=== PATIENT | male | born 1945 | race Caucasian/White ===

== ENCOUNTER 2019-08-08 10:42 | Outpatient (CLI) | payer MEDICARE, SELFPAY ==
[2019-08-08 11:13] LABS: Blood Urea Nitrogen 17 mg/dL (9-20); Calcium 9.2 mg/dL (8.4-10.2); Carbon Dioxide 30 mmol/L (22-30); Chloride 97 mmol/L (98-107); Estimated Glomerular Filt Rate > 60; Glucose 127 mg/dL (75-110); Potassium 4.2 mmol/L (3.4-5.0); Sodium 139 mmol/L (137-145)
[2019-08-08 11:22] LABS: NT Pro B Type Natriuretic Pept 493 PG/ML (5-100)
== END 2019-08-08 10:43 | disposition home or self-care (01) ==
PROVIDERS: PCP Internal Medicine; Visit Provider Internal Medicine Cardiovascular Disease
DX: R60.0 Localized edema (principal); R06.02 Shortness of breath
CPT/HCPCS: 36415; 80048; 83880

== ENCOUNTER 2019-08-25 06:59 | Outpatient (CLI) | payer MEDICARE, SELFPAY ==
--- NOTE | 2019-09-08 13:21 | SLEEP_ITS ---
CPAP titration. DATE OF STUDY: 08/25/2019 ORDERING PHYSICIAN: Selvin Gusman Nurse practitioner. REASON FOR THE STUDY: Obstructive sleep apnea syndrome on autoPAP, still symptomatic. HISTORY: The patient is a 73-year-old male, 69 inches tall, weighing 270 pounds with a body mass index of 39.9. He has a history of obstructive sleep apnea syndrome with a prior CPAP titration on July 21, 2016, with optimal pressure of 10 cm. He had some central apneas noted on the study. He has been on autoPAP 8-20 cm with good compliance. Average pressure is 15 cm. His apnea-hypopnea index is 11.8 with some centrals. This is higher than desirable as far as AHI. He is not waking up feeling refreshed. He is tired in the day and he takes naps. He has frequent nocturia. His [place] is elevated at 15. Previously, he was on 11 cm of water pressure before going on autoPAP and his apnea-hypopnea index was elevated at 15. He returned to the lab this time to determine if he needs a different setting or if he needs BiPAP due to the numerous central apneas. MEDICAL COMORBIDITIES: Atrial fibrillation, on chronic anticoagulation; hypertension, hyperlipidemia; rheumatoid arthritis, on methotrexate; chronic pain, obstructive sleep apnea syndrome. MEDICATIONS: 1. Furosemide 40 mg b.i.d. 2. Methotrexate 2.5 mg 10 tablets weekly. 3. Gabapentin 300 mg t.i.d. 4. Aspirin 81 mg a day. 5. Eliquis 5 mg twice a day. 6. Simvastatin 40 mg a day, half tablet daily. 7. Folic acid 1 mg daily. 8. Prednisone 5 mg 3 tablets once a day. 9. Metoprolol tartrate 25 mg half tablet b.i.d. 10. B complex vitamin. 11. Multivitamin. 12. Calcium daily. 13. Amiodarone 200 mg b.i.d. HABITS: No tobacco since 1998. Four cups of caffeinated beverage a day. DESCRIPTION OF THE STUDY: On the [place] Sleepiness Scale, his score is 16. This was conducted as a full night CPAP titration using the [employer] multiple channel system including EOG, EEG, submental EMG, EKG, nasal and oral airflow using thermistors and nasal pressure sensors, chest and abdominal belts, body position data and pulse oximetry. This study was scored using CMS guidelines. Duration of the study was 414.4 minutes. Sleep time 383.5 minutes. Sleep efficiency 92.5%. Sleep latency 5.6 minutes. REM latency short, 64 minutes. There were 19 awakenings and he spent 6.2% of the study awake after sleep onset 25.3 minutes. Sleep architecture showed 4.6% stage 1 sleep, 73.1% stage 2 sleep, 0.1% stage 3 sleep and 15.9% stage REM. He spent 90.8% of the study supine. He had 4 REM cycles. Sleep was overall well consolidated. The apnea-hypopnea index overall for the study was 13.9. The obstructive index was 13.3, central index 0.2. He had 8 obstructive apneas, 3 obstructive hypopneas for an index of 10.2. This was in supine REM. There was no non-supine REM. He had 20 obstructive apneas, 1 central apnea, 3 mixed apneas, 53 obstructive hypopneas in supine non-REM for an index of 15.1. He had 1 obstructive apnea in non-supine non-REM for an index of 4.8. The supine index is 14.2. Non-supine index 4.8. Lowest desaturation 77%. The patient spent 4.8 minutes below 88% saturation 1.2% of the study. He had 89 desaturations of 4% or greater for an index of 12.9. Mean saturation was 96%. AROUSALS: 55 arousals for an index of 8.0. He had 6 apneas for an index of 0.9, 6 hypopneas for an index of 0.9, 7 snores for an index of 1, 17 spontaneous for an index of 2.5, 19 limb movements for an index of 2.8. LIMB MOVEMENTS: 862 isolated limb movements for an index of 134.9. He had 11 periodic limb movements for an index of 1.7. EKG: Mean heart rate 62, sinus rhythm, sinus bradycardia also seen. During this titration, the patient used a
== END 2019-08-25 07:00 | disposition home or self-care (01) ==
LOC: ANHCSM 07:00
PROVIDERS: PCP Internal Medicine; Visit Provider Nurse Practitioner Family
DX: G47.33 Obstructive sleep apnea (adult) (pediatric) (principal)
CPT/HCPCS: 95811

== ENCOUNTER 2019-10-04 10:37 | Outpatient (CLI) | payer MEDICARE, SELFPAY ==
--- NOTE | ~2019-10-04 | CT_ITS ---
EXAMINATION: CT abdomen pelvis wo con DATE: 10/04/2019 11:30 INDICATION: Left lower quadrant pain, possible hernia TECHNIQUE: Computed tomography (CT) of the abdomen and pelvis was performed without intravenous contr ast. The dose-length product (DLP) was 1503.05 mGy-cm. Automated exposure control and iterative recon struction technique were employed. COMPARISON: None FINDINGS: Minimal dependent atelectasis is present in the lung bases. The heart size is normal. There is nodularity of the liver surface. The spleen, pancreas, and gallbladder are normal. There is a 14 mm adenoma of the right adrenal gland. A 16 mm mass of the left adrenal gland likely represents an ad enoma in the absence of known malignancy. There is a 9 mm nonobstructing stone of the left kidney low er pole. The right kidney is unremarkable. There is calcified atherosclerosis of the aorta and many o f the other arteries. Colonic diverticulosis is present without evidence of diverticulitis. There is severe lumbar spondylosis. There is a tiny umbilical hernia containing fat. No large ventral hernias identified. IMPRESSION: 1. No CT correlate for the patient's symptoms. 2. Nonobstructing left nephrolithiasis. Reviewed, dictated and finalized at location A.
[2019-10-04 11:20] LABS: Basophils Percent Auto 0.3 % (0.2-1.2); Eosinophils Percent Auto 0.2 % (0-4.4); Hematocrit 36.8 % (42.0-52.0); Hemoglobin 11.8 g/dL (14.0-18.0); Immature Granulocyte Absolute 0.07 K/mm3 (0.00-0.031); Immature Granulocyte Percent A 0.8 % (0-0.5); Lymphocytes Absolute Auto 0.62 K/mm3 (0.9-3.2); Lymphocytes Percent Auto 6.9 % (18.3-44.2); Mean Corpuscular HGB Conc 32.1 g/dl (32-36); Mean Corpuscular Hemoglobin 31.7 pg (26-34); Mean Corpuscular Volume 98.9 fl (80-100); Monocytes Absolute Auto 0.4 K/mm3 (0.1-0.6); Monocytes Percent Auto 4.8 % (2.6-8.5); Neutrophils Absolute Auto 7.9 K/mm3 (1.3-6.7); Platelet Count Result 179 k/mm3 (150-375); Red Blood Count 3.72 M/mm3 (4.6-6.20); Red Cell Distribution Width 15.4 % (11.5-14.5)
[2019-10-04 11:31] LABS: Hemoglobin A1C 5.2 % (<5.7)
[2019-10-04 11:34] LABS: Alanine Aminotransferase 23 U/L (4-50); Albumin Level 3.7 g/dL (3.5-5.1); Alkaline Phosphatase 108 U/L (38-126); Aspartate Amino Transferase 27 U/L (17-59); Bilirubin,Total 0.6 mg/dL (0.2-1.3); Blood Urea Nitrogen 15 mg/dL (9-20); Calcium 8.7 mg/dL (8.4-10.2); Carbon Dioxide 28 mmol/L (22-30); Chloride 105 mmol/L (98-107); Estimated Glomerular Filt Rate > 60; Glucose 129 mg/dL (75-110); Potassium 3.9 mmol/L (3.4-5.0); Sodium 138 mmol/L (137-145)
[2019-10-04 11:53] LABS: Creatinine Urine 68.3 mg/dL
[2019-10-04 12:07] LABS: Microalbumin Urine Random < 6.0 mg/L (0-16.7)
[2019-10-04 12:08] LABS: MALB Creatinine Ratio < 8.8 mg/g (0-30)
[2019-10-04 12:25] LABS: Iron 49 ug/dL (49-181)
[2019-10-04 12:34] LABS: Percent Iron Saturation 16 % (20-50)
[2019-10-04 12:44] LABS: Folic Acid > 20.0 ng/mL (2.76->20)
== END 2019-10-04 10:38 | disposition home or self-care (01) ==
PROVIDERS: PCP Internal Medicine; Visit Provider Internal Medicine
DX: I48.91 Unspecified atrial fibrillation (principal); R73.01 Impaired fasting glucose; D64.9 Anemia, unspecified; R10.32 Left lower quadrant pain; N20.0 Calculus of kidney
CPT/HCPCS: 36415; 74176; 80053; 82043; 82607; 82728; 82746; 83036; 83540; 83550; 84443; 85025

== ENCOUNTER 2019-10-10 10:11 | Outpatient (CLI) | payer MEDICARE, SELFPAY ==
[2019-10-10 11:35] LABS: IFOB Positive Control Positive; Immunochemical Fecal Occult Bl Negative (N)
== END 2019-10-10 10:12 | disposition home or self-care (01) ==
PROVIDERS: PCP Internal Medicine; Visit Provider Internal Medicine
DX: D64.9 Anemia, unspecified (principal)
CPT/HCPCS: 82274

== ENCOUNTER 2019-10-13 09:35 | Outpatient (CLI) | payer MEDICARE, SELFPAY ==
--- NOTE | ~2019-10-13 | DEXA_ITS ---
Bone Density Report Name: Hema Chaves Age: 74 Sex: Male Ethnicity: White Date of : 1945 Indication: history of glucocorticoids; rheumatoid arthritis; Referring Provider: SHANNON CANALES Study: Bone densitometry was performed. Exam Date: October 13, 2019 Accession number: [id number] Bone Density: Region BMD T-score Z-score Classification AP Spine (L1, L2) 1.234 1.6 2.6 Normal Femoral Neck (Left) 0.661 -2.0 -0.7 Osteopenia Total Hip (Left) 0.876 -1.0 -0.3 Normal Total Hip Bilateral Avg 0.787 -1.6 -0.9 Osteopenia Femoral Neck (Right) 0.591 -2.5 -1.2 Osteoporosis Total Hip (Right) 0.697 -2.2 -1.5 Osteopenia World Health Organization criteria for BMD impression classify patients as: Normal (T-score at or above -1.0), Osteopenia (T-score between -1.0 and -2.5), or Osteoporosis (T-score at or below -2.5). 10-year Fracture Risk: FRAX not reported because: Some T-score for Spine Total or Hip Total or Femoral Neck at or below -2.5 Clinical Information Provided by Patient: Has taken Glucocorticoids Has rheumatoid arthritis Has used the following medications: Vitamin D, Calcium Patient maximum height was 70.5 No regular weight bearing exercise Drinks caffeinated beverages Impression: The patient has osteoporosis, based on the Right Femoral Neck T-score. The patient has risk factors, including: history of glucocorticoid therapy. Discussion: INCREASED RISK OF FRACTURE. BONE DENSITY IS UNDESIRABLY LOW AT ONE OR MORE SKELETAL SITES, CONSISTENT WITH OSTEOPOROSIS. This patient's lowest T-score meets the World Health Organization's (WHO) criteria for osteoporosis at one or more sites (T-score -2.5 or below). In untreated patients, the risk of osteoporotic fracture increases approximately two-fold for each 1.0 SD decrease in T-score. Low bone density is not the only risk factor for fracture; also consider factors such as patient's age, frailty or poor health, risk of falling, risk of injury, previous osteoporotic fracture, family history of osteoporosis, cigarette smoking, low body weight, etc. Not everyone with low bone mineral density has osteoporosis; osteomalacia and other metabolic bone disorders should also be considered. Patients who have osteoporosis should be evaluated for specific diseases and conditions (secondary causes) that may cause or contribute to bone loss. The National Osteoporosis Foundation (NOF) recommends pharmacologic intervention for men with BMD at this level (a T-score of -2.5 or below). The patient should follow a healthful lifestyle (good nutrition with adequate calcium and vitamin D, and appropriate weight-bearing exercise). Follow-Up: Consider repeating this study in 2 years to reassess this patient's status, or sooner if there is some new clinical indication. Reported by: GERALDINE on 10/13/2019 10:02
== END 2019-10-13 09:36 | disposition home or self-care (01) ==
LOC: ANHIMG 09:38
PROVIDERS: PCP Internal Medicine; Visit Provider Internal Medicine Rheumatology
DX: M85.89 Other specified disorders of bone density and structure, multiple sites (principal)
CPT/HCPCS: 77080

== ENCOUNTER 2019-11-27 13:41 | Outpatient (CLI) | payer MEDICARE, SELFPAY ==
--- NOTE | 2019-11-27 13:45 | ECHO_ITS ---
Patient Info Name: eHma Chaves Age: 74 years : 1945 Gender: Male Ht: 68 in Wt: 270 lbs BSA: 2.48 m2 HR: 69 bpm BP: 171 / 92 mmHg Technical Quality: Good Exam Date: 11/27/2019 1:59 PM Exam Location: [facility] Patient Status: Outpatient Admit Date: 11/27/2019 Staff Ordering Physician: Farrukh Moeller MD Desk Representative: Bruce Harper RDCS, RT Attending Provider: Farrukh Moeller MD Exam Type: CA echo doppler color flow Study Info Indications I50.9 - Heart failure, unspecified Complete two-dimensional, color flow and Doppler transthoracic echocardiogram is performed. Summary 1. Left ventricular chamber dimension is moderately enlarged. 2. Left ventricular systolic function is preserved, estimated at 50-55%. 3. There is mildly increased left ventricular wall thickness. 4. The left ventricular diastolic function is abnormal. 5. E/e' 12 is mildly elevated. 6. Global longitudinal strain is abnormal at -13.9%. 7. Linear artifact in right ventricle suggestive of catheter(s), pacemaker lead(s), or ICD lead(s). 8. Left atrial chamber dimension is severely enlarged. 9. Right atrial chamber dimension is mildly enlarged. 10. Linear artifact in the right atrium suggestive of catheter(s), pacemaker lead(s), or ICD lead(s). 11. The mitral valve has mildly calcified annulus. 12. There is moderate mitral valve regurgitation. 13. There is mild to moderate tricuspid valve regurgitation. 14. Mild pulmonary hypertension, estimated pulmonary arterial systolic pressure is 41 mmHg. 15. Dilated inferior vena cava with >50% collapse upon inspiration consistent with elevated right atrial pressure, 10 mmHg. 16. There is trivial pericardial effusion. Left Ventricle E/e' 12 is mildly elevated. Global longitudinal strain is abnormal at -13.9%. Left ventricular systolic function is preserved, estimated at 50-55%. Left ventricular chamber dimension is moderately enlarged. There is mildly increased left ventricular wall thickness. The left ventricular diastolic function is abnormal. Right Ventricle Linear artifact in right ventricle suggestive of catheter(s), pacemaker lead(s), or ICD lead(s). Right ventricular chamber dimension is normal. Right ventricular systolic function is normal. Left Atria Left atrial chamber dimension is severely enlarged. Right Atria Linear artifact in the right atrium suggestive of catheter(s), pacemaker lead(s), or ICD lead(s). Right atrial chamber dimension is mildly enlarged. Aortic Valve The aortic valve is trileaflet. There is no aortic valve stenosis. There is no aortic valve regurgitation. Pulmonic Valve There is no pulmonic regurgitation. Mitral Valve The mitral valve has mildly calcified annulus. There is no mitral valve stenosis. There is moderate mitral valve regurgitation. Tricuspid Valve There is mild to moderate tricuspid valve regurgitation. Mild pulmonary hypertension, estimated pulmonary arterial systolic pressure is 41 mmHg. Pericardium/Pleural There is trivial pericardial effusion. Inferior Vena Cava Dilated inferior vena cava with >50% collapse upon inspiration consistent with elevated right atrial pressure, 10 mmHg. Aorta The aortic root size at the sinus of Valsalva is normal. Left Ventricular Outflow Tract Name Value Normal
[2019-11-27 13:57] LABS: Basophils Percent Auto 0.1 % (0.2-1.2); Eosinophils Percent Auto 0.1 % (0-4.4); Hematocrit 39.7 % (42.0-52.0); Hemoglobin 12.7 g/dL (14.0-18.0); Immature Granulocyte Absolute 0.05 K/mm3 (0.00-0.031); Immature Granulocyte Percent A 0.7 % (0-0.5); Immature Reticulocyte Fraction 14.8 % (3.0-15.9); Lymphocytes Absolute Auto 0.82 K/mm3 (0.9-3.2); Lymphocytes Percent Auto 11.2 % (18.3-44.2); Mean Corpuscular Hemoglobin 31.4 pg (26-34); Mean Corpuscular Volume 98.3 fl (80-100); Mean Platelet Volume 10.4 fl (7.4-10.4); Monocytes Absolute Auto 0.4 K/mm3 (0.1-0.6); Monocytes Percent Auto 4.9 % (2.6-8.5); Neutrophils Absolute Auto 6.1 K/mm3 (1.3-6.7); Platelet Count Result 182 k/mm3 (150-375); Red Blood Count 4.04 M/mm3 (4.6-6.20); Red Cell Distribution Width 14.6 % (11.5-14.5); Reticulocyte Hemoglobin Conten 35.9 pg (28.2-35.7); Reticulocytes Absolute 0.09 B/L (32.2-175.7); White Blood Count 7.4 K/mm3 (4.5-10.0)
[2019-11-27 14:56] LABS: Hepatitis B Surface Antigen Negative (Negative)
[2019-11-27 15:02] LABS: HAV RESULT Negative (Negative); Hepatitis B Core IgM Result Negative (Negative)
[2019-11-27 15:13] LABS: Hepatitis C Virus Antibody Negative (Negative)
== END 2019-11-27 13:42 | disposition home or self-care (01) ==
PROVIDERS: PCP Internal Medicine; Visit Provider Internal Medicine
DX: I50.22 Chronic systolic (congestive) heart failure (principal); D64.9 Anemia, unspecified; K74.60 Unspecified cirrhosis of liver
CPT/HCPCS: 36415; 80074; 85025; 85046; 93306

== ENCOUNTER 2019-12-12 09:57 | Outpatient (CLI) | payer MEDICARE, SELFPAY ==
--- NOTE | ~2019-12-12 | XR_ITS ---
XR knee RT 2V DATE: 12/12/2019 10:15 INDICATION: Right knee pain. No injury. TECHNIQUE: AP and lateral views COMPARISON: 02/14/2018 bilateral knees FINDINGS: There is tricompartment osteoarthritis involving particularly the medial and patellofemoral compartments. There is hypertrophic change of the medial tibial spine. No fracture or dislocation, periosteal reaction or bone destruction is evident. There is moderate ost eopenia. No joint effusion or radiopaque intra-articular loose body is noted. Arterial calcification. IMPRESSION: Tricompartment osteoarthritis Osteopenia Extensive arterial calcification Reviewed, dictated and finalized at location A.
== END 2019-12-12 09:58 | disposition home or self-care (01) ==
PROVIDERS: PCP Internal Medicine; Visit Provider Internal Medicine Rheumatology
DX: M25.561 Pain in right knee (principal); M17.11 Unilateral primary osteoarthritis, right knee; M85.861 Other specified disorders of bone density and structure, right lower leg; I70.201 Unspecified atherosclerosis of native arteries of extremities, right leg
CPT/HCPCS: 73560

== ENCOUNTER → 2020-05-20 10:41 | Outpatient (CLI) | payer MEDICARE, SELFPAY ==
--- NOTE | ~2020-05-20 | XR_ITS ---
XR hand RT 2V, XR wrist RT 2V 05/20/2020 12:04 Indication: Multiple joint pain Procedure: 2 views of the right hand and 2 views of the right wrist Comparison: 12/14/2018 Findings: There is persistent severe polyarticular osteoarthritis of the right hand and wrist involvi ng the interphalangeal joints, metacarpophalangeal joints, first CMC joints and all carpal joints wit h invagination of the distal radius by the lunate. No significant interval change. No erosive changes are identified. No acute fractures identified. Extensive arterial calcifications at the wrist level. Impression: 1: No significant change to severe polyarticular osteoarthritis of the right hand and wrist compared with 12/14/2018. Reviewed, dictated and finalized at location B. BED WORKER Impression: 1: No significant change to severe polyarticular osteoarthritis of the right alvarez nd and wrist compared with 12/14/2018. Impression: 1: No significant change to severe polyarticular osteoarthritis of the right alvarez nd and wrist compared with 12/14/2018.
--- NOTE | ~2020-05-20 | XR_ITS ---
EXAMINATION: XR ankle LT 2V, XR foot LT 2V DATE: 05/20/2020 12:04 INDICATION: Multiple joint pain TECHNIQUE: 1. Anteroposterior and lateral view of the left ankle were obtained. 2. Dorsoplantar and lateral views of the left foot were obtained. COMPARISON: None. FINDINGS: Alignment of the foot and ankle is normal. No fractures. Enthesopathic ossicle and associated plantar calcaneal spur. Polyarticular osteoarthritis characterized by mild nonuniform joint space narrowing and/or tiny marginal osteophytes, moderate severity at the first metatarsophalangeal joint and mild a t the majority of the tarsal metatarsal, interphalangeal and remaining metatarsophalangeal joints. No ankle joint effusion. Scattered atherosclerotic calcifications. IMPRESSION: 1. Polyarticular osteoarthritis, moderate at the left first metatarsophalangeal and mild at multiple additional joints in the left mid and forefoot. 2. Plantar calcaneal spur and associated enthesopathic ossicle. Reviewed, dictated and finalized at location A. INSTRUCTOR IMPRESSION: 1. Polyarticular osteoarthritis, moderate at the left first metatarsophalangeal and mild at multiple additional joints in the left mid and forefoot. 2. Plantar calcaneal spur and associated enthesopathic ossicle.
--- NOTE | ~2020-05-20 | XR_ITS ---
EXAMINATION: XR hand LT 2V, XR wrist LT 2V DATE: 05/20/2020 12:04 INDICATION: Multiple joint pain TECHNIQUE: 1. Posteroanterior and lateral views of the left wrist were obtained. 2. Dorsal palmar and lateral views of the left hand were obtained. 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 This inc ludes remodeling with osteolysis at the proximal pole of the scaphoid, lunate and at the lunate fossa of the distal radius. The proximal pole of the capitate extends across the markedly widened scapholu minerva interval to articulate with the distal articular surface of the radius. Additional severe osteoa rthritis at the distal radioulnar, triscaphe, first carpal metacarpal and third metacarpophalangeal j oints. Moderate osteoarthritis at the first and fourth metacarpophalangeal and first interphalangeal joints. Mild osteoarthritis at the remaining metacarpophalangeal and interphalangeal joints. There ar e few loose osteochondral bodies at the dorsal aspect of the wrist. Scattered atherosclerotic calcifi cations. IMPRESSION: 1. 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 Reviewed, dictated and finalized at location A. COILER IMPRESSION: 1. Scapholunate advanced collapse (SLAC) wrist with polyarticular osteoarthriti s, severe to advanced at the left carpus and wrist.
--- NOTE | ~2020-05-20 | XR_ITS ---
EXAMINATION: XR ankle RT 2V, XR foot RT 2V DATE: 05/20/2020 12:04 INDICATION: Multiple joint pain. TECHNIQUE: 1. Anteroposterior and lateral view of the right ankle were obtained. 2. Dorsoplantar and lateral views of the right foot were obtained. COMPARISON: 12/14/2018 FINDINGS: Alignment of the foot and ankle is normal. No fractures. Small plantar calcaneal spur. Mild polyartic ular osteoarthritis characterized by mild nonuniform joint space narrowing and/or tiny marginal osteo phytes at multiple tarsal metatarsal, first, third and fifth metatarsophalangeal and multiple interph alangeal joints. No ankle joint effusion. Scattered atherosclerotic calcifications. IMPRESSION: 1. Mild polyarticular osteoarthritis in the right mid and forefoot. 2. Small plantar calcaneal spur. Reviewed, dictated and finalized at location A. TER SAXOPHONES IMPRESSION: 1. Mild polyarticular osteoarthritis in the right mid and forefoot. 2. Small plantar calcaneal spur.
== END ==
PROVIDERS: PCP Internal Medicine; Visit Provider Internal Medicine Rheumatology
DX: M19.032 Primary osteoarthritis, left wrist (principal); M19.042 Primary osteoarthritis, left hand; M19.072 Primary osteoarthritis, left ankle and foot; M77.32 Calcaneal spur, left foot; M19.071 Primary osteoarthritis, right ankle and foot; M77.31 Calcaneal spur, right foot
CPT/HCPCS: 73100; 73120; 73600; 73620

== ENCOUNTER 2020-07-13 17:43 | Emergency (ER) | payer MEDICARE, SELFPAY ==
[2020-07-13 17:44] VITALS: BP 147/60; PULSE 76; RESP 16; TEMP 35.8; O2SAT 95
[2020-07-13 18:35] LABS: Basophils Percent Auto 0.2 % (0.2-1.2); Eosinophils Absolute Auto 0.1 K/mm3 (0-0.3); Eosinophils Percent Auto 0.5 % (0-4.4); Hematocrit 38.8 % (42.0-52.0); Hemoglobin 12.7 g/dL (14.0-18.0); Immature Granulocyte Absolute 0.07 K/mm3 (0.00-0.031); Immature Granulocyte Percent A 0.8 % (0-0.5); Lymphocytes Absolute Auto 1.83 K/mm3 (0.9-3.2); Mean Corpuscular HGB Conc 32.7 g/dl (32-36); Mean Corpuscular Hemoglobin 31.4 pg (26-34); Mean Corpuscular Volume 95.8 fl (80-100); Monocytes Absolute Auto 0.9 K/mm3 (0.1-0.6); Monocytes Percent Auto 9.6 % (2.6-8.5); Neutrophils Absolute Auto 6.3 K/mm3 (1.3-6.7); Neutrophils Percent Auto 68.9 % (45.5-73.1); Platelet Count Result 158 k/mm3 (150-375); Red Blood Count 4.05 M/mm3 (4.6-6.20); Red Cell Distribution Width 16.5 % (11.5-14.5); White Blood Count 9.2 K/mm3 (4.5-10.0)
[2020-07-13 18:42] LABS: Add Urine Microscopic? YES; Appearance Urine Cloudy (Clear); Bacteria Urine 4+ /hpf; Bilirubin Urine Negative (Negative); Blood Urine 3+ (Negative); Color Urine Red (Yellow); Glucose Urine UA Negative (Negative); Ketones Urine Negative (Negative); Leukocyte Esterase Ur Trace LEU/UL (Negative); Nitrate Urine Negative (Negative); Protein Urine 2+ mg/dL (Negative); RBC Urine >75 /hpf (0-2); Specific Grav Ur 1.021 (1.001-1.035); WBC Urine 0-3 /hpf
[2020-07-13 18:47] LABS: Anion Gap 4 mmol/L (8-16); Blood Urea Nitrogen 18 mg/dL (9-20); Calcium 8.7 mg/dL (8.4-10.2); Carbon Dioxide 30 mmol/L (22-30); Chloride 104 mmol/L (98-107); Estimated CRCL calculation 91 ml/min; Estimated Glomerular Filt Rate > 60; Glucose 99 mg/dL (75-110); Potassium 4.1 mmol/L (3.4-5.0); Sodium 138 mmol/L (137-145)
--- NOTE | 2020-07-13 18:48 | ED.MALEGU ---
HPI - Male Genitourinary General Chief complaint: Urogenital-Male Stated complaint: BLOOD IN URINE Time Seen by Provider: 07/13/20 18:20 Source: patient and family Mode of arrival: ambulatory Limitations: no limitations History of Present Illness HPI Narrative: 74 years old white male presents with bloody urine noticed today. Patient on Eliquis for atrial fibrillation. Patient denies any symptoms except blood in the urine. Denies any dysuria, fever, chills, nausea, vomiting, similar symptoms. Related Data Home Medications Medication Instructions Recorded Confirmed B-complex with vitamin C 1 tablet PO DAILY 06/12/19 05/08/20 apixaban 5 mg tablet 5 mg PO BID 06/12/19 05/08/20 aspirin 81 mg tablet,delayed 81 mg PO DAILY 06/12/19 05/08/20 release folic acid 1 mg tablet 1 mg PO DAILY 06/12/19 05/08/20 gabapentin 300 mg capsule 300 mg PO BID 06/12/19 05/08/20 multivitamin 1 tablet PO DAILY 06/12/19 05/08/20 simvastatin 20 mg tablet 20 mg PO DAILY 06/27/19 05/08/20 alendronate 70 mg tablet 70 mg PO WEEKLY 11/16/19 05/08/20 calcium carbonate 600 mg calcium 600 mg PO BID tablet 11/16/19 05/08/20 (1,500 mg) tablet etanercept 50 mg/mL (1 mL) 50 mg SUB-Q .Month ml 12/18/19 05/08/20 subcutaneous syringe amiodarone 200 mg tablet 200 mg PO DAILY tablet 03/08/20 05/08/20 metoprolol tartrate 25 mg tablet 25 mg PO BID tablet 03/08/20 05/08/20 prednisolone 5 mg tablet 20 mg PO DAILY tablet 05/08/20 05/08/20 Allergies Allergy/AdvReac Type Severity Reaction Status Date / Time No Known Allergies Allergy Verified 06/07/20 09:40 Review of Systems Review of Systems: Narrative: CONSTITUTIONAL: Denies fever, chills, or sweats. EYES: Denies visual changes, redness, or discharge. ENT: Denies rhinorrhea, congestion, sore throat, or otalgia. CARDIOVASCULAR: Denies chest pain, palpitations, or edema. RESPIRATORY: Denies cough or dyspnea. GASTROINTESTINAL: Denies abdominal pain, nausea, vomiting, or diarrhea. GENITOURINARY: Denies dysuria or hematuria. SKIN: Denies rash or itching. MUSCULOSKELETAL: Denies back pain, joint pain, or myalgia. NEUROLOGIC: Denies headache, numbness, or weakness. PSYCHIATRIC: Denies anxiety or depression. PMFSH Family History Family History Mother Family history of malignant neoplasm of breast, Onset Age: 84 Family history of malignant neoplasm of bone Other Family history of malignant neoplasm Social History Social History Smoking packs per day: 1 Smoking cigarettes per day: 20.0 Years smoked: 40 Smoking pack-years: 40.00 Tobacco type: cigarettes Second hand tobacco smoke exposure: No Smoking end date: 06/21/98 Alcohol intake: never Exam Narrative: Exam Narrative: General appearance: Well-developed, well-nourished Skin: Normal color Chest and respiratory: Airway patent, no respiratory distress, no accessory muscle use Heart: Regular rate/rhythm Abdomen: Soft, nontender, no organomegaly, quiet bowel sounds Musculoskeletal: Normal range of motion, nontender back Neurologic: Alert and oriented ?3, Course Course Emergency Course: Stable Vital Signs Vital signs: Vital Signs Temperature 35.8 C L 07/13/20 17:44 Pulse Rate 76 07/13/20 17:44 Respiratory Rate 16 07/13/20 17:44 Blood Pressure 147/60 H 07/13/20 17:44 Pulse Oximetry 95 07/13/20 17:44 Temperature 35.8 C L 07/13/20 17:44 Pulse Rate 76 07/13/20 17:44 Respiratory Rate 16 07/13/20 17:44 Blood Pressure 147/60 H 07/13/20 17:44 Pulse Oximetry 95 07/13/20 17:44 MDM - Male Genitourinary MDM Narrative
[2020-07-13] MEDS: CIPROFLOXACIN 500 MG TAB PO (19:09)
== END 2020-07-13 19:11 | disposition home or self-care (01) ==
PROVIDERS: Emergency Medicine Emergency Medical Services; Emergency Provider Emergency Medicine; PCP Internal Medicine
DX: N02.9 Recurrent and persistent hematuria with unspecified morphologic changes (principal); I48.91 Unspecified atrial fibrillation; Z79.01 Long term (current) use of anticoagulants; F17.210 Nicotine dependence, cigarettes, uncomplicated; Z79.82 Long term (current) use of aspirin
CPT/HCPCS: 36415; 80048; 81001; 85025; 99283; A9270

== ENCOUNTER 2020-07-22 08:42 | Outpatient (CLI) | payer MEDICARE, SELFPAY ==
--- NOTE | ~2020-07-22 | CT_ITS ---
EXAMINATION: CT abdomen pelvis wo/w con DATE: 07/22/2020 09:36 INDICATION: Gross hematuria TECHNIQUE: Computed tomography (CT) of the abdomen and pelvis was performed without and subsequently with 130 cc Omnipaque 350 intravenous contrast. Automated exposure control and iterative reconstructi on technique were employed. Exam dose: 2991.66 mGy-cm total exam DLP. COMPARISON: July 22, 2020 KUB 10/04/2019 CT abdomen pelvis noncontrast examination FINDINGS: Prominent bilateral lower lung infiltrate and/or atelectasis, favoring the lower lobes. Cardiomegaly. Right atrial, right ventricular and coronary artery sinus pacemaker leads. Status post sternotomy. Surface nodularity of liver suggesting cirrhosis. No hepatic space-occupying mass lesion is evident. The gallbladder is present and appears unremarkable by CT examination. No pericholecystic fluid or st randing. No bile duct or pancreatic duct dilatation. No pancreatic mass lesion or calcification. Normal splenic size. Small left adrenal mass, likely an adenoma. No renal mass lesion or urinary tract calculus or hydroureteronephrosis. There is extensive calcification of the abdominal aorta as well as celiac, common hepatic, splenic, s uperior mesenteric and extensive bilateral renal artery calcifications, in addition to extensive roxanna c and femoral artery calcifications. No abdominal aortic aneurysm. No intraperitoneal or retroperitoneal or pelvic mass lesion or adenopathy or ascites. The urinary bladder appears unremarkable. Mild prostate enlargement. Diverticulosis of the sigmoid and descending colon and to a lesser extent transverse and right colon. No CT evidence of diverticulitis. No bowel obstruction, bowel wall thickening, pneumatosis or intraperitoneal free air. Prominent degenerative changes of the thoracic and lumbar spine including prominent degenerative disc disease throughout the lumbar and lumbosacral spine, degenerative change at the facet joints, with a ssociated grade 1 anterolisthesis at L4-5. No suspicious osteolytic or osteoblastic lesions are noted. IMPRESSION: No cause for gross hematuria is identified Extensive atherosclerosis Prominent bilateral lower lung infiltrate and/atelectasis, favoring lower lobes Cardiomegaly Triple lead pacemaker Status post sternotomy Diverticulosis of the colon Reviewed, dictated and finalized at Location A. Reviewed, dictated and finalized at location A. [employer]
--- NOTE | ~2020-07-22 | XR_ITS ---
XR abdomen/kub 1V DATE: 07/22/2020 09:02 INDICATION: Gross hematuria TECHNIQUE: AP projection, 2 views COMPARISON: 07/22/2020 CT abdomen without and with IV contrast material FINDINGS: Abdominal aortic and bilateral renal as well as bilateral iliac and femoral artery calcific ations. There is no evidence of bowel obstruction. No visceromegaly is detected. Rotatory dextroscoliosis and severe multilevel degenerative disc disease of the lumbar spine. IMPRESSION: Extensive arterial atherosclerosis Rotatory dextroscoliosis and severe multilevel degenerative disc disease of the lumbar spine No evidence of bowel obstruction Reviewed, dictated and finalized at Location A. Reviewed, dictated and finalized at location A. CTOR OF C[employer]ER RESOURCES
== END 2020-07-22 08:43 | disposition home or self-care (01) ==
PROVIDERS: PCP Internal Medicine; Visit Provider Nurse Practitioner Adult Health
DX: R31.0 Gross hematuria (principal); I70.0 Atherosclerosis of aorta; K57.30 Diverticulosis of large intestine without perforation or abscess without bleeding; R91.8 Other nonspecific abnormal finding of lung field; Z95.0 Presence of cardiac pacemaker
CPT/HCPCS: 74018; 74178; Q9967

== ENCOUNTER 2020-07-31 13:01 | Outpatient (CLI) | payer MEDICARE, SELFPAY ==
--- NOTE | ~2020-07-31 | XR_ITS ---
XR chest 2V 07/31/2020 13:11 Indication: Shortness of breath Procedure: 2 view chest Comparison: No prior studies for comparison. Findings: Patchy bilateral airspace disease, compatible with pneumonia. Status post median sternotomy for CABG. No significant pleural effusion or pneumothorax. Heart size normal. Pacemaker leads in exp ected position. Impression: 1: Patchy bilateral airspace disease, compatible with pneumonia. Reviewed, dictated and finalized at location B. PACKER Impression: 1: Patchy bilateral airspace disease, compatible with pneumonia.
== END 2020-07-31 13:02 | disposition home or self-care (01) ==
LOC: ANHIMG 13:04
PROVIDERS: PCP Internal Medicine; Visit Provider Nurse Practitioner Family
DX: B94.8 Sequelae of other specified infectious and parasitic diseases (principal); R06.02 Shortness of breath; R91.8 Other nonspecific abnormal finding of lung field
CPT/HCPCS: 71046

== ENCOUNTER 2020-08-15 08:17 | Outpatient (CLI) | payer MEDICARE, SELFPAY ==
[2020-08-15 08:56] LABS: Rheumatoid Factor < 8.6 IU/ML (<12)
[2020-08-21 22:04] LABS: Anti Cyclic Citrullinated Pept <16 Units (<20)
== END 2020-08-15 08:18 | disposition home or self-care (01) ==
PROVIDERS: PCP Internal Medicine; Visit Provider Internal Medicine Rheumatology
DX: M19.90 Unspecified osteoarthritis, unspecified site (principal)
CPT/HCPCS: 36415; 86200; 86430

== ENCOUNTER → 2021-01-06 08:21 | Outpatient (CLI) | payer MEDICARE, SELFPAY ==
--- NOTE | ~2021-01-06 | CT_ITS ---
EXAMINATION: CT lumbar spine wo [facility] EXAM DATE: 01/06/2021 08:38 INDICATION: Low back pain. States lifting injury about 9 weeks ago. History of partial discectomy on L5. TECHNIQUE: Spiral CT of the lumbar spine was performed without contrast. Axial, coronal and sagittal images lumbar spine were reviewed. The dose-length product (DLP) for this examination was 896.23 mG y-cm. The exposure was tailored according to patient size (auto mA exposure control), and iterative reconstruction (ASIR) was used as additional dose reduction technique. Comparison is made to prior e xamination from 04/21/2019. FINDINGS: There is mild to moderate lumbar dextroscoliosis. There is moderate to severe disc disease at all lumbar levels, with partial fusion at the L5-S1 level. Mild diffuse loss of lumbar vertebral b akash heights. No spondylolysis. There is 2 mm mm retrolisthesis L3 on L4, 3 mm anterolisthesis L4 on L 5. Level by level evaluation: T11-12: There is a mild to moderate diffuse disc bulge. Facet arthropathy: Moderate to severe. Neural foraminal stenosis: Moderate to severe right, moderate left. Central canal stenosis: Mild to moderate. T12-L1: There is a mild diffuse disc bulge. Facet arthropathy: Minimal. Neural foraminal stenosis: No stenosis. Central canal stenosis: No stenosis. L1-L2: There is a moderate diffuse disc bulge. Facet arthropathy: Mild. Neural foraminal stenosis: Moderate to severe left, moderate right. Central canal stenosis: Mild to moderate. L2-L3: There is a moderate to large diffuse disc bulge. Facet arthropathy: Moderate. Neural foraminal stenosis: Moderate left, mild to moderate right. Central canal stenosis: Moderate to severe. L3-L4: There is a moderate diffuse disc bulge. Facet arthropathy: Moderate to severe. Neural foraminal stenosis: Severe left, moderate to severe right. Central canal stenosis: Moderate to severe. L4-L5: There is a moderate diffuse disc bulge. Facet arthropathy: Severe bilateral. Neural foraminal stenosis: Severe right, moderate to severe left. Central canal stenosis: Moderate. L5-S1: There is a moderate diffuse disc bulge. Facet arthropathy: Moderate. Neural foraminal stenosis: Moderate to severe bilateral. Central canal stenosis: Mild. IMPRESSION: 1. Moderate to severe lumbar spondylosis. 2. Mild to moderate dextroscoliosis. Reviewed, dictated and finalized at location A.
== END ==
PROVIDERS: Visit Provider Nurse Practitioner Family
DX: M47.896 Other spondylosis, lumbar region (principal)
CPT/HCPCS: 72131

== ENCOUNTER 2021-02-23 16:30 | Inpatient (IN) | payer MEDICARE, SELFPAY ==
[2021-02-23] VITALS (10 sets, daily range): BP systolic 98–122; BP diastolic 49–70; PULSE 60–91; RESP 19–23; TEMP 36.8–38.6; O2SAT 94–100; BMI 39.5
--- NOTE | ~2021-02-23 | CT_ITS ---
EXAMINATION: CTA chest PE protocol DATE: 02/26/2021 12:11 INDICATION: Dyspnea. TECHNIQUE: Computed tomography angiography (CTA) of the chest was performed with 100 mL Omnipaque-350 intravenous contrast timed to evaluate the pulmonary arteries. Coronal maximum intensity projection 3D-reconstructions were created by the technologist. Automated exposure control and iterative reconst ruction technique were employed. The dose-length product was 1033.74 mGy-cm. COMPARISON: CT abdomen and pelvis 07/22/2020, chest CT 04/03/2011 FINDINGS: There is mild emphysema. There is chronic peripheral septal thickening in the lungs with an inferior and posterior predominance with subpleural bands, consistent with chronic interstitial lung disease. No bronchiectasis or honeycombing. There is acute smooth septal thickening in the lungs, co nsistent with mild pulmonary edema. There are small pleural effusions. Cardiomegaly is noted. There a re coronary artery calcifications. No pericardial effusion. There are changes of coronary bypass christine ting. There is no pulmonary embolus. There is a left chest pacer with leads in right atrium, right ve ntricle, and coronary sinus. There is bilateral gynecomastia. There are old healed fractures of multi ple left-sided ribs. There is severe thoracic spondylosis. There is an age-indeterminate mild mohan maeve fracture of T8. IMPRESSION: 1. No pulmonary embolus. 2. Mild pulmonary edema. 3. Mild chronic interstitial lung disease. 4. Mild emphysema. 5. Small pleural effusions. Reviewed, dictated and finalized at location A.
--- NOTE | ~2021-02-23 | XR_ITS ---
EXAMINATION: XR chest 1V portable DATE: 02/24/2021 20:31 INDICATION: Shortness of breath. TECHNIQUE: A single frontal view of the chest was obtained. COMPARISON: Chest 2 views 02/23/2021, CT abdomen and pelvis 07/22/2020 FINDINGS: There are reticular opacities in right lower lung zone and left mid and lower lung zones. N o pleural effusion or pneumothorax. The heart size is normal. Median sternotomy wires and mediastinal surgical clips are seen, likely from prior coronary artery bypass grafting. There is a left chest pa cer with leads in right atrium, right ventricle, and coronary sinus. IMPRESSION: 1. 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 Reviewed, dictated and finalized at location A. IMPRESSION: 1. Stable reticular opacities in right lower lung zone and left mid and lower l marbin zones, likely chronic interstitial lung disease.
--- NOTE | ~2021-02-23 | CT_ITS ---
EXAMINATION: CT brain wo con DATE: 02/23/2021 17:17 INDICATION: Dizziness. TECHNIQUE: Computed tomography (CT) of the head was performed without intravenous contrast. The mA wa s adjusted according to patient size. Iterative reconstruction technique was employed. The dose-lengt h product was 605.33 mGy-cm. COMPARISON: None FINDINGS: There is no intracranial hemorrhage, acute infarction, or abnormal intracranial mass lesion . There are scattered areas of low attenuation in the cerebral white matter, which is within normal l imits for the patient's age. The ventricles are normal in size. The paranasal sinuses are clear. The re is a trace right mastoid effusion. There are likely changes of ocular lens replacement surgeries. IMPRESSION: 1. Normal brain. Reviewed, dictated and finalized at location A. IMPRESSION: 1. Normal brain.
--- NOTE | ~2021-02-23 | XR_ITS ---
EXAMINATION: XR chest 2V DATE: 02/23/2021 17:23 INDICATION: Weakness. Dizziness. TECHNIQUE: Frontal and lateral views of the chest were obtained. COMPARISON: Chest 2 views 07/31/2020, CT abdomen and pelvis 07/22/2020 FINDINGS: There are reticular opacities in the mid and lower lung zones. No pleural effusion or pneum othorax. The heart size is normal. There is a left chest pacer with leads in right atrium, right vent ricle, and coronary sinus. Median sternotomy wires are noted. IMPRESSION: 1. Reticular opacities in the mid and lower lung zones, consistent with chronic interstitial lung dis ease. Reviewed, dictated and finalized at location A. IMPRESSION: 1. Reticular opacities in the mid and lower lung zones, consistent with chronic interstitial lung disease.
--- NOTE | ~2021-02-23 | US_ITS ---
EXAMINATION: US right upper quadrant DATE: 02/26/2021 12:08 INDICATION: Abnormal liver function tests. TECHNIQUE: Multiple grayscale and Doppler ultrasound images of the abdomen were obtained. COMPARISON: Chest CT 02/26/2021 FINDINGS: The visualized portions of the head and body of the pancreas are normal. The liver demonstr ates coarsened echotexture and surface nodularity, consistent with cirrhosis. There is normal flow in main portal vein. The gallbladder is contracted. No gallstones or sonographic Harper sign. The commo n duct is normal and measures 6 mm. IMPRESSION: 1. Cirrhosis of the liver. Reviewed, dictated and finalized at location A. IMPRESSION: 1. Cirrhosis of the liver.
--- NOTE | ~2021-02-23 | CT_ITS ---
EXAMINATION: CT LE RT w con DATE: 03/02/2021 09:37 INDICATION: Pseudomonas bacteremia and right lower extremity cellulitis. TECHNIQUE: High resolution computed tomography (CT) of the right lower leg from above the knee throug h the foot was performed with 100 mL Omnipaque-350 intravenous contrast. Additional sagittal and khai nal reconstructions were performed. Automated exposure control and iterative reconstruction technique were employed. The dose-length product was 395.99 mGy-cm. COMPARISON: None FINDINGS: Bilateral total knee arthroplasties which appear in near anatomic alignment on the blocker metal base topogram. No periprosthetic lucency on the CT images surrounding the right total knee arthroplasty. No right knee joint effusion. No fracture. No periosteal reaction or cortical erosions to suggest osteomyelitis. M inimal to mild polyarticular osteoarthritis at the right foot and ankle. Small plantar calcaneal spur . There is diffuse subcutaneous edema beginning at the level of the knee in programming progressively more severe in the distal lower leg, ankle and over the dorsum of the foot where there is also assoc iated skin thickening which could be due to given history of cellulitis or venous stasis. No abscess or soft tissue gas. No evident deep venous thrombosis. There are extensive vascular calcifications al gavin the arteries of the visualized right lower leg. The circumferential nature of the calcifications throughout the majority of the vessels as well as the venous phase of contrast limits assessment for stenosis at the smaller caliber vessels of the calf. There does appear to be 3 vessel runoff of contr ast to the foot. IMPRESSION: 1. Nonspecific distal predominant subcutaneous edema and skin thickening at the right foot, ankle and calf which could be due to provided history of cellulitis or venous stasis. No evident abscess, soft tissue gas osteoarthritis or other acute osseous abnormality. Reviewed, dictated and finalized at location A. IMPRESSION: 1. Nonspecific distal predominant subcutaneous edema and skin thickening at the right foot, ankle and calf which could be due to provided history of celluliti s or venous stasis. No evident abscess, soft tissue gas osteoarthritis or other acute osseous abnormality.
--- NOTE | ~2021-02-23 | US_ITS ---
EXAMINATION: US venous doppler [facility] DATE: 02/26/2021 12:07 INDICATION: Lower limb pain and swelling. TECHNIQUE: Grayscale ultrasound images without and with compression and Doppler ultrasound images of the bilateral lower extremity veins were obtained. COMPARISON: Ultrasound 08/05/2017 FINDINGS: The visualized portions of right common femoral vein, profunda (deep) femoral vein, femoral vein, pop liteal vein, peroneal veins, posterior tibial veins, and greater saphenous vein outflow are patent. The visualized portions of left common femoral vein, profunda femoral vein, femoral vein, popliteal v ein, peroneal veins, posterior tibial veins, and greater saphenous vein outflow are patent. IMPRESSION: 1. No deep venous thrombosis. Reviewed, dictated and finalized at location A.
--- NOTE | 2021-02-23 16:39 | ECG_ITS ---
Measurements Intervals [place] Rate: 60 P: 79 OR: 92 QRS: 231 QRSD: 156 T: 207 QT: 442 QTc: 442 Interpretive Statements ELECTRONIC ATRIAL PACEMAKER ELECTRONIC VENTRICULAR PACEMAKER BASELINE ARTIFACT- I, II NO FURTHER INTERPRETATION IS POSSIBLE ATYPICAL ECG Electronically Signed On 02-24-2021 7:16:49 CDT by Jose Luis Francis D.O.
[2021-02-23] MEDS: SODIUM CHLORIDE 0.9% IV 1,000 ML 999 ML IV CONT (17:00)
[2021-02-23 17:07] LABS: Hematocrit 35.1 % (42.0-52.0); Hemoglobin 11.8 g/dL (14.0-18.0); Mean Corpuscular HGB Conc 33.6 g/dl (32-36); Mean Corpuscular Hemoglobin 32.9 pg (26-34); Mean Corpuscular Volume 97.8 fl (80-100); Mean Platelet Volume 11.3 fl (7.4-10.4); Platelet Count Result 174 k/mm3 (150-375); Red Blood Count 3.59 M/mm3 (4.6-6.20); White Blood Count 14.7 K/mm3 (4.5-10.0)
[2021-02-23 17:14] LABS: INR 1.4; Prothrombin Time 17.1 Seconds (11.1-14.7)
[2021-02-23 17:17] LABS: Alanine Aminotransferase 39 U/L (4-50); Albumin Level 3.9 g/dL (3.5-5.1); Alkaline Phosphatase 77 U/L (38-126); Anion Gap 6 mmol/L (8-16); Aspartate Amino Transferase 51 U/L (17-59); Bilirubin,Total 0.7 mg/dL (0.2-1.3); Blood Urea Nitrogen 22 mg/dL (9-20); Calcium 8.8 mg/dL (8.4-10.2); Carbon Dioxide 25 mmol/L (22-30); Chloride 101 mmol/L (98-107); Estimated CRCL calculation 80 ml/min; Estimated Glomerular Filt Rate > 60; Glucose 100 mg/dL (65-110); Sodium 132 mmol/L (137-145)
--- NOTE | 2021-02-23 17:57 | ED.GENADULT ---
HPI - General Adult General Chief complaint: Weakness Stated complaint: weak and nervous Time Seen by Provider: 02/23/21 16:44 Source: patient History of Present Illness HPI narrative: Patient is a 75 y/o male complaining of moderate dizziness since yesterday. He describes his dizziness as a feeling of unsteadiness. He feels like he is going fall when he attempts to walk. He also has some headache. He has generalized weakness, but denies focal weakness or numbness. Related Data Home Medications Medication Instructions Recorded Confirmed B-complex with vitamin C 1 tablet PO DAILY 06/12/19 02/23/21 aspirin 81 mg tablet,delayed 81 mg PO DAILY 06/12/19 02/23/21 release multivitamin 1 tablet PO DAILY 06/12/19 02/23/21 simvastatin 20 mg tablet 20 mg PO DAILY 06/27/19 02/23/21 alendronate 70 mg tablet 70 mg PO WEEKLY 11/16/19 02/23/21 calcium carbonate 600 mg calcium 600 mg PO BID tablet 11/16/19 02/23/21 (1,500 mg) tablet amiodarone 200 mg tablet 200 mg PO DAILY tablet 03/08/20 02/23/21 metoprolol tartrate 25 mg tablet 12.5 mg PO BID tablet 03/08/20 02/23/21 furosemide 40 mg tablet 40 mg PO BID tablet 07/17/20 02/23/21 gabapentin 300 mg capsule 300 mg PO BID cap 11/19/20 02/23/21 potassium chloride 20 meq PO DAILY 02/23/21 02/23/21 prednisone 3 mg PO DAILY 02/23/21 02/23/21 rivaroxaban [Xarelto] 20 mg PO QPM 02/23/21 02/23/21 upadacitinib [Rinvoq] 15 mg PO DAILY 02/23/21 02/23/21 prednisone 5 mg PO DAILY 02/24/21 02/24/21 Allergies Allergy/AdvReac Type Severity Reaction Status Date / Time No Known Allergies Allergy Verified 02/12/21 13:31 Review of Systems Constitutional: Constitutional: Denies chills, Denies fever(s), Denies headache(s) and Reports weakness Eyes: Eyes: Denies blurry vision ENT: Denies headache(s) and Denies neck pain Cardiovascular: Cardiovascular: Denies chest pain and Denies dyspnea Respiratory: Respiratory: Denies cough and Denies dyspnea Gastrointestinal: Gastrointestinal: Denies abdominal pain, Denies diarrhea, Denies nausea and Denies vomiting Genitourinary: Genitourinary: Denies hematuria and Denies dysuria Musculoskeletal: Musculoskeletal: Denies back pain and Denies neck pain Neurologic: Reports dizziness, Denies headache(s) and Reports weakness PMFSH Past Medical History Medical History (Updated 02/24/21 @ 07:15 by Josephine Harrington MD) Benign prostatic hyperplasia Chronic anticoagulation Chronic low back pain Coronary artery disease COVID-19 (06/2020) Cryptogenic cirrhosis Dyslipidemia Hypertension Ischemic cardiomyopathy Ejection fraction was 41% in October 2018. Obstructive sleep apnea treated with BiPAP Paroxysmal atrial fibrillation Rheumatoid arthritis Surgical History Surgical History (Updated 02/23/21 @ 22:46 by Roxy Reyes PA-C) History of bilateral cataract extraction History of blepharoplasty History of coronary artery bypass graft History of left knee replacement History of lumbar discectomy History of nasal septoplasty History of repair of right rotator cuff Presence of combination internal cardiac defibrillator (ICD) and pacemaker Family History Family History Mother Family history of malignant neoplasm of breast, Onset Age: 84 Family history of malignant neoplasm of bone Father Alcoholism Other Family history of malignant neoplasm Social History Social History (Updated 02/23/21 @ 22:48 by Roxy Reyes PA-C) Social History: Surrogate decision maker: Nereyda Chaves, . Code status: Full code. Smoking packs per day: 1 Smoking cigarettes per day: 20.0 Years smoked: 40 Smoking pack-years: 40.00 Smoking status: Former smoker Tobacco type: cigarettes Second hand tobacco smoke exposure: No Smoking end date: 06/21/98 Alcohol intake: never Substance use: never Substance use type: does not use Additional living arrangements comments: [facility]
[2021-02-23 17:59] LABS: Band Neutrophils Percent 5 % (0-6); Lymphocytes Absolute Manual 0.29 K/mm3 (1.1-4.5); Monocytes Absolute Manual 0.73 K/mm3 (0.1-0.90); Monocytes Percent Manual 5 % (3-9); Neutrophils Absolute Manual 13.67 K/mm3 (1.3-6.7); Neutrophils Percent Manual 88 % (46-73); Platelet Estimate Adequate (Adequate); Total Cells Counted 100
--- NOTE | 2021-02-23 18:12 | PC.NURSE ---
Patient asked to give urine sample at this time, patient will attempt but declines straight cath at this time.
[2021-02-23 18:47] LABS: Add Urine Microscopic? YES; Appearance Urine Cloudy (Clear); Bilirubin Urine Negative (Negative); Blood Urine 3+ (Negative); Color Urine Amber (Yellow); Glucose Urine UA Negative (Negative); Ketones Urine Negative (Negative); Leukocyte Esterase Ur Trace LEU/UL (Negative); Nitrate Urine Negative (Negative); Protein Urine 2+ mg/dL (Negative); RBC Urine >75 /hpf (0-2); Squamous Epithelial Cell Urine Rare /hpf (Few); Urobilinogen Urine Negative mg/dL (<2.0)
--- NOTE | 2021-02-23 19:00 | PM.IMHP ---
H&P: HPI History of Present Illness Date/Time: 02/23/21 19:00 Chief Complaint: Weakness. Narrative: This is a very pleasant 75-year-old male with coronary artery disease status post bypass, ischemic cardiomyopathy, paroxysmal atrial fibrillation, hypertension, obstructive sleep apnea, cirrhosis, and rheumatoid arthritis who presented to the emergency department earlier today from home for evaluation of weakness. He reports a gradual onset of generalized malaise with some weakness yesterday. As the day has progressed today he has felt increasingly worse with feelings of dizziness and unsteady gait, generalized headache, subjective fever, and chills. Within the last several days he has noticed some redness of the right lower leg and he does report discomfort in the same area when putting on socks. In the emergency department his temperature was as high as 101.4? and he was found to have evidence of right lower extremity cellulitis and he is being admitted in this setting. He has no prior history of cellulitis and no known history of MRSA or Pseudomonas infections. There some mild excoriations on the leg but he denies trauma to the region. No cold or flu symptoms. He denies sick contacts. Review of Systems Review of Systems: Twelve systems were reviewed with pertinent positives and negatives as per HPI. No sinus congestion, rhinorrhea, otalgia, or odynophagia. He denies known exposure to those positive for COVID 19. No cough or shortness of breath. No chest pain. He denies syncope. No vomiting or diarrhea. No dysuria. His urine has been a bit darker today but he reports that is dark quite often in fact he has been seen by the urologist for hematuria with no etiology. Patient is on low-dose prednisone for his rheumatoid arthritis. Suffers from chronic back pain for which he is seeing pain management. Except as documented, all other systems were reviewed and are negative. [facility] Past Medical History Medical History (Updated 02/23/21 @ 22:51 by Roxy Reyes PA-C) Benign prostatic hyperplasia Chronic anticoagulation Chronic low back pain Coronary artery disease COVID-19 (06/2020) Cryptogenic cirrhosis Dyslipidemia Hypertension Ischemic cardiomyopathy Ejection fraction was 41% in October 2018. Obstructive sleep apnea treated with BiPAP Paroxysmal atrial fibrillation Rheumatoid arthritis Surgical History Surgical History (Updated 02/23/21 @ 22:46 by Roxy Reyes PA-C) History of bilateral cataract extraction History of blepharoplasty History of coronary artery bypass graft History of left knee replacement History of lumbar discectomy History of nasal septoplasty History of repair of right rotator cuff Presence of combination internal cardiac defibrillator (ICD) and pacemaker Family History Family History Mother Family history of malignant neoplasm of breast, Onset Age: 84 Family history of malignant neoplasm of bone Father Alcoholism Other Family history of malignant neoplasm Social History Social History (Updated 02/23/21 @ 22:48 by Roxy Reyes PA-C) Social History: Surrogate decision maker: Nereyda Chaves, . Code status: Full code. Smoking packs per day: 1 Smoking cigarettes per day: 20.0 Years smoked: 40 Smoking pack-years: 40.00 Smoking status: Former smoker Tobacco type: cigarettes Second hand tobacco smoke exposure: No Smoking end date: 06/21/98 Alcohol intake: never Substance use: never Substance use type: does not use Additional living arrangements comments: The patient lives with his in [place]. Additional occupation/education comments: Retired. Meds Home Medications and Allergies Home Medications Medication Instructions Recorded Confirmed Type B-complex with vitamin C 1 tablet PO DAILY 06/12/19 02/23/21 History aspirin 81 mg tablet,delayed 81 mg PO DAILY 06/12/19 02/23/21 History release
[2021-02-23 19:21] LABS: EDCOVIDSCREEN Negative (Negative)
[2021-02-23 19:49] LABS: Lactic Acid Reflex 2.6 mmol/L (0.7-2.1)
--- NOTE | 2021-02-23 21:40 | ADMGEN ---
This patient, Hema Chaves , was admitted to Medical Room 255-01. Patient/family oriented to hospital policies and general routines including ID bracelet, bed and alarms, visiting hours, pain management, procedures, bathroom and other care routines, personal items, smoking policy, room service/diet, and visiting hours. Information on how to activate the Rapid Response Team has been discussed. Patient/Family are encouraged to report perceived risks to care and to ask questions if they do not understand what they are told or what they should do.
[2021-02-23 22:27] LABS: Reflex Lactic Acid Yes or No Add Lactic
[2021-02-23 23:38] LABS: Lactic Acid 3.8 mmol/L (0.7-2.1)
[2021-02-24] VITALS (21 sets, daily range): BP systolic 82–142; BP diastolic 44–64; PULSE 60–100; RESP 16–24; TEMP 36.1–37.6; O2SAT 75–100
[2021-02-24 06:04] LABS: Hematocrit 31.3 % (42.0-52.0); Hemoglobin 10.5 g/dL (14.0-18.0); Mean Corpuscular HGB Conc 33.5 g/dl (32-36); Mean Corpuscular Hemoglobin 32.7 pg (26-34); Mean Corpuscular Volume 97.5 fl (80-100); Mean Platelet Volume 12.1 fl (7.4-10.4); Platelet Count Result 122 k/mm3 (150-375); Red Blood Count 3.21 M/mm3 (4.6-6.20); Red Cell Distribution Width 15.4 % (11.5-14.5); White Blood Count 18.4 K/mm3 (4.5-10.0)
[2021-02-24 07:08] LABS: Band Neutrophils Percent 9 % (0-6); Lymphocytes Absolute Manual 0.73 K/mm3 (1.1-4.5); Monocytes Absolute Manual 0.36 K/mm3 (0.1-0.90); Monocytes Percent Manual 2 % (3-9); Neutrophils Absolute Manual 17.29 K/mm3 (1.3-6.7); Neutrophils Percent Manual 85 % (46-73); Platelet Estimate Adequate (Adequate); Total Cells Counted 100
[2021-02-24 08:07] LABS: Alanine Aminotransferase 44 U/L (4-50); Albumin Level 3.2 g/dL (3.5-5.1); Alkaline Phosphatase 54 U/L (38-126); Anion Gap 9 mmol/L (8-16); Aspartate Amino Transferase 60 U/L (17-59); Blood Urea Nitrogen 23 mg/dL (9-20); Calcium 7.8 mg/dL (8.4-10.2); Carbon Dioxide 21 mmol/L (22-30); Chloride 100 mmol/L (98-107); Estimated CRCL calculation 73 ml/min; Estimated Glomerular Filt Rate > 60; Glucose 105 mg/dL (65-110); Magnesium 1.6 mg/dL (1.6-2.3); Potassium 4.1 mmol/L (3.4-5.0); Sodium 130 mmol/L (137-145)
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
[2021-02-24] MEDS: MAGNESIUM SULF 2 GM/WATER 50ML 2 GM/50 ML BAG IVPB (10:35)
[2021-02-24] MEDS: AMIODARONE HCL 200 MG TABLET PO (10:54)
[2021-02-24] MEDS: POTASSIUM CHLORIDE 20 MEQ TABLET.ER PO (10:54)
[2021-02-24] MEDS: predniSONE 5 MG TABLET PO (10:55)
[2021-02-24] MEDS: METOPROLOL TARTRATE 12.5 MG TABLET PO (10:55)
[2021-02-24] MEDS: CALCIUM CARBONATE (OSCAL) 500 MG TABLET PO ×2 (10:55→17:13)
[2021-02-24] MEDS: FUROSEMIDE 20 MG TABLET PO (10:55)
[2021-02-24] MEDS: GABAPENTIN 300 MG CAPSULE PO ×2 (10:55→21:51)
[2021-02-24] MEDS: predniSONE 1 MG TABLET 3 MG PO (10:55)
[2021-02-24] MEDS: ASPIRIN 81 MG ENTERIC TABLET PO (10:55)
[2021-02-24] MEDS: MULTIVITAMINS THERAPEUTIC TAB (*BKC) 1 TABLET PO (10:56)
[2021-02-24] MEDS: SIMVASTATIN 20 MG TABLET PO (10:56)
[2021-02-24] MEDS: VITAMIN B COMPLEX/VIT C CAPSULE 1 EACH PO (10:56)
--- NOTE | 2021-02-24 11:13 | PCOTNOTE ---
Attempted OT evaluation, per RN requested for therapy to wait until cardiology is able to consult patient, due to dissimulator going off when performing transfer to bed side commode, will follow and attempt at later time.
--- NOTE | 2021-02-24 11:15 | PCPTNOTE ---
On 02/24/21, the student, Kong Moscoso, provided care and completed [facility] documentation on this patient. I have reviewed the student's documentation and agree with the findings.
--- NOTE | 2021-02-24 11:17 | PCPTNOTE ---
Attempted PT evaluation, per RN requested for therapy to wait until cardiology is able to consult patient, due to dissimulator going off when performing transfer to bed side commode, will follow and attempt at later time.
[2021-02-24] MEDS: ACETAMINOPHEN 325 MG TABLET 650 MG PO (11:49)
--- NOTE | 2021-02-24 12:28 | PM.CNCAR ---
Assessment and Plan Assessment and plan (1) ICD (implantable cardioverter-defibrillator) discharge: Code(s): Z45.02 - Encounter for adjustment and management of automatic implantable cardiac defibrillator Status: Acute Assessment and Plan: Appropriate ICD discharge for rapid ventricular tachycardia in the setting of sepsis and cellulitis. Magnesium borderline low (supplemented), potassium okay, O2 sat good. Patient was wearing his CPAP. No recent angina or change in cardiac status to suggest an ACS picture as etiology. No recurrence of ventricular arrhythmias. Continue telemetry monitoring Follow lytes. Check echo; last evaluation by echo was in 2019. FU w/ DRs. Warren and Tania on discharge. (2) Sepsis: Code(s): A41.9 - Sepsis, unspecified organism Status: Acute Assessment and Plan: Admitted w/ sepsis, soft BP, cellulitis, elevated lactic acid. Hypotensive; SBP in 80's at present. Give more IV fluids; another 500 cc's. Hold furosemide until BP stabilizes. (3) Cellulitis of leg, right: Code(s): L03.115 - Cellulitis of right lower limb Status: Acute Assessment and Plan: On antibiotics. (4) Ischemic cardiomyopathy: Code(s): I25.5 - Ischemic cardiomyopathy Status: Acute Assessment and Plan: H/O ischemic CM and CHF w/ improvement of LV fxn; EF 40% by Echo in 2019 and 50% by Mely in 2019. Re-evaluate LV fxn w/ Echo. (5) CAD (coronary artery disease): Code(s): I25.10 - Atherosclerotic heart disease of [place] coronary artery without angina pectoris Status: Acute Assessment and Plan: H/O CABG. No angina. (6) Paroxysmal atrial fibrillation: Code(s): I48.0 - Paroxysmal atrial fibrillation Status: Acute Assessment and Plan: Maintaining NSR on amiodarone and Xarelto. (7) Obstructive sleep apnea treated with BiPAP: Code(s): G47.33 - Obstructive sleep apnea (adult) (pediatric) Status: Acute Assessment and Plan: Using CPAP. History of Present Illness History of Present Illness Consult date/time: 02/24/21 12:28 Requesting physician: Cony Reyes PA-C Reason For Visit: Right Leg Cellulitis, Sepsis Narrative: Hema Chaves is a 75 y.o. male admitted w/ cellulitis. I was asked to see him at the request of NEY Reyes for my advice and opinion regarding his ICD discharge this a.m. Mr. Chaves is followed by Dr. Warren and Dr. Marin for his CAD s/p CABG 2011, cardiomyopathy, PAF and [employer] BiVICD implanted 08/15/2018. Previously his EF was 35% but he had improvement, and an echo in 10/2018 showed EF 41% with moderate LV dysfunction and borderline LVH. Lexiscan 12/2019 showed normal perfusion, EF 50%. He had cardioversions for atrial fibrillation and atrial flutter in September 2018, October 2018 (pace-terminated), April 2019 and June 2019. He has maintained sinus rhythm on amiodarone. Last ICD interrogation 01/22/2021 showed normal function of the Bi V ICD. Although he has a history of nonsustained ventricular tachycardia, he has never needed any therapies delivered. The patient was admitted yesterday with a fever, cellulitis and mild sepsis. He has been given IV fluids and antibiotics. This morning around 3:30 a.m he felt a powerful jolt. Review of telemetry monitoring shows a rapid somewhat polymorphic VT rate 240 BPM, with a failed attempt at ATP then an appropriate ICD discharge. He has not had any chest discomfort recently and was wearing his CPAP. No recent flare-up of CHF though he does have increased LE edema.
[2021-02-24] MEDS: SODIUM CHLORIDE 0.9% IV 500 ML 200 ML IV CONT (13:23)
[2021-02-24] MEDS: RIVAROXABAN 20 MG TABLET PO (17:13)
--- NOTE | 2021-02-24 18:02 | PHAR ---
The patient's home med of Rinvoq (Upadacitinib) has been verified.
[2021-02-24] MEDS: ALBUTEROL SULFATE NEB 2.5 MG/0.5 ML INH INHALATION (20:22)
[2021-02-24] MEDS: MIDODRINE HCL 10 MG TABLET PO (21:45)
[2021-02-25] VITALS (20 sets, daily range): BP systolic 101–143; BP diastolic 48–80; PULSE 58–111; RESP 14–21; TEMP 36.1–37.2; O2SAT 94–100
--- NOTE | 2021-02-25 06:42 | PC.NURSE ---
Pt found to have O2 saturations 75%. NC applied and titrated to 4L to get pt O2>90%. Dr Strong was notified and new orders were received. Pt was slowly titrated down to 2L following breathing treatment. Pt placed on 2L bleed w/ CPAP overnight and has had no further issues.
[2021-02-25] MEDS: VITAMIN B COMPLEX/VIT C CAPSULE 1 EACH PO (08:54)
[2021-02-25] MEDS: GABAPENTIN 300 MG CAPSULE PO ×2 (08:54→21:36)
[2021-02-25] MEDS: MULTIVITAMINS THERAPEUTIC TAB (*BKC) 1 TABLET PO (08:54)
[2021-02-25] MEDS: POTASSIUM CHLORIDE 20 MEQ TABLET.ER PO (08:55)
[2021-02-25] MEDS: CALCIUM CARBONATE (OSCAL) 500 MG TABLET PO ×2 (08:55→17:28)
[2021-02-25] MEDS: ASPIRIN 81 MG ENTERIC TABLET PO (08:55)
[2021-02-25] MEDS: AMIODARONE HCL 200 MG TABLET PO (08:56)
[2021-02-25] MEDS: SIMVASTATIN 20 MG TABLET PO (08:56)
[2021-02-25] MEDS: predniSONE 1 MG TABLET 3 MG PO (08:57)
[2021-02-25] MEDS: predniSONE 5 MG TABLET PO (08:57)
[2021-02-25 09:13] LABS: Basophils Percent Auto 0.1 % (0.2-1.2); Eosinophils Percent Auto 0.2 % (0-4.4); Hematocrit 31.4 % (42.0-52.0); Hemoglobin 10.3 g/dL (14.0-18.0); Immature Granulocyte Absolute 0.41 K/mm3 (0.00-0.031); Immature Granulocyte Percent A 2.9 % (0-0.5); Immature Platelet Fraction Pct 7.4 % (0.9-11.2); Lymphocytes Absolute Auto 0.33 K/mm3 (0.9-3.2); Lymphocytes Percent Auto 2.4 % (18.3-44.2); Mean Corpuscular HGB Conc 32.8 g/dl (32-36); Mean Corpuscular Hemoglobin 32.6 pg (26-34); Mean Corpuscular Volume 99.4 fl (80-100); Monocytes Absolute Auto 0.5 K/mm3 (0.1-0.6); Monocytes Percent Auto 3.7 % (2.6-8.5); Neutrophils Absolute Auto 12.6 K/mm3 (1.3-6.7); Neutrophils Percent Auto 90.7 % (45.5-73.1); Platelet Count Result 105 k/mm3 (150-375); Red Blood Count 3.16 M/mm3 (4.6-6.20); Red Cell Distribution Width 15.4 % (11.5-14.5); White Blood Count 13.9 K/mm3 (4.5-10.0)
[2021-02-25 10:34] LABS: Vancomycin Trough 11.9 ug/mL (10.0-20.0)
[2021-02-25] MEDS: ACETAMINOPHEN 325 MG TABLET 650 MG PO (10:54)
[2021-02-25 11:16] LABS: NT Pro B Type Natriuretic Pept 2660 pg/mL (5-100)
--- NOTE | 2021-02-25 11:20 | PM.PNCARD ---
Progress Note: A&P Assessment and Plan (1) ICD (implantable cardioverter-defibrillator) discharge: Code(s): Z45.02 - Encounter for adjustment and management of automatic implantable cardiac defibrillator Status: Acute Assessment and Plan: Appropriate ICD discharge for rapid ventricular tachycardia in the setting of sepsis and cellulitis. Magnesium borderline low (supplemented), potassium okay, O2 sat good. Patient was wearing his CPAP. No recent angina or change in cardiac status to suggest an ACS picture as etiology. No recurrence of ventricular arrhythmias. Continue telemetry monitoring Follow lytes. K+ 3.8, Mag 2.2 today. Echocardiogram is pending. FU w/ DRs. Warren and Tania on discharge. (2) Sepsis: Code(s): A41.9 - Sepsis, unspecified organism Status: Acute Assessment and Plan: Admitted w/ sepsis, soft BP, cellulitis, elevated lactic acid. Hypotensive; SBP better today - in the low 100s. Continue to hold furosemide for now until BP more favorable (3) Cellulitis of leg, right: Code(s): L03.115 - Cellulitis of right lower limb Status: Acute Assessment and Plan: On antibiotics. (4) Ischemic cardiomyopathy: Code(s): I25.5 - Ischemic cardiomyopathy Status: Acute Assessment and Plan: H/O ischemic CM and CHF w/ improvement of LV fxn; EF 40% by Echo in 2019 and 50% by Mely in 2020. Re-evaluate LV fxn w/ Echo. (5) CAD (coronary artery disease): Code(s): I25.10 - Atherosclerotic heart disease of [place] coronary artery without angina pectoris Status: Acute Assessment and Plan: H/O CABG. No angina. (6) Paroxysmal atrial fibrillation: Code(s): I48.0 - Paroxysmal atrial fibrillation Status: Acute Assessment and Plan: Maintaining NSR on amiodarone and Xarelto. (7) Obstructive sleep apnea treated with BiPAP: Code(s): G47.33 - Obstructive sleep apnea (adult) (pediatric) Status: Acute Assessment and Plan: Using CPAP. Subjective Date/time seen: 02/25/21 11:20 Cardiology follow up Interval history: Date of service 02/25/2021: patient says he is feeling a little bit better today. still feels like he has some head congestion but denies body aches. He is complaining of pain in his legs. Denies chest pain, palpitations. He denies dyspnea but he is on 2 L of oxygen per nasal cannula -it looks like his oxygen saturation dipped down to 75 last night. He has not had any more ectopy noted on telemetry and no more ICD discharges. Review of Systems Constitutional: Constitutional: Reports fatigue, Reports lethargy and Reports weakness Eyes: Eyes: Reports no additional eye complaints ENT: Denies epistaxis Cardiovascular: Cardiovascular: Denies chest pain, Reports pedal edema, Reports leg edema, Denies lightheadedness, Denies palpitations and Reports dyspnea on exertion (mild, chronic) Respiratory: Respiratory: Reports dyspnea on exertion (mild, chronic) Gastrointestinal: Gastrointestinal: Denies abdominal pain and Denies hematochezia Genitourinary: Genitourinary: Denies hematuria and Denies dysuria Musculoskeletal: Musculoskeletal: Reports back pain and Reports arthralgias Integumentary/Breasts: Skin/Breast: Reports erythema and Reports rash Neurologic: Denies behavioral changes, Denies confusion and Reports weakness Psychiatric: Psychiatric: Denies anxiety, Denies behavioral changes and Denies confusion Endocrine: Endocrine: Reports fatigue and Denies palpitations Exam Narrative: Older white male lying flat in bed With legs elevated. Awake, alert, and oriented. Const:
[2021-02-25 11:28] LABS: Alanine Aminotransferase 56 U/L (4-50); Albumin Level 3.2 g/dL (3.5-5.1); Alkaline Phosphatase 56 U/L (38-126); Anion Gap 7 mmol/L (8-16); Aspartate Amino Transferase 64 U/L (17-59); Blood Urea Nitrogen 15 mg/dL (9-20); Calcium 8.3 mg/dL (8.4-10.2); Carbon Dioxide 22 mmol/L (22-30); Chloride 105 mmol/L (98-107); Estimated CRCL calculation 106 ml/min; Estimated Glomerular Filt Rate > 60; Glucose 146 mg/dL (65-110); Magnesium 2.2 mg/dL (1.6-2.3); Potassium 3.8 mmol/L (3.4-5.0); Sodium 134 mmol/L (137-145)
--- NOTE | 2021-02-25 12:59 | P.PNIM_ITS ---
Progress Note: A&P Assessment and Plan (1) Sepsis: Code(s): A41.9 - Sepsis, unspecified organism Status: Acute Assessment and Plan: * Secondary to cellulitis * presented with fever, hypotension and leukocytosis with an elevated lactic acid. * blood cultures preliminary reports Gram variable bacilli from aerobic bottle only * Maranda antibiotics to sensitivities * improving on antibiotics vancomycin and cefazolin. * white blood cell count improving WBC 13.9 today. * patient is still hypotensive and currently 101/52 with metoprolol held * BUN CR stable at 15/0.70 * Will tend labs (2) Cellulitis of right leg: Code(s): L03.115 - Cellulitis of right lower limb Status: Acute Assessment and Plan: * As above * continue cephazolin and vancomycin * elevate extremity (3) ICD (implantable cardioverter-defibrillator) discharge: Code(s): Z45.02 - Encounter for adjustment and management of automatic implantable cardiac defibrillator Status: Acute Assessment and Plan: * Pt reports being shocked around 3am 02/24/21 * No event since one listed above * Tele shows paced * No noted reason for the pacemaker * Sees Dr. Sarina Warren * He is on amiodarone, electrolytes are stable * He has a [employer] device interrogated, shows proper function * Cardiology consulted thank you for your recommendations (4) Ischemic cardiomyopathy: Code(s): I25.5 - Ischemic cardiomyopathy Status: Acute Assessment and Plan: * Reported in EMR, pt has no knowledge of CHF but says he has of heart issues * Repeat echo pending * Lasix on hold * Metoprolol ordered with parameters * Blood pressure is labile (5) Obstructive sleep apnea treated with BiPAP: Code(s): G47.33 - Obstructive sleep apnea (adult) (pediatric) Status: Acute Assessment and Plan: continue cpap (6) Paroxysmal atrial fibrillation: Code(s): I48.0 - Paroxysmal atrial fibrillation Status: Acute Assessment and Plan: * Currently paced on the monitor * Continue amiodarone and metoprolol from home (7) Chronic anticoagulation: Code(s): 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 * fall percautions (8) Rheumatoid arthritis: Qualifiers: Rheumatoid arthritis location: unspecified site Rheumatoid factor presence: unspecified presence Qualified Code(s): M06.9 - Rheumatoid arthritis, unspecified Code(s): M06.9 - Rheumatoid arthritis, unspecified Status: Acute Assessment and Plan: * Continue chronic low-dose prednisone (9) Hypertension: Code(s): I10 - Essential (primary) hypertension Status: Acute Assessment and Plan: * Blood pressure are soft and remaining labile at this time * Continue metoprolol with parameters * Dose held this morning and last night * last bp 101/48 (10) Hypotension: Code(s): I95.9 - Hypotension, unspecified Status: Acute Assessment and Plan: * BP running on the softer side * Edema noted in the bilateral lower extremities * Could be dehydrated vascularly * Metoprolol ordered but has not been given * Will continue to trend Subjective Date/time seen: 02/25/21 12:15
--- NOTE | 2021-02-25 12:59 | PM.IMPN ---
Progress Note: A&P Assessment and Plan (1) Sepsis: Code(s): A41.9 - Sepsis, unspecified organism Status: Acute Assessment and Plan: Secondary to cellulitis presented with fever, hypotension and leukocytosis with an elevated lactic acid. blood cultures preliminary reports Gram variable bacilli from aerobic bottle only Maranda antibiotics to sensitivities improving on antibiotics vancomycin and cefazolin. white blood cell count improving WBC 13.9 today. patient is still hypotensive and currently 101/52 with metoprolol held BUN CR stable at 15/0.70 Will tend labs (2) Cellulitis of right leg: Code(s): L03.115 - Cellulitis of right lower limb Status: Acute Assessment and Plan: As above continue cephazolin and vancomycin elevate extremity (3) ICD (implantable cardioverter-defibrillator) discharge: Code(s): Z45.02 - Encounter for adjustment and management of automatic implantable cardiac defibrillator Status: Acute Assessment and Plan: Pt reports being shocked around 3am 02/24/21 No event since one listed above Tele shows paced No noted reason for the pacemaker Sees Dr. Sarina Warren He is on amiodarone, electrolytes are stable He has a [employer]'s device interrogated, shows proper function Cardiology consulted thank you for your recommendations (4) Ischemic cardiomyopathy: Code(s): I25.5 - Ischemic cardiomyopathy Status: Acute Assessment and Plan: Reported in EMR, pt has no knowledge of CHF but says he has of heart issues Repeat echo pending Lasix on hold Metoprolol ordered with parameters Blood pressure is labile (5) Obstructive sleep apnea treated with BiPAP: Code(s): G47.33 - Obstructive sleep apnea (adult) (pediatric) Status: Acute Assessment and Plan: continue cpap (6) Paroxysmal atrial fibrillation: Code(s): I48.0 - Paroxysmal atrial fibrillation Status: Acute Assessment and Plan: Currently paced on the monitor Continue amiodarone and metoprolol from home (7) Chronic anticoagulation: Code(s): Z79.01 - group home (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 fall percautions (8) Rheumatoid arthritis: Qualifiers: Rheumatoid arthritis location: unspecified site Rheumatoid factor presence: unspecified presence Qualified Code(s): M06.9 - Rheumatoid arthritis, unspecified Code(s): M06.9 - Rheumatoid arthritis, unspecified Status: Acute Assessment and Plan: Continue chronic low-dose prednisone (9) Hypertension: Code(s): I10 - Essential (primary) hypertension Status: Acute Assessment and Plan: Blood pressure are soft and remaining labile at this time Continue metoprolol with parameters Dose held this morning and last night last bp 101/48 (10) Hypotension: Code(s): I95.9 - Hypotension, unspecified Status: Acute Assessment and Plan: BP running on the softer side Edema noted in the bilateral lower extremities Could be dehydrated vascularly Metoprolol ordered but has not been given Will continue to trend Subjective Date/time seen: 02/25/21 12:15 Interval history: Patient is a 75 year old female that is here for right lower extremity cellulitis. Patient stated that he is doing a little better today. He did get up and was in the chair for a while. He stated that he had to go back to bed, because his leg was starting to hurt while in the chair. He did just get some tylenol and stated that helped the pain. He also mentioned concern about being on oxygen. Which it is noted that the patient dropped his saturation into the 70s over night. He is currently on 2LNC. BNP is elevated. Talked with cardiology about possibl
--- NOTE | 2021-02-25 14:26 | PC.NURSE ---
On 02/25/21, the student, George Gauthier, provided care and completed [facility] documentation on this patient. I have reviewed the student's documentation and agree with the findings.
[2021-02-25] MEDS: RIVAROXABAN 20 MG TABLET PO (17:28)
[2021-02-25] MEDS: METOPROLOL TARTRATE 12.5 MG TABLET PO (21:38)
[2021-02-25 22:12] LABS: Glucose Point of Care 116 mg/dl (65-105)
[2021-02-26] VITALS (17 sets, daily range): BP systolic 99–132; BP diastolic 55–72; PULSE 59–78; RESP 12–20; TEMP 36.1–37.2; O2SAT 95–100
--- NOTE | 2021-02-26 | ECHO_ITS ---
Patient Info Name: Hema Chaves Age: 75 years : 1945 Gender: Male Ht: 68 in Wt: 289 lbs BSA: 2.57 m2 HR: 64 bpm BP: 105 / 56 mmHg Heart Rhythm: Indeterminant Exam Date: 02/26/2021 2:07 PM Exam Location: [facility] Patient Status: Inpatient Admit Date: 02/23/2021 Staff Ordering Physician: Raj Adames Manager Labor Delivery: Bruce Harper RDCS, RT Attending Provider: Cony Reyes PA-C Referring Physician: Zacarias HAILE; Exam Type: CA echo doppler color flow Study Info Indications R06.00 - Dyspnea, unspecified Complete two-dimensional, color flow and Doppler transthoracic echocardiogram is performed. Summary 1. Complete two-dimensional, color flow and Doppler transthoracic echocardiogram is performed. 2. Left ventricle is mildly enlarged with mild eccentric left ventricular hypertrophy. There is moderate global hypokinesis with an estimated ejection fraction of 40-45%. Grade 3-4 diastolic dysfunction is noted. No segmental wall motion abnormalities. There is some flattening of the septum during diastole suggestive of right ventricular volume overload. 3. Mild right ventricular enlargement with hypokinesis. 4. Left atrial chamber dimension is severely enlarged. 5. Right atrial chamber dimension is moderately enlarged. 6. There is moderate mitral valve regurgitation. 7. There is moderate tricuspid valve regurgitation. 8. Mild pulmonary hypertension, estimated pulmonary arterial systolic pressure is 46 mmHg. 9. Dilated inferior vena cava with >50% collapse upon inspiration consistent with elevated right atrial pressure, 10 mmHg. 10. Right ventricular pacemaker or defibrillator lead noted. 11. Indeterminate rhythm. Left Ventricle Left ventricular chamber dimension is mildly enlarged. Left ventricular systolic function is moderately reduced, estimated at 40-45%. There is mildly increased left ventricular wall thickness. Left ventricular septal wall motion is normal. The left ventricular diastolic function is grade III diastolic dysfunction. Right Ventricle Right ventricular chamber dimension is mildly enlarged. Right ventricular systolic function is reduced. Linear artifact in right ventricle suggestive of catheter(s), pacemaker lead(s), or ICD lead(s). Left Atria Left atrial chamber dimension is severely enlarged. Right Atria Right atrial chamber dimension is moderately enlarged. Aortic Valve The aortic valve is trileaflet. There is mild aortic valve sclerosis. There is no aortic valve stenosis. There is no aortic valve regurgitation. Pulmonic Valve The pulmonic valve is normal. There is no pulmonic valve stenosis. There is no pulmonic regurgitation. Mitral Valve The mitral valve has normal leaflets. There is no mitral valve stenosis. There is moderate mitral valve regurgitation. Tricuspid Valve The tricuspid valve leaflets are normal. There is no significant tricuspid valve stenosis. There is moderate tricuspid valve regurgitation. Mild pulmonary hypertension, estimated pulmonary arterial systolic pressure is 46 mmHg. Pericardium/Pleural The pericardium appears normal. There is no pericardial effusion. Inferior Vena Cava Dilated inferior vena cava with >50% collapse upon inspiration consistent with elevated right atrial pressure, 10 mmHg. Aorta The aortic root size at the sinus of Valsalva is normal. The prox ascending aorta size is normal. Left Ventricular Outflow Tract
[2021-02-26] MEDS: ACETAMINOPHEN 325 MG TABLET 650 MG PO (05:33)
[2021-02-26] MEDS: HYDROcodone/acetaminophen (*CRX) 5-325 MG TABLET 1 TAB PO (08:10)
[2021-02-26] MEDS: GABAPENTIN 300 MG CAPSULE PO ×2 (08:18→20:50)
[2021-02-26] MEDS: SIMVASTATIN 20 MG TABLET PO (08:19)
[2021-02-26] MEDS: VITAMIN B COMPLEX/VIT C CAPSULE 1 EACH PO (08:21)
[2021-02-26] MEDS: predniSONE 1 MG TABLET 3 MG PO (08:21)
[2021-02-26] MEDS: predniSONE 5 MG TABLET PO (08:22)
[2021-02-26] MEDS: MULTIVITAMINS THERAPEUTIC TAB (*BKC) 1 TABLET PO (08:22)
[2021-02-26] MEDS: POTASSIUM CHLORIDE 20 MEQ TABLET.ER PO (08:23)
[2021-02-26] MEDS: CALCIUM CARBONATE (OSCAL) 500 MG TABLET PO ×2 (08:24→16:42)
[2021-02-26] MEDS: AMIODARONE HCL 200 MG TABLET PO (08:26)
[2021-02-26] MEDS: ASPIRIN 81 MG ENTERIC TABLET PO (08:26)
[2021-02-26 08:56] LABS: Hematocrit 30.8 % (42.0-52.0); Mean Corpuscular HGB Conc 32.5 g/dl (32-36); Mean Corpuscular Hemoglobin 32.5 pg (26-34); Mean Platelet Volume 12.1 fl (7.4-10.4); Platelet Count Result 112 k/mm3 (150-375); Red Blood Count 3.08 M/mm3 (4.6-6.20); Red Cell Distribution Width 14.9 % (11.5-14.5); White Blood Count 10.2 K/mm3 (4.5-10.0)
--- NOTE | 2021-02-26 08:57 | P.PNIM_ITS ---
Progress Note: A&P Assessment and Plan (1) Sepsis: Code(s): A41.9 - Sepsis, unspecified organism Status: Acute Assessment and Plan: * Secondary to cellulitis * presented with fever, hypotension and leukocytosis with an elevated lactic acid. * blood cultures preliminary reports pseudomonas aeruginosa from aerobic bottle only * Antibiotic sensitivities still pending * Leg seems worse to day, increased pain, swelling, and more blistering * antibiotics changed to vancomycin and primaxin IV * white blood cell count improving WBC 10.2 today. * Blood pressure a little bit better today 110/60 * BUN CR stable at 11/0.60 * Will tend labs (2) Cellulitis of right leg: Code(s): L03.115 - Cellulitis of right lower limb Status: Acute Assessment and Plan: * As above * continue primaxin and vancomycin * elevate extremity (3) ICD (implantable cardioverter-defibrillator) discharge: Code(s): Z45.02 - Encounter for adjustment and management of automatic implantable cardiac defibrillator Status: Acute Assessment and Plan: * Pt reports being shocked around 3am 02/24/21 * No event since one listed above * Tele shows continues to show paced * No noted reason for the pacemaker * Sees Dr. Sairna Warren * He is on amiodarone, electrolytes are stable * He has a [employer]'s device interrogated, shows proper function * Cardiology consulted thank you for your recommendations (4) Ischemic cardiomyopathy: Code(s): I25.5 - Ischemic cardiomyopathy Status: Acute Assessment and Plan: * Reported in EMR, pt has no knowledge of CHF but says he has of heart issues * Repeat echo pending * Lasix on hold * Metoprolol ordered with parameters * Blood pressure is labile * Patient probably needs to be diuresed at some point (5) Obstructive sleep apnea treated with BiPAP: Code(s): G47.33 - Obstructive sleep apnea (adult) (pediatric) Status: Acute Assessment and Plan: * continue cpap (6) Paroxysmal atrial fibrillation: Code(s): I48.0 - Paroxysmal atrial fibrillation Status: Acute Assessment and Plan: * Currently paced on the monitor * Continue amiodarone and metoprolol from home (7) Chronic anticoagulation: 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 * fall percautions (8) Rheumatoid arthritis: Qualifiers: Rheumatoid arthritis location: unspecified site Rheumatoid factor presence: unspecified presence Qualified Code(s): M06.9 - Rheumatoid arthritis, unspecified Code(s): M06.9 - Rheumatoid arthritis, unspecified Status: Acute Assessment and Plan: * Continue chronic low-dose prednisone (9) Hypertension: Code(s): I10 - Essential (primary) hypertension Status: Acute Assessment and Plan: * Blood pressure are soft and remaining labile at this time * Continue metoprolol with parameters * Dose held this morning and last night * last bp 110/60 (10) Hypotension: Code(s): I95.9 - Hypotension, unspecified Status: Acute Assessment and Plan: * BP running on the softer side * Edema noted in the bilateral lower extremities * Could be dehydrated vascularly * o
--- NOTE | 2021-02-26 08:57 | PM.IMPN ---
Progress Note: A&P Assessment and Plan (1) Sepsis: Code(s): A41.9 - Sepsis, unspecified organism Status: Acute Assessment and Plan: Secondary to cellulitis presented with fever, hypotension and leukocytosis with an elevated lactic acid. blood cultures preliminary reports pseudomonas aeruginosa from aerobic bottle only Antibiotic sensitivities still pending Leg seems worse to day, increased pain, swelling, and more blistering antibiotics changed to vancomycin and primaxin IV white blood cell count improving WBC 10.2 today. Blood pressure a little bit better today 110/60 BUN CR stable at 11/0.60 Will tend labs (2) Cellulitis of right leg: Code(s): L03.115 - Cellulitis of right lower limb Status: Acute Assessment and Plan: As above continue primaxin and vancomycin elevate extremity (3) ICD (implantable cardioverter-defibrillator) discharge: Code(s): Z45.02 - Encounter for adjustment and management of automatic implantable cardiac defibrillator Status: Acute Assessment and Plan: Pt reports being shocked around 3am 02/24/21 No event since one listed above Tele shows continues to show paced No noted reason for the pacemaker Sees Dr. Sarina Warren He is on amiodarone, electrolytes are stable He has a [employer] device interrogated, shows proper function Cardiology consulted thank you for your recommendations (4) Ischemic cardiomyopathy: Code(s): I25.5 - Ischemic cardiomyopathy Status: Acute Assessment and Plan: Reported in EMR, pt has no knowledge of CHF but says he has of heart issues Repeat echo pending Lasix on hold Metoprolol ordered with parameters Blood pressure is labile Patient probably needs to be diuresed at some point (5) Obstructive sleep apnea treated with BiPAP: Code(s): G47.33 - Obstructive sleep apnea (adult) (pediatric) Status: Acute Assessment and Plan: continue cpap (6) Paroxysmal atrial fibrillation: Code(s): I48.0 - Paroxysmal atrial fibrillation Status: Acute Assessment and Plan: Currently paced on the monitor Continue amiodarone and metoprolol from home (7) Chronic anticoagulation: Code(s): Z79.01 - nursing home (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 fall percautions (8) Rheumatoid arthritis: Qualifiers: Rheumatoid arthritis location: unspecified site Rheumatoid factor presence: unspecified presence Qualified Code(s): M06.9 - Rheumatoid arthritis, unspecified Code(s): M06.9 - Rheumatoid arthritis, unspecified Status: Acute Assessment and Plan: Continue chronic low-dose prednisone (9) Hypertension: Code(s): I10 - Essential (primary) hypertension Status: Acute Assessment and Plan: Blood pressure are soft and remaining labile at this time Continue metoprolol with parameters Dose held this morning and last night last bp 110/60 (10) Hypotension: Code(s): I95.9 - Hypotension, unspecified Status: Acute Assessment and Plan: BP running on the softer side Edema noted in the bilateral lower extremities Could be dehydrated vascularly Metoprolol ordered but has not been given Will continue to trend current blood pressure 110/60 Albumin 50ml given x1 since levels are 3.2 Subjective Date/time seen: 02/26/21 08:00 Interval history: Patient is a 75 year old male that is here for cellulitis. He was having complaints of pain in the right lower extremity. He stated that it is worse today than yesterday. He also feels that the swelling is getting worse. He is refusing to eat due to pain and discomfort. He is currently in the chair with his leg up on a pillow. The swelling seems t
[2021-02-26 09:08] LABS: D Dimer 0.72 ug/mL (<0.48)
[2021-02-26 09:22] LABS: Alanine Aminotransferase 67 U/L (4-50); Albumin Level 3.2 g/dL (3.5-5.1); Alkaline Phosphatase 76 U/L (38-126); Anion Gap 5 mmol/L (8-16); Aspartate Amino Transferase 62 U/L (17-59); Bilirubin,Total 1.1 mg/dL (0.2-1.3); Blood Urea Nitrogen 11 mg/dL (9-20); Calcium 8.3 mg/dL (8.4-10.2); Carbon Dioxide 23 mmol/L (22-30); Chloride 104 mmol/L (98-107); Estimated CRCL calculation 123 ml/min; Estimated Glomerular Filt Rate > 60; Glucose 102 mg/dL (65-110); Potassium 4.1 mmol/L (3.4-5.0); Sodium 132 mmol/L (137-145)
[2021-02-26 09:24] LABS: Band Neutrophils Percent 4 % (0-6); Monocytes Percent Manual 1 % (3-9); Neutrophils Absolute Manual 9.79 K/mm3 (1.3-6.7); Neutrophils Percent Manual 92 % (46-73); Total Cells Counted 100
[2021-02-26 09:25] LABS: Hypochromasia 1+ (NORMAL)
--- NOTE | 2021-02-26 10:12 | PM.PNCARD ---
Progress Note: A&P Assessment and Plan (1) ICD (implantable cardioverter-defibrillator) discharge: Code(s): Z45.02 - Encounter for adjustment and management of automatic implantable cardiac defibrillator Status: Acute Assessment and Plan: Appropriate ICD discharge for rapid ventricular tachycardia in the setting of sepsis and cellulitis. No recent angina or change in cardiac status to suggest an ACS picture as etiology. No recurrence of ventricular arrhythmias. Continue telemetry monitoring Follow lytes. K+ 4.1. Check mag Echocardiogram is pending. Agree w/ 50cc albumin bolus followed by 2mg IV bumex FU w/ DRs. Warren and Tania on discharge. Will review echocardiogram results when available and will sign off if no significant changes in LV function or further recs to follow. (2) Sepsis: Code(s): A41.9 - Sepsis, unspecified organism Status: Acute Assessment and Plan: Admitted w/ sepsis, soft BP, cellulitis, elevated lactic acid. Hypotensive; SBP better today - in the low 100s. Continue to hold furosemide for now until BP more favorable (3) Cellulitis of leg, right: Code(s): L03.115 - Cellulitis of right lower limb Status: Acute Assessment and Plan: On antibiotics. (4) Ischemic cardiomyopathy: Code(s): I25.5 - Ischemic cardiomyopathy Status: Acute Assessment and Plan: H/O ischemic CM and CHF w/ improvement of LV fxn; EF 40% by Echo in 2019 and 50% by [facility] in 2020. Re-evaluate LV fxn w/ Echo. (5) CAD (coronary artery disease): Code(s): I25.10 - Atherosclerotic heart disease of [place] coronary artery without angina pectoris Status: Acute Assessment and Plan: H/O CABG. No angina. (6) Paroxysmal atrial fibrillation: Code(s): I48.0 - Paroxysmal atrial fibrillation Status: Acute Assessment and Plan: Maintaining NSR on amiodarone and Xarelto. (7) Obstructive sleep apnea treated with BiPAP: Code(s): G47.33 - Obstructive sleep apnea (adult) (pediatric) Status: Acute Assessment and Plan: Using CPAP. Subjective Date/time seen: 02/26/21 10:12 Interval history: Date of service 02/25/2021: patient says he is feeling a little bit better today. still feels like he has some head congestion but denies body aches. He is complaining of pain in his legs. Denies chest pain, palpitations. He denies dyspnea but he is on 2 L of oxygen per nasal cannula -it looks like his oxygen saturation dipped down to 75 last night. He has not had any more ectopy noted on telemetry and no more ICD discharges. Date of service 02/26/2021: Feeling very tired today. He is sitting up in the chair during my exam with right leg propped up on a pillow. He says that the pain in his leg is worse today. He is now on room air and denies any shortness of breath. Denies chest pain, palpitations. Review of Systems Constitutional: Constitutional: Reports fatigue, Reports lethargy and Reports weakness Eyes: Eyes: Reports no additional eye complaints ENT: Denies epistaxis Cardiovascular: Cardiovascular: Denies chest pain, Reports pedal edema, Reports leg edema, Denies lightheadedness, Denies palpitations and Reports dyspnea on exertion (mild, chronic) Respiratory: Respiratory: Reports dyspnea on exertion (mild, chronic) Gastrointestinal: Gastrointestinal: Denies abdominal pain and Denies hematochezia Genitourinary: Genitourinary: Denies hematuria and Denies dysuria Musculoskeletal: Musculoskeletal: Reports back pain and Reports arthralgias Integumentary/Breasts: Skin/Breast: Reports erythema and Reports rash Madelin
--- NOTE | 2021-02-26 10:16 | PCPTNOTE ---
Attempted to see pt ~9:30 and RN reports pt had an increase in RLE pain with plans for a doppler today. Will check back later and await doppler results before proceeding with therapy session.
[2021-02-26] MEDS: ALBUMIN HUMAN 25% 12.5 GM/50ML 50 ML IVPB (10:43)
[2021-02-26] MEDS: MORPHINE SULFATE (*CRX) 2 MG/ML INJ IV PUSH (11:21)
--- NOTE | 2021-02-26 11:23 | PCOTNOTE ---
Attempted to see patient twice this am. First attempt, patient was with nursing. Second attempt, patient was going off floor for testing.
[2021-02-26] MEDS: BUMETANIDE INJ 1 MG/4 ML VIAL 2 MG IV PUSH (13:45)
--- NOTE | 2021-02-26 14:06 | PCOTNOTE ---
Attempted to see patient this pm, however patient having bedside testing at this time.
--- NOTE | 2021-02-26 15:13 | PC.NURSE ---
Addendum entered by Andreea Gonzalez RN 02/26/21 15:13: On 02/26/21, the student, [FANTASMA LOCKWOOD], provided care and completed [employer] documentation on this patient. I have reviewed the student's documentation and agree with the findings. Original Note: On 02/26/21, the student, [ ], provided care and completed [employer] documentation on this patient. I have reviewed the student's documentation and agree with the findings.
[2021-02-26] MEDS: RIVAROXABAN 20 MG TABLET PO (17:51)
[2021-02-26] MEDS: METOPROLOL TARTRATE 12.5 MG TABLET PO (20:49)
[2021-02-27] VITALS (18 sets, daily range): BP systolic 99–153; BP diastolic 48–86; PULSE 58–78; RESP 16–20; TEMP 36.6–37.3; O2SAT 97–100
[2021-02-27] MEDS: HYDROcodone/acetaminophen (*CRX) 5-325 MG TABLET 1 TAB PO ×4 (04:05→20:39)
[2021-02-27 06:16] LABS: Basophils Percent Auto 0.3 % (0.2-1.2); Eosinophils Absolute Auto 0.1 K/mm3 (0-0.3); Eosinophils Percent Auto 1.4 % (0-4.4); Hematocrit 28.6 % (42.0-52.0); Hemoglobin 9.5 g/dL (14.0-18.0); Immature Granulocyte Absolute 0.17 K/mm3 (0.00-0.031); Immature Granulocyte Percent A 2.2 % (0-0.5); Lymphocytes Absolute Auto 0.56 K/mm3 (0.9-3.2); Lymphocytes Percent Auto 7.2 % (18.3-44.2); Mean Corpuscular HGB Conc 33.2 g/dl (32-36); Mean Corpuscular Volume 99.3 fl (80-100); Mean Platelet Volume 11.9 fl (7.4-10.4); Monocytes Absolute Auto 0.8 K/mm3 (0.1-0.6); Monocytes Percent Auto 10.7 % (2.6-8.5); Neutrophils Absolute Auto 6.1 K/mm3 (1.3-6.7); Neutrophils Percent Auto 78.2 % (45.5-73.1); Platelet Count Result 113 k/mm3 (150-375); Red Blood Count 2.88 M/mm3 (4.6-6.20); Red Cell Distribution Width 14.6 % (11.5-14.5); White Blood Count 7.8 K/mm3 (4.5-10.0)
[2021-02-27 07:04] LABS: Alanine Aminotransferase 62 U/L (4-50); Alkaline Phosphatase 100 U/L (38-126); Anion Gap 3 mmol/L (8-16); Aspartate Amino Transferase 48 U/L (17-59); Blood Urea Nitrogen 12 mg/dL (9-20); Calcium 8.5 mg/dL (8.4-10.2); Carbon Dioxide 27 mmol/L (22-30); Chloride 101 mmol/L (98-107); Estimated CRCL calculation 107 ml/min; Estimated Glomerular Filt Rate > 60; Glucose 100 mg/dL (65-110); Magnesium 1.9 mg/dL (1.6-2.3); Potassium 3.7 mmol/L (3.4-5.0); Sodium 131 mmol/L (137-145)
--- NOTE | 2021-02-27 08:26 | P.PNIM_ITS ---
Progress Note: A&P Assessment and Plan (1) Sepsis: Code(s): A41.9 - Sepsis, unspecified organism Status: Acute Assessment and Plan: * Secondary to cellulitis * presented with fever, hypotension and leukocytosis with an elevated lactic acid. * blood cultures preliminary reports pseudomonas aeruginosa from aerobic bottle only * Antibiotic sensitivities confirm primaxin * Leg seems better in the color aspect, increased pain, swelling. Blistering better * vancomycin DC'd * white blood cell count improving WBC 7.8 today. * Blood pressure a little bit better today 110/60 * BUN CR stable at 12/0.70 * Will tend labs * Added Dilaudid for better pain control, since morphine was not effective (2) Cellulitis of right leg: Code(s): L03.115 - Cellulitis of right lower limb Status: Acute Assessment and Plan: * As above * continue primaxin, vancomycin DC'd * elevate extremity (3) ICD (implantable cardioverter-defibrillator) discharge: Code(s): Z45.02 - Encounter for adjustment and management of automatic implantable cardiac defibrillator Status: Acute Assessment and Plan: * Pt reports being shocked around 3am 02/24/21 * 12 beat run of V-tach resolved on its own, or with pacer * Tele shows continues to show paced * No noted reason for the pacemaker * Sees Dr. Sarina Warren * He is on amiodarone, electrolytes are stable * He has a [employer] device interrogated, shows proper function * Cardiology consulted thank you for your recommendations (4) Ischemic cardiomyopathy: Code(s): I25.5 - Ischemic cardiomyopathy Status: Acute Assessment and Plan: * Reported in EMR, pt has no knowledge of CHF but says he has of heart issues * Repeat echo EF 40-45% with grade 3-4 diastolic dysfunction * probably contributed to his shortness of breath * Lasix on hold, will resume when BP is more stable * Metoprolol ordered with parameters * Blood pressure is labile * Patient probably needs to be diuresed at some point (5) Obstructive sleep apnea treated with BiPAP: Code(s): G47.33 - Obstructive sleep apnea (adult) (pediatric) Status: Acute Assessment and Plan: * continue cpap (6) Paroxysmal atrial fibrillation: Code(s): I48.0 - Paroxysmal atrial fibrillation Status: Acute Assessment and Plan: * Currently paced on the monitor * Continue amiodarone and metoprolol from home (7) Chronic anticoagulation: Code(s): Z79.01 - [employer] (current) use of anticoagulants Status: Acute Assessment and Plan: * Continue rivaroxaban for stroke prophylaxis given atrial fibrillation. * fall percautions (8) Rheumatoid arthritis: Qualifiers: Rheumatoid arthritis location: unspecified site Rheumatoid factor presence: unspecified presence Qualified Code(s): M06.9 - Rheumatoid arthritis, unspecified Code(s): M06.9 - Rheumatoid arthritis, unspecified Status: Acute Assessment and Plan: * Continue chronic low-dose prednisone (9) Hypertension: Code(s): I10 - Essential (primary) hypertension Status: Acute Assessment and Plan: * Blood pressure are soft and remaining labile at this time * Continue metoprolol with parameters * Dose held this morning and last night * last bp 125/69 (10) Hypotension: Code(s): I95.9 -
--- NOTE | 2021-02-27 08:26 | PM.IMPN ---
Progress Note: A&P Assessment and Plan (1) Sepsis: Code(s): A41.9 - Sepsis, unspecified organism Status: Acute Assessment and Plan: Secondary to cellulitis presented with fever, hypotension and leukocytosis with an elevated lactic acid. blood cultures preliminary reports pseudomonas aeruginosa from aerobic bottle only Antibiotic sensitivities confirm primaxin Leg seems better in the color aspect, increased pain, swelling. Blistering better vancomycin DC'd white blood cell count improving WBC 7.8 today. Blood pressure a little bit better today 110/60 BUN CR stable at 12/0.70 Will tend labs Added Dilaudid for better pain control, since morphine was not effective (2) Cellulitis of right leg: Code(s): L03.115 - Cellulitis of right lower limb Status: Acute Assessment and Plan: As above continue primaxin, vancomycin DC'd elevate extremity (3) ICD (implantable cardioverter-defibrillator) discharge: Code(s): Z45.02 - Encounter for adjustment and management of automatic implantable cardiac defibrillator Status: Acute Assessment and Plan: Pt reports being shocked around 3am 02/24/21 12 beat run of V-tach resolved on its own, or with pacer Tele shows continues to show paced No noted reason for the pacemaker Sees Dr. Sarina Warren He is on amiodarone, electrolytes are stable He has a [employer] device interrogated, shows proper function Cardiology consulted thank you for your recommendations (4) Ischemic cardiomyopathy: Code(s): I25.5 - Ischemic cardiomyopathy Status: Acute Assessment and Plan: Reported in EMR, pt has no knowledge of CHF but says he has of heart issues Repeat echo EF 40-45% with grade 3-4 diastolic dysfunction probably contributed to his shortness of breath Lasix on hold, will resume when BP is more stable Metoprolol ordered with parameters Blood pressure is labile Patient probably needs to be diuresed at some point (5) Obstructive sleep apnea treated with BiPAP: Code(s): G47.33 - Obstructive sleep apnea (adult) (pediatric) Status: Acute Assessment and Plan: continue cpap (6) Paroxysmal atrial fibrillation: Code(s): I48.0 - Paroxysmal atrial fibrillation Status: Acute Assessment and Plan: Currently paced on the monitor Continue amiodarone and metoprolol from home (7) Chronic anticoagulation: Code(s): 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 fall percautions (8) Rheumatoid arthritis: Qualifiers: Rheumatoid arthritis location: unspecified site Rheumatoid factor presence: unspecified presence Qualified Code(s): M06.9 - Rheumatoid arthritis, unspecified Code(s): M06.9 - Rheumatoid arthritis, unspecified Status: Acute Assessment and Plan: Continue chronic low-dose prednisone (9) Hypertension: Code(s): I10 - Essential (primary) hypertension Status: Acute Assessment and Plan: Blood pressure are soft and remaining labile at this time Continue metoprolol with parameters Dose held this morning and last night last bp 125/69 (10) Hypotension: Code(s): I95.9 - Hypotension, unspecified Status: Acute Assessment and Plan: BP running on the softer side Edema noted in the bilateral lower extremities Could be dehydrated vascularly Metoprolol ordered but has not been given Will continue to trend current blood pressure 125/69, better since albumin Albumin 50ml given x1 since levels are 3.2 (02/26/21) Subjective Date/time seen: 02/27/21 08:26 Interval history: Patient is a 75 year old male that is here for cellulitis. Today he is complaining that the pain in his leg is gettin
[2021-02-27] MEDS: MORPHINE SULFATE (*CRX) 2 MG/ML INJ 1 MG IV PUSH (08:35)
[2021-02-27] MEDS: predniSONE 1 MG TABLET 3 MG PO (08:44)
[2021-02-27] MEDS: GABAPENTIN 300 MG CAPSULE PO ×2 (08:44→20:39)
[2021-02-27] MEDS: MULTIVITAMINS THERAPEUTIC TAB (*BKC) 1 TABLET PO (08:44)
[2021-02-27] MEDS: METOPROLOL TARTRATE 12.5 MG TABLET PO ×2 (08:44→20:39)
[2021-02-27] MEDS: ASPIRIN 81 MG ENTERIC TABLET PO (08:45)
[2021-02-27] MEDS: CALCIUM CARBONATE (OSCAL) 500 MG TABLET PO ×2 (08:45→18:06)
[2021-02-27] MEDS: POTASSIUM CHLORIDE 20 MEQ TABLET.ER PO (08:45)
[2021-02-27] MEDS: SIMVASTATIN 20 MG TABLET PO (08:46)
[2021-02-27] MEDS: predniSONE 5 MG TABLET PO (08:46)
[2021-02-27] MEDS: VITAMIN B COMPLEX/VIT C CAPSULE 1 EACH PO (08:46)
[2021-02-27 08:51] LABS: NT Pro B Type Natriuretic Pept 3260 pg/mL (5-100)
[2021-02-27] MEDS: AMIODARONE HCL 200 MG TABLET PO (10:54)
--- NOTE | 2021-02-27 11:55 | PM.PNCARD ---
Progress Note: A&P Assessment and Plan (1) ICD (implantable cardioverter-defibrillator) discharge: Code(s): Z45.02 - Encounter for adjustment and management of automatic implantable cardiac defibrillator Status: Acute Assessment and Plan: Appropriate ICD discharge for rapid ventricular tachycardia in the setting of sepsis and cellulitis. No recent angina or change in cardiac status to suggest an ACS picture as etiology. Two runs of NSVT this a.m. with no associated symptoms. Continue telemetry monitoring Continue to follow lytes Recommend restarting furosemide 20mg p.o. b.i.d. Up titrate to home dose 40mg b.i.d as BP allows FU w/ DRs. Warren and Tania on discharge. Echo showed moderate global hypokinesis, EF 40 - 45%, grade 3-4 diastolic dysfunction, moderate mitral and tricuspid regurgitation, evidence of elevated RA pressure. (2) Sepsis: Code(s): A41.9 - Sepsis, unspecified organism Status: Acute Assessment and Plan: Admitted w/ sepsis, soft BP, cellulitis, elevated lactic acid. BP improving. Restart furosemide as above. (3) Cellulitis of leg, right: Code(s): L03.115 - Cellulitis of right lower limb Status: Acute Assessment and Plan: On antibiotics. (4) Ischemic cardiomyopathy: Code(s): I25.5 - Ischemic cardiomyopathy Status: Acute Assessment and Plan: H/O ischemic CM and CHF w/ improvement of LV fxn; EF 40% by Echo in 2019 and 50% by [facility] in 2020. (5) CAD (coronary artery disease): Code(s): I25.10 - Atherosclerotic heart disease of [place] coronary artery without angina pectoris Status: Acute Assessment and Plan: H/O CABG. No angina. (6) Paroxysmal atrial fibrillation: Code(s): I48.0 - Paroxysmal atrial fibrillation Status: Acute Assessment and Plan: Maintaining NSR on amiodarone and Xarelto. (7) Obstructive sleep apnea treated with BiPAP: Code(s): G47.33 - Obstructive sleep apnea (adult) (pediatric) Status: Acute Assessment and Plan: Using CPAP. Additional Plan 75 year old patient with ischemic cardiomyopathy with ICD in place. We were asked to see this gentleman because of an ICD discharge for ventricular fibrillation.. This was an appropriate ICD delivery of ICD therapy. He also has a known history of ischemic cardiomyopathy with an EF of 40% demonstrated by echo during this hospitalization which is consistent with prior echo. He does not have any active cardiac issues ongoing at this time, his primary reason for hospitalization is cellulitis and sepsis. We will sign off for now. Please do not hesitate to contact us if we can be of assistance in the care of this patient in any way. Thank you for asking us to see him. Subjective Date/time seen: 02/27/21 11:55 Interval history: Date of service 02/25/2021: patient says he is feeling a little bit better today. still feels like he has some head congestion but denies body aches. He is complaining of pain in his legs. Denies chest pain, palpitations. He denies dyspnea but he is on 2 L of oxygen per nasal cannula -it looks like his oxygen saturation dipped down to 75 last night. He has not had any more ectopy noted on telemetry and no more ICD discharges. Date of service 02/26/2021: Feeling very tired today. He is sitting up in the chair during my exam with right leg propped up on a pillow. He says that the pain in his leg is worse today. He is now on room air and denies any shortness of breath. Denies chest pain, palpitations. Date of service 02/27/2021: Continues to feel tired, weak, and exhausted today. Now on room ai
[2021-02-27] MEDS: FUROSEMIDE 20 MG TABLET PO (18:06)
[2021-02-27] MEDS: RIVAROXABAN 20 MG TABLET PO (18:06)
[2021-02-28] VITALS (14 sets, daily range): BP systolic 110–142; BP diastolic 55–67; PULSE 58–90; RESP 16–20; TEMP 36.4–36.8; O2SAT 94–100
[2021-02-28 05:39] LABS: Basophils Percent Auto 0.4 % (0.2-1.2); Eosinophils Absolute Auto 0.2 K/mm3 (0-0.3); Eosinophils Percent Auto 2.5 % (0-4.4); Hematocrit 30.5 % (42.0-52.0); Hemoglobin 9.9 g/dL (14.0-18.0); Immature Granulocyte Absolute 0.22 K/mm3 (0.00-0.031); Immature Granulocyte Percent A 2.7 % (0-0.5); Lymphocytes Absolute Auto 0.57 K/mm3 (0.9-3.2); Mean Corpuscular HGB Conc 32.5 g/dl (32-36); Mean Corpuscular Volume 101.7 fl (80-100); Mean Platelet Volume 11.4 fl (7.4-10.4); Monocytes Percent Auto 12.4 % (2.6-8.5); Neutrophils Absolute Auto 6.1 K/mm3 (1.3-6.7); Platelet Count Result 114 k/mm3 (150-375); Red Cell Distribution Width 14.5 % (11.5-14.5); White Blood Count 8.1 K/mm3 (4.5-10.0)
[2021-02-28 05:49] LABS: Alanine Aminotransferase 57 U/L (4-50); Alkaline Phosphatase 97 U/L (38-126); Anion Gap 2 mmol/L (8-16); Aspartate Amino Transferase 34 U/L (17-59); Bilirubin,Total 0.9 mg/dL (0.2-1.3); Blood Urea Nitrogen 13 mg/dL (9-20); Calcium 8.4 mg/dL (8.4-10.2); Carbon Dioxide 28 mmol/L (22-30); Chloride 102 mmol/L (98-107); Estimated CRCL calculation 123 ml/min; Estimated Glomerular Filt Rate > 60; Glucose 90 mg/dL (65-110); Magnesium 2.2 mg/dL (1.6-2.3); Potassium 4.3 mmol/L (3.4-5.0); Sodium 132 mmol/L (137-145)
[2021-02-28] MEDS: HYDROcodone/acetaminophen (*CRX) 5-325 MG TABLET 1 TAB PO ×3 (05:52→21:39)
--- NOTE | 2021-02-28 07:17 | P.PNIM_ITS ---
Progress Note: A&P Assessment and Plan (1) Sepsis: Code(s): A41.9 - Sepsis, unspecified organism Status: Acute Assessment and Plan: * Secondary to cellulitis * presented with fever, hypotension and leukocytosis with an elevated lactic acid. * blood cultures preliminary reports pseudomonas aeruginosa from aerobic bottle only * Antibiotic sensitivities confirm primaxin, will probably need to be changed to cipro if DC'd soon * Leg seems better in the color aspect, increased pain, swelling. Blistering better * vancomycin DC'd * white blood cell count improving WBC 8.1 today. * Blood pressure a little bit better today 110/60 * BUN CR stable at 13/0.60 * Will tend labs * DC'd Dilaudid added roxicodone (2) Bacteremia: Code(s): R78.81 - Bacteremia Status: Acute Assessment and Plan: * Blood cultures positive for pseudomonas aeruginosa * Primaxin was started * ID consult recommendations appreciated * WBC trending down * Pain medication ordered (3) Cellulitis of right leg: Code(s): L03.115 - Cellulitis of right lower limb Status: Acute Assessment and Plan: * As above * continue primaxin * ID consult * elevate extremity (4) ICD (implantable cardioverter-defibrillator) discharge: Code(s): Z45.02 - Encounter for adjustment and management of automatic implantable cardiac defibrillator Status: Acute Assessment and Plan: * Pt reports being shocked around 3am 02/24/21 * 12 beat run of V-tach resolved on its own, or with pacer (02/27/21) * Tele shows continues to show paced * Pacemaker seems to have been placed for arrythmia related to decreased EF and grade 3-4 diastolic dysfunction * Sees Dr. Sarina Warren * He is on amiodarone, electrolytes are stable * He has a [employer] device interrogated, shows proper function * Cardiology consulted thank you for your recommendations (5) Ischemic cardiomyopathy: Code(s): I25.5 - Ischemic cardiomyopathy Status: Acute Assessment and Plan: * Reported in EMR, pt has no knowledge of CHF but says he has of heart issues * Repeat echo EF 40-45% with grade 3-4 diastolic dysfunction * probably contributed to his shortness of breath * Lasix resume since BP is 116/66 and is remaining stable at this time * Metoprolol ordered with parameters * Blood pressure is better and more stable * will start to diuresis patient (6) Obstructive sleep apnea treated with BiPAP: Code(s): G47.33 - Obstructive sleep apnea (adult) (pediatric) Status: Acute Assessment and Plan: * continue cpap (7) Paroxysmal atrial fibrillation: Code(s): I48.0 - Paroxysmal atrial fibrillation Status: Acute Assessment and Plan: * Currently paced on the monitor * Continue amiodarone and metoprolol from home (8) Chronic anticoagulation: Code(s): Z79.01 - [facility] (current) use of anticoagulants Status: Acute Assessment and Plan: * Continue rivaroxaban for stroke prophylaxis given atrial fibrillation. * fall percautions (9) Rheumatoid arthritis: Qualifiers: Rheumatoid arthritis location: unspecified site Rheumatoid factor presence: unspecified presence Qualified Code(s): M06.9 - Rheumatoid arthritis, unspecified Code(s): M06.9 - Rheumatoid arthritis, unspecified Status: Acute Assessment and Pl
--- NOTE | 2021-02-28 07:17 | PM.IMPN ---
Progress Note: A&P Assessment and Plan (1) Sepsis: Code(s): A41.9 - Sepsis, unspecified organism Status: Acute Assessment and Plan: Secondary to cellulitis presented with fever, hypotension and leukocytosis with an elevated lactic acid. blood cultures preliminary reports pseudomonas aeruginosa from aerobic bottle only Antibiotic sensitivities confirm primaxin, will probably need to be changed to cipro if DC'd soon Leg seems better in the color aspect, increased pain, swelling. Blistering better vancomycin DC'd white blood cell count improving WBC 8.1 today. Blood pressure a little bit better today 110/60 BUN CR stable at 13/0.60 Will tend labs DC'd Dilaudid added roxicodone (2) Bacteremia: Code(s): R78.81 - Bacteremia Status: Acute Assessment and Plan: Blood cultures positive for pseudomonas aeruginosa Primaxin was started ID consult recommendations appreciated WBC trending down Pain medication ordered (3) Cellulitis of right leg: Code(s): L03.115 - Cellulitis of right lower limb Status: Acute Assessment and Plan: As above continue primaxin ID consult elevate extremity (4) ICD (implantable cardioverter-defibrillator) discharge: Code(s): Z45.02 - Encounter for adjustment and management of automatic implantable cardiac defibrillator Status: Acute Assessment and Plan: Pt reports being shocked around 3am 02/24/21 12 beat run of V-tach resolved on its own, or with pacer (02/27/21) Tele shows continues to show paced Pacemaker seems to have been placed for arrythmia related to decreased EF and grade 3-[address] Sarina Warren He is on amiodarone, electrolytes are stable He has a [employer] device interrogated, shows proper function Cardiology consulted thank you for your recommendations (5) Ischemic cardiomyopathy: Code(s): I25.5 - Ischemic cardiomyopathy Status: Acute Assessment and Plan: Reported in EMR, pt has no knowledge of CHF but says he has of heart issues Repeat echo EF 40-45% with grade 3-4 diastolic dysfunction probably contributed to his shortness of breath Lasix resume since BP is 116/66 and is remaining stable at this time Metoprolol ordered with parameters Blood pressure is better and more stable will start to diuresis patient (6) Obstructive sleep apnea treated with BiPAP: Code(s): G47.33 - Obstructive sleep apnea (adult) (pediatric) Status: Acute Assessment and Plan: continue cpap (7) Paroxysmal atrial fibrillation: Code(s): I48.0 - Paroxysmal atrial fibrillation Status: Acute Assessment and Plan: Currently paced on the monitor Continue amiodarone and metoprolol from home (8) Chronic anticoagulation: Code(s): Z79.01 - residential (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 fall percautions (9) Rheumatoid arthritis: Qualifiers: Rheumatoid arthritis location: unspecified site Rheumatoid factor presence: unspecified presence Qualified Code(s): M06.9 - Rheumatoid arthritis, unspecified Code(s): M06.9 - Rheumatoid arthritis, unspecified Status: Acute Assessment and Plan: Continue chronic low-dose prednisone (10) Hypertension: Code(s): I10 - Essential (primary) hypertension Status: Acute Assessment and Plan: Blood pressure are soft and remaining labile at this time Continue metoprolol with parameters Dose held this morning and last night last bp 116/66 (11) Hypotension: Code(s): I95.9 - Hypotension, unspecified Status: Acute Assessment and Plan: BP more stable, probably resolved at this point, but will continue to trend BP running on the sof
[2021-02-28] MEDS: AMIODARONE HCL 200 MG TABLET PO (08:10)
[2021-02-28] MEDS: POTASSIUM CHLORIDE 20 MEQ TABLET.ER PO (08:10)
[2021-02-28] MEDS: MULTIVITAMINS THERAPEUTIC TAB (*BKC) 1 TABLET PO (08:10)
[2021-02-28] MEDS: GABAPENTIN 300 MG CAPSULE PO ×2 (08:10→21:38)
[2021-02-28] MEDS: predniSONE 1 MG TABLET 3 MG PO (08:10)
[2021-02-28] MEDS: CALCIUM CARBONATE (OSCAL) 500 MG TABLET PO ×2 (08:11→17:15)
[2021-02-28] MEDS: predniSONE 5 MG TABLET PO (08:11)
[2021-02-28] MEDS: METOPROLOL TARTRATE 12.5 MG TABLET PO ×2 (08:12→21:38)
[2021-02-28] MEDS: SIMVASTATIN 20 MG TABLET PO (08:12)
[2021-02-28] MEDS: VITAMIN B COMPLEX/VIT C CAPSULE 1 EACH PO (08:12)
[2021-02-28] MEDS: ASPIRIN 81 MG ENTERIC TABLET PO (08:12)
[2021-02-28] MEDS: FUROSEMIDE 20 MG TABLET PO (08:12)
--- NOTE | 2021-02-28 11:44 | PC.NURSE ---
pt c/o of a rash on his back that was irritating him; after examination, pt's back appeared to have a heat rash with raised red small inflammation covering the majority of his back; during examination, pt stated that it had become itchy when exposed to the air; hospitalist contacted and benadryl cream ordered
[2021-02-28] MEDS: DIPHENHYDRAMINE 1%/ZINC 0.1% CREAM 30 GM TUBE 1 APPLIC TOPICAL ×2 (13:53→22:22)
[2021-02-28] MEDS: RIVAROXABAN 20 MG TABLET PO (17:15)
[2021-02-28] MEDS: FUROSEMIDE 40 MG TABLET PO (17:15)
[2021-03-01] VITALS (16 sets, daily range): BP systolic 108–126; BP diastolic 50–65; PULSE 59–80; RESP 12–20; TEMP 36.4–36.7; O2SAT 97–100
[2021-03-01] MEDS: HYDROcodone/acetaminophen (*CRX) 5-325 MG TABLET 1 TAB PO (04:21)
[2021-03-01 05:09] LABS: Basophils Absolute Auto 0.1 K/mm3 (0.0-0.1); Basophils Percent Auto 0.5 % (0.2-1.2); Eosinophils Absolute Auto 0.2 K/mm3 (0-0.3); Eosinophils Percent Auto 2.3 % (0-4.4); Hemoglobin 9.9 g/dL (14.0-18.0); Immature Granulocyte Absolute 0.36 K/mm3 (0.00-0.031); Lymphocytes Percent Auto 8.8 % (18.3-44.2); Mean Corpuscular Hemoglobin 32.2 pg (26-34); Mean Corpuscular Volume 97.7 fl (80-100); Monocytes Absolute Auto 0.9 K/mm3 (0.1-0.6); Monocytes Percent Auto 10.2 % (2.6-8.5); Neutrophils Absolute Auto 6.8 K/mm3 (1.3-6.7); Neutrophils Percent Auto 74.2 % (45.5-73.1); Nucleated Red Blood Cells Perc 0.2 % (0.0-0.2); Platelet Count Result 159 k/mm3 (150-375); Red Blood Count 3.07 M/mm3 (4.6-6.20); Red Cell Distribution Width 14.8 % (11.5-14.5); White Blood Count 9.1 K/mm3 (4.5-10.0)
[2021-03-01 05:33] LABS: Alanine Aminotransferase 51 U/L (4-50); Albumin Level 3.1 g/dL (3.5-5.1); Alkaline Phosphatase 112 U/L (38-126); Anion Gap 8 mmol/L (8-16); Aspartate Amino Transferase 36 U/L (17-59); Bilirubin,Total 0.9 mg/dL (0.2-1.3); Blood Urea Nitrogen 11 mg/dL (9-20); Calcium 8.3 mg/dL (8.4-10.2); Carbon Dioxide 28 mmol/L (22-30); Chloride 102 mmol/L (98-107); Estimated CRCL calculation 123 ml/min; Estimated Glomerular Filt Rate > 60; Glucose 89 mg/dL (65-110); Magnesium 2.2 mg/dL (1.6-2.3); Potassium 4.4 mmol/L (3.4-5.0); Sodium 138 mmol/L (137-145)
[2021-03-01 07:15] LABS: Gentamicin Random < 0.6 ug/mL (5.0-12.0)
--- NOTE | 2021-03-01 08:13 | P.PNIM_ITS ---
Progress Note: A&P Assessment and Plan (1) Sepsis: Code(s): A41.9 - Sepsis, unspecified organism Status: Acute Assessment and Plan: * Secondary to cellulitis * presented with fever, hypotension and leukocytosis with an elevated lactic acid. * blood cultures reports pseudomonas aeruginosa * Antibiotic sensitivities confirm primaxin * Leg seems better in the color aspect, increased pain, swelling. Blistering lo oks worse today * ID placed patient on gentamycin (03/01/21) * white blood cell count improving WBC 9.1 today. * Blood pressure a little bit better today 108/56 * BUN CR stable at 11/0.60 * Will tend labs * roxicodone PRN for pain (2) Bacteremia: Code(s): R78.81 - Bacteremia Status: Acute Assessment and Plan: * Blood cultures positive for pseudomonas aeruginosa * Primaxin continued, gentamycin started 03/01/21 * ID consult recommendations appreciated * WBC trending down * Pain medication ordered (3) Cellulitis of right leg: Code(s): L03.115 - Cellulitis of right lower limb Status: Acute Assessment and Plan: * As above * continue primaxin * ID consult * elevate extremity (4) ICD (implantable cardioverter-defibrillator) discharge: Code(s): Z45.02 - Encounter for adjustment and management of automatic implantable cardiac defibrillator Status: Acute Assessment and Plan: * Pt reports being shocked around 3am 02/24/21 * 12 beat run of V-tach resolved on its own, or with pacer (02/27/21) * Tele shows continues to show paced * Pacemaker seems to have been placed for arrythmia related to decreased EF and grade 3-4 diastolic dysfunction * Sees Dr. Sarina Warren * Continue amiodarone, electrolytes are stable * [employer] device interrogated, shows proper function * Cardiology consulted thank you for your recommendations (5) Ischemic cardiomyopathy: Code(s): I25.5 - Ischemic cardiomyopathy Status: Acute Assessment and Plan: * Reported in EMR, pt has no knowledge of CHF but says he has of heart issues * Repeat echo EF 40-45% with grade 3-4 diastolic dysfunction * probably contributed to his shortness of breath * Lasix resume since BP is stable * Metoprolol ordered with parameters * Blood pressure is better and more stable (6) Obstructive sleep apnea treated with BiPAP: Code(s): G47.33 - Obstructive sleep apnea (adult) (pediatric) Status: Acute Assessment and Plan: * continue cpap (7) Paroxysmal atrial fibrillation: Code(s): I48.0 - Paroxysmal atrial fibrillation Status: Acute Assessment and Plan: * Currently paced on the monitor * Continue amiodarone and metoprolol from home (8) Chronic anticoagulation: Code(s): Z79.01 - [employer] (current) use of anticoagulants Status: Acute Assessment and Plan: * Continue rivaroxaban for stroke prophylaxis given atrial fibrillation. * fall percautions (9) Rheumatoid arthritis: Qualifiers: Rheumatoid arthritis location: unspecified site Rheumatoid factor presence: unspecified presence Qualified Code(s): M06.9 - Rheumatoid arthritis, unspecified Code(s): M06.9 - Rheumatoid arthritis, unspecified Status: Acute Assessment and Plan: * Continue chronic low-dose prednisone (10) Hypertension: Code(s): I10 - [place]
--- NOTE | 2021-03-01 08:13 | PM.IMPN ---
Progress Note: A&P Assessment and Plan (1) Sepsis: Code(s): A41.9 - Sepsis, unspecified organism Status: Acute Assessment and Plan: Secondary to cellulitis presented with fever, hypotension and leukocytosis with an elevated lactic acid. blood cultures reports pseudomonas aeruginosa Antibiotic sensitivities confirm primaxin Leg seems better in the color aspect, increased pain, swelling. Blistering looks worse today ID placed patient on gentamycin (03/01/21) white blood cell count improving WBC 9.1 today. Blood pressure a little bit better today 108/56 BUN CR stable at 11/0.60 Will tend labs roxicodone PRN for pain (2) Bacteremia: Code(s): R78.81 - Bacteremia Status: Acute Assessment and Plan: Blood cultures positive for pseudomonas aeruginosa Primaxin continued, gentamycin started 03/01/21 ID consult recommendations appreciated WBC trending down Pain medication ordered (3) Cellulitis of right leg: Code(s): L03.115 - Cellulitis of right lower limb Status: Acute Assessment and Plan: As above continue primaxin ID consult elevate extremity (4) ICD (implantable cardioverter-defibrillator) discharge: Code(s): Z45.02 - Encounter for adjustment and management of automatic implantable cardiac defibrillator Status: Acute Assessment and Plan: Pt reports being shocked around 3am 02/24/21 12 beat run of V-tach resolved on its own, or with pacer (02/27/21) Tele shows continues to show paced Pacemaker seems to have been placed for arrythmia related to decreased EF and grade 3-[address] Sarina Warren Continue amiodarone, electrolytes are stable [employer] device interrogated, shows proper function Cardiology consulted thank you for your recommendations (5) Ischemic cardiomyopathy: Code(s): I25.5 - Ischemic cardiomyopathy Status: Acute Assessment and Plan: Reported in EMR, pt has no knowledge of CHF but says he has of heart issues Repeat echo EF 40-45% with grade 3-4 diastolic dysfunction probably contributed to his shortness of breath Lasix resume since BP is stable Metoprolol ordered with parameters Blood pressure is better and more stable (6) Obstructive sleep apnea treated with BiPAP: Code(s): G47.33 - Obstructive sleep apnea (adult) (pediatric) Status: Acute Assessment and Plan: continue cpap (7) Paroxysmal atrial fibrillation: Code(s): I48.0 - Paroxysmal atrial fibrillation Status: Acute Assessment and Plan: Currently paced on the monitor Continue amiodarone and metoprolol from home (8) Chronic anticoagulation: Code(s): 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 fall percautions (9) Rheumatoid arthritis: Qualifiers: Rheumatoid arthritis location: unspecified site Rheumatoid factor presence: unspecified presence Qualified Code(s): M06.9 - Rheumatoid arthritis, unspecified Code(s): M06.9 - Rheumatoid arthritis, unspecified Status: Acute Assessment and Plan: Continue chronic low-dose prednisone (10) Hypertension: Code(s): I10 - Essential (primary) hypertension Status: Acute Assessment and Plan: Blood pressure are soft and remaining labile at this time Continue metoprolol with parameters Dose held this morning and last night last bp 108/56 (11) Hypotension: Code(s): I95.9 - Hypotension, unspecified Status: Acute Assessment and Plan: Has not had any episodes of hypotension over the last couple of days. BP more stable, probably resolved at this point, but will continue to trend BP running on the softer side Edema remains noted in the bilat
[2021-03-01] MEDS: POTASSIUM CHLORIDE 20 MEQ TABLET.ER PO (08:56)
[2021-03-01] MEDS: VITAMIN B COMPLEX/VIT C CAPSULE 1 EACH PO (08:56)
[2021-03-01] MEDS: ASPIRIN 81 MG ENTERIC TABLET PO (08:56)
[2021-03-01] MEDS: MULTIVITAMINS THERAPEUTIC TAB (*BKC) 1 TABLET PO (08:56)
[2021-03-01] MEDS: GABAPENTIN 300 MG CAPSULE PO ×2 (08:56→20:07)
[2021-03-01] MEDS: FUROSEMIDE 40 MG TABLET PO ×2 (08:56→17:04)
[2021-03-01] MEDS: METOPROLOL TARTRATE 12.5 MG TABLET PO ×2 (08:56→20:08)
[2021-03-01] MEDS: oxyCODONE HCL (*CRX) 5 MG TAB IR PO ×2 (08:59→14:41)
[2021-03-01] MEDS: AMIODARONE HCL 200 MG TABLET PO (08:59)
[2021-03-01] MEDS: predniSONE 5 MG TABLET PO (09:01)
[2021-03-01] MEDS: SIMVASTATIN 20 MG TABLET PO (09:01)
[2021-03-01] MEDS: CALCIUM CARBONATE (OSCAL) 500 MG TABLET PO ×2 (09:01→17:04)
[2021-03-01] MEDS: predniSONE 1 MG TABLET 3 MG PO (09:01)
--- NOTE | 2021-03-01 10:41 | PCPTNOTE ---
Attempted to see patient for PT at this time, however patient declined due to increase pain in right lower leg.
--- NOTE | 2021-03-01 11:09 | WPDINFPN2 ---
Progress Note: A&P Assessment and Plan (1) Bacteremia: Code(s): R78.81 - Bacteremia Status: Acute Assessment and Plan: pseudomonas bacteremia with infection, RLE soft tissue source, due to immune suppression REC Imipenem # 5, Gent # 2 / 6. CT LE to investigate for abscess. Biologic on hold, patient does not plan on resuming, redo BCs Subjective Date/time seen: 03/01/21 11:10 Objective Data Vital Signs Vital Signs: Vital Signs - 24 hr 02/28/21 12:00 02/28/21 14:00 02/28/21 16:00 Temperature 36.6 C Pulse Rate 65 90 60 Respiratory Rate 16 Blood Pressure 142/67 H Pulse Oximetry 97 02/28/21 18:00 02/28/21 20:00 02/28/21 21:34 Temperature 36.8 C 36.4 C Pulse Rate 64 63 62 Respiratory Rate 18 20 Blood Pressure 130/56 L 112/55 L Pulse Oximetry 97 100 100 02/28/21 21:38 03/01/21 00:00 03/01/21 00:10 Temperature 36.7 C Pulse Rate 62 67 64 Respiratory Rate 20 Blood Pressure 108/54 L Pulse Oximetry 99 03/01/21 04:00 03/01/21 05:52 03/01/21 08:00 Temperature 36.4 C L Pulse Rate 60 60 67 Respiratory Rate 20 Blood Pressure 125/65 Pulse Oximetry 99 03/01/21 08:56 03/01/21 08:59 03/01/21 09:50 Temperature 36.4 C Pulse Rate 68 68 64 Respiratory Rate 12 Blood Pressure 108/56 L Pulse Oximetry 97 Intake/Output Intake/Output: Intake & Output 02/26/21 02/27/21 02/28/21 03/01/21 23:59 23:59 23:59 23:59 Intake Total 3320 2570 2700 1580 Output Total 4446 2800 2450 3050 Balance -1120 -250 696 -2133 Meds/Results Medications: Active Medications Generic Name Dose Route Start Last Admin Trade Name Freq PRN Reason Stop Dose Admin Acetaminophen 650 mg 02/23/21 22:59 02/26/21 05:33 Acetaminophen 325 Mg Tablet PO 650 mg Q6H PRN Administration Mild Pain (1-3) or Fever Hydrocodone Bitart/Acetaminophen 1 tab 02/26/21 05:50 03/01/21 04:21 Hydrocodone/Acetaminophen (*Crx) 5-325 Mg Tablet PO 1 tab Q4H PRN Administration Pain Rated 4-6 Amiodarone HCl 200 mg 02/24/21 08:00 03/01/21 08:59 Amiodarone Hcl 200 Mg Tablet PO 200 mg DAILY@0800 LIZETTE Administration Aspirin 81 mg 02/24/21 09:00 03/01/21 08:56 Aspirin 81 Mg Enteric Tablet PO 81 mg DAILY LIZETTE Administration Calcium Carbonate 500 mg 02/24/21 09:00 03/01/21 09:01 Calcium Carbonate (Oscal) 500 Mg Tablet PO 03/26/21 08:59 500 mg BID LIZETTE Administration Furosemide 40 mg 02/28/21 17:00 03/01/21 08:56 Furosemide 40 Mg Tablet PO 40 mg BID LIZETTE Administration Gabapentin 300 mg 02/24/21 09:00 03/01/21 08:56 Gabapentin 300 Mg Capsule PO 300 mg Q12HR LIZETTE Administration Gentamicin Sulfate 1 each 03/01/21 11:05 Gentamicin Pharmacy To Dose IVPB 03/06/21 11:04 PRN PRN Kinetics Consult Imipenem/Cilastatin Sodium 1, 250 mls @ 375 mls/hr 03/01/21 11:10 000 mg/ Dextrose IVPB Q8H [facility] Metoprolol Tartrate 12.5 mg 02/24/21 09:00 03/01/21 08:56 Metoprolol Tartrate 12.5 Mg Tablet PO 12.5 mg Q12HR LZIETTE Administration Multivitamins Therapeutic 1 tablet 02/24/21 09:00 03/01/21 08:56 Multivitamins Therapeutic Tab (*Bkc) PO 1 tablet DAILY LIZETTE Administration Oxycodone HCl 5 mg 03/01/21 07:31 03/01/21 08:59 Oxycodone Hcl (*Crx) 5 Mg Tab Ir PO 5 mg Q4H PRN Administration Pain Rated 7-10 Potassium Chloride 20 meq 02/24/21 08:00 03/01/21 08:56 Potassium Chloride 20 Meq Tablet.Er PO 20 meq DAILY@0800 LIZETTE Administration Prednisone 5 mg 02/24/21 08:00 03/01/21 09:01 Prednisone 5 Mg Tablet PO 5 mg DAILY@0800 LIZETTE Administration Prednisone 3 mg 02/24/21 08:00 03/01/21 09:01 Prednisone 1 Mg Tablet PO 3 mg DAILY@0800 LIZETTE Administration Rivaroxaban 20 mg 02/24/21 18:00 02/28/21 17:15 Rivaroxaban 20 Mg Tablet PO 20 mg QPM LIZETTE Administration Simvastatin 20 mg 02/24/21 09:00 03/01/21 09:01 Simvastatin 20 Mg Tablet PO 20 mg DAILY LIZETTE
--- NOTE | 2021-03-01 13:10 | CONS_ITS ---
DATE OF CONSULTATION: 03/01/2021 REASON FOR CONSULTATION: Pseudomonas bacteremia. HISTORY OF PRESENT ILLNESS: A 75-year-old male, who has chronic lymphedema of both lower extremities. He had bilateral knee replacements performed 1 and 1-1/2 years ago without postop wound infection to his knowledge. He has had vein graft harvesting from the left medial knee area for CABG. He has no pets at home and tells me he never scratches his legs. He does have blisters that are several millimeters in diameter that arise randomly. He has had a previous AICD implanted in the left upper chest. This apparently fired off shortly after the patient's admission. He presented to the hospital on February 23, with 1 day of progressive malaise and weakness, dizziness, unsteady gait, headache, fever, rigors as well as right lower extremity erythema and worsened edema. Here, he was febrile. He has been given vancomycin, piperacillin, imipenem, and gentamicin at various times. Consultation is requested. He still has pain in the right leg, worse with palpation or with weightbearing. He knows of no trauma. He has had previous leg infections, but none have been severe enough to require hospitalization. He knows of no breaks in the skin and no events here in the hospital otherwise. His prednisone continues. His Rinvoq is on hold. ALLERGIES: NONE KNOWN. HABITS: No alcohol, no tobacco, having quit in 1998. PRESENT MEDICATIONS: As above, his prednisone is 3 mg daily. No other immunosuppressants actively. PAST MEDICAL HISTORY: In addition to the above, peripheral neuropathy that apparently is not metabolic in nature, rotator cuff repair, lumbar diskectomy, eye surgeries, RA, PAF, DESTINY, ischemic cardiomyopathy, hypertension, hyperlipidemia, cryptogenic cirrhosis, Coronavirus infection in June of this year, chronic anticoagulation, BPH. REVIEW OF SYSTEMS: He does not feel like the arthritis medicine has helped him in any way and plans on stopping. He is right-handed. He has easy bruisability, joint deformities, occasional dyspnea on exertion, urinary frequency only since he has been in the hospital. 14-point review is otherwise negative. FAMILY HISTORY: Not pertinent to his present illness. SOCIAL HISTORY: There is no family at the bedside. 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 Lives locally. PHYSICAL EXAMINATION: GENERAL: This is an elderly male, who appears his actual age. No acute distress. VITAL SIGNS: His temperature shortly after arrival is 38.6, afebrile since then. 108/56, 64, 12, 97%. SKIN: No generalized rashes. No erythroderma. He has multiple skin abrasions over both distal legs. He has no breaks in the skin in the right leg. He has a 0.5 cm bulla over the [place]. Notes he has no cervical adenopathy. EENT: The conjunctivae are normal. Pupils equal, round, and reactive to light. The oropharynx, oral mucosa normal. NECK: No mass or thyromegaly, meningismus. LUNGS: Clear to auscultation and percussion. BACK: No CVAT. No spinal tenderness. CARDIAC: Regular rate and rhythm. No murmur, gallop, or rub. CHEST: He has a left upper chest pacemaker device without skin breakdown, hematoma, erythema. ABDOMEN: Nontender, soft. No organomegaly. No masses. CARDIAC: Regular rate and rhythm. Peripheral pulses are 2+ and equal throughout. EXTREMITIES: See above. He has chronic stasis changes over both distal legs. He has marked tenderness to light touch and palpation of the right leg with circumferential erythema, more marked anteriorly. The foot has 2+ edema as well. No erythema. There is no crepitus. No draining sinus tracts. LABORATORY DATA: Blood cultures 1 of 2 sets, Pseudomonas aeruginosa from February 23 and white blood cell count is 14.7 on admis
--- NOTE | 2021-03-01 15:09 | PCPTNOTE ---
Attempted to see patient this afternoon for PT, however patient declined due to pain in right lower leg.
[2021-03-01] MEDS: RIVAROXABAN 20 MG TABLET PO (17:04)
[2021-03-02] VITALS (12 sets, daily range): BP systolic 105–130; BP diastolic 52–68; PULSE 59–81; RESP 16–20; TEMP 36–36.8; O2SAT 96–100
[2021-03-02] MEDS: HYDROcodone/acetaminophen (*CRX) 5-325 MG TABLET 1 TAB PO (00:34)
[2021-03-02 02:39] LABS: Basophils Absolute Auto 0.1 K/mm3 (0.0-0.1); Basophils Percent Auto 0.5 % (0.2-1.2); Eosinophils Absolute Auto 0.2 K/mm3 (0-0.3); Eosinophils Percent Auto 2.1 % (0-4.4); Hematocrit 30.1 % (42.0-52.0); Hemoglobin 9.8 g/dL (14.0-18.0); Immature Granulocyte Absolute 0.43 K/mm3 (0.00-0.031); Immature Granulocyte Percent A 4.5 % (0-0.5); Lymphocytes Absolute Auto 1.08 K/mm3 (0.9-3.2); Lymphocytes Percent Auto 11.3 % (18.3-44.2); Mean Corpuscular HGB Conc 32.6 g/dl (32-36); Mean Corpuscular Hemoglobin 31.8 pg (26-34); Mean Corpuscular Volume 97.7 fl (80-100); Mean Platelet Volume 10.7 fl (7.4-10.4); Monocytes Absolute Auto 0.9 K/mm3 (0.1-0.6); Monocytes Percent Auto 9.6 % (2.6-8.5); Neutrophils Absolute Auto 6.9 K/mm3 (1.3-6.7); Platelet Count Result 181 k/mm3 (150-375); Red Blood Count 3.08 M/mm3 (4.6-6.20); Red Cell Distribution Width 14.7 % (11.5-14.5); White Blood Count 9.5 K/mm3 (4.5-10.0)
[2021-03-02 02:51] LABS: Alanine Aminotransferase 43 U/L (4-50); Alkaline Phosphatase 107 U/L (38-126); Anion Gap 6 mmol/L (8-16); Aspartate Amino Transferase 31 U/L (17-59); Bilirubin,Total 0.8 mg/dL (0.2-1.3); Blood Urea Nitrogen 11 mg/dL (9-20); Calcium 8.7 mg/dL (8.4-10.2); Carbon Dioxide 30 mmol/L (22-30); Chloride 100 mmol/L (98-107); Estimated CRCL calculation 108 ml/min; Estimated Glomerular Filt Rate > 60; Glucose 103 mg/dL (65-110); Magnesium 2.3 mg/dL (1.6-2.3); Potassium 4.4 mmol/L (3.4-5.0); Sodium 136 mmol/L (137-145)
[2021-03-02 03:25] LABS: Gentamicin Trough 1.3 ug/mL (<1.0)
--- NOTE | 2021-03-02 07:10 | P.PNIM_ITS ---
Progress Note: A&P Assessment and Plan (1) Sepsis: Code(s): A41.9 - Sepsis, unspecified organism Status: Acute Assessment and Plan: * Secondary to cellulitis * presented with fever, hypotension and leukocytosis with an elevated lactic acid. * blood cultures reports pseudomonas aeruginosa, repeated 03/01/21 * Continue primaxin, gentamycin added 03/01/21 * white blood cell count improving WBC 9.5 today. * Blood pressure remains stable at 112/52 * BUN CR stable at 11/0.60, continue to trend with addition of gentamycin * roxicodone PRN for pain (2) Bacteremia: Code(s): R78.81 - Bacteremia Status: Acute Assessment and Plan: * Blood cultures positive for pseudomonas aeruginosa, repeated 03/01/21 * Primaxin continued, gentamycin started 03/01/21 * ID consult recommendations appreciated * seems to be responsive with WBC trend * Pain medication (3) Cellulitis of right leg: Code(s): L03.115 - Cellulitis of right lower limb Status: Acute Assessment and Plan: * As above * continue primaxin, gent added * ID consult * elevate extremity * CT of the right lower extremity added (4) ICD (implantable cardioverter-defibrillator) discharge: Code(s): Z45.02 - Encounter for adjustment and management of automatic implantable cardiac defibrillator Status: Acute Assessment and Plan: * Pt reports being shocked around 3am 02/24/21 * 12 beat run of V-tach resolved on its own, or with pacer (02/27/21) * Tele shows continues to show paced, DC * Pacemaker seems to have been placed for arrythmia related to decreased EF and grade 3-4 diastolic dysfunction * Sees Dr. Sarina Warren, will need to follow up after DC * Continue amiodarone, electrolytes are stable * [employer] device interrogated, shows proper function (5) Ischemic cardiomyopathy: Code(s): I25.5 - Ischemic cardiomyopathy Status: Acute Assessment and Plan: * Reported in EMR, pt has no knowledge of CHF but says he has of heart issues * Repeat echo EF 40-45% with grade 3-4 diastolic dysfunction * shortness of breath resolved at this time, RA sating 96% * Continue Lasix, trend renal function with addition of Gent * Continue Metoprolol, trend BP (6) Obstructive sleep apnea treated with BiPAP: Code(s): G47.33 - Obstructive sleep apnea (adult) (pediatric) Status: Acute Assessment and Plan: * continue cpap (7) Paroxysmal atrial fibrillation: Code(s): I48.0 - Paroxysmal atrial fibrillation Status: Acute Assessment and Plan: * Currently paced on the monitor * Consider DC tele with no reported arrhythmia or events * Continue amiodarone and metoprolol from home (8) Chronic anticoagulation: Code(s): Z79.01 - intermediate (current) use of anticoagulants Status: Acute Assessment and Plan: * Continue rivaroxaban for stroke prophylaxis given atrial fibrillation. * fall percautions (9) Rheumatoid arthritis: Qualifiers: Rheumatoid arthritis location: unspecified site Rheumatoid factor presence: unspecified presence Qualified Code(s): M06.9 - Rheumatoid arthritis, unspecified Code(s): M06.9 - Rheumatoid arthritis, unspecified Status: Acute Assessment and Plan: * Continue chronic low-dose prednisone (10) Hypertension: Code(s): I10 - [place]
--- NOTE | 2021-03-02 07:10 | PM.IMPN ---
Progress Note: A&P Assessment and Plan (1) Sepsis: Code(s): A41.9 - Sepsis, unspecified organism Status: Acute Assessment and Plan: Secondary to cellulitis presented with fever, hypotension and leukocytosis with an elevated lactic acid. blood cultures reports pseudomonas aeruginosa, repeated 03/01/21 Continue primaxin, gentamycin added 03/01/21 white blood cell count improving WBC 9.5 today. Blood pressure remains stable at 112/52 BUN CR stable at 11/0.60, continue to trend with addition of gentamycin roxicodone PRN for pain (2) Bacteremia: Code(s): R78.81 - Bacteremia Status: Acute Assessment and Plan: Blood cultures positive for pseudomonas aeruginosa, repeated 03/01/21 Primaxin continued, gentamycin started 03/01/21 ID consult recommendations appreciated seems to be responsive with WBC trend Pain medication (3) Cellulitis of right leg: Code(s): L03.115 - Cellulitis of right lower limb Status: Acute Assessment and Plan: As above continue primaxin, gent added ID consult elevate extremity CT of the right lower extremity added (4) ICD (implantable cardioverter-defibrillator) discharge: Code(s): Z45.02 - Encounter for adjustment and management of automatic implantable cardiac defibrillator Status: Acute Assessment and Plan: Pt reports being shocked around 3am 02/24/21 12 beat run of V-tach resolved on its own, or with pacer (02/27/21) Tele shows continues to show paced, DC Pacemaker seems to have been placed for arrythmia related to decreased EF and grade 3-[address] Sarina Warren, will need to follow up after DC Continue amiodarone, electrolytes are stable [facility] [facility] device interrogated, shows proper function (5) Ischemic cardiomyopathy: Code(s): I25.5 - Ischemic cardiomyopathy Status: Acute Assessment and Plan: Reported in EMR, pt has no knowledge of CHF but says he has of heart issues Repeat echo EF 40-45% with grade 3-4 diastolic dysfunction shortness of breath resolved at this time, RA sating 96% Continue Lasix, trend renal function with addition of Gent Continue Metoprolol, trend BP (6) Obstructive sleep apnea treated with BiPAP: Code(s): G47.33 - Obstructive sleep apnea (adult) (pediatric) Status: Acute Assessment and Plan: continue cpap (7) Paroxysmal atrial fibrillation: Code(s): I48.0 - Paroxysmal atrial fibrillation Status: Acute Assessment and Plan: Currently paced on the monitor Consider DC tele with no reported arrhythmia or events Continue amiodarone and metoprolol from home (8) Chronic anticoagulation: Code(s): Z79.01 - correction (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 fall percautions (9) Rheumatoid arthritis: Qualifiers: Rheumatoid arthritis location: unspecified site Rheumatoid factor presence: unspecified presence Qualified Code(s): M06.9 - Rheumatoid arthritis, unspecified Code(s): M06.9 - Rheumatoid arthritis, unspecified Status: Acute Assessment and Plan: Continue chronic low-dose prednisone (10) Hypertension: Code(s): I10 - Essential (primary) hypertension Status: Acute Assessment and Plan: Blood pressure are stable Continue metoprolol with parameters last bp 112/52 trend BP Adjust medications as appropiate (11) Hypotension: Code(s): I95.9 - Hypotension, unspecified Status: Acute Assessment and Plan: Has not had any episodes of hypotension since 02/27/21. BP remains stable, probably resolved at this point, but will continue to trend Edema remains noted in the bilateral lower extremities current blood pressure 112/52
[2021-03-02] MEDS: oxyCODONE HCL (*CRX) 5 MG TAB IR PO ×4 (07:23→22:50)
[2021-03-02] MEDS: METOPROLOL TARTRATE 12.5 MG TABLET PO ×2 (08:20→20:52)
[2021-03-02] MEDS: MULTIVITAMINS THERAPEUTIC TAB (*BKC) 1 TABLET PO (08:20)
[2021-03-02] MEDS: POTASSIUM CHLORIDE 20 MEQ TABLET.ER PO (08:20)
[2021-03-02] MEDS: VITAMIN B COMPLEX/VIT C CAPSULE 1 EACH PO (08:20)
[2021-03-02] MEDS: AMIODARONE HCL 200 MG TABLET PO (08:21)
[2021-03-02] MEDS: GABAPENTIN 300 MG CAPSULE PO ×2 (08:21→20:52)
[2021-03-02] MEDS: predniSONE 5 MG TABLET PO (08:21)
[2021-03-02] MEDS: FUROSEMIDE 40 MG TABLET PO ×2 (08:21→18:03)
[2021-03-02] MEDS: CALCIUM CARBONATE (OSCAL) 500 MG TABLET PO ×2 (08:21→18:03)
[2021-03-02] MEDS: ASPIRIN 81 MG ENTERIC TABLET PO (08:21)
[2021-03-02] MEDS: SIMVASTATIN 20 MG TABLET PO (08:21)
[2021-03-02] MEDS: predniSONE 1 MG TABLET 3 MG PO (08:22)
[2021-03-02] MEDS: ACETAMINOPHEN 325 MG TABLET 650 MG PO (08:27)
--- NOTE | 2021-03-02 09:21 | PC.NURSE ---
This patient, Hema Paola Chaves Sr., was transferred to [CT] on 03/02/21 at 0921.
--- NOTE | 2021-03-02 11:47 | PCPTNOTE ---
Attempted to see patient for PT at this time, however patient refused due to increase right lower leg pain. Patient reported his right leg has been in a lot of pain and he finally got it comfortable.
[2021-03-02] MEDS: RIVAROXABAN 20 MG TABLET PO (18:03)
[2021-03-02] MEDS: MELATONIN 5 MG TABLET PO (20:52)
[2021-03-03] VITALS (16 sets, daily range): BP systolic 108–125; BP diastolic 46–58; PULSE 59–100; RESP 16–20; TEMP 36.6–37.1; O2SAT 95–98
[2021-03-03] MEDS: oxyCODONE HCL (*CRX) 5 MG TAB IR PO ×3 (03:26→13:45)
[2021-03-03 05:55] LABS: Basophils Absolute Auto 0.1 K/mm3 (0.0-0.1); Basophils Percent Auto 0.5 % (0.2-1.2); Eosinophils Absolute Auto 0.2 K/mm3 (0-0.3); Eosinophils Percent Auto 1.4 % (0-4.4); Hematocrit 32.2 % (42.0-52.0); Hemoglobin 10.5 g/dL (14.0-18.0); Immature Granulocyte Absolute 0.37 K/mm3 (0.00-0.031); Lymphocytes Absolute Auto 1.07 K/mm3 (0.9-3.2); Lymphocytes Percent Auto 8.8 % (18.3-44.2); Mean Corpuscular HGB Conc 32.6 g/dl (32-36); Mean Corpuscular Hemoglobin 31.9 pg (26-34); Mean Corpuscular Volume 97.9 fl (80-100); Mean Platelet Volume 10.7 fl (7.4-10.4); Monocytes Absolute Auto 0.8 K/mm3 (0.1-0.6); Monocytes Percent Auto 6.9 % (2.6-8.5); Neutrophils Absolute Auto 9.7 K/mm3 (1.3-6.7); Neutrophils Percent Auto 79.4 % (45.5-73.1); Platelet Count Result 220 k/mm3 (150-375); Red Blood Count 3.29 M/mm3 (4.6-6.20); Red Cell Distribution Width 14.8 % (11.5-14.5); White Blood Count 12.2 K/mm3 (4.5-10.0)
[2021-03-03 06:07] LABS: Alanine Aminotransferase 40 U/L (4-50); Albumin Level 3.3 g/dL (3.5-5.1); Alkaline Phosphatase 117 U/L (38-126); Anion Gap 7 mmol/L (8-16); Aspartate Amino Transferase 37 U/L (17-59); Bilirubin,Total 1.2 mg/dL (0.2-1.3); Blood Urea Nitrogen 12 mg/dL (9-20); Calcium 8.9 mg/dL (8.4-10.2); Carbon Dioxide 30 mmol/L (22-30); Chloride 97 mmol/L (98-107); Estimated CRCL calculation 107 ml/min; Estimated Glomerular Filt Rate > 60; Glucose 101 mg/dL (65-110); Magnesium 2.2 mg/dL (1.6-2.3); Potassium 4.3 mmol/L (3.4-5.0); Sodium 134 mmol/L (137-145)
[2021-03-03] MEDS: VITAMIN B COMPLEX/VIT C CAPSULE 1 EACH PO (09:07)
[2021-03-03] MEDS: CALCIUM CARBONATE (OSCAL) 500 MG TABLET PO ×2 (09:07→16:18)
[2021-03-03] MEDS: predniSONE 5 MG TABLET PO (09:07)
[2021-03-03] MEDS: POTASSIUM CHLORIDE 20 MEQ TABLET.ER PO (09:07)
[2021-03-03] MEDS: MULTIVITAMINS THERAPEUTIC TAB (*BKC) 1 TABLET PO (09:07)
[2021-03-03] MEDS: AMIODARONE HCL 200 MG TABLET PO (09:08)
[2021-03-03] MEDS: METOPROLOL TARTRATE 12.5 MG TABLET PO ×2 (09:08→21:13)
[2021-03-03] MEDS: SIMVASTATIN 20 MG TABLET PO (09:08)
[2021-03-03] MEDS: ASPIRIN 81 MG ENTERIC TABLET PO (09:08)
[2021-03-03] MEDS: GABAPENTIN 300 MG CAPSULE PO ×2 (09:08→21:13)
[2021-03-03] MEDS: FUROSEMIDE 40 MG TABLET PO ×2 (09:08→16:18)
[2021-03-03] MEDS: predniSONE 1 MG TABLET 3 MG PO (09:08)
--- NOTE | 2021-03-03 09:30 | P.PNIM_ITS ---
Progress Note: A&P Assessment and Plan (1) Sepsis: Code(s): A41.9 - Sepsis, unspecified organism Status: Acute Assessment and Plan: * Secondary to cellulitis * presented with fever, hypotension and leukocytosis with an elevated lactic acid. * blood cultures reports pseudomonas aeruginosa, repeated 03/01/21 NGTD * Continue primaxin, gentamycin added 03/01/21 * white blood cell count is a bit higher today at 12.2 * Blood pressure remains stable at 112/54 * BUN CR stable at 12/0.70, continue to trend with addition of gentamycin * roxicodone, norco PRN for pain * ID consulted (2) Bacteremia: Code(s): R78.81 - Bacteremia Status: Acute Assessment and Plan: * Blood cultures positive for pseudomonas aeruginosa, repeated 03/01/21 NGTD * Primaxin continued, gentamycin started 03/01/21 * ID consult recommendations appreciated * WBC trend up today * Pain medication (3) Cellulitis of right leg: Code(s): L03.115 - Cellulitis of right lower limb Status: Acute Assessment and Plan: * As above * continue primaxin, gent added * ID consult * elevate extremity * CT of the right lower extremity: Nonspecific distal predominant subcutaneous edema and skin thickening at the right foot, ankle and calf which could be due to provided history of cellulitis or venous stasis. No evident abscess, soft tissue gas osteoarthritis or other acute osseous abnormality. (4) ICD (implantable cardioverter-defibrillator) discharge: Code(s): Z45.02 - Encounter for adjustment and management of automatic implantable cardiac defibrillator Status: Acute Assessment and Plan: * Pt reports being shocked around 3am 02/24/21 * 12 beat run of V-tach resolved on its own, or with pacer (02/27/21) * Tele shows continues to show paced, will DC today since no further problems noted (Ok'd by cardiology) * Pacemaker seems to have been placed for arrhythmia related to decreased EF and grade 3-4 diastolic dysfunction * Sees Dr. Sarina Warren, will need to follow up after DC * Continue amiodarone, electrolytes are stable * [facility] device interrogated, shows proper function (5) Ischemic cardiomyopathy: Code(s): I25.5 - Ischemic cardiomyopathy Status: Acute Assessment and Plan: * Reported in EMR, pt has no knowledge of CHF but says he has of heart issues * Repeat echo EF 40-45% with grade 3-4 diastolic dysfunction * shortness of breath resolved at this time, RA sating 96% * Continue Lasix, trend renal function with addition of Gent * Continue Metoprolol, trend BP (6) Obstructive sleep apnea treated with BiPAP: Code(s): G47.33 - Obstructive sleep apnea (adult) (pediatric) Status: Acute Assessment and Plan: * continue cpap (7) Paroxysmal atrial fibrillation: Code(s): I48.0 - Paroxysmal atrial fibrillation Status: Acute Assessment and Plan: * Currently paced on the monitor * DC tele with no reported arrhythmia or events, cardiology ok'd * Continue amiodarone and metoprolol from home (8) Chronic anticoagulation: Code(s): 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 * fall percautions (9) Rheumatoid arthritis: Qualifiers: Rheumatoid arthritis location: unspeci
--- NOTE | 2021-03-03 09:30 | PM.IMPN ---
Progress Note: A&P Assessment and Plan (1) Sepsis: Code(s): A41.9 - Sepsis, unspecified organism Status: Acute Assessment and Plan: Secondary to cellulitis presented with fever, hypotension and leukocytosis with an elevated lactic acid. blood cultures reports pseudomonas aeruginosa, repeated 03/01/21 NGTD Continue primaxin, gentamycin added 03/01/21 white blood cell count is a bit higher today at 12.2 Blood pressure remains stable at 112/54 BUN CR stable at 12/0.70, continue to trend with addition of gentamycin roxicodone, norco PRN for pain ID consulted (2) Bacteremia: Code(s): R78.81 - Bacteremia Status: Acute Assessment and Plan: Blood cultures positive for pseudomonas aeruginosa, repeated 03/01/21 NGTD Primaxin continued, gentamycin started 03/01/21 ID consult recommendations appreciated WBC trend up today Pain medication (3) Cellulitis of right leg: Code(s): L03.115 - Cellulitis of right lower limb Status: Acute Assessment and Plan: As above continue primaxin, gent added ID consult elevate extremity CT of the right lower extremity: Nonspecific distal predominant subcutaneous edema and skin thickening at the right foot, ankle and calf which could be due to provided history of cellulitis or venous stasis. No evident abscess, soft tissue gas osteoarthritis or other acute osseous abnormality. (4) ICD (implantable cardioverter-defibrillator) discharge: Code(s): Z45.02 - Encounter for adjustment and management of automatic implantable cardiac defibrillator Status: Acute Assessment and Plan: Pt reports being shocked around 3am 02/24/21 12 beat run of V-tach resolved on its own, or with pacer (02/27/21) Tele shows continues to show paced, will DC today since no further problems noted (Ok'd by cardiology) Pacemaker seems to have been placed for arrhythmia related to decreased EF and grade 3-[address] Sarina Warren, will need to follow up after DC Continue amiodarone, electrolytes are stable [facility] [facility] device interrogated, shows proper function (5) Ischemic cardiomyopathy: Code(s): I25.5 - Ischemic cardiomyopathy Status: Acute Assessment and Plan: Reported in EMR, pt has no knowledge of CHF but says he has of heart issues Repeat echo EF 40-45% with grade 3-4 diastolic dysfunction shortness of breath resolved at this time, RA sating 96% Continue Lasix, trend renal function with addition of Gent Continue Metoprolol, trend BP (6) Obstructive sleep apnea treated with BiPAP: Code(s): G47.33 - Obstructive sleep apnea (adult) (pediatric) Status: Acute Assessment and Plan: continue cpap (7) Paroxysmal atrial fibrillation: Code(s): I48.0 - Paroxysmal atrial fibrillation Status: Acute Assessment and Plan: Currently paced on the monitor DC tele with no reported arrhythmia or events, cardiology ok'd Continue amiodarone and metoprolol from home (8) Chronic anticoagulation: Code(s): Z79.01 - long term (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 fall percautions (9) Rheumatoid arthritis: Qualifiers: Rheumatoid arthritis location: unspecified site Rheumatoid factor presence: unspecified presence Qualified Code(s): M06.9 - Rheumatoid arthritis, unspecified Code(s): M06.9 - Rheumatoid arthritis, unspecified Status: Acute Assessment and Plan: Continue chronic low-dose prednisone (10) Hypertension: Code(s): I10 - Essential (primary) hypertension Status: Acute Assessment and Plan: Blood pressure are stable Continue metoprolol with parameters last bp 112/54 trend BP Adjust medications as appropriate
[2021-03-03] MEDS: HYDROcodone/acetaminophen (*CRX) 5-325 MG TABLET 1 TAB PO ×3 (09:56→21:13)
[2021-03-03] MEDS: SILVERGEL (ELTA) 45 ML 1 APPLIC TOPICAL (14:34)
[2021-03-03 16:32] LABS: Add Urine Microscopic? YES; Appearance Urine Clear (Clear); Bacteria Urine Trace /hpf; Bilirubin Urine Negative (Negative); Blood Urine 3+ (Negative); Color Urine Straw (Yellow); Glucose Urine UA Negative (Negative); Ketones Urine Negative (Negative); Leukocyte Esterase Ur Negative LEU/UL (NEGATIVE); Mucus Urine Rare /lpf; Nitrate Urine Negative (Negative); Protein Urine Negative (Negative); RBC Urine 0-2 /hpf (0-2); Urobilinogen Urine Negative mg/dL (<2.0); WBC Urine 0-3 /hpf (0-3)
[2021-03-03 16:51] LABS: Specific Grav Ur 1.003 (1.001-1.035)
[2021-03-03] MEDS: RIVAROXABAN 20 MG TABLET PO (17:01)
--- NOTE | 2021-03-03 18:52 | PCRCNOTE ---
Window of time for administration has passed. See next scheduled administration.
[2021-03-03] MEDS: MELATONIN 5 MG TABLET PO (21:12)
[2021-03-04] VITALS (12 sets, daily range): BP systolic 106–119; BP diastolic 51–65; PULSE 60–77; RESP 16–20; TEMP 35.9–36.4; O2SAT 93–100
[2021-03-04 06:04] LABS: Basophils Percent Auto 0.3 % (0.2-1.2); Eosinophils Absolute Auto 0.1 K/mm3 (0-0.3); Eosinophils Percent Auto 0.8 % (0-4.4); Hematocrit 30.8 % (42.0-52.0); Hemoglobin 9.9 g/dL (14.0-18.0); Immature Granulocyte Absolute 0.25 K/mm3 (0.00-0.031); Immature Granulocyte Percent A 1.9 % (0-0.5); Lymphocytes Absolute Auto 1.03 K/mm3 (0.9-3.2); Lymphocytes Percent Auto 7.7 % (18.3-44.2); Mean Corpuscular HGB Conc 32.1 g/dl (32-36); Mean Corpuscular Hemoglobin 31.3 pg (26-34); Mean Corpuscular Volume 97.5 fl (80-100); Mean Platelet Volume 10.3 fl (7.4-10.4); Monocytes Absolute Auto 0.8 K/mm3 (0.1-0.6); Monocytes Percent Auto 5.7 % (2.6-8.5); Neutrophils Absolute Auto 11.2 K/mm3 (1.3-6.7); Neutrophils Percent Auto 83.6 % (45.5-73.1); Platelet Count Result 209 k/mm3 (150-375); Red Blood Count 3.16 M/mm3 (4.6-6.20); Red Cell Distribution Width 14.6 % (11.5-14.5); White Blood Count 13.4 K/mm3 (4.5-10.0)
[2021-03-04 06:17] LABS: Alanine Aminotransferase 32 U/L (4-50); Albumin Level 3.1 g/dL (3.5-5.1); Alkaline Phosphatase 109 U/L (38-126); Anion Gap 8 mmol/L (8-16); Aspartate Amino Transferase 30 U/L (17-59); Blood Urea Nitrogen 14 mg/dL (9-20); Calcium 8.7 mg/dL (8.4-10.2); Carbon Dioxide 30 mmol/L (22-30); Chloride 97 mmol/L (98-107); Estimated CRCL calculation 105 ml/min; Estimated Glomerular Filt Rate > 60; Glucose 102 mg/dL (65-110); Magnesium 2.3 mg/dL (1.6-2.3); Potassium 3.8 mmol/L (3.4-5.0); Sodium 135 mmol/L (137-145)
[2021-03-04] MEDS: HYDROcodone/acetaminophen (*CRX) 5-325 MG TABLET 1 TAB PO (06:57)
[2021-03-04] MEDS: predniSONE 1 MG TABLET 3 MG PO (08:52)
[2021-03-04] MEDS: CALCIUM CARBONATE (OSCAL) 500 MG TABLET PO ×2 (08:52→17:28)
[2021-03-04] MEDS: GABAPENTIN 300 MG CAPSULE PO ×2 (08:53→20:34)
[2021-03-04] MEDS: POTASSIUM CHLORIDE 20 MEQ TABLET.ER PO (08:53)
[2021-03-04] MEDS: SIMVASTATIN 20 MG TABLET PO (08:53)
[2021-03-04] MEDS: MULTIVITAMINS THERAPEUTIC TAB (*BKC) 1 TABLET PO (08:53)
[2021-03-04] MEDS: predniSONE 5 MG TABLET PO (08:53)
[2021-03-04] MEDS: VITAMIN B COMPLEX/VIT C CAPSULE 1 EACH PO (08:53)
[2021-03-04] MEDS: FUROSEMIDE 40 MG TABLET PO ×2 (08:53→17:27)
[2021-03-04] MEDS: METOPROLOL TARTRATE 12.5 MG TABLET PO (08:53)
[2021-03-04] MEDS: ASPIRIN 81 MG ENTERIC TABLET PO (08:53)
[2021-03-04] MEDS: AMIODARONE HCL 200 MG TABLET PO (08:54)
[2021-03-04] MEDS: SILVERGEL (ELTA) 45 ML 1 APPLIC TOPICAL (08:55)
[2021-03-04] MEDS: oxyCODONE HCL (*CRX) 5 MG TAB IR PO ×2 (11:42→20:02)
--- NOTE | 2021-03-04 14:00 | WPDINFPN2 ---
Progress Note: A&P Assessment and Plan (1) Bacteremia: Code(s): R78.81 - Bacteremia Status: Acute Assessment and Plan: 1. Pseudomonas bacteremia with infection, RLE soft tissue source, due to immune suppression. CT reassuring for absence of deep space infection. But WBC still mild elevation. Repeat BCs ngsf 2. RA REC Imipenem # 8, continue. Complete gent 6 days tomorrow, tolerating. Once WBC lower/normal, convert to oral ciprofloxacin monotherapy 500 bid, through 03/17. He does not plan on resuming his biologic. Ok with me for prednisone at current dosing. Call if Qs Subjective Date/time seen: 03/04/21 14:00 Interval history: edema of foot. No diarrhea Exam Narrative: afebrile Const: General: no acute distress Eyes: General: appearance normal, both eyes and all related structures Resp: Effort & Inspection: normal respiratory effort Auscultation: clear to auscultation bilaterally Cardio: Rate: regular rate Rhythm: regular rhythm Heart sounds: no murmurs GI: Inspection: non-distended GI Palp: Yes Soft to palpation and No Tenderness to palpation present (GI) Skin: General skin exam: normal color Other: erythema R west. 3 + edema of foot Objective Data Vital Signs Vital Signs: Vital Signs - 24 hr 03/03/21 14:34 03/03/21 18:00 03/03/21 20:00 Temperature 37.1 C 36.8 C Pulse Rate 92 81 64 Respiratory Rate 20 18 20 Blood Pressure 119/52 L 111/46 L Pulse Oximetry 96 95 97 03/03/21 20:35 03/03/21 20:41 03/03/21 20:58 Temperature 36.6 C Pulse Rate 64 65 59 L Respiratory Rate 20 16 20 Blood Pressure 108/49 L Pulse Oximetry 96 97 03/03/21 21:13 03/04/21 02:00 03/04/21 02:03 Temperature 35.9 C L Pulse Rate 64 60 60 Respiratory Rate 20 16 Blood Pressure 119/63 Pulse Oximetry 98 93 03/04/21 02:12 03/04/21 04:56 03/04/21 08:24 Temperature 35.9 C L Pulse Rate 60 60 64 Respiratory Rate 16 20 20 Blood Pressure 119/63 Pulse Oximetry 98 97 03/04/21 08:44 03/04/21 08:53 03/04/21 08:54 Temperature Pulse Rate 65 64 64 Respiratory Rate 20 Blood Pressure Pulse Oximetry 03/04/21 10:15 Temperature 36.4 C Pulse Rate 63 Respiratory Rate 16 Blood Pressure 117/53 L Pulse Oximetry 100 Intake/Output Intake/Output: Intake & Output 03/01/21 03/02/21 03/03/21 03/04/21 23:59 23:59 23:59 23:59 Intake Total 4550.25 5160.25 4460.25 4420 Output Total 5725 5300 4275 4500 Balance -1174.75 -139.75 185.25 -80 Meds/Results Medications: Active Medications Generic Name Dose Route Start Last Admin Trade Name Freq PRN Reason Stop Dose Admin Acetaminophen 650 mg 02/23/21 22:59 03/02/21 08:27 Acetaminophen 325 Mg Tablet PO 650 mg Q6H PRN Administration Mild Pain (1-3) or Fever Hydrocodone Bitart/Acetaminophen 1 tab 02/26/21 05:50 03/04/21 06:57 Hydrocodone/Acetaminophen (*Crx) 5-325 Mg Tablet PO 1 tab Q4H PRN Administration Pain Rated 4-6 Amiodarone HCl 200 mg 02/24/21 08:00 03/04/21 08:54 Amiodarone Hcl 200 Mg Tablet PO 200 mg DAILY@0800 LIZETTE Administration Aspirin 81 mg 02/24/21 09:00 03/04/21 08:53 Aspirin 81 Mg Enteric Tablet PO 81 mg DAILY LIZETTE Administration Calcium Carbonate 500 mg 02/24/21 09:00 03/04/21 08:52 Calcium Carbonate (Oscal) 500 Mg Tablet PO 03/26/21 08:59 500 mg BID LIZETTE Administration Furosemide 40 mg 02/28/21 17:00 03/04/21 08:53 Furosemide 40 Mg Tablet PO 40 mg BID LIZETTE Administration Gabapentin 300 mg 02/24/21 09:00 03/04/21 08:53 Gabapentin 300 Mg Capsule PO 300 mg Q12HR LIZETTE Administration Imipenem/Cilastatin Sodium 1, 250 mls @ 375 mls/hr 03/01/21 17:00 03/04/21 10:30 000 mg/ Dextrose IVPB Infused Q8H LIZETTE Infusion Gentamicin Sulfate 410 mg/ 110.25 mls @ 100 mls/hr 03/02/21 14:00 03/04/21 13:14 Dextrose IVPB 100 mls/hr Q24H LIZETTE Administration Levalbuterol HCl 1.25 mg 03/03/21 15:40 03/04/21 08:24 Levalbuterol
--- NOTE | 2021-03-04 15:30 | PC.NURSE ---
On 03/04/21, the student, Sunshine Tafoya, provided care and completed [employer] Men[employer] documentation on this patient. I have reviewed the student's documentation and agree with the findings.
--- NOTE | 2021-03-04 16:36 | PM.IMPN ---
Progress Note: A&P Assessment and Plan (1) Cellulitis of right leg: Code(s): L03.115 - Cellulitis of right lower limb Status: Acute Assessment and Plan: Improving but still erythematous and swollen -continue imipenem, gentamicin and Lasix for swelling -infectious Disease has been consulted, I appreciate their recommendations -CT of the leg did not show any abscess or worsening infection. Patient has clinically improved -continue to monitor and elevate the extremity (2) Sepsis: Code(s): A41.9 - Sepsis, unspecified organism Status: Acute Assessment and Plan: Septicemia. Secondary to cellulitis and bacteremia -presented with fever, hypotension and leukocytosis with an elevated lactic acid. -1 blood culture growing pseudomonas aeruginosa, repeated 03/01/21 NGTD -continue imipenem and gentamicin -p.r.n. medications for pain control (3) Bacteremia: Code(s): R78.81 - Bacteremia Status: Acute Assessment and Plan: As above (4) ICD (implantable cardioverter-defibrillator) discharge: Code(s): Z45.02 - Encounter for adjustment and management of automatic implantable cardiac defibrillator Status: Acute Assessment and Plan: -Pt reports being shocked around 3am 02/24/21 -intermittent V-tach noted on tele. Nonsymptomatic -Pacemaker/defibrillator seems to have been placed for arrhythmia related to decreased EF and grade 3-4 diastolic dysfunction -Sees Dr. Sarina Warren, will need to follow up after DC -Continue amiodarone, electrolytes are stable -[employer] [facility] device interrogated, shows proper function (5) Ischemic cardiomyopathy: Code(s): I25.5 - Ischemic cardiomyopathy Status: Acute Assessment and Plan: Reported in EMR, pt has no knowledge of CHF but says he has of heart issues -Repeat echo EF 40-45% with grade 3-4 diastolic dysfunction -Continue Lasix, monitor renal function with addition of Gent -Continue Metoprolol, trend BP (6) Obstructive sleep apnea treated with BiPAP: Code(s): G47.33 - Obstructive sleep apnea (adult) (pediatric) Status: Acute Assessment and Plan: continue cpap (7) Paroxysmal atrial fibrillation: Code(s): I48.0 - Paroxysmal atrial fibrillation Status: Acute Assessment and Plan: Currently paced on the monitor -Continue amiodarone and metoprolol (8) Chronic anticoagulation: 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 (9) Rheumatoid arthritis: Qualifiers: Rheumatoid arthritis location: unspecified site Rheumatoid factor presence: unspecified presence Qualified Code(s): M06.9 - Rheumatoid arthritis, unspecified Code(s): M06.9 - Rheumatoid arthritis, unspecified Status: Acute Assessment and Plan: Continue chronic low-dose prednisone -plan to hold Rinvoq outpt for at least a month (10) Hypertension: Code(s): I10 - Essential (primary) hypertension Status: Acute Assessment and Plan: Last blood pressure 111/65 -continue metoprolol (11) Hypotension: Code(s): I95.9 - Hypotension, unspecified Status: Acute Assessment and Plan: Resolved Subjective Date/time seen: 03/04/21 16:36 Interval history: Pt is a 75-year-old male here for cellulitis. Patient was seen today after working with therapy and he is doing well. He says he feels much better than when he came in. He states he continues to have swelling in his right leg and he does have some weakness since being hospitalized for so long. Overall, he is feeling better. He denies chest pain, shortness of breath, further defibrillation by his defibrillator, he fevers, nausea or vomiting. He is eating and drinking well. He said he was started on breath
[2021-03-04] MEDS: RIVAROXABAN 20 MG TABLET PO (17:28)
[2021-03-04] MEDS: MELATONIN 5 MG TABLET PO (20:34)
[2021-03-05] VITALS (11 sets, daily range): BP systolic 102–125; BP diastolic 48–69; PULSE 58–76; RESP 16–22; TEMP 36.1–37; O2SAT 97–99
[2021-03-05 05:36] LABS: Basophils Percent Auto 0.4 % (0.2-1.2); Eosinophils Absolute Auto 0.1 K/mm3 (0-0.3); Eosinophils Percent Auto 1.1 % (0-4.4); Hematocrit 29.6 % (42.0-52.0); Hemoglobin 9.4 g/dL (14.0-18.0); Immature Granulocyte Absolute 0.25 K/mm3 (0.00-0.031); Immature Granulocyte Percent A 2.2 % (0-0.5); Lymphocytes Absolute Auto 0.95 K/mm3 (0.9-3.2); Lymphocytes Percent Auto 8.4 % (18.3-44.2); Mean Corpuscular HGB Conc 31.8 g/dl (32-36); Mean Corpuscular Hemoglobin 31.2 pg (26-34); Mean Corpuscular Volume 98.3 fl (80-100); Mean Platelet Volume 10.3 fl (7.4-10.4); Monocytes Absolute Auto 0.8 K/mm3 (0.1-0.6); Monocytes Percent Auto 7.2 % (2.6-8.5); Neutrophils Absolute Auto 9.1 K/mm3 (1.3-6.7); Neutrophils Percent Auto 80.7 % (45.5-73.1); Platelet Count Result 209 k/mm3 (150-375); Red Blood Count 3.01 M/mm3 (4.6-6.20); Red Cell Distribution Width 14.7 % (11.5-14.5); White Blood Count 11.3 K/mm3 (4.5-10.0)
[2021-03-05 06:16] LABS: Anion Gap 6 mmol/L (8-16); Blood Urea Nitrogen 14 mg/dL (9-20); Calcium 8.3 mg/dL (8.4-10.2); Carbon Dioxide 31 mmol/L (22-30); Chloride 97 mmol/L (98-107); Estimated CRCL calculation 105 ml/min; Estimated Glomerular Filt Rate > 60; Glucose 90 mg/dL (65-110); Potassium 3.9 mmol/L (3.4-5.0); Sodium 134 mmol/L (137-145)
[2021-03-05 07:20] LABS: CRP 18.1 mg/dL (<1.0)
[2021-03-05] MEDS: oxyCODONE HCL (*CRX) 5 MG TAB IR PO ×2 (07:33→11:58)
[2021-03-05] MEDS: AMIODARONE HCL 200 MG TABLET PO (09:48)
--- NOTE | 2021-03-05 09:50 | PCDIET ---
Weekly nutritional screen. Patient is tolerating current diet with adequate intake. No weight loss reported. No nutritional needs at this time.
[2021-03-05] MEDS: MULTIVITAMINS THERAPEUTIC TAB (*BKC) 1 TABLET PO (09:51)
[2021-03-05] MEDS: SIMVASTATIN 20 MG TABLET PO (09:52)
[2021-03-05] MEDS: FUROSEMIDE 40 MG TABLET PO (09:53)
[2021-03-05] MEDS: predniSONE 1 MG TABLET 3 MG PO (09:55)
[2021-03-05] MEDS: predniSONE 5 MG TABLET PO (09:55)
[2021-03-05] MEDS: ASPIRIN 81 MG ENTERIC TABLET PO (09:57)
[2021-03-05] MEDS: METOPROLOL TARTRATE 12.5 MG TABLET PO (09:58)
[2021-03-05] MEDS: POTASSIUM CHLORIDE 20 MEQ TABLET.ER PO (10:02)
[2021-03-05] MEDS: VITAMIN B COMPLEX/VIT C CAPSULE 1 EACH PO (10:03)
[2021-03-05] MEDS: CALCIUM CARBONATE (OSCAL) 500 MG TABLET PO ×2 (10:04→16:57)
[2021-03-05] MEDS: GABAPENTIN 300 MG CAPSULE PO ×2 (10:05→22:13)
[2021-03-05] MEDS: SILVERGEL (ELTA) 45 ML 1 APPLIC TOPICAL (11:14)
--- NOTE | 2021-03-05 12:39 | PM.IMPN ---
Progress Note: A&P Assessment and Plan (1) Cellulitis of right leg: Code(s): L03.115 - Cellulitis of right lower limb Status: Acute Assessment and Plan: Improving but still very erythematous and swollen -continue imipenem, gentamicin and Lasix for swelling, will give an extra dose of Lasix this afternoon. -infectious Disease has been consulted, I appreciate their recommendations. Continue IV antibiotics until the patient has improved more clinically -CT of the leg did not show any abscess or worsening infection. -continue to monitor and elevate the extremity (2) Sepsis: Code(s): A41.9 - Sepsis, unspecified organism Status: Acute Assessment and Plan: Septicemia. Secondary to cellulitis and bacteremia. Resolved -presented with fever, hypotension and leukocytosis with an elevated lactic acid. -1 blood culture growing pseudomonas aeruginosa, repeated 03/01/21 NGTD -continue imipenem and gentamicin -p.r.n. medications for pain control (3) Bacteremia: Code(s): R78.81 - Bacteremia Status: Acute Assessment and Plan: As above (4) ICD (implantable cardioverter-defibrillator) discharge: Code(s): Z45.02 - Encounter for adjustment and management of automatic implantable cardiac defibrillator Status: Acute Assessment and Plan: -Pt reports being shocked around 3am 02/24/21 -intermittent V-tach noted on tele. Nonsymptomatic -Pacemaker/defibrillator seems to have been placed for arrhythmia related to decreased EF and grade 3-4 diastolic dysfunction -Sees Dr. Sarina Warren, will need to follow up after DC -Continue amiodarone, electrolytes are stable -[employer] device interrogated, shows proper function (5) Ischemic cardiomyopathy: Code(s): I25.5 - Ischemic cardiomyopathy Status: Acute Assessment and Plan: Reported in EMR, pt has no knowledge of CHF but says he has of heart issues -Repeat echo EF 40-45% with grade 3-4 diastolic dysfunction -Continue Lasix, monitor renal function with addition of gentamicin -Continue Metoprolol, trend BP (6) Obstructive sleep apnea treated with BiPAP: Code(s): G47.33 - Obstructive sleep apnea (adult) (pediatric) Status: Acute Assessment and Plan: continue cpap (7) Paroxysmal atrial fibrillation: Code(s): I48.0 - Paroxysmal atrial fibrillation Status: Acute Assessment and Plan: Currently paced on the monitor -Continue amiodarone and metoprolol (8) Chronic anticoagulation: Code(s): 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 (9) Rheumatoid arthritis: Qualifiers: Rheumatoid arthritis location: unspecified site Rheumatoid factor presence: unspecified presence Qualified Code(s): M06.9 - Rheumatoid arthritis, unspecified Code(s): M06.9 - Rheumatoid arthritis, unspecified Status: Acute Assessment and Plan: Continue chronic low-dose prednisone -plan to hold Rinvoq outpt for at least a month (10) Hypertension: Code(s): I10 - Essential (primary) hypertension Status: Acute Assessment and Plan: Last blood pressure 125/67 -continue metoprolol (11) Hypotension: Code(s): I95.9 - Hypotension, unspecified Status: Acute Assessment and Plan: Resolved Subjective Date/time seen: 03/05/21 12:39 Interval history: Pt is a 75-year-old male here for cellulitis. Patient was seen today and states he feels a little tired. He has not been sleeping well while hospitalized but did get 4-5 hours last night. He says he continues to have pain and swelling in the right leg. He does not think this has changed much. Pt denies nausea, vomiting, fevers, chills, constipation, diarrhea, chest pain, sob, or abdominal pa
[2021-03-05] MEDS: FUROSEMIDE INJ 40 MG/4 ML VIAL 20 MG IV PUSH (12:55)
[2021-03-05] MEDS: ACETAMINOPHEN 500 MG TABLET 1000 MG PO ×2 (16:55→22:33)
[2021-03-05] MEDS: RIVAROXABAN 20 MG TABLET PO (17:01)
[2021-03-05] MEDS: MELATONIN 5 MG TABLET PO (22:12)
[2021-03-06] VITALS (10 sets, daily range): BP systolic 103–126; BP diastolic 51–68; PULSE 59–71; RESP 14–20; TEMP 36.1–36.6; O2SAT 94–100
[2021-03-06 05:49] LABS: Basophils Absolute Auto 0.1 K/mm3 (0.0-0.1); Basophils Percent Auto 0.6 % (0.2-1.2); Eosinophils Absolute Auto 0.2 K/mm3 (0-0.3); Eosinophils Percent Auto 1.7 % (0-4.4); Hematocrit 30.2 % (42.0-52.0); Immature Granulocyte Absolute 0.13 K/mm3 (0.00-0.031); Immature Granulocyte Percent A 1.4 % (0-0.5); Lymphocytes Absolute Auto 1.03 K/mm3 (0.9-3.2); Lymphocytes Percent Auto 11.5 % (18.3-44.2); Mean Corpuscular HGB Conc 33.1 g/dl (32-36); Mean Corpuscular Hemoglobin 31.9 pg (26-34); Mean Corpuscular Volume 96.5 fl (80-100); Mean Platelet Volume 10.3 fl (7.4-10.4); Monocytes Absolute Auto 0.7 K/mm3 (0.1-0.6); Monocytes Percent Auto 7.7 % (2.6-8.5); Neutrophils Absolute Auto 6.9 K/mm3 (1.3-6.7); Neutrophils Percent Auto 77.1 % (45.5-73.1); Platelet Count Result 200 k/mm3 (150-375); Red Blood Count 3.13 M/mm3 (4.6-6.20); Red Cell Distribution Width 14.6 % (11.5-14.5)
[2021-03-06 06:20] LABS: Anion Gap 8 mmol/L (8-16); Blood Urea Nitrogen 15 mg/dL (9-20); Calcium 8.6 mg/dL (8.4-10.2); Carbon Dioxide 29 mmol/L (22-30); Chloride 102 mmol/L (98-107); Estimated CRCL calculation 102 ml/min; Estimated Glomerular Filt Rate > 60; Glucose 84 mg/dL (65-110); Potassium 3.7 mmol/L (3.4-5.0); Sodium 139 mmol/L (137-145)
[2021-03-06] MEDS: oxyCODONE HCL (*CRX) 5 MG TAB IR PO ×2 (08:33→20:26)
[2021-03-06] MEDS: AMIODARONE HCL 200 MG TABLET PO (08:35)
[2021-03-06] MEDS: POTASSIUM CHLORIDE 20 MEQ TABLET.ER PO (08:36)
[2021-03-06] MEDS: ASPIRIN 81 MG ENTERIC TABLET PO (08:36)
[2021-03-06] MEDS: CALCIUM CARBONATE (OSCAL) 500 MG TABLET PO ×2 (08:36→17:23)
[2021-03-06] MEDS: predniSONE 5 MG TABLET PO (08:36)
[2021-03-06] MEDS: predniSONE 1 MG TABLET 3 MG PO (08:36)
[2021-03-06] MEDS: VITAMIN B COMPLEX/VIT C CAPSULE 1 EACH PO (08:37)
[2021-03-06] MEDS: MULTIVITAMINS THERAPEUTIC TAB (*BKC) 1 TABLET PO (08:37)
[2021-03-06] MEDS: METOPROLOL TARTRATE 12.5 MG TABLET PO ×2 (08:37→20:24)
[2021-03-06] MEDS: FUROSEMIDE 40 MG TABLET PO ×2 (08:37→17:23)
[2021-03-06] MEDS: GABAPENTIN 300 MG CAPSULE PO ×2 (08:37→20:24)
[2021-03-06] MEDS: SIMVASTATIN 20 MG TABLET PO (08:37)
[2021-03-06] MEDS: SILVERGEL (ELTA) 45 ML 1 APPLIC TOPICAL (08:38)
[2021-03-06] MEDS: ACETAMINOPHEN 500 MG TABLET 1000 MG PO (11:25)
--- NOTE | 2021-03-06 14:48 | PM.IMPN ---
Progress Note: A&P Assessment and Plan (1) Cellulitis of right leg: Code(s): L03.115 - Cellulitis of right lower limb Status: Acute Assessment and Plan: Improving but still very erythematous and swollen -continue imipenem, gentamicin and Lasix for swelling -infectious Disease has been consulted, I appreciate their recommendations. Continue IV antibiotics until the patient has improved more clinically -CT of the leg did not show any abscess or worsening infection. -continue to monitor and elevate the extremity -Likely d/c home tomorrow on oral abx if pt continues to do well (2) Sepsis: Code(s): A41.9 - Sepsis, unspecified organism Status: Acute Assessment and Plan: Septicemia. Secondary to cellulitis and bacteremia. Resolved -presented with fever, hypotension and leukocytosis with an elevated lactic acid. -1 blood culture growing pseudomonas aeruginosa, repeated 03/01/21 NGTD -continue imipenem and gentamicin -p.r.n. medications for pain control (3) Bacteremia: Code(s): R78.81 - Bacteremia Status: Acute Assessment and Plan: As above (4) ICD (implantable cardioverter-defibrillator) discharge: Code(s): Z45.02 - Encounter for adjustment and management of automatic implantable cardiac defibrillator Status: Acute Assessment and Plan: -Pt reports being shocked around 3am 02/24/21 -intermittent V-tach noted on tele. Nonsymptomatic -Pacemaker/defibrillator seems to have been placed for arrhythmia related to decreased EF and grade 3-4 diastolic dysfunction -Sees Dr. Sarina Warren, will need to follow up after DC -Continue amiodarone, electrolytes are stable -[facility] device interrogated, shows proper function (5) Ischemic cardiomyopathy: Code(s): I25.5 - Ischemic cardiomyopathy Status: Acute Assessment and Plan: Reported in EMR, pt has no knowledge of CHF but says he has of heart issues -Repeat echo EF 40-45% with grade 3-4 diastolic dysfunction -Continue Lasix, monitor renal function with addition of gentamicin -Continue Metoprolol, trend BP (6) Obstructive sleep apnea treated with BiPAP: Code(s): G47.33 - Obstructive sleep apnea (adult) (pediatric) Status: Acute Assessment and Plan: continue cpap (7) Paroxysmal atrial fibrillation: Code(s): I48.0 - Paroxysmal atrial fibrillation Status: Acute Assessment and Plan: Continue amiodarone and metoprolol (8) Chronic anticoagulation: Code(s): 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 (9) Rheumatoid arthritis: Qualifiers: Rheumatoid arthritis location: unspecified site Rheumatoid factor presence: unspecified presence Qualified Code(s): M06.9 - Rheumatoid arthritis, unspecified Code(s): M06.9 - Rheumatoid arthritis, unspecified Status: Acute Assessment and Plan: Continue chronic low-dose prednisone -plan to hold Rinvoq outpt for at least a month (10) Hypertension: Code(s): I10 - Essential (primary) hypertension Status: Acute Assessment and Plan: Last blood pressure 103/56 -continue metoprolol (11) Hypotension: Code(s): I95.9 - Hypotension, unspecified Status: Acute Assessment and Plan: waxes and wanes but overall doing okay -asymptomatic Subjective Date/time seen: 03/06/21 14:48 Interval history: Pt is a 75-year-old male here for cellulitis. patient was seen today And is doing okay. He says his leg is still swollen and painful but thinks it is getting better every day. He is able to ambulate and thinks he would be able to go home in the next couple days. He has not had any fevers, nausea, vomiting, chest pain, shortness of breath, abdominal pain or rigor
[2021-03-06] MEDS: RIVAROXABAN 20 MG TABLET PO (17:23)
[2021-03-06] MEDS: MELATONIN 5 MG TABLET PO (20:23)
[2021-03-07 00:22] VITALS: BP 101/57; PULSE 59; RESP 20; TEMP 36.8; O2SAT 99
[2021-03-07] MEDS: oxyCODONE HCL (*CRX) 5 MG TAB IR PO (04:07)
[2021-03-07 04:32] VITALS: BP 109/51; PULSE 59; RESP 20; TEMP 36.4; O2SAT 96
[2021-03-07 05:56] LABS: CRP 8.2 mg/dL (<1.0)
--- NOTE | 2021-03-07 08:38 | ECG_ITS ---
Measurements Intervals [place] Rate: 60 P: -64 [place]: 188 QRS: 212 QRSD: 170 T: 30 QT: 398 QTc: 398 Interpretive Statements ELECTRONIC ATRIAL PACEMAKER ELECTRONIC VENTRICULAR PACEMAKER BASELINE ARTIFACT- I, II, III, AVR, AVL, AVF NO FURTHER INTERPRETATION IS POSSIBLE ATYPICAL ECG Electronically Signed On 03-07-2021 12:16:43 CDT by Jose Luis Francis D.O.
[2021-03-07 09:10] VITALS: PULSE 66
[2021-03-07] MEDS: AMIODARONE HCL 200 MG TABLET PO (09:10)
[2021-03-07] MEDS: POTASSIUM CHLORIDE 20 MEQ TABLET.ER PO (09:10)
[2021-03-07] MEDS: ASPIRIN 81 MG ENTERIC TABLET PO (09:11)
[2021-03-07] MEDS: CALCIUM CARBONATE (OSCAL) 500 MG TABLET PO (09:11)
[2021-03-07] MEDS: predniSONE 1 MG TABLET 3 MG PO (09:11)
[2021-03-07] MEDS: predniSONE 5 MG TABLET PO (09:11)
[2021-03-07 09:12] VITALS: PULSE 66
[2021-03-07] MEDS: FUROSEMIDE 40 MG TABLET PO (09:12)
[2021-03-07] MEDS: METOPROLOL TARTRATE 12.5 MG TABLET PO (09:12)
[2021-03-07] MEDS: SIMVASTATIN 20 MG TABLET PO (09:12)
[2021-03-07] MEDS: MULTIVITAMINS THERAPEUTIC TAB (*BKC) 1 TABLET PO (09:12)
[2021-03-07] MEDS: GABAPENTIN 300 MG CAPSULE PO (09:12)
[2021-03-07] MEDS: VITAMIN B COMPLEX/VIT C CAPSULE 1 EACH PO (09:12)
[2021-03-07] MEDS: SILVERGEL (ELTA) 45 ML 1 APPLIC TOPICAL (09:13)
--- NOTE | 2021-03-07 09:38 | PCPTNOTE ---
Attempted to see patient for PT, however patient declined therapy.
[2021-03-07 10:00] VITALS: BP 114/49; PULSE 61; RESP 18; TEMP 36.1; O2SAT 96
--- NOTE | 2021-03-07 11:16 | PM.CNCAR ---
Assessment and Plan Additional Plan this is a 75-year-old man with: Coronary artery disease ischemic cardiomyopathy with prior history of LV systolic dysfunction for which he has a chronically indwelling defibrillator device as well as chronic suppressive therapy with amiodarone. He requires about a 10 day course of ciprofloxacin at the time of discharge to continue to treat his gram-negative infection. At this point I would recommend holding / discontinuing his amiodarone while he is receiving ciprofloxacin. Other than that I believe he is stable for discharge. He does have follow-up scheduled with his established ophthalmic medical technician at [facility] I therefore do not anticipate making appointments with us in this office at [place]. There is of course a slight increase risk of arrhythmias off of his medication for 10 days on the other hand the patient does have a normally functioning defibrillator in so I feel it is relatively safe to hold his amiodarone while he is receiving ciprofloxacin since this appears to be the drug of choice for treating his Pseudomonas. Hema Zamorano MD [facility] History of Present Illness History of Present Illness Consult date/time: 03/07/21 11:16 Reason For Visit: Right Leg Cellulitis, Sepsis Narrative: This is a 75-year-old man a I am seeing at the request of the hospitalist before he goes home today to render an opinion as to his antiarrhythmic regimen and potential interaction with his antibiotic that he requires. The patient was admitted to this hospital following a ICD discharge and I which was appropriate for ventricular fibrillation / ventricular tachycardia and was found to have a soft tissue infection in the left lower extremity which interestingly appears to be related to Pseudomonas. He normally follows with ophthalmic medical technician and director of development and marketing at [facility]. He does not have any recent cardiac symptoms. His cardiac history is well delineated in my partners consultation note from a couple of weeks ago and will not be reiterated in this note. In any event he takes amiodarone to suppress ventricular arrhythmias at 200 mg per day. The infectious disease independent crop consultant requires that the patient upon discharge be taking ciprofloxacin for 10 more days and because of the concerning interaction between these 2 agents I have been asked to see him in consultation and render an opinion as to appropriate management in this situation. The patient was seen in his room 255 he is comfortable cooperative is hoping to be discharged and does not have any other complaints. His cardiac rhythm is electronically paced. Review of Systems Constitutional: Constitutional: Reports lethargy Eyes: Eyes: Reports no additional eye complaints ENT: Reports system reviewed and no additional complaints, except as documented Cardiovascular: Cardiovascular: Reports as per HPI Respiratory: Respiratory: Reports no additional respiratory complaints Gastrointestinal: Gastrointestinal: Reports no additional gastrointestinal complaints Musculoskeletal: Musculoskeletal: Reports as per HPI Integumentary/Breasts: Skin/Breast: Reports system reviewed and no additional complaints, except as docu and Reports as per HPI Neurologic: Reports system reviewed and no additional complaints, except as documented Endocrine: Endocrine: Reports no additional endocrine complaints Hematologic/Lymphatic: Hematologic/Lymphatic: Reports no additional hematologic/lymphatic complaints Allergic/Immunologic: Allergic/Immunologic: Reports no additional allergic/immunologic complaints [facility] Past Medical History Medical History (Updated 03/01/21 @ 07:28 by RUFINO Pinto) Benign prostatic hyperplasia Biventricular ICD (implantable cardioverter-defibrillator) in place [facility], implanted 07/[address] Marin Chronic anticoagulation Chronic low back pain Coronary artery disease COVID-19 (06/2020) Cryptogeni
[2021-03-07] MEDS: ACETAMINOPHEN 500 MG TABLET 1000 MG PO (11:30)
--- NOTE | 2021-03-11 15:29 | PM.DS ---
DS: Admitting Diagnosis Discharge Date 03/07/21 Admitting Diagnosis cellulitis, Pseudomonas bacteremia DS: Discharge Diagnosis Discharge Diagnosis (1) Cellulitis of right leg: Code(s): L03.115 - Cellulitis of right lower limb Status: Acute Assessment and Plan: Erythema and swelling improving by the day. Explained to the patient that he will need to continue to elevate this and monitor it -patient completed imipenem and gentamicin and was discharged on ciprofloxacin per Infectious Disease recommendations -CT of the leg did not show any abscess or worsening infection. -patient is to hold amiodarone while on the ciprofloxacin, cardiology is okay with this -follow-up with primary care physician about this stay. I spoke with Dr. Moeller about this and he agrees to follow up (2) Sepsis: Code(s): A41.9 - Sepsis, unspecified organism Status: Acute Assessment and Plan: Septicemia. Secondary to cellulitis and bacteremia. Resolved -presented with fever, hypotension and leukocytosis with an elevated lactic acid. -1 blood culture growing pseudomonas aeruginosa, repeated 03/01/21 NGTD -antibiotics as above (3) Bacteremia: Code(s): R78.81 - Bacteremia Status: Acute Assessment and Plan: As above (4) ICD (implantable cardioverter-defibrillator) discharge: Code(s): Z45.02 - Encounter for adjustment and management of automatic implantable cardiac defibrillator Status: Acute Assessment and Plan: -Pt reports being shocked around 3am 02/24/21 -intermittent V-tach noted on tele. Nonsymptomatic -Pacemaker/defibrillator seems to have been placed for arrhythmia related to decreased EF and grade 3-4 diastolic dysfunction -Sees Dr. Sarina Warren, will need to follow up after DC -[facility] device interrogated, shows proper function (5) Ischemic cardiomyopathy: Code(s): I25.5 - Ischemic cardiomyopathy Status: Acute Assessment and Plan: Reported in EMR, pt has no knowledge of CHF but says he has of heart issues -Repeat echo EF 40-45% with grade 3-4 diastolic dysfunction -Continue Metoprolol -follow-up with proof passer as regularly scheduled (6) Obstructive sleep apnea treated with BiPAP: Code(s): G47.33 - Obstructive sleep apnea (adult) (pediatric) Status: Acute Assessment and Plan: continue cpap (7) Paroxysmal atrial fibrillation: Code(s): I48.0 - Paroxysmal atrial fibrillation Status: Acute Assessment and Plan: Continue metoprolol, amiodarone held for 2 weeks at discharge (8) Chronic anticoagulation: Code(s): 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 Vitals in the ER were temperature 36.8? C, pulse 63, respiratory rate 23, blood pressure 113/55, pulse ox 94 on room air. Initial white blo
== END 2021-03-07 13:30 | disposition home or self-care (01) | DRG 872 ==
LOC: ANHED 17:45 → ANH2MED 23:31
PROVIDERS: Internal Medicine Infectious Disease; Nurse Practitioner; Physician Assistant; Admitting Provider Internal Medicine; Emergency Provider Emergency Medicine; PCP Internal Medicine; Visit Provider Physician Assistant
DX: A41.52 Sepsis due to Pseudomonas (principal); L03.115 Cellulitis of right lower limb; I48.0 Paroxysmal atrial fibrillation; I95.9 Hypotension, unspecified; Z20.822 Contact with and (suspected) exposure to COVID-19; I25.10 Atherosclerotic heart disease of native coronary artery without angina pectoris; I25.5 Ischemic cardiomyopathy; G47.33 Obstructive sleep apnea (adult) (pediatric); M06.9 Rheumatoid arthritis, unspecified; I10 Essential (primary) hypertension; I89.0 Lymphedema, not elsewhere classified; E78.5 Hyperlipidemia, unspecified; K74.69 Other cirrhosis of liver; N40.0 Benign prostatic hyperplasia without lower urinary tract symptoms; Z96.653 Presence of artificial knee joint, bilateral; Z86.16 Personal history of COVID-19; Z79.01 Long term (current) use of anticoagulants; Z79.82 Long term (current) use of aspirin; Z79.899 Other long term (current) drug therapy; Z95.810 Presence of automatic (implantable) cardiac defibrillator; Z98.42 Cataract extraction status, left eye; Z98.41 Cataract extraction status, right eye; Z95.1 Presence of aortocoronary bypass graft
CPT/HCPCS: 36415; 70450; 71045; 71046; 71275; 73701; 76705; 80048; 80053; 80076; 80170; 80202; 81001; 82948; 83605; 83735; 83880; 85025; 85055; 85380; 85610; 85730; 86140; 87040; 87077; 87186; 87426; 93005; 93306; 93970; 94640; 94660; 96360; 97110; 97116; 97161; 97165; 97530; 97535; 99285; A9270; C9803; J0131; J0690; J0743; J1580; J1940; J2270; J2543; J3370; J3475; J7030; J7040; J7060; J7120; J7512; P9047; Q9967

== ENCOUNTER 2021-06-06 08:15 | Outpatient (CLI) | payer MEDICARE, SELFPAY ==
[2021-06-06 08:37] LABS: Basophils Absolute Auto 0.1 K/mm3 (0.0-0.1); Basophils Percent Auto 0.5 % (0.2-1.2); Eosinophils Absolute Auto 0.1 K/mm3 (0-0.3); Eosinophils Percent Auto 1.3 % (0-4.4); Hematocrit 35.9 % (42.0-52.0); Hemoglobin 11.6 g/dL (14.0-18.0); Immature Granulocyte Absolute 0.05 K/mm3 (0.00-0.031); Immature Granulocyte Percent A 0.5 % (0-0.5); Lymphocytes Absolute Auto 1.65 K/mm3 (0.9-3.2); Lymphocytes Percent Auto 17.6 % (18.3-44.2); Mean Corpuscular HGB Conc 32.3 g/dl (32-36); Mean Corpuscular Hemoglobin 31.8 pg (26-34); Mean Corpuscular Volume 98.4 fl (80-100); Mean Platelet Volume 11.1 fl (7.4-10.4); Monocytes Absolute Auto 0.9 K/mm3 (0.1-0.6); Monocytes Percent Auto 9.6 % (2.6-8.5); Neutrophils Absolute Auto 6.6 K/mm3 (1.3-6.7); Neutrophils Percent Auto 70.5 % (45.5-73.1); Platelet Count Result 149 k/mm3 (150-375); Red Blood Count 3.65 M/mm3 (4.6-6.20); Red Cell Distribution Width 15.2 % (11.5-14.5); White Blood Count 9.4 K/mm3 (4.5-10.0)
[2021-06-06 09:35] LABS: Alanine Aminotransferase 28 U/L (4-50); Albumin Level 4.1 g/dL (3.5-5.1); Alkaline Phosphatase 88 U/L (38-126); Anion Gap 5 mmol/L (8-16); Aspartate Amino Transferase 34 U/L (17-59); Bilirubin,Total 0.5 mg/dL (0.2-1.3); Blood Urea Nitrogen 20 mg/dL (9-20); Calcium 8.7 mg/dL (8.4-10.2); Carbon Dioxide 26 mmol/L (22-30); Chloride 105 mmol/L (98-107); Cholesterol 183 mg/dL (0-200); Estimated Glomerular Filt Rate > 60; Glucose 95 mg/dL (65-110); HDL Direct 87 mg/dL; Potassium 4.3 mmol/L (3.4-5.0); Sodium 136 mmol/L (137-145); Triglycerides 88 mg/dL (<150)
[2021-06-06 09:47] LABS: LDL Cholesterol Direct 75 mg/dL
[2021-06-06 10:04] LABS: Prostate Specific Antigen 0.7 ng/mL (< OR = 4.0)
[2021-06-10 14:02] LABS: Vitamin D 25 Hydroxy 53.7 ng/mL
== END 2021-06-06 08:16 | disposition home or self-care (01) ==
LOC: ANHLAB 08:22
PROVIDERS: PCP Internal Medicine; Visit Provider Internal Medicine
DX: I48.91 Unspecified atrial fibrillation (principal); I89.0 Lymphedema, not elsewhere classified; K74.69 Other cirrhosis of liver; R73.01 Impaired fasting glucose; N40.1 Benign prostatic hyperplasia with lower urinary tract symptoms; R35.0 Frequency of micturition; M06.9 Rheumatoid arthritis, unspecified; E78.2 Mixed hyperlipidemia; I50.22 Chronic systolic (congestive) heart failure; Z12.5 Encounter for screening for malignant neoplasm of prostate
CPT/HCPCS: 36415; 80053; 80061; 82306; 84153; 84443; 85025; G0103

== ENCOUNTER 2021-06-18 12:13 | Emergency (ER) | payer MEDICARE, SELFPAY ==
--- NOTE | ~2021-06-18 | XR_ITS ---
EXAMINATION: XR femur LT min 2V DATE: 06/18/2021 13:37 INDICATION: Left thigh injury and pain. TECHNIQUE: 2 views of left femur on 4 radiographs were obtained. COMPARISON: None. FINDINGS: There is a total left knee arthroplasty in near-anatomic alignment with patellar resurfacin g. No fracture. There is moderate left hip osteoarthritis. No knee joint effusion. IMPRESSION: 1. Moderate left hip osteoarthritis. 2. Total left knee arthroplasty in near-anatomic alignment. Reviewed, dictated and finalized at location D. CTOR OF SOCIAL WORK
--- NOTE | ~2021-06-18 | XR_ITS ---
EXAMINATION: XR pelvis 1-2V DATE: 06/18/2021 13:37 INDICATION: Pelvis injury. TECHNIQUE: An anteroposterior view of the pelvis was obtained on 2 radiographs. COMPARISON: None. FINDINGS: There is lumbar dextroscoliosis and severe spondylosis. No fracture. There is moderate oste oarthritis of the hips. IMPRESSION: 1. Moderate osteoarthritis of the hips. Reviewed, dictated and finalized at location D. METRIC TECHNOLOGIST
[2021-06-18 12:17] VITALS: BP 115/56; PULSE 60; RESP 16; TEMP 36.4; O2SAT 100
[2021-06-18 13:05] VITALS: BP 115/56; PULSE 60; RESP 16; TEMP 36.4; O2SAT 100
--- NOTE | 2021-06-18 13:16 | PC.NURSE ---
Provider at bedside.
[2021-06-18] MEDS: HYDROcodone/acetaminophen (*CRX) 5-325 MG TABLET 1 TAB PO (13:45)
[2021-06-18 14:48] VITALS: BP 118/75; PULSE 78; RESP 18; O2SAT 100
--- NOTE | 2021-06-18 17:33 | ED.GENADULT ---
HPI - General Adult General Chief complaint: Extremity Injury, Lower Stated complaint: L LEG PAIN AFTER EXERTION Time Seen by Provider: 06/18/21 13:04 Source: patient Mode of arrival: ambulatory Limitations: no limitations History of Present Illness HPI narrative: Patient is a 75-year-old male presenting with chief complaint of left leg pain from his buttocks down to his knee for the past 4 days that began after he performed a twisting motion. Patient denies falling or direct trauma to the area. Patient reports he has been slower to ambulate as it is painful to flex the knee and the hip. He reports he has been using a walker to assist in his ambulation. Patient denies loss of bowel or bladder function or saddle paresthesias. Patient denies numbness or tingling. Related Data Home Medications Medication Instructions Recorded Confirmed B-complex with vitamin C 1 tablet PO DAILY 06/12/19 06/05/21 aspirin 81 mg tablet,delayed 81 mg PO DAILY 06/12/19 06/05/21 release multivitamin 1 tablet PO DAILY 06/12/19 06/05/21 simvastatin 20 mg tablet 20 mg PO DAILY 06/27/19 06/05/21 alendronate 70 mg tablet 70 mg PO WEEKLY 11/16/19 06/05/21 calcium carbonate 600 mg calcium 600 mg PO BID tablet 11/16/19 06/05/21 (1,500 mg) tablet amiodarone 200 mg tablet 200 mg PO DAILY tablet 03/08/20 06/05/21 metoprolol tartrate 25 mg tablet 12.5 mg PO BID tablet 03/08/20 06/05/21 furosemide 40 mg tablet 40 mg PO BID tablet 07/17/20 06/05/21 gabapentin 300 mg capsule 300 mg PO BID cap 11/19/20 06/05/21 Rinvoq 15 mg PO DAILY 02/23/21 06/05/21 Xarelto 20 mg PO QPM 02/23/21 06/05/21 prednisone 5 mg tablet 10 mg PO DAILY tablet 06/05/21 06/05/21 Allergies Allergy/AdvReac Type Severity Reaction Status Date / Time No Known Allergies Allergy Verified 03/14/21 09:38 Review of Systems Review of Systems: CONSTITUTIONAL: Denies fever, chills, or sweats. EYES: Denies visual changes, redness, or discharge. ENT: Denies rhinorrhea, congestion, sore throat, or otalgia. CARDIOVASCULAR: Denies chest pain, palpitations, or edema. RESPIRATORY: Denies cough or dyspnea. GASTROINTESTINAL: Denies abdominal pain, nausea, vomiting, or diarrhea. GENITOURINARY: Denies dysuria or hematuria. SKIN: Denies rash or itching. MUSCULOSKELETAL: Reports left leg pain denies back pain, joint pain, or myalgia. NEUROLOGIC: Denies headache, numbness, dizziness, or weakness. PSYCHIATRIC: Denies anxiety or depression. [facility], [facility] Past Medical History Medical History Benign prostatic hyperplasia Biventricular ICD (implantable cardioverter-defibrillator) in place [facility], implanted 07/[address] Marin Chronic anticoagulation Chronic low back pain Coronary artery disease COVID-19 (06/2020) Cryptogenic cirrhosis Dyslipidemia Hypertension Ischemic cardiomyopathy Ejection fraction was 41% in October 2018. Obstructive sleep apnea treated with BiPAP Paroxysmal atrial fibrillation PAF and Parox atrial flutter, s/p 4 cardioversions Rheumatoid arthritis Surgical History Surgical History History of bilateral cataract extraction History of blepharoplasty History of coronary artery bypass graft 2011, Dr. Constantino at [facility]. History of left knee replacement History of lumbar discectomy History of nasal septoplasty History of repair of right rotator cuff Family History Family History Mother Family history of malignant neoplasm of breast, Onset Age: 84 Family history of malignant neoplasm of bone Father Alcoholism Other Family history of malignant neoplasm Social History Social History Social History: Surrogate decision maker: Nereyda Chaves, . Code status: Full code. 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
== END 2021-06-18 14:49 | disposition home or self-care (01) ==
PROVIDERS: Emergency Provider Emergency Medicine; PCP Internal Medicine
DX: S76.312A Strain of muscle, fascia and tendon of the posterior muscle group at thigh level, left thigh, initial encounter (principal); I48.0 Paroxysmal atrial fibrillation; I25.10 Atherosclerotic heart disease of native coronary artery without angina pectoris; N40.0 Benign prostatic hyperplasia without lower urinary tract symptoms; K74.69 Other cirrhosis of liver; I25.5 Ischemic cardiomyopathy; M06.9 Rheumatoid arthritis, unspecified; G47.33 Obstructive sleep apnea (adult) (pediatric); Z86.16 Personal history of COVID-19; Z79.01 Long term (current) use of anticoagulants; Z79.82 Long term (current) use of aspirin; Z98.42 Cataract extraction status, left eye; Z98.41 Cataract extraction status, right eye; Z95.1 Presence of aortocoronary bypass graft; Z96.652 Presence of left artificial knee joint; Z95.810 Presence of automatic (implantable) cardiac defibrillator; Z87.891 Personal history of nicotine dependence; X50.9XXA Other and unspecified overexertion or strenuous movements or postures, initial encounter
CPT/HCPCS: 72170; 73552; 99284; A9270

== ENCOUNTER 2021-08-06 10:59 | Outpatient (CLI) | payer MEDICARE, SELFPAY ==
--- NOTE | ~2021-08-06 | XR_ITS ---
EXAMINATION: XR abdomen/kub 1V INDICATION: History of kidney stones TECHNIQUE: Supine views of the abdomen were obtained on 2 radiographs. COMPARISON: 07/22/2020 FINDINGS: Lumbar dextroscoliosis is noted. No definite urolithiasis is identified. There are phleboli ths of the left pelvis. Calcified atherosclerosis is noted. There is moderate right and mild left hip osteoarthritis. There is severe lumbar spondylosis. IMPRESSION: 1. No definite urolithiasis identified. Reviewed, dictated and finalized at location A. S REPRESENTATIVE CASH REGISTERS
== END 2021-08-06 11:00 | disposition home or self-care (01) ==
PROVIDERS: PCP Internal Medicine; Visit Provider Nurse Practitioner Adult Health
DX: Z87.442 Personal history of urinary calculi (principal)
CPT/HCPCS: 74018

== ENCOUNTER 2021-08-12 13:53 | Outpatient (CLI) | payer MEDICARE, SELFPAY ==
--- NOTE | ~2021-08-12 | US_ITS ---
EXAMINATION: US venous doppler LE EXAM DATE: 08/12/2021 14:47 INDICATION: R60.9 - Edema, unspecified . TECHNIQUE: Multiple grayscale, color flow and Doppler images of the left lower extremity deep venous system were obtained and reviewed. Comparison is made to prior examination from 02/26/2021. FINDINGS: Linear echogenic left common femoral echogenicity probably small web or scarring. The left common femoral, femoral and profunda veins demonstrate normal color flow, respiratory variation, augm entation and compressibility. Compressibility, color flow confirmed within the left popliteal, poste rior tibial, peroneal, and greater saphenous veins. Mildly enlarged left inguinal lymph node, probably reactive. Left calf edema. IMPRESSION: 1. No left lower extremity deep venous thrombosis. Reviewed, dictated and finalized at location A. NING STAFF SUPERVISOR
--- NOTE | ~2021-08-12 | XR_ITS ---
XR chest 2V 08/12/2021 14:49 Indication: Cough and shortness of breath Procedure: 2 view chest Comparison: Comparison to multiple prior studies sequentially, with oldest reviewed study dated 07/31. Findings: Status post median sternotomy for CABG. Cardiomegaly. Bibasilar atelectasis/scarring. No fo anaya pneumonia, pleural effusion or pneumothorax. Pacemaker leads are in expected position. No acute o sseous abnormality. Impression: 1: Chronic bibasilar atelectasis/scarring. Reviewed, dictated and finalized at location B. NDER WORKER HELPER Impression: 1: Chronic bibasilar atelectasis/scarring.
[2021-08-12 15:11] LABS: Anion Gap 10 mmol/L (8-16); Blood Urea Nitrogen 25 mg/dL (9-20); Calcium 8.8 mg/dL (8.4-10.2); Carbon Dioxide 26 mmol/L (22-30); Chloride 104 mmol/L (98-107); Estimated Glomerular Filt Rate > 60; Glucose 113 mg/dL (65-110); Potassium 4.1 mmol/L (3.4-5.0); Sodium 140 mmol/L (137-145)
== END 2021-08-12 13:54 | disposition home or self-care (01) ==
PROVIDERS: PCP Internal Medicine; Visit Provider Internal Medicine
DX: I10 Essential (primary) hypertension (principal); M79.89 Other specified soft tissue disorders; R60.9 Edema, unspecified; R05.9 Cough, unspecified; R91.8 Other nonspecific abnormal finding of lung field
CPT/HCPCS: 36415; 71046; 80048; 93971

== ENCOUNTER 2021-08-18 13:48 | Inpatient (IN) | payer MEDICARE, SELFPAY ==
[2021-08-18] VITALS (9 sets, daily range): BP systolic 118–141; BP diastolic 58–71; PULSE 60–82; RESP 10–18; TEMP 36.3–36.6; O2SAT 98–100; BMI 39.0
--- NOTE | ~2021-08-18 | US_ITS ---
EXAMINATION: US venous doppler [facility] DATE: 08/18/2021 15:59 INDICATION: Left lower limb pain and swelling. TECHNIQUE: Grayscale ultrasound images without and with compression and Doppler ultrasound images of the left lower extremity veins were obtained. COMPARISON: Ultrasound 08/12/2021 FINDINGS: The visualized portions of left common femoral vein, profunda (deep) femoral vein, femoral vein, popl iteal vein, peroneal veins, posterior tibial veins, and greater saphenous vein outflow are patent. IMPRESSION: 1. No deep venous thrombosis. Reviewed, dictated and finalized at location A. 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
--- NOTE | 2021-08-18 16:42 | ED.EXTPRO ---
HPI - Extremity Problem General Chief complaint: Extremity Problem,Nontraumatic Stated complaint: left leg edema Time Seen by Provider: 08/18/21 15:37 Source: patient and RN notes reviewed History of Present Illness HPI Narrative: 75-year-old male presenting to the emergency department for evaluation of worsening redness and swelling of his left lower extremity. Patient states 2 weeks ago he spent a prolonged amount of time in a wheelchair due to his 's recent hospitalization. Patient states since that time he has had increased redness swelling and intermittent fevers and chills. Patient did have follow-up with his primary care physician and had an a negative outpatient DVT study. Patient was also told to increase his water pill. Patient states since that time that the symptoms have continued to worsen. Patient does have history of lower extremity cellulitis and multiple surgeries and injuries to his left leg. Patient also reports having subjective fevers and chills over the last few days. Related Data Home Medications Medication Instructions Recorded Confirmed B-complex with vitamin C 1 tablet PO DAILY 06/12/19 08/12/21 aspirin 81 mg tablet,delayed 81 mg PO DAILY 06/12/19 08/12/21 release multivitamin 1 tablet PO DAILY 06/12/19 08/12/21 simvastatin 20 mg tablet 20 mg PO DAILY 06/27/19 08/12/21 alendronate 70 mg tablet 70 mg PO WEEKLY 11/16/19 08/12/21 calcium carbonate 600 mg calcium 600 mg PO BID tablet 11/16/19 08/12/21 (1,500 mg) tablet amiodarone 200 mg tablet 200 mg PO DAILY tablet 03/08/20 08/12/21 metoprolol tartrate 25 mg tablet 12.5 mg PO BID tablet 03/08/20 08/12/21 gabapentin 300 mg capsule 300 mg PO BID cap 11/19/20 08/12/21 Rinvoq 15 mg PO DAILY 02/23/21 08/12/21 Xarelto 20 mg PO QPM 02/23/21 08/12/21 prednisone 5 mg tablet 10 mg PO DAILY tablet 06/05/21 08/12/21 amiodarone 08/18/21 Allergies Allergy/AdvReac Type Severity Reaction Status Date / Time No Known Allergies Allergy Verified 08/18/21 11:44 Review of Systems Review of Systems: CONSTITUTIONAL: Chills and subjective fevers EYES: Denies visual changes, redness, or discharge. ENT: Denies rhinorrhea, congestion, sore throat, or otalgia. CARDIOVASCULAR: Denies chest pain, palpitations, or edema. RESPIRATORY: Denies cough or dyspnea. GASTROINTESTINAL: Denies abdominal pain, nausea, vomiting, or diarrhea. GENITOURINARY: Denies dysuria or hematuria. SKIN: Left lower extremity erythema. MUSCULOSKELETAL: Denies back pain, joint pain, or myalgia. [facility] Past Medical History Medical History (Updated 08/18/21 @ 21:45 by Obdulio Freeman MD) Afib Bacteremia Benign prostatic hyperplasia Biventricular ICD (implantable cardioverter-defibrillator) in place [facility], implanted 07/[address] Marin Chronic anticoagulation Chronic low back pain Coronary artery disease Cough COVID-19 (06/2020) Cryptogenic cirrhosis Dyslipidemia Hypertension Hypotension Ischemic cardiomyopathy Ejection fraction was 41% in October 2018. Obstructive sleep apnea treated with BiPAP Paroxysmal atrial fibrillation PAF and Parox atrial flutter, s/p 4 cardioversions Pre-op evaluation Rheumatoid arthritis Sepsis Surgical History Surgical History History of bilateral cataract extraction History of blepharoplasty History of coronary artery bypass graft 2011, Dr. Constantino at [facility]. 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
[2021-08-18 17:05] LABS: Basophils Percent Auto 0.4 % (0.2-1.2); Eosinophils Percent Auto 0.5 % (0-4.4); Hematocrit 34.3 % (42.0-52.0); Hemoglobin 11.3 g/dL (14.0-18.0); Lymphocytes Absolute Auto 0.88 K/mm3 (0.9-3.2); Lymphocytes Percent Auto 11.9 % (18.3-44.2); Mean Corpuscular HGB Conc 32.9 g/dl (32-36); Mean Corpuscular Hemoglobin 33.4 pg (26-34); Mean Corpuscular Volume 101.5 fl (80-100); Mean Platelet Volume 10.6 fl (7.4-10.4); Monocytes Absolute Auto 0.5 K/mm3 (0.1-0.6); Monocytes Percent Auto 7.3 % (2.6-8.5); Neutrophils Absolute Auto 5.6 K/mm3 (1.3-6.7); Neutrophils Percent Auto 75.9 % (45.5-73.1); Platelet Count Result 318 k/mm3 (150-375); Red Blood Count 3.38 M/mm3 (4.6-6.20); Red Cell Distribution Width 14.8 % (11.5-14.5); White Blood Count 7.4 K/mm3 (4.5-10.0)
--- NOTE | 2021-08-18 18:37 | PC.NURSE ---
Called lab and spoke to Mg. Second set of cultures sent down with demo label
[2021-08-18 18:41] LABS: Alanine Aminotransferase 40 U/L (4-50); Albumin Level 3.9 g/dL (3.5-5.1); Alkaline Phosphatase 99 U/L (38-126); Anion Gap 8 mmol/L (8-16); Aspartate Amino Transferase 37 U/L (17-59); Bilirubin,Total 0.6 mg/dL (0.2-1.3); Blood Urea Nitrogen 17 mg/dL (9-20); Calcium 8.9 mg/dL (8.4-10.2); Carbon Dioxide 29 mmol/L (22-30); Chloride 103 mmol/L (98-107); Estimated CRCL calculation 89 ml/min; Estimated Glomerular Filt Rate > 60; Glucose 94 mg/dL (65-110); Potassium 4.3 mmol/L (3.4-5.0); Sodium 140 mmol/L (137-145)
--- NOTE | 2021-08-18 19:17 | PC.NURSE ---
Assumed care of pt at this time. Pt alert and upright on stretcher, eating box lunch. Pt updated on POC.
--- NOTE | 2021-08-18 19:50 | PC.NURSE ---
Attempted to give report to 3rd Med/Surg at this time. Was informed they will call the RN melissa when available for report
--- NOTE | 2021-08-18 20:55 | PM.IMHP ---
H&P: HPI History of Present Illness Date/Time: Patient was placed observation status for expected length of stay less than 23 hours for management, will plan to re-evaluate tomorrow for improvement. 08/18/21 20:55 Chief Complaint: Left lower extremity pain and swelling Narrative: Mr. Chaves he is 75-year-old gentleman who presented to the emergency room with complaints of left lower extremity swelling and pain. Patient has a known history of coronary artery disease status post coronary bypass grafting, ischemic cardiomyopathy status post ICD placement, paroxysmal atrial fibrillation, hypertension, obstructive sleep apnea, cirrhosis, and rheumatoid arthritis. Patient states that he has had swelling to his left lower extremity, but has not had no pain to this extremity for some time. Patient states he had gone to see his primary care provider for this swelling and he was told to double up on his water pills and he had an outpatient venous Doppler that was negative. Patient states over time that the his left lower extremity became more painful, but he did not notice any erythema. Patient states that his noticed that his leg was getting more red and told him to come to the hospital for further evaluation. Patient denies having been treated with any antibiotic therapy as an outpatient. Patient states that his did fall last week and was taken to [facility] and he believes that part of it could be that he was sitting for many hours and awaiting with his leg and dependent position. Patient states he did have chills, but never checked his temperature. Pt evaluation emergency room patient was noted to have stable vital signs with no fever, tachycardia, or tachypnea. Patient's white blood cell count was within normal limits. Review of Systems Review of Systems: A 12 point review of systems was completed patient all pertinent positive and negative per HPI the remainder are unremarkable. [facility] Past Medical History Medical History (Updated 08/18/21 @ 21:21 by Marielos Sun APRN) Afib Bacteremia Benign prostatic hyperplasia Biventricular ICD (implantable cardioverter-defibrillator) in place [facility], implanted 07/[address] Marin Chronic anticoagulation Chronic low back pain Coronary artery disease Cough COVID-19 (06/2020) Cryptogenic cirrhosis Dyslipidemia Hypertension Hypotension Ischemic cardiomyopathy Ejection fraction was 41% in October 2018. Obstructive sleep apnea treated with BiPAP Paroxysmal atrial fibrillation PAF and Parox atrial flutter, s/p 4 cardioversions Pre-op evaluation Rheumatoid arthritis Sepsis Surgical History Surgical History History of bilateral cataract extraction History of blepharoplasty History of coronary artery bypass graft 2011, Dr. Constantino at [facility]. History of left knee replacement History of lumbar discectomy History of nasal septoplasty History of repair of right rotator cuff Family History Family History (Updated 08/18/21 @ 11:49 by Beti Saab) Mother Family history of malignant neoplasm of breast, Onset Age: 84 Family history of malignant neoplasm of bone Father Alcoholism Arthritis Other Family history of malignant neoplasm Social History Social History (Updated 08/18/21 @ 11:48 by Beti Saab) Social History: Surrogate decision maker: Nereyda Chaves, . Code status: Full code. 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 Additional occupation/education comments: Retir
--- NOTE | 2021-08-18 21:02 | ADMGEN ---
This patient, Hema Chaves , was admitted to 3 [facility] Surg Room 301-01. Patient/family oriented to hospital policies and general routines including ID bracelet, bed and alarms, visiting hours, pain management, procedures, bathroom and other care routines, personal items, smoking policy, room service/diet, and visiting hours. Information on how to activate the Rapid Response Team has been discussed. Patient/Family are encouraged to report perceived risks to care and to ask questions if they do not understand what they are told or what they should do.
[2021-08-19] VITALS (8 sets, daily range): BP systolic 101–126; BP diastolic 53–65; PULSE 61–76; RESP 16–18; TEMP 36.4–37; O2SAT 95–99
--- NOTE | 2021-08-19 | ECHO_ITS ---
Patient Info Name: Hema Chaves Age: 75 years : 1945 Gender: Male Ht: 68 in Wt: 256 lbs BSA: 2.41 m2 HR: 76 bpm BP: 126 / 56 mmHg Heart Rhythm: Sinus Rhythm, Paced Technical Quality: Fair Exam Date: 08/19/2021 3:11 PM Exam Location: [facility] Pulmonary Patient Status: Inpatient Admit Date: 08/19/2021 Staff Ordering Physician: Raj Adames Benefit Authorizer: Shiloh Rodgers RDCS Attending Provider: Hema Lehman MD Referring Physician: Zacarias HAILE; Exam Type: CA echo doppler color flow Study Info Indications - fluid status Complete two-dimensional, color flow and Doppler transthoracic echocardiogram is performed. Summary 1. Complete two-dimensional, color flow and Doppler transthoracic echocardiogram is performed. 2. Left ventricular chamber dimension is moderately enlarged. 3. Left ventricular systolic function is normal, estimated at 55-60%. 4. There is no increased left ventricular wall thickness. 5. The left ventricular diastolic function is grade III diastolic dysfunction. 6. Left atrial chamber dimension is moderately enlarged. 7. Right atrial chamber dimension is moderately enlarged. 8. There is mild to moderate mitral valve regurgitation. 9. There is mild tricuspid valve regurgitation. Left Ventricle Left ventricular chamber dimension is moderately enlarged. Left ventricular systolic function is normal, estimated at 55-60%. There is no increased left ventricular wall thickness. The left ventricular diastolic function is grade III diastolic dysfunction. Right Ventricle Right ventricular chamber dimension is normal. Right ventricular systolic function is normal. Left Atria Left atrial chamber dimension is moderately enlarged. Right Atria Right atrial chamber dimension is moderately enlarged. Atrial Septum Intact interatrial septum visualized by color flow imaging. Aortic Valve The aortic valve is trileaflet. There is mild aortic valve sclerosis. There is no aortic valve stenosis. There is trace aortic valve regurgitation. Pulmonic Valve The pulmonic valve is normal. There is no pulmonic valve stenosis. There is trace pulmonic regurgitation. Mitral Valve The mitral valve has thickened leaflets. There is no mitral valve stenosis. There is mild to moderate mitral valve regurgitation. Tricuspid Valve The tricuspid valve leaflets are normal. There is no significant tricuspid valve stenosis. There is mild tricuspid valve regurgitation. No pulmonary hypertension, estimated pulmonary arterial systolic pressure is 33 mmHg. Pericardium/Pleural The pericardium appears normal. There is no pericardial effusion. Inferior Vena Cava Normal inferior vena cava with <50% collapse upon inspiration consistent with elevated right atrial pressure, 10 mmHg. Aorta The aortic root size at the sinus of Valsalva is normal. Left Ventricular Outflow Tract Name Value Normal LVOT 2D LVOT Diameter 2.1 cm LVOT Doppler LVOT Peak Gradient 6 mmHg LVOT Mean Gradient 3 mmHg LVOT VTI
[2021-08-19] MEDS: ACETAMINOPHEN 500 MG TABLET 1000 MG PO (08:11)
[2021-08-19 10:22] LABS: Basophils Percent Auto 0.4 % (0.2-1.2); Eosinophils Absolute Auto 0.1 K/mm3 (0-0.3); Eosinophils Percent Auto 0.7 % (0-4.4); Hematocrit 30.1 % (42.0-52.0); Hemoglobin 9.5 g/dL (14.0-18.0); Immature Granulocyte Absolute 0.13 K/mm3 (0.00-0.031); Immature Granulocyte Percent A 1.3 % (0-0.5); Lymphocytes Absolute Auto 0.64 K/mm3 (0.9-3.2); Lymphocytes Percent Auto 6.2 % (18.3-44.2); Mean Corpuscular HGB Conc 31.6 g/dl (32-36); Mean Corpuscular Hemoglobin 31.4 pg (26-34); Mean Corpuscular Volume 99.3 fl (80-100); Mean Platelet Volume 10.3 fl (7.4-10.4); Monocytes Absolute Auto 0.5 K/mm3 (0.1-0.6); Monocytes Percent Auto 5.3 % (2.6-8.5); Neutrophils Absolute Auto 8.9 K/mm3 (1.3-6.7); Neutrophils Percent Auto 86.1 % (45.5-73.1); Platelet Count Result 255 k/mm3 (150-375); Red Blood Count 3.03 M/mm3 (4.6-6.20); Red Cell Distribution Width 15.5 % (11.5-14.5); White Blood Count 10.3 K/mm3 (4.5-10.0)
--- NOTE | 2021-08-19 10:30 | PM.IMPN ---
Progress Note: A&P Assessment and Plan (1) Cellulitis of left leg: Code(s): L03.116 - Cellulitis of left lower limb Status: Acute Assessment and Plan: Left calf redness with swelling and warmth Continue vancomycin, added Ancef Blood cultures pending Venous Doppler negative WBC trending up Trend labs (2) Hypertension: Code(s): I10 - Essential (primary) hypertension Status: Acute Assessment and Plan: 126/56 currently Continue home metoprolol 12.5mg PO BID Trend BP adjust therapy as indicated (3) Chronic systolic heart failure: Code(s): I50.22 - Chronic systolic (congestive) heart failure Status: Acute Assessment and Plan: Patient is compensated this time continue with home medications Trend fluid status Daily weights Could possibly need a fluid restriction Consider IV lasix, continue home dose for now Get Echo for fluid status, and to determine if in an acute exacerbation (4) Paroxysmal atrial fibrillation: Code(s): I48.0 - Paroxysmal atrial fibrillation Status: Acute Assessment and Plan: Patient is AV paced at this time. Will continue with home medications. Patient is on Xarelto which will cover for DVT prophylaxis (5) Hyperlipidemia: Code(s): E78.5 - Hyperlipidemia, unspecified Status: Acute Assessment and Plan: Continue home simvastatin Time Spent With Patient Time with patient: Greater than 35 minutes Subjective Date/time seen: 08/19/21 1030 Interval history: 08/18/21 20:55 Narrative: Mr. Chaves he is 75-year-old gentleman who presented to the emergency room with complaints of left lower extremity swelling and pain. Patient has a known history of coronary artery disease status post coronary bypass grafting, ischemic cardiomyopathy status post ICD placement, paroxysmal atrial fibrillation, hypertension, obstructive sleep apnea, cirrhosis, and rheumatoid arthritis. Patient states that he has had swelling to his left lower extremity, but has not had no pain to this extremity for some time. Patient states he had gone to see his primary care provider for this swelling and he was told to double up on his water pills and he had an outpatient venous Doppler that was negative. Patient states over time that the his left lower extremity became more painful, but he did not notice any erythema. Patient states that his noticed that his leg was getting more red and told him to come to the hospital for further evaluation. Patient denies having been treated with any antibiotic therapy as an outpatient. Patient states that his did fall last week and was taken to [facility] and he believes that part of it could be that he was sitting for many hours and awaiting with his leg and dependent position. Patient states he did have chills, but never checked his temperature. Pt evaluation emergency room patient was noted to have stable vital signs with no fever, tachycardia, or tachypnea. Patient's white blood cell count was within normal limits. 08/19/21 1030 Patient is lying in bed. Patient did have significant amount of swelling around the left calf and ankle. It is red and very warm. Patient rates his pain a 5/10 which he states is mostly with activity. Patient denied any chest pain, shortness of breath, nausea, vomiting, diarrhea, constipation. Patient did have some weakness and fatigue and feels very washed out. Review of Systems Review of Systems: All systems reviewed & are unremarkable except as noted in HPI and below Exam Const: General: cooperative, healthy appearing, no acute distress, well developed, alert and awake Nutritional Appearance: well nourished Orientation/consciousness: patient oriented x3 Limitations: no limitations HENMT: Head: normal to inspection Ears: hearing grossly normal bilaterally General nose exam: Normal external nose pr
[2021-08-19 10:34] LABS: Alanine Aminotransferase 30 U/L (4-50); Albumin Level 3.4 g/dL (3.5-5.1); Alkaline Phosphatase 67 U/L (38-126); Anion Gap 6 mmol/L (8-16); Aspartate Amino Transferase 30 U/L (17-59); Bilirubin,Total 0.6 mg/dL (0.2-1.3); Blood Urea Nitrogen 17 mg/dL (9-20); Calcium 8.1 mg/dL (8.4-10.2); Carbon Dioxide 25 mmol/L (22-30); Chloride 101 mmol/L (98-107); Estimated CRCL calculation 89 ml/min; Estimated Glomerular Filt Rate > 60; Glucose 127 mg/dL (65-110); Potassium 3.6 mmol/L (3.4-5.0); Sodium 132 mmol/L (137-145)
--- NOTE | 2021-08-19 11:02 | PC.NURSE ---
Reported decrease in NA level from 140 to 132 to VENEER SORTER Eliseo and decrease in hemoglobin to 9.5 from 11.3.
[2021-08-19] MEDS: CALCIUM CARBONATE (OSCAL) 500 MG TABLET PO (16:02)
[2021-08-19] MEDS: GABAPENTIN 300 MG CAPSULE PO (16:02)
[2021-08-19] MEDS: RIVAROXABAN 20 MG TABLET PO (17:25)
[2021-08-19] MEDS: METOPROLOL TARTRATE 12.5 MG TABLET PO (21:03)
[2021-08-20 05:21] LABS: Alanine Aminotransferase 28 U/L (4-50); Albumin Level 3.2 g/dL (3.5-5.1); Alkaline Phosphatase 71 U/L (38-126); Anion Gap 1 mmol/L (8-16); Aspartate Amino Transferase 35 U/L (17-59); Bilirubin,Total 0.6 mg/dL (0.2-1.3); Blood Urea Nitrogen 13 mg/dL (9-20); Calcium 8.2 mg/dL (8.4-10.2); Carbon Dioxide 32 mmol/L (22-30); Chloride 103 mmol/L (98-107); Estimated CRCL calculation 100 ml/min; Estimated Glomerular Filt Rate > 60; Glucose 88 mg/dL (65-110); Magnesium 2.3 mg/dL (1.6-2.3); Potassium 4.2 mmol/L (3.4-5.0); Sodium 136 mmol/L (137-145)
[2021-08-20 05:45] LABS: Basophils Percent Auto 0.4 % (0.2-1.2); Eosinophils Absolute Auto 0.1 K/mm3 (0-0.3); Eosinophils Percent Auto 1.6 % (0-4.4); Hematocrit 30.7 % (42.0-52.0); Hemoglobin 9.7 g/dL (14.0-18.0); Immature Granulocyte Percent A 1.3 % (0-0.5); Lymphocytes Absolute Auto 0.68 K/mm3 (0.9-3.2); Lymphocytes Percent Auto 8.9 % (18.3-44.2); Mean Corpuscular HGB Conc 31.6 g/dl (32-36); Mean Corpuscular Hemoglobin 32.3 pg (26-34); Mean Corpuscular Volume 102.3 fl (80-100); Mean Platelet Volume 10.6 fl (7.4-10.4); Monocytes Absolute Auto 0.4 K/mm3 (0.1-0.6); Monocytes Percent Auto 5.8 % (2.6-8.5); Neutrophils Absolute Auto 6.2 K/mm3 (1.3-6.7); Platelet Count Result 238 k/mm3 (150-375); Red Cell Distribution Width 15.2 % (11.5-14.5); White Blood Count 7.6 K/mm3 (4.5-10.0)
[2021-08-20 05:55] LABS: Vancomycin Trough 13.3 ug/mL (10.0-20.0)
[2021-08-20 06:00] VITALS: BP 120/57; PULSE 61; RESP 20; TEMP 36.4; O2SAT 99
[2021-08-20 08:40] VITALS: PULSE 68
[2021-08-20] MEDS: METOPROLOL TARTRATE 12.5 MG TABLET PO ×2 (08:40→20:11)
[2021-08-20] MEDS: predniSONE 1 MG TABLET 2 MG PO (08:40)
[2021-08-20] MEDS: CALCIUM CARBONATE (OSCAL) 500 MG TABLET PO ×2 (08:40→16:36)
[2021-08-20] MEDS: VITAMIN B COMPLEX/VIT C CAPSULE 1 EACH PO (08:42)
[2021-08-20] MEDS: ASPIRIN 81 MG ENTERIC TABLET PO (08:42)
[2021-08-20] MEDS: SIMVASTATIN 20 MG TABLET PO (08:43)
[2021-08-20] MEDS: predniSONE 5 MG TABLET PO (08:43)
[2021-08-20] MEDS: MULTIVITAMINS THERAPEUTIC TAB (*BKC) 1 TABLET PO (08:43)
[2021-08-20] MEDS: GABAPENTIN 300 MG CAPSULE PO ×2 (08:43→16:41)
[2021-08-20] MEDS: POTASSIUM CHLORIDE 20 MEQ TABLET.ER PO (08:44)
[2021-08-20 08:45] VITALS: PULSE 68
[2021-08-20] MEDS: AMIODARONE HCL 200 MG TABLET PO (08:45)
[2021-08-20] MEDS: FUROSEMIDE INJ 40 MG/4 ML VIAL IV PUSH ×2 (09:13→16:36)
--- NOTE | 2021-08-20 11:12 | PHAR ---
HOME MED VERIFIED = LIZBETH [id number] PREDNISOLONE ACETATE 1% OPHTH. ROSELINE. 1 DROP IN AFFECTED EYE(S) 3 TIMES PER DAY BEGINNING AFTER SURGERY. THIS MED DOES NOT HAVE A CURRENT ORDER & DOES NOT APPEAR ON HIS HOME MED LIST.
--- NOTE | 2021-08-20 11:25 | PM.IMPN ---
Progress Note: A&P Assessment and Plan (1) Cellulitis of left leg: Code(s): L03.116 - Cellulitis of left lower limb Status: Acute Assessment and Plan: Left calf redness with swelling and warmth Continue vancomycin, added Ancef Blood cultures NGTD Venous Doppler negative WBC normalizing at 7.6 Trend labs (2) Hypertension: Code(s): I10 - Essential (primary) hypertension Status: Acute Assessment and Plan: 107/66 currently Continue home metoprolol 12.5mg PO BID Trend BP adjust therapy as indicated (3) Chronic systolic heart failure: Code(s): I50.22 - Chronic systolic (congestive) heart failure Status: Acute Assessment and Plan: Patient is compensated this time continue with home medications Trend fluid status Daily weights Could possibly need a fluid restriction Change PO Lasix to IV Lasix 40mg IV Echo: EF 55-60%, grade 3 diastolic dysfunction Probably not an exacerbation of heart failure (4) Paroxysmal atrial fibrillation: Code(s): I48.0 - Paroxysmal atrial fibrillation Status: Acute Assessment and Plan: Patient is AV paced at this time. Continue amiodarone 200mg PO daily, Metoprolol 12.5mg PO BID Xarelto which will cover for DVT prophylaxis (5) Hyperlipidemia: Code(s): E78.5 - Hyperlipidemia, unspecified Status: Acute Assessment and Plan: Continue home simvastatin Time Spent With Patient Time with patient: Greater than 35 minutes Subjective Date/time seen: 08/20/21 11:25 Interval history: 08/18/21 20:55 Narrative: Mr. Chaves he is 75-year-old gentleman who presented to the emergency room with complaints of left lower extremity swelling and pain. Patient has a known history of coronary artery disease status post coronary bypass grafting, ischemic cardiomyopathy status post ICD placement, paroxysmal atrial fibrillation, hypertension, obstructive sleep apnea, cirrhosis, and rheumatoid arthritis. Patient states that he has had swelling to his left lower extremity, but has not had no pain to this extremity for some time. Patient states he had gone to see his primary care provider for this swelling and he was told to double up on his water pills and he had an outpatient venous Doppler that was negative. Patient states over time that the his left lower extremity became more painful, but he did not notice any erythema. Patient states that his noticed that his leg was getting more red and told him to come to the hospital for further evaluation. Patient denies having been treated with any antibiotic therapy as an outpatient. Patient states that his did fall last week and was taken to [facility] and he believes that part of it could be that he was sitting for many hours and awaiting with his leg and dependent position. Patient states he did have chills, but never checked his temperature. Pt evaluation emergency room patient was noted to have stable vital signs with no fever, tachycardia, or tachypnea. Patient's white blood cell count was within normal limits. 08/19/21 1030 Patient is lying in bed. Patient did have significant amount of swelling around the left calf and ankle. It is red and very warm. Patient rates his pain a 5/10 which he states is mostly with activity. Patient denied any chest pain, shortness of breath, nausea, vomiting, diarrhea, constipation. Patient did have some weakness and fatigue and feels very washed out. 08/20/21 11:25 Patient stated that he was doing ok. He did state that his leg looked better. His complaint was that he is weak and fatigued. He did state that he was woozy as well. His back and bottom was hurting probably from sitting around too much. He did state that his leg was like a slight toothache. He denied chest pain, nausea, vomiting, diarrhea, diarrhea, constipation. Review of Systems Review of Sys
--- NOTE | 2021-08-20 13:29 | PC.NURSE ---
On 08/20/21, the student, Bernie Brito, provided care and completed [facility] documentation on this patient. I have reviewed the student's documentation and agree with the findings.
[2021-08-20 13:42] VITALS: BP 107/66; PULSE 80; RESP 18; TEMP 36.1; O2SAT 98
[2021-08-20] MEDS: RIVAROXABAN 20 MG TABLET PO (17:49)
[2021-08-20 21:06] VITALS: PULSE 84; O2SAT 97
[2021-08-20 21:59] VITALS: BP 108/60; PULSE 71; RESP 18; TEMP 36.6; O2SAT 95
[2021-08-21] VITALS (8 sets, daily range): BP systolic 96–107; BP diastolic 59–76; PULSE 60–75; RESP 16–18; TEMP 35.8–36.7; O2SAT 94–99
[2021-08-21 05:46] LABS: Basophils Percent Auto 0.3 % (0.2-1.2); Eosinophils Absolute Auto 0.1 K/mm3 (0-0.3); Eosinophils Percent Auto 1.5 % (0-4.4); Hemoglobin 9.8 g/dL (14.0-18.0); Immature Granulocyte Percent A 1.3 % (0-0.5); Lymphocytes Absolute Auto 1.11 K/mm3 (0.9-3.2); Lymphocytes Percent Auto 13.9 % (18.3-44.2); Mean Corpuscular HGB Conc 31.6 g/dl (32-36); Mean Corpuscular Hemoglobin 31.7 pg (26-34); Mean Corpuscular Volume 100.3 fl (80-100); Mean Platelet Volume 10.4 fl (7.4-10.4); Monocytes Absolute Auto 0.6 K/mm3 (0.1-0.6); Monocytes Percent Auto 7.8 % (2.6-8.5); Neutrophils Percent Auto 75.2 % (45.5-73.1); Platelet Count Result 253 k/mm3 (150-375); Red Blood Count 3.09 M/mm3 (4.6-6.20); Red Cell Distribution Width 14.9 % (11.5-14.5)
[2021-08-21 06:51] LABS: Alanine Aminotransferase 26 U/L (4-50); Albumin Level 3.3 g/dL (3.5-5.1); Alkaline Phosphatase 67 U/L (38-126); Anion Gap 6 mmol/L (8-16); Aspartate Amino Transferase 38 U/L (17-59); Bilirubin,Total 0.6 mg/dL (0.2-1.3); Blood Urea Nitrogen 13 mg/dL (9-20); Carbon Dioxide 29 mmol/L (22-30); Chloride 101 mmol/L (98-107); Estimated CRCL calculation 100 ml/min; Estimated Glomerular Filt Rate > 60; Glucose 100 mg/dL (65-110); Magnesium 2.2 mg/dL (1.6-2.3); Potassium 4.1 mmol/L (3.4-5.0); Sodium 136 mmol/L (137-145)
[2021-08-21] MEDS: METOPROLOL TARTRATE 12.5 MG TABLET PO ×2 (09:09→19:52)
[2021-08-21] MEDS: ASPIRIN 81 MG ENTERIC TABLET PO (09:10)
[2021-08-21] MEDS: GABAPENTIN 300 MG CAPSULE PO ×2 (09:10→17:01)
[2021-08-21] MEDS: AMIODARONE HCL 200 MG TABLET PO (09:10)
[2021-08-21] MEDS: CALCIUM CARBONATE (OSCAL) 500 MG TABLET PO ×2 (09:10→17:01)
[2021-08-21] MEDS: POTASSIUM CHLORIDE 20 MEQ TABLET.ER PO (09:11)
[2021-08-21] MEDS: MULTIVITAMINS THERAPEUTIC TAB (*BKC) 1 TABLET PO (09:11)
[2021-08-21] MEDS: predniSONE 5 MG TABLET PO (09:12)
[2021-08-21] MEDS: predniSONE 1 MG TABLET 2 MG PO (09:12)
[2021-08-21] MEDS: SIMVASTATIN 20 MG TABLET PO (09:12)
[2021-08-21] MEDS: VITAMIN B COMPLEX/VIT C CAPSULE 1 EACH PO (09:13)
[2021-08-21] MEDS: FUROSEMIDE INJ 40 MG/4 ML VIAL IV PUSH ×2 (09:13→17:01)
--- NOTE | 2021-08-21 09:15 | PM.IMPN ---
Progress Note: A&P Assessment and Plan (1) Cellulitis of left leg: Code(s): L03.116 - Cellulitis of left lower limb Status: Acute Assessment and Plan: Left calf redness with swelling and warmth Continue vancomycin, added Ancef Blood cultures NGTD Venous Doppler negative WBC normalizing at 8.0 Trend labs Lux vizcaino (2) Hypertension: Code(s): I10 - Essential (primary) hypertension Status: Acute Assessment and Plan: 104/70 currently Continue home metoprolol 12.5mg PO BID Trend BP adjust therapy as indicated (3) Chronic systolic heart failure: Code(s): I50.22 - Chronic systolic (congestive) heart failure Status: Acute Assessment and Plan: Patient is compensated this time continue with home medications Trend fluid status Daily weights Could possibly need a fluid restriction Change PO Lasix to IV Lasix 40mg IV Echo: EF 55-60%, grade 3 diastolic dysfunction Probably not an exacerbation of heart failure (4) Paroxysmal atrial fibrillation: Code(s): I48.0 - Paroxysmal atrial fibrillation Status: Acute Assessment and Plan: Patient is AV paced at this time. Continue amiodarone 200mg PO daily, Metoprolol 12.5mg PO BID Xarelto which will cover for DVT prophylaxis (5) Hyperlipidemia: Code(s): E78.5 - Hyperlipidemia, unspecified Status: Acute Assessment and Plan: Continue home simvastatin Time Spent With Patient Time with patient: Greater than 35 minutes Subjective Date/time seen: 08/21/21 09:15 Interval history: 08/18/21 20:55 Narrative: Mr. Chaves he is 75-year-old gentleman who presented to the emergency room with complaints of left lower extremity swelling and pain. Patient has a known history of coronary artery disease status post coronary bypass grafting, ischemic cardiomyopathy status post ICD placement, paroxysmal atrial fibrillation, hypertension, obstructive sleep apnea, cirrhosis, and rheumatoid arthritis. Patient states that he has had swelling to his left lower extremity, but has not had no pain to this extremity for some time. Patient states he had gone to see his primary care provider for this swelling and he was told to double up on his water pills and he had an outpatient venous Doppler that was negative. Patient states over time that the his left lower extremity became more painful, but he did not notice any erythema. Patient states that his noticed that his leg was getting more red and told him to come to the hospital for further evaluation. Patient denies having been treated with any antibiotic therapy as an outpatient. Patient states that his did fall last week and was taken to [facility] and he believes that part of it could be that he was sitting for many hours and awaiting with his leg and dependent position. Patient states he did have chills, but never checked his temperature. Pt evaluation emergency room patient was noted to have stable vital signs with no fever, tachycardia, or tachypnea. Patient's white blood cell count was within normal limits. 08/19/21 1030 Patient is lying in bed. Patient did have significant amount of swelling around the left calf and ankle. It is red and very warm. Patient rates his pain a 5/10 which he states is mostly with activity. Patient denied any chest pain, shortness of breath, nausea, vomiting, diarrhea, constipation. Patient did have some weakness and fatigue and feels very washed out. 08/20/21 11:25 Patient stated that he was doing ok. He did state that his leg looked better. His complaint was that he is weak and fatigued. He did state that he was woozy as well. His back and bottom was hurting probably from sitting around too much. He did state that his leg was like a slight toothache. He denied chest pain, nausea, vomiting, diarrhea, diarrhea, constipation. 08/21/21 0915 ricardo
--- NOTE | 2021-08-21 12:11 | PCCCNOTE ---
On 08/21/21, the student, [ Viky Phelan], provided care and completed [facility] documentation on this patient. I have reviewed the student's documentation and agree with the findings.
--- NOTE | 2021-08-21 14:43 | PC.NURSE ---
On 08/21/21, the student, [Christopher Reaves ], provided care and completed [facility] documentation on this patient. I have reviewed the student's documentation and agree with the findings.
[2021-08-21] MEDS: RIVAROXABAN 20 MG TABLET PO (17:01)
[2021-08-22] MEDS: ACETAMINOPHEN 500 MG TABLET 1000 MG PO (05:10)
[2021-08-22 05:42] LABS: Basophils Percent Auto 0.2 % (0.2-1.2); Eosinophils Absolute Auto 0.2 K/mm3 (0-0.3); Eosinophils Percent Auto 1.7 % (0-4.4); Hematocrit 34.3 % (42.0-52.0); Hemoglobin 10.7 g/dL (14.0-18.0); Immature Granulocyte Percent A 1.1 % (0-0.5); Lymphocytes Absolute Auto 1.31 K/mm3 (0.9-3.2); Lymphocytes Percent Auto 14.8 % (18.3-44.2); Mean Corpuscular HGB Conc 31.2 g/dl (32-36); Mean Corpuscular Hemoglobin 31.6 pg (26-34); Mean Corpuscular Volume 101.2 fl (80-100); Mean Platelet Volume 10.2 fl (7.4-10.4); Monocytes Absolute Auto 0.7 K/mm3 (0.1-0.6); Monocytes Percent Auto 7.4 % (2.6-8.5); Neutrophils Absolute Auto 6.6 K/mm3 (1.3-6.7); Neutrophils Percent Auto 74.8 % (45.5-73.1); Platelet Count Result 289 k/mm3 (150-375); Red Blood Count 3.39 M/mm3 (4.6-6.20); Red Cell Distribution Width 14.7 % (11.5-14.5); White Blood Count 8.8 K/mm3 (4.5-10.0)
[2021-08-22 06:00] VITALS: BP 110/63; PULSE 60; RESP 18; TEMP 36.4; O2SAT 100
[2021-08-22 06:03] LABS: Alanine Aminotransferase 28 U/L (4-50); Albumin Level 3.5 g/dL (3.5-5.1); Alkaline Phosphatase 85 U/L (38-126); Anion Gap 4 mmol/L (8-16); Aspartate Amino Transferase 36 U/L (17-59); Bilirubin,Total 0.5 mg/dL (0.2-1.3); Blood Urea Nitrogen 11 mg/dL (9-20); Calcium 8.5 mg/dL (8.4-10.2); Carbon Dioxide 34 mmol/L (22-30); Chloride 100 mmol/L (98-107); Estimated CRCL calculation 100 ml/min; Estimated Glomerular Filt Rate > 60; Glucose 88 mg/dL (65-110); Magnesium 2.1 mg/dL (1.6-2.3); Sodium 138 mmol/L (137-145)
[2021-08-22 08:20] VITALS: O2SAT 98
[2021-08-22 08:21] VITALS: PULSE 70
[2021-08-22] MEDS: AMIODARONE HCL 200 MG TABLET PO (08:21)
[2021-08-22] MEDS: POTASSIUM CHLORIDE 20 MEQ TABLET.ER PO (08:21)
[2021-08-22] MEDS: ASPIRIN 81 MG ENTERIC TABLET PO (08:22)
[2021-08-22 08:23] VITALS: PULSE 70
[2021-08-22] MEDS: predniSONE 5 MG TABLET PO (08:23)
[2021-08-22] MEDS: MULTIVITAMINS THERAPEUTIC TAB (*BKC) 1 TABLET PO (08:23)
[2021-08-22] MEDS: CALCIUM CARBONATE (OSCAL) 500 MG TABLET PO ×2 (08:23→16:05)
[2021-08-22] MEDS: GABAPENTIN 300 MG CAPSULE PO ×2 (08:23→16:04)
[2021-08-22] MEDS: METOPROLOL TARTRATE 12.5 MG TABLET PO (08:23)
[2021-08-22] MEDS: VITAMIN B COMPLEX/VIT C CAPSULE 1 EACH PO (08:23)
[2021-08-22] MEDS: predniSONE 1 MG TABLET 2 MG PO (08:24)
[2021-08-22] MEDS: SIMVASTATIN 20 MG TABLET PO (08:24)
[2021-08-22] MEDS: ALENDRONATE SODIUM 70 MG TABLET PO (08:24)
[2021-08-22] MEDS: FUROSEMIDE INJ 40 MG/4 ML VIAL IV PUSH ×2 (11:38→16:04)
[2021-08-22 13:58] VITALS: BP 108/56; PULSE 60; RESP 18; TEMP 36.1; O2SAT 99
--- NOTE | 2021-08-22 14:00 | PM.DS ---
DS: Admitting Diagnosis Discharge Date 08/22/21 1115/1400 Admitting Diagnosis Cellulitis of the left lower extremity DS: Discharge Diagnosis Discharge Diagnosis (1) Cellulitis of left leg: Code(s): L03.116 - Cellulitis of left lower limb Status: Acute Assessment and Plan: Left calf redness with swelling and warmth Continue vancomycin, added Ancef Blood cultures NGTD Venous Doppler negative WBC normalizing at 8.0 Trend labs Lux hose (2) Hypertension: Code(s): I10 - Essential (primary) hypertension Status: Acute Assessment and Plan: 104/70 currently Continue home metoprolol 12.5mg PO BID Trend BP adjust therapy as indicated (3) Chronic systolic heart failure: Code(s): I50.22 - Chronic systolic (congestive) heart failure Status: Acute Assessment and Plan: Patient is compensated this time continue with home medications Trend fluid status Daily weights Could possibly need a fluid restriction Change PO Lasix to IV Lasix 40mg IV Echo: EF 55-60%, grade 3 diastolic dysfunction Probably not an exacerbation of heart failure (4) Paroxysmal atrial fibrillation: Code(s): I48.0 - Paroxysmal atrial fibrillation Status: Acute Assessment and Plan: Patient is AV paced at this time. Continue amiodarone 200mg PO daily, Metoprolol 12.5mg PO BID Xarelto which will cover for DVT prophylaxis (5) Hyperlipidemia: Code(s): E78.5 - Hyperlipidemia, unspecified Status: Acute Assessment and Plan: Continue home simvastatin DS: Summary Hospital Course Hospital Course: patient is 75-year-old male with past medical history of BPH, CAD, dyslipidemia, hypertension, AFib who presented the ED with some lower left extremity swelling and pain. Venous Dopplers were performed and showed no DVT. Patient was started on IV antibiotics consisting of vancomycin and cefazolin. Blood cultures were drawn and showed no growth today. Patient has had considerable swelling, warmth, redness, pain to the left leg. Echo was performed and showed the patient did have a EF of 55-60% with grade 3 diastolic dysfunction. Patient was started on IV Lasix 40 mg IV x4 doses. Patient appears to be euvolemic at this time. WBCs are 8.8. Leg has been elevated and Lux hose were applied. Patient is ready to go. Patient denies any chest pain, shortness of breath, nausea, vomiting, diarrhea, constipation, sweats, fevers, chills. Patient did state that he is still weak and fatigued however he has been working with PT and OT. His foot is still a bit swollen, but looks better and the swelling has significantly reduced at this point. He will receive another dose of Vancomycin at 1700, and a dose of lasix then will be going home. He does still have some pain, but definately better than when he came in. He is stable within his labs and his vital signs. Status at Discharge Functional status at discharge: independent ambulation Overall status at discharge: patient is progressing back to baseline Time Spent with Patient Time attestation: Total time spent providing and/or coordinating discharge services:48 minutes Time spent: Greater than 30 minutes Specific discharge activities: Diagnostic testing, chart review, developing a treatment plan, education, care coordination documentation, physical exam, result review Exam Const: General: cooperative, no acute distress, well developed, alert, awake and anxious Nutritional Appearance: well nourished Orientation/consciousness: oriented to person, oriented to place, oriented to time and patient oriented x3 Limitations: no limitations HENMT: Head: normal to inspection Ears: hearing grossly normal bilaterally General nose exam: Normal external nose present Mouth: Yes Normal oral and palatal mucosa present, Yes lip normal and Yes tongue normal Teeth and gingiva: abnormal
[2021-08-22] MEDS: RIVAROXABAN 20 MG TABLET PO (17:12)
== END 2021-08-22 18:55 | disposition home or self-care (01) | DRG 603 ==
LOC: ANHED 16:20 → ANH3MEDSUR 19:44
PROVIDERS: Admitting Provider Chiropractor; Emergency Provider Emergency Medicine; PCP Internal Medicine; Visit Provider Nurse Practitioner
DX: L03.116 Cellulitis of left lower limb (principal); I50.22 Chronic systolic (congestive) heart failure; I11.0 Hypertensive heart disease with heart failure; I48.0 Paroxysmal atrial fibrillation; E78.5 Hyperlipidemia, unspecified; M06.9 Rheumatoid arthritis, unspecified; I25.10 Atherosclerotic heart disease of native coronary artery without angina pectoris; Z95.1 Presence of aortocoronary bypass graft; I25.5 Ischemic cardiomyopathy; G47.33 Obstructive sleep apnea (adult) (pediatric); Z95.810 Presence of automatic (implantable) cardiac defibrillator; Z86.16 Personal history of COVID-19; K74.69 Other cirrhosis of liver; N40.0 Benign prostatic hyperplasia without lower urinary tract symptoms; Z79.899 Other long term (current) drug therapy; Z79.01 Long term (current) use of anticoagulants; Z79.82 Long term (current) use of aspirin; Z79.52 Long term (current) use of systemic steroids; Z87.891 Personal history of nicotine dependence
CPT/HCPCS: 36415; 80053; 80202; 83735; 85025; 87040; 93306; 93971; 96365; 96366; 96367; 99285; A9270; G0378; J0690; J0692; J1940; J3370; J7512

== ENCOUNTER 2021-09-06 08:16 | Inpatient (IN) | payer MEDICARE, SELFPAY ==
[2021-09-06] VITALS (19 sets, daily range): BP systolic 93–125; BP diastolic 45–62; PULSE 60–93; RESP 12–28; TEMP 36.9–37.2; O2SAT 95–100; BMI 41.3
--- NOTE | ~2021-09-06 | XR_ITS ---
XR tibia fibula LT 2V 09/06/2021 10:01 INDICATION: Right leg pain PROCEDURE: 2 views left tibia/fibula COMPARISON: No prior studies for comparison. FINDINGS: Fracture, dislocation or subluxation is not identified. No fracture, subluxation or disloca tion. There is a left knee arthroplasty. There are vascular calcifications. The soft tissues appear w ithin normal limits. No foreign bodies are identified. IMPRESSION: 1: NO ACUTE BONE OR JOINT ABNORMALITY IDENTIFIED. Reviewed, dictated and finalized at location A.
--- NOTE | ~2021-09-06 | US_ITS ---
EXAMINATION:US venous doppler LE LT INDICATION:Left leg swelling and pain TECHNIQUE: Multiple grayscale, color flow and Doppler images of the left lower extremity deep venous systems were obtained and reviewed. COMPARISON:08/18/2021 FINDINGS: The common femoral, superficial femoral and popliteal veins demonstrate normal respiratory variation, augmentation and compressibility. Color flow is also seen within the posterior tibial, pe roneal, greater saphenous and profunda veins. There is an enlarged left inguinal lymph node measuring 3.7 x 1.7 x 0.8 cm. IMPRESSION: 1: No lower extremity deep venous thrombosis. Reviewed, dictated and finalized at location A.
--- NOTE | ~2021-09-06 | XR_ITS ---
XR chest 1V portable 09/06/2021 08:36 Indication: Chest pain Procedure: AP portable chest Comparison: Comparison to multiple prior studies sequentially, with oldest reviewed study dated 07/31. Findings: Status post median sternotomy for CABG. Cardiomegaly. There is airspace disease of the left lower lung. Pacemaker leads are stable. No significant effusion or pneumothorax. Impression: 1: Left basilar airspace disease may represent atelectasis or pneumonia. Reviewed, dictated and finalized at location A. Impression: 1: Left basilar airspace disease may represent atelectasis or pneumonia.
--- NOTE | ~2021-09-06 | CT_ITS ---
EXAMINATION: CT LE LT wo con DATE: 09/11/2021 14:53 INDICATION: Cellulitis at the left lower leg with persistent pain TECHNIQUE: High resolution computed tomography (CT) of the left lower limb from the mid thigh through the foot was performed without intravenous contrast. Additional sagittal and coronal reconstructions were performed. Automated exposure control and iterative reconstruction technique were employed. The dose-length product was 1450.79 mGy-cm. COMPARISON: Radiograph dated 09/06/2021 FINDINGS: Left total knee arthroplasty with patellar resurfacing which appears well seated in near-anatomic ali gnment. No fracture or cortical erosions. 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 No left knee or ankle joint effusion. There is diffuse mild to moderate fatty atrophy throug hout the musculature of the left calf and . Skin thickening and subcutaneous edema most prominent ove r the dorsum of the foot and about the ankle and progressively decreasing in the more proximal calf. There is additional focal muscular thickening with minimal edema in the underlying subcutaneous fat a t the medial aspect of the distal left thigh. There are couple small loculated lenticular fluid colle ctions along the posterior periphery of the left semimembranosus muscle and the distal thigh. The mor e cephalad measures 4.9 cm craniocaudal length and 1.8 x 0.9 cm in maximal orthogonal dimensions and the more caudal measures 4.9 cm craniocaudal length and 2.6 x 1.2 cm in maximal orthogonal dimensions . There is no significant surrounding inflammatory stranding to elevate suspicion for abscess differe ntial would also include hematoma or seroma. No evident soft tissue gas in the visualized left lower leg. Extensive atherosclerotic calcifications throughout the arteries of the visualized left lower le g. IMPRESSION: 1. Skin thickening and underlying subcutaneous edema minimally at the medial aspect of the distal lef t thigh and more prominent in the left lower leg and particularly about the left ankle and over the d orsum of the foot consistent with provided history of cellulitis although differential would include venous stasis. 2. A couple small loculated lenticular fluid collections along the posterior periphery of the semimem branosus muscle in the distal thigh which could represent hematoma/seroma or abscess in the appropria te clinical setting. There is however no significant surrounding inflammatory stranding to more speci fically suggest abscess. Line 3. Unremarkable left total knee arthroplasty. Reviewed, dictated and finalized at location A. IMPRESSION: 1. Skin thickening and underlying subcutaneous edema minimally at the medial as pect of the distal left thigh and more prominent in the left lower leg and part icularly about the left ankle and over the dorsum of the foot consistent with p rovided history of cellulitis although differential would include venous stasis . 2. A couple small loculated lenticular fluid collections along the posterior pe riphery of the semimembranosus muscle in the distal thigh which could represent hematoma/seroma or abscess in the appropriate clinical setting. There is howev er no significant surrounding inflammatory stranding to more specifically sugge st abscess. Line 3. Unremarkable left total knee arthroplasty.
--- NOTE | 2021-09-06 08:25 | ECG_ITS ---
Measurements Intervals [place] Rate: 87 P: -67 MT: 97 QRS: 48 QRSD: 110 T: 221 QT: 417 QTc: 502 Interpretive Statements ELECTRONIC ATRIAL PACEMAKER ELECTRONIC VENTRICULAR PACEMAKER OCCASIONAL PREMATURE VENTRICULAR COMPLEXES ATYPICAL ECG Electronically Signed On 09-06-2021 9:32:51 CDT by Christopher Arciniega M.D.
--- NOTE | 2021-09-06 08:26 | ED.GENADULT ---
HPI - General Adult General Chief complaint: Unspecified Stated complaint: ICD fired x2, leg infection? Time Seen by Provider: 09/06/21 08:18 Source: RN notes reviewed History of Present Illness HPI narrative: Patient presents emergency department from home for not feeling well. Patient states that he was recently admitted hospital with cellulitis of his left leg the beginning of August and was discharged home on Augmentin he ran out of his Augmentin 3 days ago. States he began to notice some swelling and redness to the leg again occurred yesterday he states that last night he did not feel well and had chills and his measured a temperature of 101 he states that this morning subsequently had 3 episodes of his ICD firing he states he had not taken his medications last night and took them this morning prior to coming in he denies having any chest pain or shortness of breath. He denies any abdominal pain nausea vomiting or diarrhea. He does note a mild cough this been nonproductive Related Data Home Medications Medication Instructions Recorded Confirmed B-complex with vitamin C 1 tablet PO DAILY 06/12/19 09/03/21 aspirin 81 mg tablet,delayed 81 mg PO DAILY 06/12/19 09/03/21 release multivitamin 1 tablet PO DAILY 06/12/19 09/03/21 simvastatin 20 mg tablet 20 mg PO DAILY 06/27/19 09/03/21 alendronate 70 mg tablet 70 mg PO WEEKLY 11/16/19 09/03/21 calcium carbonate 600 mg calcium 600 mg PO BID tablet 11/16/19 09/03/21 (1,500 mg) tablet amiodarone 200 mg tablet 200 mg PO DAILY tablet 03/08/20 09/03/21 metoprolol tartrate 25 mg tablet 12.5 mg PO BID tablet 03/08/20 09/03/21 gabapentin 300 mg capsule 300 mg PO BID cap 11/19/20 09/03/21 Xarelto 20 mg PO QPM 02/23/21 09/03/21 prednisone 5 mg tablet 7 mg PO DAILY tablet 06/05/21 09/03/21 Allergies Allergy/AdvReac Type Severity Reaction Status Date / Time No Known Allergies Allergy Verified 09/06/21 08:50 Review of Systems Review of Systems: Gen.: See HPI Eyes: Denies eye pain or visual change ENT: Denies congestion Respiratory: Denies shortness of breath or cough CV: Denies chest pain or palpitations GI: Denies abdominal pain nausea, emesis or diarrhea Musculoskeletal: Denies back pain or muscle pain Neuro: Denies numbness, tingling, weakness or focal weakness Skin: Reports left leg redness Except as documented, all other systems reviewed and negative [facility] Past Medical History Medical History Afib Bacteremia Benign prostatic hyperplasia Biventricular ICD (implantable cardioverter-defibrillator) in place [facility], implanted 07/[address] Marin Chronic anticoagulation Chronic low back pain Coronary artery disease Cough COVID-19 (06/2020) Cryptogenic cirrhosis Dyslipidemia Hypertension Hypotension Ischemic cardiomyopathy Ejection fraction was 41% in October 2018. Obstructive sleep apnea treated with BiPAP Paroxysmal atrial fibrillation PAF and Parox atrial flutter, s/p 4 cardioversions Pre-op evaluation Rheumatoid arthritis Sepsis Surgical History Surgical History History of bilateral cataract extraction History of blepharoplasty History of coronary artery bypass graft 2011, Dr. Constantino at [facility]. History of left knee replacement History of lumbar discectomy History of nasal septoplasty History of repair of right rotator cuff Family History Family History Mother Family history of malignant neoplasm of breast, Onset Age: 84 Family history of malignant neoplasm of bone Father Alcoholism Arthritis Other Family history of malignant neoplasm Social History Social History Social History: Surrogate decision maker: Nereyda Chaves, . Code status: Full code. 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
[2021-09-06 09:08] LABS: Basophils Absolute Auto 0.1 K/mm3 (0.0-0.1); Basophils Percent Auto 0.2 % (0.2-1.2); Eosinophils Percent Auto 0.1 % (0-4.4); Hematocrit 33.9 % (42.0-52.0); Hemoglobin 10.9 g/dL (14.0-18.0); Immature Granulocyte Absolute 0.36 K/mm3 (0.00-0.031); Immature Granulocyte Percent A 1.6 % (0-0.5); Lymphocytes Absolute Auto 0.59 K/mm3 (0.9-3.2); Lymphocytes Percent Auto 2.7 % (18.3-44.2); Mean Corpuscular HGB Conc 32.2 g/dl (32-36); Mean Corpuscular Hemoglobin 31.1 pg (26-34); Mean Corpuscular Volume 96.9 fl (80-100); Mean Platelet Volume 11.7 fl (7.4-10.4); Monocytes Absolute Auto 0.8 K/mm3 (0.1-0.6); Monocytes Percent Auto 3.4 % (2.6-8.5); Neutrophils Absolute Auto 20.3 K/mm3 (1.3-6.7); Platelet Count Result 179 k/mm3 (150-375); Red Cell Distribution Width 15.8 % (11.5-14.5); White Blood Count 22.1 K/mm3 (4.5-10.0)
[2021-09-06 09:18] LABS: Prothrombin Time 21.6 Seconds (11.1-14.7)
[2021-09-06 09:19] LABS: Partial Thromboplastin Time 44.8 SECONDS (22.3-36.8)
[2021-09-06 09:20] LABS: Alanine Aminotransferase 24 U/L (4-50); Albumin Level 4.2 g/dL (3.5-5.1); Alkaline Phosphatase 78 U/L (38-126); Anion Gap 11 mmol/L (8-16); Aspartate Amino Transferase 38 U/L (17-59); Blood Urea Nitrogen 22 mg/dL (9-20); Calcium 8.5 mg/dL (8.4-10.2); Carbon Dioxide 22 mmol/L (22-30); Chloride 103 mmol/L (98-107); Estimated CRCL calculation 72 ml/min; Estimated Glomerular Filt Rate > 60; Glucose 130 mg/dL (65-110); Lipase 45 U/L (23-300); Magnesium 1.7 mg/dL (1.6-2.3); Potassium 3.7 mmol/L (3.4-5.0); Sodium 136 mmol/L (137-145)
[2021-09-06] MEDS: SODIUM CHLORIDE 0.9% IV 1,000 ML 999 ML IV CONT ×2 (09:23→10:15)
[2021-09-06 10:23] LABS: Add Urine Microscopic? YES; Appearance Urine Cloudy (Clear); Bilirubin Urine Negative (Negative); Blood Urine Negative (Negative); Color Urine Amber (Yellow); Glucose Urine UA Negative (Negative); Ketones Urine Negative (Negative); Leukocyte Esterase Ur Negative LEU/UL (Negative); Mucus Urine Rare /lpf; Nitrate Urine Negative (Negative); Protein Urine 1+ mg/dL (Negative); RBC Urine 0-2 /hpf (0-2); Specific Grav Ur 1.026 (1.001-1.035); Urobilinogen Urine Negative mg/dL (<2.0); WBC Urine 0-3 /hpf
--- NOTE | 2021-09-06 11:12 | PC.NURSE ---
Report received by KIM Schaffer with the E.D. department. All questions answered and plan of care reviewed. Patient to go to IMU room 204.
--- NOTE | 2021-09-06 11:33 | ADMGEN ---
This patient, Hema Chaves Anastacia, was admitted to IMU Room 204-01 AT 1129 from the ED. Patient/family oriented to hospital policies and general routines including ID bracelet, bed and alarms, visiting hours, pain management, procedures, bathroom and other care routines, personal items, smoking policy, room service/diet, and visiting hours. Information on how to activate the Rapid Response Team has been discussed. Patient/Family are encouraged to report perceived risks to care and to ask questions if they do not understand what they are told or what they should do.
[2021-09-06] MEDS: SODIUM CHLORIDE 0.9% IV 1,000 ML 125 ML IV CONT ×2 (11:38→21:41)
[2021-09-06 12:04] LABS: Reflex Lactic Acid Yes or No Add Lactic
[2021-09-06 12:11] LABS: Troponin I 0.273 ng/mL (0.000-0.034)
[2021-09-06 12:37] LABS: Lactic Acid 2.3 mmol/L (0.7-2.1)
--- NOTE | 2021-09-06 14:00 | PM.IMHP ---
H&P: HPI History of Present Illness Date/Time: 09/06/21 14:00 Chief Complaint: ICD fired, feeling unwell. Narrative: This is a very pleasant 76-year-old male with coronary artery disease status post bypass, ischemic cardiomyopathy status post ICD insertion, paroxysmal atrial fibrillation, hypertension, obstructive sleep apnea, cirrhosis, rheumatoid arthritis, and history of Pseudomonas bacteremia related to lower extremity cellulitis who presented to the emergency department for evaluation after his ICD fired and with generalized malaise. He had a recent hospital admission between August 18 and August 22 in which he was treated for left lower extremity cellulitis with cefazolin and vancomycin, discharged on Augmentin. His Rinvoq was held and his wrap yarn sorter has apparently recommended that he continue to hold both Rinvoq and methotrexate given recurrent cellulitis over the last 6 months or so. He finished Augmentin about 3 days ago and the following day the redness and swelling started to recur in the left leg and by yesterday the swelling had gotten substantially worse with progression of the redness to the middle thigh. The pain has been constantly aching though on occasion it feels as though a shock is going through his leg. He has some discomfort when bending the knee and moving the left ankle though he attributes that more so due to the swelling and states that is not overt pain. It seems to improve somewhat when elevating the leg. He has been taking Tylenol and using ice without much help. Last night he had such significant chills that he placed a heating pad on his back and he has a first-degree burn at that site and even a small developing blister. Overnight and into the occ ther he also reports that his ICD fired a total of 3 times and he denies having any prodromal symptoms prior to the discharges. Specifically he denies syncope, near syncope, chest pain, shortness breast, and palpitations. He has not had documented fever. His appetite has been poor though he denies nausea and vomiting. He is extremely weak and ?washed out.? No paresthesias, skin color, or temperature changes of the left lower extremity. Review of Systems Review of Systems: Twelve systems were reviewed. He is being weaned off of his chronic prednisone, decreasing by 1 mg every 4 weeks. He is now taking 7 mg and will decrease that by another mg in the next week and half or so. No lightheadedness or dizziness. No syncope or near syncope. No headache or neck ache. No congestion, rhinorrhea, otalgia, or odynophagia. He denies cough. No orthopnea, PND, or lower extremity edema. No syncope or near syncope. No history of venous thromboembolism. Except as documented, all other systems were reviewed and are negative. [facility] Past Medical History Medical History (Updated 09/06/21 @ 22:56 by Roxy Reyes PA-C) Bacteremia due to Pseudomonas (02/2021) Right lower extremity cellulitis source. Benign prostatic hyperplasia Chronic anticoagulation Chronic low back pain Coronary artery disease COVID-19 (06/2020) Cryptogenic cirrhosis Dyslipidemia Hypertension Ischemic cardiomyopathy Ejection fraction was 41% in October 2018. Status post ICD insertion. Obstructive sleep apnea treated with BiPAP Paroxysmal atrial fibrillation Paroxysmal atrial fibrillation and atrial flutter status post cardioversion x4. Rheumatoid arthritis Surgical History Surgical History Biventricular ICD (implantable cardioverter-defibrillator) in place [facility], implanted 07/[address] Marin History of bilateral cataract extraction History of blepharoplasty History of coronary artery bypass graft 2011, Dr. Constantino at [facility]. History of left knee replacement History of lumbar discectomy History of nasal septoplasty History of repair of right rotator cuff Family History Family History (Reviewed 09/06/21 @ 22:37 by Roxy Gottlieb
--- NOTE | 2021-09-06 14:42 | PM.CNCAR ---
Assessment and Plan Assessment and plan (1) Ventricular dysrhythmia: Code(s): I49.9 - Cardiac arrhythmia, unspecified Status: Acute Assessment and Plan: He had 3 appropriate discharges as well as ATP aborted events for VT/VF. While possible, I doubt him missing 1 dose of amiodarone is the culprit. Regardless, resume amiodarone, metoprolol and other cardiac regimen without change. We will give him 2 g of IV magnesium IV x1 as well as 40 mEq p.o. potassium x1 now. (2) Implantable cardioverter-defibrillator discharge: Code(s): Z45.02 - Encounter for adjustment and management of automatic implantable cardiac defibrillator Status: Acute Assessment and Plan: As detailed above (3) Elevated troponin: Code(s): R77.8 - Other specified abnormalities of plasma proteins Status: Acute Assessment and Plan: Related to ICD discharges and not from ACS (4) Severe sepsis: Code(s): A41.9 - Sepsis, unspecified organism; R65.20 - Severe sepsis without septic shock Status: Acute Assessment and Plan: On antibiotics (5) CAD (coronary artery disease): Code(s): I25.10 - Atherosclerotic heart disease of [place] coronary artery without angina pectoris Status: Acute Assessment and Plan: No clear anginal symptoms (6) Electrolyte imbalance: Code(s): E87.8 - Other disorders of electrolyte and fluid balance, not elsewhere classified Status: Acute Assessment and Plan: Will replace as detailed above In my opinion, patient has severe cellulitis which is recurrent. This is his 3rd admission. No ID specialist available at this juncture and his icebox worker is also not on staff here. Certainly, can observe and see if there is significant improvement overnight but in my opinion, transfer to higher level of care would certainly be appropriate given the circumstances as detailed above History of Present Illness History of Present Illness Consult date/time: 09/06/21 14:42 Requesting physician: Melvin Ferreira DO Consult reason: Other (VT/VF/defibrillation) Reason For Visit: Severe sepsis/[facility] pneumonia/l leg cellulit Narrative: Reason consultation: Elevated troponin, defibrillations x3, cellulitis Date of service 09/06/2021 Requesting provider: Dr. Ferreira History: Patient is a 76-year-old male. He follows with Dr. Warren and Dr. Marin at [facility] for his cardiac care. He had a similar admission last February. He has been dealing with recurrent cellulitis of his left leg for 6 months. He had a fever yesterday of up to 101, chills and was using a heating pad. He actually cause himself to have a blister from the heating pad. Regardless he came to the hospital because of worsening redness and swelling in the left leg, chills, fever as well as 3 defibrillation/ICD firings last night. These were appropriate discharges. Is a history of coronary disease, ischemic cardiomyopathy and is on chronic suppressive therapy for ventricular arrhythmia with amiodarone. He currently feels tired but okay. Denies any chest pain, shortness of breath, syncope, paroxysmal nocturnal dyspnea. Left leg was swelling warmth and redness. No palpitations. Review of Systems Review of Systems: All systems reviewed & are unremarkable except as noted in HPI and below Constitutional: Constitutional: Reports weakness Eyes: Eyes: Denies blurry vision ENT: Reports Normal hearing present Cardiovascular: Cardiovascular: Denies chest pain and Reports leg edema Respiratory: Respiratory: Denies dyspnea Gastrointestinal: Gastrointestinal: Denies abdominal pain Genitourinary: Genitourinary: Denies dysuria Musculoskeletal: Musculoskeletal: Denies neck pain Integumentary/Breasts: Skin/Breast: Reports skin pain Neurologic: Denies headache(s) Psychiatric: Psychiatric: Denies anxiety Endocrine: Endocrine: Denies excessive sweating Hematologi
[2021-09-06 14:53] LABS: Troponin I 0.267 ng/mL (0.000-0.034)
[2021-09-06] MEDS: ARTIFICIAL TEARS OPHTH SOLN 15 ML BOTTLE 1 DROP EACH EYE (15:31)
[2021-09-06] MEDS: POTASSIUM CHLORIDE 20 MEQ TABLET 40 MEQ PO (15:41)
[2021-09-06] MEDS: MAGNESIUM SULF 2 GM/WATER 50ML 2 GM/50 ML BAG IVPB (15:42)
[2021-09-06] MEDS: CALCIUM CARBONATE (OSCAL) 500 MG TABLET 1000 MG PO (17:45)
[2021-09-06] MEDS: GABAPENTIN 300 MG CAPSULE PO (17:46)
[2021-09-06] MEDS: RIVAROXABAN 20 MG TABLET PO (17:46)
[2021-09-06] MEDS: SIMVASTATIN 10 MG TABLET PO (20:47)
[2021-09-06] MEDS: ACETAMINOPHEN 325 MG TABLET 650 MG PO (22:52)
[2021-09-07] VITALS (21 sets, daily range): BP systolic 100–118; BP diastolic 49–62; PULSE 58–93; RESP 16–20; TEMP 36.2–36.8; O2SAT 96–100
[2021-09-07] MEDS: WATER FOR IRRIGATION, STERILE 1,000 ML BOTTLE 1000 ML (00:33)
[2021-09-07 04:38] LABS: Basophils Percent Auto 0.2 % (0.2-1.2); Eosinophils Absolute Auto 0.1 K/mm3 (0-0.3); Eosinophils Percent Auto 0.8 % (0-4.4); Hematocrit 28.8 % (42.0-52.0); Immature Granulocyte Absolute 0.07 K/mm3 (0.00-0.031); Immature Granulocyte Percent A 0.8 % (0-0.5); Lymphocytes Absolute Auto 0.56 K/mm3 (0.9-3.2); Lymphocytes Percent Auto 6.7 % (18.3-44.2); Mean Corpuscular HGB Conc 31.3 g/dl (32-36); Mean Corpuscular Volume 99.3 fl (80-100); Mean Platelet Volume 11.3 fl (7.4-10.4); Monocytes Absolute Auto 0.5 K/mm3 (0.1-0.6); Monocytes Percent Auto 6.1 % (2.6-8.5); Neutrophils Absolute Auto 7.2 K/mm3 (1.3-6.7); Neutrophils Percent Auto 85.4 % (45.5-73.1); Platelet Count Result 105 k/mm3 (150-375); Red Cell Distribution Width 15.6 % (11.5-14.5); White Blood Count 8.4 K/mm3 (4.5-10.0)
[2021-09-07 05:08] LABS: Anion Gap 1 mmol/L (8-16); Blood Urea Nitrogen 13 mg/dL (9-20); CRP 19.3 mg/dL (<1.0); Calcium 7.7 mg/dL (8.4-10.2); Carbon Dioxide 25 mmol/L (22-30); Chloride 111 mmol/L (98-107); Estimated CRCL calculation 90 ml/min; Estimated Glomerular Filt Rate > 60; Glucose 104 mg/dL (65-110); Magnesium 2.3 mg/dL (1.6-2.3); Potassium 3.4 mmol/L (3.4-5.0); Sodium 137 mmol/L (137-145)
[2021-09-07] MEDS: SODIUM CHLORIDE 0.9% IV 1,000 ML 125 ML IV CONT (08:20)
[2021-09-07] MEDS: ASPIRIN 81 MG ENTERIC TABLET PO (08:21)
[2021-09-07] MEDS: POTASSIUM CHLORIDE 20 MEQ TABLET.ER PO (08:21)
[2021-09-07] MEDS: FUROSEMIDE 40 MG TABLET PO (08:21)
[2021-09-07] MEDS: VITAMIN B COMPLEX/VIT C CAPSULE 1 EACH PO (08:22)
[2021-09-07] MEDS: AMIODARONE HCL 200 MG TABLET PO (08:22)
[2021-09-07] MEDS: predniSONE 5 MG TABLET PO (08:22)
[2021-09-07] MEDS: SIMVASTATIN 10 MG TABLET PO ×2 (08:22→21:35)
[2021-09-07] MEDS: CALCIUM CARBONATE (OSCAL) 500 MG TABLET 1000 MG PO ×2 (08:22→17:20)
[2021-09-07] MEDS: MULTIVITAMINS THERAPEUTIC TAB (*BKC) 1 TABLET PO (08:22)
[2021-09-07] MEDS: GABAPENTIN 300 MG CAPSULE PO ×2 (08:22→17:20)
[2021-09-07] MEDS: predniSONE 1 MG TABLET 2 MG PO (08:23)
--- NOTE | 2021-09-07 11:21 | PM.PNCARD ---
Progress Note: A&P Assessment and Plan (1) Ventricular dysrhythmia: Code(s): I49.9 - Cardiac arrhythmia, unspecified Status: Acute Assessment and Plan: He had 3 appropriate discharges as well as ATP aborted events for VT/VF. While possible, I doubt him missing 1 dose of amiodarone is the culprit. Continue amiodarone, metoprolol and other regimen. (2) Implantable cardioverter-defibrillator discharge: Code(s): Z45.02 - Encounter for adjustment and management of automatic implantable cardiac defibrillator Status: Acute Assessment and Plan: As detailed above (3) Elevated troponin: Code(s): R77.8 - Other specified abnormalities of plasma proteins Status: Acute Assessment and Plan: Related to ICD discharges and not from ACS (4) Severe sepsis: Code(s): A41.9 - Sepsis, unspecified organism; R65.20 - Severe sepsis without septic shock Status: Acute Assessment and Plan: On antibiotics. He is more swollen today and will give him 20 mg IV furosemide x1 (5) CAD (coronary artery disease): Code(s): I25.10 - Atherosclerotic heart disease of [place] coronary artery without angina pectoris Status: Acute Assessment and Plan: No clear anginal symptoms (6) Electrolyte imbalance: Code(s): E87.8 - Other disorders of electrolyte and fluid balance, not elsewhere classified Status: Acute Assessment and Plan: Potassium is low. Will replace with 40 mEq potassium chloride p.o. x1. Subjective Date/time seen: 09/07/21 11:21 Interval history: 76-year-old admitted for appropriate ICD discharges x3 as well as recurrent, severe cellulitis in the left leg Date of service 09/07/2021: Feels okay today. No discharges and rhythm has been stable. Left leg is swollen but less red. He has no chest pain or shortness of breath Review of Systems Review of Systems: All systems reviewed & are unremarkable except as noted in HPI and below Constitutional: Constitutional: Denies excessive sweating, Denies headache(s) and Reports weakness Eyes: Eyes: Denies blurry vision ENT: Reports Normal hearing present, Denies headache(s), Denies lip swelling and Denies neck pain Cardiovascular: Cardiovascular: Denies chest pain, Reports leg edema and Denies dyspnea Respiratory: Respiratory: Denies dyspnea Gastrointestinal: Gastrointestinal: Denies abdominal pain Genitourinary: Genitourinary: Denies dysuria Musculoskeletal: Musculoskeletal: Denies neck pain Integumentary/Breasts: Skin/Breast: Reports skin pain Neurologic: Reports Normal hearing present, Denies headache(s) and Reports weakness Psychiatric: Psychiatric: Denies anxiety Endocrine: Endocrine: Denies excessive sweating Hematologic/Lymphatic: Hematologic/Lymphatic: Denies easy bleeding Allergic/Immunologic: Allergic/Immunologic: Denies lip swelling Exam Narrative: Awake alert oriented. Appears stated age Const: General: comfortable and no acute distress HENMT: General nose exam: Normal nares present Eyes: Sclera: sclerae normal Neck: Neck: supple and no JVD Chest: Other: No reproducible chest wall pain to palpation Resp: Auscultation: clear to auscultation bilaterally Cardio: Rate: regular rate Other: Paced rhythm GI: Inspection: non-distended Auscultation: normal bowel sounds Skin: Other: Extensive warmth, redness, swelling from his midfoot all the way to his groin Neuro: Cranial nerves: Yes Normal hearing present Cognition (Neuro): normal cognition Speech: normal speech Extrem: General: edema Psych: Mental Status: mental status grossly normal Objective Data Vital Signs Vital Signs: Vital Signs - 24 hr 09/06/21 12:00 09/06/21 14:00 09/06/21 16:00 Temperature 36.9 C 37.2 C Pulse Rate 60 93 74 Respiratory Rate 20 12 Blood Pressure 104/54 L 103/50 L Pulse Oximetry 100 97 09/06/21 18:00 09/06/21 20:00 09/06/21 22:00 Temperature 36.9 C
--- NOTE | 2021-09-07 11:39 | PM.IMPN ---
Progress Note: A&P Assessment and Plan (1) Electrolyte imbalance: Code(s): E87.8 - Other disorders of electrolyte and fluid balance, not elsewhere classified Status: Acute (2) Implantable cardioverter-defibrillator discharge: Code(s): Z45.02 - Encounter for adjustment and management of automatic implantable cardiac defibrillator Status: Acute (3) Ventricular dysrhythmia: Code(s): I49.9 - Cardiac arrhythmia, unspecified Status: Acute (4) Elevated troponin: Code(s): R77.8 - Other specified abnormalities of plasma proteins Status: Acute (5) Sepsis: Code(s): A41.9 - Sepsis, unspecified organism Status: Acute (6) Cellulitis of left leg: Code(s): L03.116 - Cellulitis of left lower limb Status: Acute Additional Plan # ICD firing -ICD has been interrogated, fired x3 times -will make sure magnesium greater than 2, potassium greater than 4 -magnesium is 2.3 at goal, potassium is 3.4 giving 60 mEq p.o. today, will recheck potassium tomorrow -patient is DNR but would like to keep his ICD as is # chronic hypokalemia -continue home potassium 20 mEq daily, goal potassium greater than 4 # left lower extremity cellulitis # sepsis, resolved -history of Pseudomonas infection -antibiotics: Vancomycin and imipenem (he was hospitalized August 18 to August 22 and was given cefazolin and vancomycin discharged on Augmentin) he appears to be improving on this regimen with normalization of his leukocytosis. Can likely downgrade antibiotics tomorrow to p.o. regimen -lactic acidosis improving from 5 to 2.3 yesterday -elevated CRP 19 -recurrent infections # elevated troponin -likely secondary to ICD firing, no anginal symptoms, not ACS # other chronic conditions -can continue home vitamins, calcium -hyperlipidemia: Zocor, aspirin -paroxysmal atrial fibrillation: Xarelto for anticoagulation, amiodarone -rheumatoid arthritis: Continue home prednisone 7 mg daily, was on Rinvoq and methotrexate before but stopped for these cellulitis infections -continue home Lasix 40 mg p.o. daily -peripheral neuropathy: Gabapentin Diet: Heart healthy DVT prophylaxis: On Xarelto Code status: Do not resuscitate Disposition: Pending clinical course likely hospitalization 2 to 3 days, PT OT consult Social: Nereyda updated 3/20 (she is concerned about the reinfections) Time Spent With Patient Time with patient: 25 - 35 minutes Subjective Date/time seen: 09/07/21 Patient seen examined. He is doing well this morning with no new complaints. His defibrillator had fired 3 times, will make sure electrolytes are at goal. Magnesium greater than 2, currently 2.3. Potassium 3.4 will make sure greater than 4, giving 20 year mEq home dose and 40 mEq p.o. cardiology giving little Lasix for fluid overload. Patient is do not resuscitate however he does not want to change ICD, battery is supposed to be changed in 2 years. We will continue treating IV antibiotics for the left lower extremity cellulitis. He has a history of Pseudomonas infection in that lower extremities. He has no active chest pain. Elevated troponin may be secondary to the ICD shocks, no anginal symptoms currently. He denies fever, chills, nausea vomiting, diarrhea. He endorses left lower extremity erythema and swelling. Review of Systems Review of Systems: All systems reviewed & are unremarkable except as noted in HPI and below Exam Narrative: - GENERAL: Pleasant elderly male in no acute distress. - EYES: EOMI. Anicteric. - HENT: Moist mucous membranes. - LUNGS: Clear to auscultation bilaterally, no wheezing, rhonchi, or rales. - CARDIOVASCULAR: Regular rate and rhythm. No murmur. No JVD. - ABDOMEN: Soft, non-tender and non-distended. No palpable masses. - EXTREMITIES: 2+ pitting edema lower extremities, left lower extremity blanching erythematous, well-demarcated area of erythema and swelling and warm to touch. Periphera
[2021-09-07] MEDS: POTASSIUM CHLORIDE 20 MEQ TABLET 40 MEQ PO (12:10)
[2021-09-07] MEDS: FUROSEMIDE INJ 40 MG/4 ML VIAL 20 MG IV PUSH (12:10)
[2021-09-07] MEDS: RIVAROXABAN 20 MG TABLET PO (17:20)
[2021-09-08] VITALS (16 sets, daily range): BP systolic 116–127; BP diastolic 57–67; PULSE 66–86; RESP 16–20; TEMP 36.2–36.8; O2SAT 96–100
[2021-09-08] MEDS: ACETAMINOPHEN 325 MG TABLET 650 MG PO (00:14)
[2021-09-08 04:52] LABS: Basophils Percent Auto 0.3 % (0.2-1.2); Eosinophils Absolute Auto 0.2 K/mm3 (0-0.3); Eosinophils Percent Auto 3.1 % (0-4.4); Hematocrit 26.7 % (42.0-52.0); Hemoglobin 8.3 g/dL (14.0-18.0); Immature Granulocyte Absolute 0.05 K/mm3 (0.00-0.031); Immature Granulocyte Percent A 0.7 % (0-0.5); Lymphocytes Absolute Auto 0.71 K/mm3 (0.9-3.2); Lymphocytes Percent Auto 9.7 % (18.3-44.2); Mean Corpuscular HGB Conc 31.1 g/dl (32-36); Mean Corpuscular Hemoglobin 30.9 pg (26-34); Mean Corpuscular Volume 99.3 fl (80-100); Mean Platelet Volume 11.7 fl (7.4-10.4); Monocytes Absolute Auto 0.6 K/mm3 (0.1-0.6); Monocytes Percent Auto 7.5 % (2.6-8.5); Neutrophils Absolute Auto 5.8 K/mm3 (1.3-6.7); Neutrophils Percent Auto 78.7 % (45.5-73.1); Platelet Count Result 107 k/mm3 (150-375); Red Blood Count 2.69 M/mm3 (4.6-6.20); Red Cell Distribution Width 15.1 % (11.5-14.5); White Blood Count 7.4 K/mm3 (4.5-10.0)
[2021-09-08 05:02] LABS: Anion Gap 3 mmol/L (8-16); Blood Urea Nitrogen 9 mg/dL (9-20); Carbon Dioxide 25 mmol/L (22-30); Chloride 109 mmol/L (98-107); Estimated CRCL calculation 117 ml/min; Estimated Glomerular Filt Rate > 60; Glucose 92 mg/dL (65-110); Magnesium 2.1 mg/dL (1.6-2.3); Potassium 3.6 mmol/L (3.4-5.0); Sodium 137 mmol/L (137-145)
[2021-09-08] MEDS: AMIODARONE HCL 200 MG TABLET PO (07:40)
[2021-09-08] MEDS: CALCIUM CARBONATE (OSCAL) 500 MG TABLET 1000 MG PO ×2 (07:41→18:09)
[2021-09-08] MEDS: FUROSEMIDE 40 MG TABLET PO (07:41)
[2021-09-08] MEDS: ASPIRIN 81 MG ENTERIC TABLET PO (07:41)
[2021-09-08] MEDS: POTASSIUM CHLORIDE 20 MEQ TABLET.ER PO (07:42)
[2021-09-08] MEDS: GABAPENTIN 300 MG CAPSULE PO ×2 (07:42→18:09)
[2021-09-08] MEDS: MULTIVITAMINS THERAPEUTIC TAB (*BKC) 1 TABLET PO (07:42)
[2021-09-08] MEDS: VITAMIN B COMPLEX/VIT C CAPSULE 1 EACH PO (07:43)
[2021-09-08] MEDS: predniSONE 1 MG TABLET 2 MG PO (07:43)
[2021-09-08] MEDS: SIMVASTATIN 10 MG TABLET PO ×2 (07:43→20:56)
[2021-09-08] MEDS: predniSONE 5 MG TABLET PO (07:43)
--- NOTE | 2021-09-08 09:44 | PM.PNCARD ---
Progress Note: A&P Assessment and Plan (1) Ventricular dysrhythmia: Code(s): I49.9 - Cardiac arrhythmia, unspecified Status: Acute Assessment and Plan: He had 3 appropriate discharges as well as ATP aborted events for VT/VF. While possible, I doubt him missing 1 dose of amiodarone is the culprit. Continue amiodarone, metoprolol and other regimen. (2) Implantable cardioverter-defibrillator discharge: Code(s): Z45.02 - Encounter for adjustment and management of automatic implantable cardiac defibrillator Status: Acute Assessment and Plan: As detailed above (3) Elevated troponin: Code(s): R77.8 - Other specified abnormalities of plasma proteins Status: Acute Assessment and Plan: Related to ICD discharges and not from ACS (4) Severe sepsis: Code(s): A41.9 - Sepsis, unspecified organism; R65.20 - Severe sepsis without septic shock Status: Acute Assessment and Plan: On antibiotics. (5) CAD (coronary artery disease): Code(s): I25.10 - Atherosclerotic heart disease of [place] coronary artery without angina pectoris Status: Acute Assessment and Plan: No clear anginal symptoms (6) Electrolyte imbalance: Code(s): E87.8 - Other disorders of electrolyte and fluid balance, not elsewhere classified Status: Acute Assessment and Plan: REPEAT MAGNESIUM (7) Left leg swelling: Code(s): M79.89 - Other specified soft tissue disorders Status: Acute Assessment and Plan: FUROSEMIDE 40 MG IV X1. ADDITIONAL POTASSIUM CHLORIDE 40 MEQ P.O. X1. Subjective Date/time seen: 09/08/21 09:44 Interval history: 76-year-old admitted for appropriate ICD discharges x3 as well as recurrent, severe cellulitis in the left leg Date of service 09/07/2021: Feels okay today. No discharges and rhythm has been stable. Left leg is swollen but less red. He has no chest pain or shortness of breath DATE OF SERVICE 09/08/2021: FEELS BETTER TODAY. HIS LEG WAS MORE HOT AND INFLAMED YESTERDAY EVENING HE STATES. HE DENIES ANY CHEST PAIN/SHORTNESS OF BREATH. Review of Systems Review of Systems: All systems reviewed & are unremarkable except as noted in HPI and below Constitutional: Constitutional: Denies excessive sweating, Denies headache(s) and Reports weakness Eyes: Eyes: Denies blurry vision ENT: Reports Normal hearing present, Denies headache(s), Denies lip swelling and Denies neck pain Cardiovascular: Cardiovascular: Denies chest pain, Reports leg edema and Denies dyspnea Respiratory: Respiratory: Denies dyspnea Gastrointestinal: Gastrointestinal: Denies abdominal pain Genitourinary: Genitourinary: Denies dysuria Musculoskeletal: Musculoskeletal: Denies neck pain Integumentary/Breasts: Skin/Breast: Reports skin pain Neurologic: Reports Normal hearing present, Denies headache(s) and Reports weakness Psychiatric: Psychiatric: Denies anxiety Endocrine: Endocrine: Denies excessive sweating Hematologic/Lymphatic: Hematologic/Lymphatic: Denies easy bleeding Allergic/Immunologic: Allergic/Immunologic: Denies lip swelling Exam Narrative: Awake alert oriented. Appears stated age Const: General: comfortable and no acute distress HENMT: General nose exam: Normal nares present Eyes: Sclera: sclerae normal Neck: Neck: supple and no JVD Chest: Other: No reproducible chest wall pain to palpation Resp: Auscultation: clear to auscultation bilaterally Cardio: Rate: regular rate Other: Paced rhythm GI: Inspection: non-distended Auscultation: normal bowel sounds Skin: Other: Extensive warmth, redness, swelling from his midfoot all the way to his groin Neuro: Cranial nerves: Yes Normal hearing present Cognition (Neuro): normal cognition Speech: normal speech Extrem: General: edema Psych: Mental Status: mental status grossly normal Objective Data Vital Signs Vital Signs: Vital Signs - 24 hr 03
[2021-09-08] MEDS: POTASSIUM CHLORIDE 20 MEQ TABLET 40 MEQ PO (10:15)
[2021-09-08] MEDS: FUROSEMIDE INJ 40 MG/4 ML VIAL IV PUSH (10:15)
--- NOTE | 2021-09-08 12:45 | PM.IMPN ---
Progress Note: A&P Assessment and Plan (1) Sepsis: Code(s): A41.9 - Sepsis, unspecified organism Status: Acute Assessment and Plan: Present on admission and supported by Leukocytosis, tachypnea and lactic acidosis in the setting of cellulitis. WBC 22K and CRP 19. lactic acid level has improved with IV fluid rehydration. WBC normal now Blood cultures NGTD Hx of Cellulitis with Pseudomonas bacteremia in Feb 2021 and hospitalized Aug 18 to August 22 treated with cefazolin and vancomycin discharged on Augmentin Clinically improving Continue antibiotics: Vancomycin and imipenem Change to oral abx tomorrow for discharge. Lasix IV once. (2) Ventricular dysrhythmia: Code(s): I49.9 - Cardiac arrhythmia, unspecified Status: Acute Assessment and Plan: Patient's defibrillator fired 3 times appropriately with ventricular dysrhythmias noted on interrogation. Cardiology consulted and appreciate their recommendations continue amiodarone and continue to replace potassium and magnesium as neede (Not on metoprolol) should he have recurrent discharges, transfer to [facility] for consultation with his EP may be prudent. (3) Implantable cardioverter-defibrillator discharge: Code(s): Z45.02 - Encounter for adjustment and management of automatic implantable cardiac defibrillator Status: Acute Assessment and Plan: ICD fired x3 prior to admission. Device has been interrogated Potassium 3.6 today and oral replacement ordered. Mag 2.1 patient is DNR but would like to keep his ICD as is (4) Cellulitis of left leg: Code(s): L03.116 - Cellulitis of left lower limb Status: Acute Assessment and Plan: Given his recurrent infections and immunocompromised state, he has been started on broad-spectrum antibiotics to include imipenem and vancomycin as he has a history of Pseudomonas bacteremia related to right leg cellulitis in February 2021. Rinvoq and methotrexate have been placed on hold by his circuit court judge and given the risk of cellulitis with Rinvoq, this may be a drug that needs to be discontinued altogether. BCx NGTD. Patient has been encouraged to elevate the extremity. Clinically improving. Will continue IV abx for now. (5) Elevated troponin: Code(s): R77.8 - Other specified abnormalities of plasma proteins Status: Acute Assessment and Plan: Troponin to 0.27 felt related to the ICD discharge and not to ACS. He is not having chest pain. Continue to monitor. Appreciate Cardiology input. (6) Electrolyte imbalance: Code(s): E87.8 - Other disorders of electrolyte and fluid balance, not elsewhere classified Status: Acute Assessment and Plan: Magnesium and potassium have been replaced and they will be monitored. Continue home potassium 20 mEq daily, goal potassium greater than 4. (7) CAD (coronary artery disease): Code(s): I25.10 - Atherosclerotic heart disease of [place] coronary artery without angina pectoris Status: Acute Assessment and Plan: Stable. Continue statin, aspirin. (8) Paroxysmal atrial fibrillation: Code(s): I48.0 - Paroxysmal atrial fibrillation Status: Acute Assessment and Plan: Stable. Continue Xarelto. Continue Amiodarone (9) Rheumatoid arthritis: Code(s): M06.9 - Rheumatoid arthritis, unspecified Status: Acute Assessment and Plan: Patient with RA. He was on Rinvoq and methotrexate before but stopped due to these recurent cellulitis infections. Continue home prednisone 7 mg daily (10) Anemia: Qualifiers: Anemia type: unspecified type Qualified Code(s): D64.9 - Anemia, unspecified Code(s): D64.9 - Anemia, unspecified Status: Acute Assessment and Plan: Patient with a chronic anemia with Hgb running mostly in the 9-10 range. Hgb here trending down to 8.3 today. Iron studies 2 years ag
[2021-09-08 15:43] LABS: Vancomycin Trough 8.3 ug/mL (10.0-20.0)
[2021-09-08] MEDS: RIVAROXABAN 20 MG TABLET PO (18:09)
--- NOTE | 2021-09-08 18:38 | PC.NURSE ---
1834-report called to Kailey, 3 medical RN
--- NOTE | 2021-09-08 18:48 | PC.NURSE ---
1845-pt transferred to [id number] via bed. pt belongings with pt during tx.
--- NOTE | 2021-09-08 18:52 | PC.NURSE ---
This patient, Hema Chaves Sr., was received from imu on 09/08/21 at 1852. Patient/family oriented to unit policies and routines
[2021-09-09] VITALS (13 sets, daily range): BP systolic 112–139; BP diastolic 56–72; PULSE 63–115; RESP 16–22; TEMP 35.8–36.9; O2SAT 96–99
[2021-09-09 05:59] LABS: Basophils Percent Auto 0.5 % (0.2-1.2); Eosinophils Absolute Auto 0.3 K/mm3 (0-0.3); Eosinophils Percent Auto 3.8 % (0-4.4); Hematocrit 27.8 % (42.0-52.0); Hemoglobin 8.9 g/dL (14.0-18.0); Immature Granulocyte Absolute 0.04 K/mm3 (0.00-0.031); Immature Granulocyte Percent A 0.6 % (0-0.5); Lymphocytes Absolute Auto 0.59 K/mm3 (0.9-3.2); Lymphocytes Percent Auto 8.9 % (18.3-44.2); Mean Corpuscular Hemoglobin 31.7 pg (26-34); Mean Corpuscular Volume 98.9 fl (80-100); Mean Platelet Volume 10.8 fl (7.4-10.4); Monocytes Absolute Auto 0.7 K/mm3 (0.1-0.6); Monocytes Percent Auto 10.7 % (2.6-8.5); Neutrophils Percent Auto 75.5 % (45.5-73.1); Platelet Count Result 117 k/mm3 (150-375); Red Blood Count 2.81 M/mm3 (4.6-6.20); Red Cell Distribution Width 14.8 % (11.5-14.5); White Blood Count 6.7 K/mm3 (4.5-10.0)
[2021-09-09 06:11] LABS: Albumin Level 3.2 g/dL (3.5-5.1); Anion Gap 5 mmol/L (8-16); Blood Urea Nitrogen 10 mg/dL (9-20); Carbon Dioxide 26 mmol/L (22-30); Chloride 105 mmol/L (98-107); Estimated CRCL calculation 121 ml/min; Estimated Glomerular Filt Rate > 60; Glucose 117 mg/dL (65-110); Phosphorus 3.3 mg/dL (2.5-4.5); Potassium 3.8 mmol/L (3.4-5.0); Sodium 136 mmol/L (137-145)
[2021-09-09 06:48] LABS: Iron 41 ug/dL (49-181)
[2021-09-09 06:58] LABS: Percent Iron Saturation 14 % (20-50)
[2021-09-09 07:16] LABS: Folic Acid 17.9 ng/mL (2.76->20)
[2021-09-09] MEDS: FUROSEMIDE 40 MG TABLET PO (09:09)
[2021-09-09] MEDS: SIMVASTATIN 10 MG TABLET PO ×2 (09:09→20:19)
[2021-09-09] MEDS: MULTIVITAMINS THERAPEUTIC TAB (*BKC) 1 TABLET PO (09:10)
[2021-09-09] MEDS: AMIODARONE HCL 200 MG TABLET PO (09:11)
[2021-09-09] MEDS: GABAPENTIN 300 MG CAPSULE PO ×2 (09:11→16:45)
[2021-09-09] MEDS: predniSONE 1 MG TABLET 2 MG PO (09:12)
[2021-09-09] MEDS: ASPIRIN 81 MG ENTERIC TABLET PO (09:12)
[2021-09-09] MEDS: POTASSIUM CHLORIDE 20 MEQ TABLET.ER PO (09:12)
[2021-09-09] MEDS: CALCIUM CARBONATE (OSCAL) 500 MG TABLET 1000 MG PO ×2 (09:13→16:45)
[2021-09-09] MEDS: VITAMIN B COMPLEX/VIT C CAPSULE 1 EACH PO (09:14)
[2021-09-09] MEDS: predniSONE 5 MG TABLET PO (09:14)
[2021-09-09] MEDS: POTASSIUM CHLORIDE 20 MEQ TABLET 40 MEQ PO ×2 (11:09→13:33)
--- NOTE | 2021-09-09 12:18 | P.PNIM_ITS ---
Progress Note: A&P Assessment and Plan (1) Sepsis: Code(s): A41.9 - Sepsis, unspecified organism Status: Acute Assessment and Plan: Present on admission and supported by leukocytosis, tachypnea and lactic acido sis in the setting of cellulitis.WBC 22K and CRP 19. * lactic acid level has improved with IV fluid rehydration. WBC normal now * Blood cultures NGTD * Hx of Cellulitis with Pseudomonas bacteremia in Feb 2021 and discharged on Cipro * Hospitalized Aug 18 to August 22 treated with cefazolin and vancomycin discharged on Augmentin * Clinically improving * Continue antibiotics: Vancomycin and imipenem * Patient reluctant for discharge and requesting one more day. Change to oral abx tomorrow for discharge. * Edema better. Repeat Lasix IV once. (2) Ventricular dysrhythmia: Code(s): I49.9 - Cardiac arrhythmia, unspecified Status: Acute Assessment and Plan: Patient's defibrillator fired 3 times appropriately with ventricular dysrhythmias noted on interrogation. * Cardiology consulted and appreciate their recommendations * Continue amiodarone and continue to replace potassium and magnesium as needed * Should he have recurrent discharges, transfer to [facility] for consultation with his EP may be prudent. (3) Implantable cardioverter-defibrillator discharge: Code(s): Z45.02 - Encounter for adjustment and management of automatic implantable cardiac defibrillator Status: Acute Assessment and Plan: ICD fired x3 prior to admission. * Device has been interrogated * Potassium 3.8 today and oral replacement ordered (specially since getting Lasix again). Mag 2.0 * patient is DNR but would like to keep his ICD as is (4) Cellulitis of left leg: Code(s): L03.116 - Cellulitis of left lower limb Status: Acute Assessment and Plan: Given his recurrent infection and immunocompromised state, he was started on imipenem and vancomycin * He has a history of Pseudomonas bacteremia related to right leg cellulitis in February 2021. * Rinvoq and methotrexate have been placed on hold by his cable maker * Given the risk of cellulitis with Rinvoq, may need to be discontinued; Instructed patient to speak with his Mail Inserter * BCx NGTD here * Clinically improving. * Patient has been encouraged to elevate the extremity. * Continue IV abx for now. Change to oral tomorrow, (5) Elevated troponin: Code(s): R77.8 - Other specified abnormalities of plasma proteins Status: Acute Assessment and Plan: Troponin to 0.27 * He is not having chest pain * [place] related to the ICD discharge and not to ACS. * Continue to monitor. Appreciate Cardiology input. (6) Electrolyte imbalance: Code(s): E87.8 - Other disorders of electrolyte and fluid balance, not elsewhere classified Status: Acute Assessment and Plan: Magnesium and potassium have been replaced and they will be monitored. Continue home potassium 20 mEq daily, goal potassium greater than 4. (7) CAD (coronary artery disease): Code(s): I25.10 - Atherosclerotic heart disease of [place] coronary artery without angina pectoris Status: Acute Assessment and Plan: Stable. Continue statin, aspirin. (8) Paroxysmal atrial fibrillation: Code(s): I48.0 - Paroxysmal atrial fibrillation Status: Acute Assessment and Plan: Stable. Continue Xarelto. Continue Amiodarone (9) Rheumatoid arthritis: Code(s): M0
--- NOTE | 2021-09-09 12:18 | PM.IMPN ---
Progress Note: A&P Assessment and Plan (1) Sepsis: Code(s): A41.9 - Sepsis, unspecified organism Status: Acute Assessment and Plan: Present on admission and supported by leukocytosis, tachypnea and lactic acidosis in the setting of cellulitis.WBC 22K and CRP 19. lactic acid level has improved with IV fluid rehydration. WBC normal now Blood cultures NGTD Hx of Cellulitis with Pseudomonas bacteremia in Feb 2021 and discharged on Cipro Hospitalized Aug 18 to August 22 treated with cefazolin and vancomycin discharged on Augmentin Clinically improving Continue antibiotics: Vancomycin and imipenem Patient reluctant for discharge and requesting one more day. Change to oral abx tomorrow for discharge. Edema better. Repeat Lasix IV once. (2) Ventricular dysrhythmia: Code(s): I49.9 - Cardiac arrhythmia, unspecified Status: Acute Assessment and Plan: Patient's defibrillator fired 3 times appropriately with ventricular dysrhythmias noted on interrogation. Cardiology consulted and appreciate their recommendations Continue amiodarone and continue to replace potassium and magnesium as needed Should he have recurrent discharges, transfer to [facility] for consultation with his EP may be prudent. (3) Implantable cardioverter-defibrillator discharge: Code(s): Z45.02 - Encounter for adjustment and management of automatic implantable cardiac defibrillator Status: Acute Assessment and Plan: ICD fired x3 prior to admission. Device has been interrogated Potassium 3.8 today and oral replacement ordered (specially since getting Lasix again). Mag 2.0 patient is DNR but would like to keep his ICD as is (4) Cellulitis of left leg: Code(s): L03.116 - Cellulitis of left lower limb Status: Acute Assessment and Plan: Given his recurrent infection and immunocompromised state, he was started on imipenem and vancomycin He has a history of Pseudomonas bacteremia related to right leg cellulitis in February 2021. Rinvoq and methotrexate have been placed on hold by his watch band assembler Given the risk of cellulitis with Rinvoq, may need to be discontinued; Instructed patient to speak with his Safety Counselor BCx NGTD here Clinically improving. Patient has been encouraged to elevate the extremity. Continue IV abx for now. Change to oral tomorrow, (5) Elevated troponin: Code(s): R77.8 - Other specified abnormalities of plasma proteins Status: Acute Assessment and Plan: Troponin to 0.27 He is not having chest pain [place] related to the ICD discharge and not to ACS. Continue to monitor. Appreciate Cardiology input. (6) Electrolyte imbalance: Code(s): E87.8 - Other disorders of electrolyte and fluid balance, not elsewhere classified Status: Acute Assessment and Plan: Magnesium and potassium have been replaced and they will be monitored. Continue home potassium 20 mEq daily, goal potassium greater than 4. (7) CAD (coronary artery disease): Code(s): I25.10 - Atherosclerotic heart disease of [place] coronary artery without angina pectoris Status: Acute Assessment and Plan: Stable. Continue statin, aspirin. (8) Paroxysmal atrial fibrillation: Code(s): I48.0 - Paroxysmal atrial fibrillation Status: Acute Assessment and Plan: Stable. Continue Xarelto. Continue Amiodarone (9) Rheumatoid arthritis: Code(s): M06.9 - Rheumatoid arthritis, unspecified Status: Acute Assessment and Plan: Patient with RA. He was on Rinvoq and methotrexate before but stopped due to these recurent cellulitis infections. Continue home prednisone 7 mg daily. (10) Anemia: Qualifiers: Anemia type: unspecified type Qualified Code(s): D64.9 - Anemia, unspecified Code(s): D64.9 - Anemia, unspecified Status: Acute Assessment and Plan:
--- NOTE | 2021-09-09 12:32 | PM.PNCARD ---
Progress Note: A&P Assessment and Plan (1) Ventricular dysrhythmia: Code(s): I49.9 - Cardiac arrhythmia, unspecified Status: Acute Assessment and Plan: He had 3 appropriate discharges as well as ATP aborted events for VT/VF. While possible, I doubt him missing 1 dose of amiodarone is the culprit. Continue amiodarone, metoprolol and other regimen. (2) Implantable cardioverter-defibrillator discharge: Code(s): Z45.02 - Encounter for adjustment and management of automatic implantable cardiac defibrillator Status: Acute Assessment and Plan: As detailed above (3) Elevated troponin: Code(s): R77.8 - Other specified abnormalities of plasma proteins Status: Acute Assessment and Plan: Related to ICD discharges and not from ACS (4) Severe sepsis: Code(s): A41.9 - Sepsis, unspecified organism; R65.20 - Severe sepsis without septic shock Status: Acute Assessment and Plan: On antibiotics. Will recheck a CRP (5) CAD (coronary artery disease): Code(s): I25.10 - Atherosclerotic heart disease of [place] coronary artery without angina pectoris Status: Acute Assessment and Plan: No clear anginal symptoms (6) Electrolyte imbalance: Code(s): E87.8 - Other disorders of electrolyte and fluid balance, not elsewhere classified Status: Acute (7) Left leg swelling: Code(s): M79.89 - Other specified soft tissue disorders Status: Acute Assessment and Plan: Additional dose Furosemide 40 mg IV x1. KCL 40 mEq p.o. x1 Subjective Date/time seen: 09/09/21 12:32 Interval history: 76-year-old admitted for appropriate ICD discharges x3 as well as recurrent, severe cellulitis in the left leg Date of service 09/07/2021: Feels okay today. No discharges and rhythm has been stable. Left leg is swollen but less red. He has no chest pain or shortness of breath DATE OF SERVICE 09/08/2021: FEELS BETTER TODAY. HIS LEG WAS MORE HOT AND INFLAMED YESTERDAY EVENING HE STATES. HE DENIES ANY CHEST PAIN/SHORTNESS OF BREATH. Date of service 09/09/2021: He is feeling better but not radiate go. His leg less swollen. He is diuresing well with pulse dose IV furosemide. No chest pain or shortness of breath Review of Systems Review of Systems: All systems reviewed & are unremarkable except as noted in HPI and below Constitutional: Constitutional: Denies excessive sweating, Denies headache(s) and Reports weakness Eyes: Eyes: Denies blurry vision ENT: Reports Normal hearing present, Denies headache(s), Denies lip swelling and Denies neck pain Cardiovascular: Cardiovascular: Denies chest pain, Reports leg edema and Denies dyspnea Respiratory: Respiratory: Denies dyspnea Gastrointestinal: Gastrointestinal: Denies abdominal pain Genitourinary: Genitourinary: Denies dysuria Musculoskeletal: Musculoskeletal: Denies neck pain Integumentary/Breasts: Skin/Breast: Reports skin pain Neurologic: Reports Normal hearing present, Denies headache(s) and Reports weakness Psychiatric: Psychiatric: Denies anxiety Endocrine: Endocrine: Denies excessive sweating Hematologic/Lymphatic: Hematologic/Lymphatic: Denies easy bleeding Allergic/Immunologic: Allergic/Immunologic: Denies lip swelling Exam Narrative: Awake alert oriented. Appears stated age Const: General: comfortable and no acute distress HENMT: General nose exam: Normal nares present Eyes: Sclera: sclerae normal Neck: Neck: supple and no JVD Chest: Other: No reproducible chest wall pain to palpation Resp: Auscultation: clear to auscultation bilaterally Cardio: Rate: regular rate Other: Paced rhythm GI: Inspection: non-distended Auscultation: normal bowel sounds Skin: Other: Extensive warmth, redness, swelling from his midfoot all the way to his groin Neuro: Cranial nerves: Yes Normal hearing present Cognition (Neuro): normal cognition Speech: normal speech Ext
[2021-09-09] MEDS: FUROSEMIDE INJ 40 MG/4 ML VIAL IV PUSH (13:33)
[2021-09-09] MEDS: IRON SUCROSE COMPLEX 100 MG in SODIUM CHLORIDE 0.9% IV 50 ML 220 MG IVPB (13:50)
[2021-09-09 14:12] LABS: CRP 7.7 mg/dL (<1.0)
[2021-09-09] MEDS: RIVAROXABAN 20 MG TABLET PO (17:41)
[2021-09-09 22:28] LABS: IFOB Positive Control Positive; Immunochemical Fecal Occult Bl Negative (N)
[2021-09-10] VITALS (10 sets, daily range): BP systolic 101–121; BP diastolic 50–68; PULSE 60–82; RESP 15–18; TEMP 36.1–37.6; O2SAT 94–99
[2021-09-10 05:01] LABS: Hematocrit 28.3 % (42.0-52.0); Mean Corpuscular HGB Conc 31.8 g/dl (32-36); Mean Corpuscular Hemoglobin 30.5 pg (26-34); Mean Corpuscular Volume 95.9 fl (80-100); Mean Platelet Volume 11.7 fl (7.4-10.4); Platelet Count Result 144 k/mm3 (150-375); Red Blood Count 2.95 M/mm3 (4.6-6.20); Red Cell Distribution Width 14.9 % (11.5-14.5)
[2021-09-10 05:17] LABS: Potassium 4.1 mmol/L (3.4-5.0)
[2021-09-10 05:19] LABS: Anion Gap 4 mmol/L (8-16); Blood Urea Nitrogen 13 mg/dL (9-20); Calcium 8.6 mg/dL (8.4-10.2); Carbon Dioxide 27 mmol/L (22-30); Chloride 105 mmol/L (98-107); Estimated CRCL calculation 143 ml/min; Estimated Glomerular Filt Rate > 60; Glucose 88 mg/dL (65-110); Sodium 136 mmol/L (137-145)
[2021-09-10 05:34] LABS: Vancomycin Trough 12.6 ug/mL (10.0-20.0)
[2021-09-10] MEDS: POTASSIUM CHLORIDE 20 MEQ TABLET.ER PO (09:27)
[2021-09-10] MEDS: FUROSEMIDE 40 MG TABLET PO (09:27)
[2021-09-10] MEDS: CALCIUM CARBONATE (OSCAL) 500 MG TABLET 1000 MG PO (09:27)
[2021-09-10] MEDS: ASPIRIN 81 MG ENTERIC TABLET PO (09:27)
[2021-09-10] MEDS: predniSONE 5 MG TABLET PO (09:28)
[2021-09-10] MEDS: MULTIVITAMINS THERAPEUTIC TAB (*BKC) 1 TABLET PO (09:28)
[2021-09-10] MEDS: GABAPENTIN 300 MG CAPSULE PO ×2 (09:28→17:42)
[2021-09-10] MEDS: AMIODARONE HCL 200 MG TABLET PO (09:28)
[2021-09-10] MEDS: VITAMIN B COMPLEX/VIT C CAPSULE 1 EACH PO (09:28)
[2021-09-10] MEDS: predniSONE 1 MG TABLET 2 MG PO (09:28)
[2021-09-10] MEDS: SIMVASTATIN 10 MG TABLET PO ×2 (09:28→21:42)
[2021-09-10] MEDS: ACETAMINOPHEN 325 MG TABLET 650 MG PO (09:32)
[2021-09-10] MEDS: IRON SUCROSE COMPLEX 100 MG in SODIUM CHLORIDE 0.9% IV 50 ML 220 MG IVPB (11:25)
--- NOTE | 2021-09-10 12:42 | P.PNIM_ITS ---
Progress Note: A&P Assessment and Plan (1) Sepsis: Code(s): A41.9 - Sepsis, unspecified organism Status: Acute Assessment and Plan: Present on admission and supported by leukocytosis, tachypnea and lactic acido sis in the setting of cellulitis. WBC 22K and CRP 19. * lactic acid level has improved with IV fluid rehydration. WBC normal now * Blood cultures NGTD * Hx of Cellulitis with Pseudomonas bacteremia in Feb 2021 and discharged on Cipro * Hospitalized Aug 18 to August 22 for cellulitis treated with cefazolin and vancomycin discharged on Augmentin * Clinically improving but feels worse today. Related to Primaxin? Prolonged bedrest? * On Vancomycin (09/06 at 1014) and imipenem (started on Zosyn 09/06 0926) Day 5. * Change Vanco to oral abx. PT/OT. Increase activity. * Continue Primaxin for now since Cipro interacts with Amio; will discuss with Cardiology (2) Ventricular dysrhythmia: Code(s): I49.9 - Cardiac arrhythmia, unspecified Status: Acute Assessment and Plan: Patient's defibrillator fired 3 times appropriately with ventricular dysrhythm ias noted on interrogation. * Cardiology consulted and appreciate their recommendations * Continue amiodarone and continue to replace potassium and magnesium as needed * Should he have recurrent discharges, transfer to [facility] for consultation with his EP may be prudent. (3) Implantable cardioverter-defibrillator discharge: Code(s): Z45.02 - Encounter for adjustment and management of automatic implantable cardiac defibrillator Status: Acute Assessment and Plan: ICD fired x3 prior to admission. * Device has been interrogated * Potassium 4.1 and Mag 2.0 today * patient is DNR but would like to keep his ICD as is (4) Cellulitis of left leg: Code(s): L03.116 - Cellulitis of left lower limb Status: Acute Assessment and Plan: Given his recurrent infection and immunocompromised state, he was started on imipenem and vancomycin * He has a history of Pseudomonas bacteremia related to right leg cellulitis in February 2021. * Rinvoq and methotrexate have been placed on hold by his camp guard * Given the risk of cellulitis with Rinvoq, may need to be discontinued; Instructed patient to speak with his Mine Foreman * BCx NGTD here * Clinically improving. * Patient has been encouraged to elevate the extremity. * Abx as above (5) Elevated troponin: Code(s): R77.8 - Other specified abnormalities of plasma proteins Status: Acute Assessment and Plan: Troponin to 0.27 * He was not having chest pain * [place] related to the ICD discharge and not to ACS. * Continue to monitor. Appreciate Cardiology input. (6) Electrolyte imbalance: Code(s): E87.8 - Other disorders of electrolyte and fluid balance, not elsewhere classified Status: Acute Assessment and Plan: Magnesium and potassium have been replaced and they will be monitored. Continue home potassium 20 mEq daily, goal potassium greater than 4. (7) CAD (coronary artery disease): Code(s): I25.10 - Atherosclerotic heart disease of [place] coronary artery without angina pectoris Status: Acute Assessment and Plan: Stable. Continue statin, aspirin. (8) Paroxysmal atrial fibrillation: Code(s): I48.0 - Paroxysmal atrial fibrillation Status: Acute Assessment and Plan: Stable. Continue Xarelto. Continue Amiodarone (9) Rheumatoid arthritis: Code
--- NOTE | 2021-09-10 12:42 | PM.IMPN ---
Progress Note: A&P Assessment and Plan (1) Sepsis: Code(s): A41.9 - Sepsis, unspecified organism Status: Acute Assessment and Plan: Present on admission and supported by leukocytosis, tachypnea and lactic acidosis in the setting of cellulitis. WBC 22K and CRP 19. lactic acid level has improved with IV fluid rehydration. WBC normal now Blood cultures NGTD Hx of Cellulitis with Pseudomonas bacteremia in Feb 2021 and discharged on Cipro Hospitalized Aug 18 to August 22 for cellulitis treated with cefazolin and vancomycin discharged on Augmentin Clinically improving but feels worse today. Related to Primaxin? Prolonged bedrest? On Vancomycin (09/06 at 1014) and imipenem (started on Zosyn 09/06 0926) Day 5. Change Vanco to oral abx. PT/OT. Increase activity. Continue Primaxin for now since Cipro interacts with Amio; will discuss with Cardiology (2) Ventricular dysrhythmia: Code(s): I49.9 - Cardiac arrhythmia, unspecified Status: Acute Assessment and Plan: Patient's defibrillator fired 3 times appropriately with ventricular dysrhythmias noted on interrogation. Cardiology consulted and appreciate their recommendations Continue amiodarone and continue to replace potassium and magnesium as needed Should he have recurrent discharges, transfer to [facility] for consultation with his EP may be prudent. (3) Implantable cardioverter-defibrillator discharge: Code(s): Z45.02 - Encounter for adjustment and management of automatic implantable cardiac defibrillator Status: Acute Assessment and Plan: ICD fired x3 prior to admission. Device has been interrogated Potassium 4.1 and Mag 2.0 today patient is DNR but would like to keep his ICD as is (4) Cellulitis of left leg: Code(s): L03.116 - Cellulitis of left lower limb Status: Acute Assessment and Plan: Given his recurrent infection and immunocompromised state, he was started on imipenem and vancomycin He has a history of Pseudomonas bacteremia related to right leg cellulitis in February 2021. Rinvoq and methotrexate have been placed on hold by his layer out plate glass Given the risk of cellulitis with Rinvoq, may need to be discontinued; Instructed patient to speak with his Business Analysis Professional BCx NGTD here Clinically improving. Patient has been encouraged to elevate the extremity. Abx as above (5) Elevated troponin: Code(s): R77.8 - Other specified abnormalities of plasma proteins Status: Acute Assessment and Plan: Troponin to 0.27 He was not having chest pain [place] related to the ICD discharge and not to ACS. Continue to monitor. Appreciate Cardiology input. (6) Electrolyte imbalance: Code(s): E87.8 - Other disorders of electrolyte and fluid balance, not elsewhere classified Status: Acute Assessment and Plan: Magnesium and potassium have been replaced and they will be monitored. Continue home potassium 20 mEq daily, goal potassium greater than 4. (7) CAD (coronary artery disease): Code(s): I25.10 - Atherosclerotic heart disease of [place] coronary artery without angina pectoris Status: Acute Assessment and Plan: Stable. Continue statin, aspirin. (8) Paroxysmal atrial fibrillation: Code(s): I48.0 - Paroxysmal atrial fibrillation Status: Acute Assessment and Plan: Stable. Continue Xarelto. Continue Amiodarone (9) Rheumatoid arthritis: Code(s): M06.9 - Rheumatoid arthritis, unspecified Status: Acute Assessment and Plan: Patient with RA. He was on Rinvoq and methotrexate before but stopped due to these recurent cellulitis infections. Continue home prednisone 7 mg daily. (10) Anemia: Qualifiers: Anemia type: unspecified type Qualified Code(s): D64.9 - Anemia, unspecified Code(s): D64.9 - Anemia, unspecified Status: Acute Assessmen
--- NOTE | 2021-09-10 13:15 | PM.PNCARD ---
Progress Note: A&P Assessment and Plan (1) Ventricular dysrhythmia: Code(s): I49.9 - Cardiac arrhythmia, unspecified Status: Acute Assessment and Plan: He had 3 appropriate discharges as well as ATP aborted events for VT/VF. While possible, I doubt him missing 1 dose of amiodarone is the culprit. Continue amiodarone, metoprolol and other regimen. (2) Implantable cardioverter-defibrillator discharge: Code(s): Z45.02 - Encounter for adjustment and management of automatic implantable cardiac defibrillator Status: Acute Assessment and Plan: As detailed above (3) Elevated troponin: Code(s): R77.8 - Other specified abnormalities of plasma proteins Status: Acute Assessment and Plan: Related to ICD discharges and not from ACS (4) Severe sepsis: Code(s): A41.9 - Sepsis, unspecified organism; R65.20 - Severe sepsis without septic shock Status: Acute Assessment and Plan: On antibiotics. (5) CAD (coronary artery disease): Code(s): I25.10 - Atherosclerotic heart disease of [place] coronary artery without angina pectoris Status: Acute Assessment and Plan: No clear anginal symptoms (6) Electrolyte imbalance: Code(s): E87.8 - Other disorders of electrolyte and fluid balance, not elsewhere classified Status: Acute (7) Left leg swelling: Code(s): M79.89 - Other specified soft tissue disorders Status: Acute Assessment and Plan: Furosemide 40 mg IV x1 now Subjective Date/time seen: 09/10/21 13:15 Interval history: 76-year-old admitted for appropriate ICD discharges x3 as well as recurrent, severe cellulitis in the left leg Date of service 09/07/2021: Feels okay today. No discharges and rhythm has been stable. Left leg is swollen but less red. He has no chest pain or shortness of breath DATE OF SERVICE 09/08/2021: FEELS BETTER TODAY. HIS LEG WAS MORE HOT AND INFLAMED YESTERDAY EVENING HE STATES. HE DENIES ANY CHEST PAIN/SHORTNESS OF BREATH. Date of service 09/09/2021: He is feeling better but not radiate go. His leg less swollen. He is diuresing well with pulse dose IV furosemide. No chest pain or shortness of breath Date of service 09/10/2021: Feels a little weaker today. Complaining of a cough. No chest pain. Swelling slightly better than left leg Review of Systems Review of Systems: All systems reviewed & are unremarkable except as noted in HPI and below Constitutional: Constitutional: Denies excessive sweating, Denies headache(s) and Reports weakness Eyes: Eyes: Denies blurry vision ENT: Reports Normal hearing present, Denies headache(s), Denies lip swelling and Denies neck pain Cardiovascular: Cardiovascular: Denies chest pain, Reports leg edema and Denies dyspnea Respiratory: Respiratory: Denies dyspnea Gastrointestinal: Gastrointestinal: Denies abdominal pain Genitourinary: Genitourinary: Denies dysuria Musculoskeletal: Musculoskeletal: Denies neck pain Integumentary/Breasts: Skin/Breast: Reports skin pain Neurologic: Reports Normal hearing present, Denies headache(s) and Reports weakness Psychiatric: Psychiatric: Denies anxiety Endocrine: Endocrine: Denies excessive sweating Hematologic/Lymphatic: Hematologic/Lymphatic: Denies easy bleeding Allergic/Immunologic: Allergic/Immunologic: Denies lip swelling Exam Narrative: Awake alert oriented. Appears stated age Const: General: comfortable and no acute distress HENMT: General nose exam: Normal nares present Eyes: Sclera: sclerae normal Neck: Neck: supple and no JVD Chest: Other: No reproducible chest wall pain to palpation Resp: Auscultation: clear to auscultation bilaterally Cardio: Rate: regular rate Other: Paced rhythm GI: Inspection: non-distended Auscultation: normal bowel sounds Skin: Other: Extensive warmth, redness, swelling from his midfoot all the way to his groin Neuro: Cranial nerves: Ye
[2021-09-10] MEDS: FUROSEMIDE INJ 40 MG/4 ML VIAL IV PUSH (13:41)
[2021-09-10] MEDS: AMOXICILLIN 500 MG CAPSULE PO ×2 (15:14→21:42)
[2021-09-10] MEDS: RIVAROXABAN 20 MG TABLET PO (17:42)
[2021-09-10] MEDS: DOXYCYCLINE HYCLATE 100 MG TABLET PO (21:42)
[2021-09-11] VITALS (12 sets, daily range): BP systolic 118–127; BP diastolic 60–67; PULSE 59–88; RESP 16–18; TEMP 36.1–36.7; O2SAT 96–98
[2021-09-11] MEDS: AMOXICILLIN 500 MG CAPSULE PO ×3 (06:33→20:48)
[2021-09-11 06:38] LABS: Anion Gap 7 mmol/L (8-16); Blood Urea Nitrogen 13 mg/dL (9-20); Calcium 8.7 mg/dL (8.4-10.2); Carbon Dioxide 29 mmol/L (22-30); Chloride 103 mmol/L (98-107); Estimated CRCL calculation 102 ml/min; Estimated Glomerular Filt Rate > 60; Glucose 84 mg/dL (65-110); Sodium 139 mmol/L (137-145)
[2021-09-11] MEDS: AMIODARONE HCL 200 MG TABLET PO (09:12)
[2021-09-11] MEDS: predniSONE 1 MG TABLET 2 MG PO (09:12)
[2021-09-11] MEDS: FUROSEMIDE 40 MG TABLET PO (09:12)
[2021-09-11] MEDS: MULTIVITAMINS THERAPEUTIC TAB (*BKC) 1 TABLET PO (09:12)
[2021-09-11] MEDS: IRON SUCROSE COMPLEX 100 MG in SODIUM CHLORIDE 0.9% IV 50 ML 220 MG IVPB (09:12)
[2021-09-11] MEDS: GABAPENTIN 300 MG CAPSULE PO ×2 (09:12→16:59)
[2021-09-11] MEDS: POTASSIUM CHLORIDE 20 MEQ TABLET.ER PO (09:12)
[2021-09-11] MEDS: predniSONE 5 MG TABLET PO (09:13)
[2021-09-11] MEDS: DOXYCYCLINE HYCLATE 100 MG TABLET PO ×2 (09:13→20:48)
[2021-09-11] MEDS: VITAMIN B COMPLEX/VIT C CAPSULE 1 EACH PO (09:13)
[2021-09-11] MEDS: ASPIRIN 81 MG ENTERIC TABLET PO (09:13)
[2021-09-11] MEDS: SIMVASTATIN 10 MG TABLET PO ×2 (09:13→20:48)
--- NOTE | 2021-09-11 11:09 | PM.PNCARD ---
Progress Note: A&P Assessment and Plan (1) Ventricular dysrhythmia: Code(s): I49.9 - Cardiac arrhythmia, unspecified Status: Acute Assessment and Plan: He had 3 appropriate discharges as well as ATP aborted events for VT/VF. While possible, unlikely missing 1 dose of amiodarone is the culprit. Continue amiodarone, metoprolol, and other regimen. (2) Implantable cardioverter-defibrillator discharge: Code(s): Z45.02 - Encounter for adjustment and management of automatic implantable cardiac defibrillator Status: Acute Assessment and Plan: As detailed above (3) Elevated troponin: Code(s): R77.8 - Other specified abnormalities of plasma proteins Status: Acute Assessment and Plan: Related to ICD discharges and not from ACS (4) Severe sepsis: Code(s): A41.9 - Sepsis, unspecified organism; R65.20 - Severe sepsis without septic shock Status: Acute Assessment and Plan: On antibiotics. (5) CAD (coronary artery disease): Code(s): I25.10 - Atherosclerotic heart disease of [place] coronary artery without angina pectoris Status: Acute Assessment and Plan: No clear anginal symptoms (6) Electrolyte imbalance: Code(s): E87.8 - Other disorders of electrolyte and fluid balance, not elsewhere classified Status: Acute Assessment and Plan: Electrolytes are WNL today (7) Left leg swelling: Code(s): M79.89 - Other specified soft tissue disorders Status: Acute Assessment and Plan: Improving. Continue p.o. diuretics Subjective Date/time seen: 09/11/21 11:09 Interval history: 76-year-old admitted for appropriate ICD discharges x3 as well as recurrent, severe cellulitis in the left leg Date of service 09/07/2021: Feels okay today. No discharges and rhythm has been stable. Left leg is swollen but less red. He has no chest pain or shortness of breath DATE OF SERVICE 09/08/2021: FEELS BETTER TODAY. HIS LEG WAS MORE HOT AND INFLAMED YESTERDAY EVENING HE STATES. HE DENIES ANY CHEST PAIN/SHORTNESS OF BREATH. Date of service 09/09/2021: He is feeling better but not radiate go. His leg less swollen. He is diuresing well with pulse dose IV furosemide. No chest pain or shortness of breath Date of service 09/10/2021: Feels a little weaker today. Complaining of a cough. No chest pain. Swelling slightly better than left leg Date of service 09/11/2021: Feels worn out. He does note improvement in his L leg swelling and redness. Not having any chest pain, no shortness of breath. Review of Systems Review of Systems: All systems reviewed & are unremarkable except as noted in HPI and below Constitutional: Constitutional: Denies excessive sweating, Denies headache(s) and Reports weakness Eyes: Eyes: Denies blurry vision ENT: Reports Normal hearing present, Denies headache(s), Denies lip swelling and Denies neck pain Cardiovascular: Cardiovascular: Denies chest pain, Reports leg edema and Denies dyspnea Respiratory: Respiratory: Denies dyspnea Gastrointestinal: Gastrointestinal: Denies abdominal pain Genitourinary: Genitourinary: Denies dysuria Musculoskeletal: Musculoskeletal: Denies neck pain Integumentary/Breasts: Skin/Breast: Reports skin pain Neurologic: Reports Normal hearing present, Denies headache(s) and Reports weakness Psychiatric: Psychiatric: Denies anxiety Endocrine: Endocrine: Denies excessive sweating Hematologic/Lymphatic: Hematologic/Lymphatic: Denies easy bleeding Allergic/Immunologic: Allergic/Immunologic: Denies lip swelling Exam Narrative: Awake alert oriented. Appears stated age Const: General: comfortable and no acute distress HENMT: General nose exam: Normal nares present Eyes: Sclera: sclerae normal Neck: Neck: supple and no JVD Resp: Auscultation: clear to auscultation bilaterally Cardio: Rate: regular rate Other: Paced rhythm GI: Inspection: non
--- NOTE | 2021-09-11 14:02 | P.PNIM_ITS ---
Progress Note: A&P Assessment and Plan (1) Sepsis: Code(s): A41.9 - Sepsis, unspecified organism Status: Acute Assessment and Plan: Present on admission and supported by leukocytosis, tachypnea and lactic acido sis in the setting of cellulitis. WBC was 22K and CRP 19. * lactic acid level has improved with IV fluid rehydration. WBC normal now. CRP 7.7 * Blood cultures NGTD * Hx of Cellulitis with Pseudomonas bacteremia in Feb 2021 and discharged on Cipro * Hospitalized Aug 18 to August 22 for cellulitis treated with cefazolin and vancomycin discharged on Augmentin * Feels better today but still feels not ready for discharge * On Vancomycin (09/06 at 1014) and imipenem (started on Zosyn 09/06 0926) Day 6 * Changed Vanco to Doxycycline 09/10. PT/OT. Increase activity. * Continue Primaxin for now since Cipro interacts with Amio; will discuss with Cardiology if Cipro safe to use * Check CT scan to assess for fluid collection (2) Ventricular dysrhythmia: Code(s): I49.9 - Cardiac arrhythmia, unspecified Status: Acute Assessment and Plan: Patient's defibrillator fired 3 times appropriately with ventricular dysrhythmias noted on interrogation. * Cardiology consulted and appreciate their recommendations * Continue amiodarone and continue to replace potassium and magnesium as needed * Should he have recurrent discharges, transfer to [facility] for consultation with his EP may be prudent. (3) Implantable cardioverter-defibrillator discharge: Code(s): Z45.02 - Encounter for adjustment and management of automatic implantable cardiac defibrillator Status: Acute Assessment and Plan: ICD fired x3 prior to admission. * Device has been interrogated * Potassium 4.0 today * patient is DNR but would like to keep his ICD as is (4) Cellulitis of left leg: Code(s): L03.116 - Cellulitis of left lower limb Status: Acute Assessment and Plan: Given his recurrent infection and immunocompromised state, he was started on imipenem and vancomycin * He has a history of Pseudomonas bacteremia related to right leg cellulitis in February 2021. * Rinvoq and methotrexate have been placed on hold by his it support analyst * Given the risk of cellulitis with Rinvoq, may need to be discontinued; Instructed patient to speak with his Hearing Specialist * BCx NGTD here * Eduardo also has liver disease so edema could be related to this as well * Clinically improving. * Patient has been encouraged to elevate the extremity. * Abx as above * Repeat lasix. (5) Elevated troponin: Code(s): R77.8 - Other specified abnormalities of plasma proteins Status: Acute Assessment and Plan: Troponin to 0.27 * He was not having chest pain * [place] related to the ICD discharge and not to ACS. * Continue to monitor. Appreciate Cardiology input. (6) Electrolyte imbalance: Code(s): E87.8 - Other disorders of electrolyte and fluid balance, not elsewhere classified Status: Acute Assessment and Plan: Magnesium and potassium have been replaced and they will be monitored. Continue home potassium 20 mEq daily, goal potassium greater than 4. (7) CAD (coronary artery disease): Code(s): I25.10 - Atherosclerotic heart disease of [place] coronary artery without angina pectoris Status: Acute Assessment and Plan: Stable. Continue statin, aspirin. (8) Paroxysmal atrial fibrillation: Code(s): I48.0 - Paroxysmal atrial fibrillation
--- NOTE | 2021-09-11 14:02 | PM.IMPN ---
Progress Note: A&P Assessment and Plan (1) Sepsis: Code(s): A41.9 - Sepsis, unspecified organism Status: Acute Assessment and Plan: Present on admission and supported by leukocytosis, tachypnea and lactic acidosis in the setting of cellulitis. WBC was 22K and CRP 19. lactic acid level has improved with IV fluid rehydration. WBC normal now. CRP 7.7 Blood cultures NGTD Hx of Cellulitis with Pseudomonas bacteremia in Feb 2021 and discharged on Cipro Hospitalized Aug 18 to August 22 for cellulitis treated with cefazolin and vancomycin discharged on Augmentin Feels better today but still feels not ready for discharge On Vancomycin (09/06 at 1014) and imipenem (started on Zosyn 09/06 0926) Day 6 Changed Vanco to Doxycycline 09/10. PT/OT. Increase activity. Continue Primaxin for now since Cipro interacts with Amio; will discuss with Cardiology if Cipro safe to use Check CT scan to assess for fluid collection (2) Ventricular dysrhythmia: Code(s): I49.9 - Cardiac arrhythmia, unspecified Status: Acute Assessment and Plan: Patient's defibrillator fired 3 times appropriately with ventricular dysrhythmias noted on interrogation. Cardiology consulted and appreciate their recommendations Continue amiodarone and continue to replace potassium and magnesium as needed Should he have recurrent discharges, transfer to [facility] for consultation with his EP may be prudent. (3) Implantable cardioverter-defibrillator discharge: Code(s): Z45.02 - Encounter for adjustment and management of automatic implantable cardiac defibrillator Status: Acute Assessment and Plan: ICD fired x3 prior to admission. Device has been interrogated Potassium 4.0 today patient is DNR but would like to keep his ICD as is (4) Cellulitis of left leg: Code(s): L03.116 - Cellulitis of left lower limb Status: Acute Assessment and Plan: Given his recurrent infection and immunocompromised state, he was started on imipenem and vancomycin He has a history of Pseudomonas bacteremia related to right leg cellulitis in February 2021. Rinvoq and methotrexate have been placed on hold by his bull float finisher Given the risk of cellulitis with Rinvoq, may need to be discontinued; Instructed patient to speak with his Water Sander Akhil NGTD here Eduardo also has liver disease so edema could be related to this as well Clinically improving. Patient has been encouraged to elevate the extremity. Abx as above Repeat lasix. (5) Elevated troponin: Code(s): R77.8 - Other specified abnormalities of plasma proteins Status: Acute Assessment and Plan: Troponin to 0.27 He was not having chest pain [place] related to the ICD discharge and not to ACS. Continue to monitor. Appreciate Cardiology input. (6) Electrolyte imbalance: Code(s): E87.8 - Other disorders of electrolyte and fluid balance, not elsewhere classified Status: Acute Assessment and Plan: Magnesium and potassium have been replaced and they will be monitored. Continue home potassium 20 mEq daily, goal potassium greater than 4. (7) CAD (coronary artery disease): Code(s): I25.10 - Atherosclerotic heart disease of [place] coronary artery without angina pectoris Status: Acute Assessment and Plan: Stable. Continue statin, aspirin. (8) Paroxysmal atrial fibrillation: Code(s): I48.0 - Paroxysmal atrial fibrillation Status: Acute Assessment and Plan: Stable. Continue Xarelto. Continue Amiodarone (9) Rheumatoid arthritis: Code(s): M06.9 - Rheumatoid arthritis, unspecified Status: Acute Assessment and Plan: Patient with RA. He was on Rinvoq and methotrexate before but stopped due to these recurent cellulitis infections. Continue home prednisone 7 mg daily. (10) Anemia: Qualifiers: Anemia type: uns
[2021-09-11] MEDS: RIVAROXABAN 20 MG TABLET PO (19:22)
[2021-09-12] VITALS (8 sets, daily range): BP systolic 102–124; BP diastolic 60–70; PULSE 60–84; RESP 16–20; TEMP 36.3–37.4; O2SAT 95–100
[2021-09-12 05:35] LABS: Basophils Absolute Auto 0.1 K/mm3 (0.0-0.1); Basophils Percent Auto 0.8 % (0.2-1.2); Eosinophils Absolute Auto 0.4 K/mm3 (0-0.3); Hemoglobin 9.2 g/dL (14.0-18.0); Immature Granulocyte Absolute 0.34 K/mm3 (0.00-0.031); Immature Granulocyte Percent A 3.8 % (0-0.5); Lymphocytes Absolute Auto 1.22 K/mm3 (0.9-3.2); Lymphocytes Percent Auto 13.6 % (18.3-44.2); Mean Corpuscular HGB Conc 31.7 g/dl (32-36); Mean Corpuscular Hemoglobin 30.3 pg (26-34); Mean Corpuscular Volume 95.4 fl (80-100); Mean Platelet Volume 10.8 fl (7.4-10.4); Monocytes Absolute Auto 0.8 K/mm3 (0.1-0.6); Monocytes Percent Auto 8.9 % (2.6-8.5); Neutrophils Absolute Auto 6.2 K/mm3 (1.3-6.7); Neutrophils Percent Auto 68.9 % (45.5-73.1); Platelet Count Result 168 k/mm3 (150-375); Red Blood Count 3.04 M/mm3 (4.6-6.20); Red Cell Distribution Width 15.2 % (11.5-14.5)
[2021-09-12 05:51] LABS: Alanine Aminotransferase 25 U/L (4-50); Albumin Level 3.2 g/dL (3.5-5.1); Alkaline Phosphatase 76 U/L (38-126); Anion Gap 7 mmol/L (8-16); Aspartate Amino Transferase 26 U/L (17-59); Bilirubin,Total 0.6 mg/dL (0.2-1.3); Blood Urea Nitrogen 13 mg/dL (9-20); Calcium 8.4 mg/dL (8.4-10.2); Carbon Dioxide 27 mmol/L (22-30); Chloride 103 mmol/L (98-107); Estimated CRCL calculation 117 ml/min; Estimated Glomerular Filt Rate > 60; Glucose 84 mg/dL (65-110); Potassium 3.7 mmol/L (3.4-5.0); Sodium 137 mmol/L (137-145)
[2021-09-12] MEDS: AMOXICILLIN 500 MG CAPSULE PO ×2 (06:03→14:11)
--- NOTE | 2021-09-12 08:57 | PCNWS ---
Weekly nutritional screen. Patient is tolerating current diet with adequate intake. No weight loss reported. No nutritional needs at this time.
[2021-09-12] MEDS: ASPIRIN 81 MG ENTERIC TABLET PO (09:28)
[2021-09-12] MEDS: POTASSIUM CHLORIDE 20 MEQ TABLET PO (09:28)
[2021-09-12] MEDS: GABAPENTIN 300 MG CAPSULE PO (09:28)
[2021-09-12] MEDS: DOXYCYCLINE HYCLATE 100 MG TABLET PO (09:28)
[2021-09-12] MEDS: AMIODARONE HCL 200 MG TABLET PO (09:29)
[2021-09-12] MEDS: predniSONE 1 MG TABLET 2 MG PO (09:29)
[2021-09-12] MEDS: MULTIVITAMINS THERAPEUTIC TAB (*BKC) 1 TABLET PO (09:29)
[2021-09-12] MEDS: SIMVASTATIN 10 MG TABLET PO (09:29)
[2021-09-12] MEDS: VITAMIN B COMPLEX/VIT C CAPSULE 1 EACH PO (09:29)
[2021-09-12] MEDS: predniSONE 5 MG TABLET PO (09:29)
[2021-09-12] MEDS: IRON SUCROSE COMPLEX 100 MG in SODIUM CHLORIDE 0.9% IV 50 ML 220 MG IVPB (09:29)
[2021-09-12] MEDS: FUROSEMIDE 40 MG TABLET PO (09:30)
[2021-09-12] MEDS: POTASSIUM CHLORIDE 20 MEQ TABLET.ER PO (09:30)
--- NOTE | 2021-09-12 09:57 | PM.PNCARD ---
Progress Note: A&P Assessment and Plan (1) Ventricular dysrhythmia: Code(s): I49.9 - Cardiac arrhythmia, unspecified Status: Acute Assessment and Plan: He had 3 appropriate discharges as well as ATP aborted events for VT/VF. While possible, unlikely missing 1 dose of amiodarone is the culprit. Continue amiodarone, metoprolol, and other regimen. Regarding his amiodarone and antibiotics, if he is discharged with Cipro, I would agree with holding amiodarone for the short term until course of Cipro with complete then restart amiodarone. Follow-up with electrophysiology upon discharge (2) Implantable cardioverter-defibrillator discharge: Code(s): Z45.02 - Encounter for adjustment and management of automatic implantable cardiac defibrillator Status: Acute Assessment and Plan: As detailed above (3) Elevated troponin: Code(s): R77.8 - Other specified abnormalities of plasma proteins Status: Acute Assessment and Plan: Related to ICD discharges and not from ACS (4) Severe sepsis: Code(s): A41.9 - Sepsis, unspecified organism; R65.20 - Severe sepsis without septic shock Status: Acute Assessment and Plan: On antibiotics. (5) CAD (coronary artery disease): Code(s): I25.10 - Atherosclerotic heart disease of [place] coronary artery without angina pectoris Status: Acute Assessment and Plan: No clear anginal symptoms (6) Electrolyte imbalance: Code(s): E87.8 - Other disorders of electrolyte and fluid balance, not elsewhere classified Status: Acute Assessment and Plan: Electrolytes are WNL today (7) Left leg swelling: Code(s): M79.89 - Other specified soft tissue disorders Status: Acute Assessment and Plan: Improving. Continue p.o. diuretics. Will give furosemide 40 mg IV x1 today before probable discharge. KCL 40 mEq p.o. x1 Subjective Date/time seen: 09/12/21 09:57 Interval history: 76-year-old admitted for appropriate ICD discharges x3 as well as recurrent, severe cellulitis in the left leg Date of service 09/07/2021: Feels okay today. No discharges and rhythm has been stable. Left leg is swollen but less red. He has no chest pain or shortness of breath DATE OF SERVICE 09/08/2021: FEELS BETTER TODAY. HIS LEG WAS MORE HOT AND INFLAMED YESTERDAY EVENING HE STATES. HE DENIES ANY CHEST PAIN/SHORTNESS OF BREATH. Date of service 09/09/2021: He is feeling better but not radiate go. His leg less swollen. He is diuresing well with pulse dose IV furosemide. No chest pain or shortness of breath Date of service 09/10/2021: Feels a little weaker today. Complaining of a cough. No chest pain. Swelling slightly better than left leg Date of service 09/11/2021: Feels worn out. He does note improvement in his L leg swelling and redness. Not having any chest pain, no shortness of breath. Date of service 09/12/2021: Overall is improving. Leg swelling and cellulitis is improving. No chest pain or shortness of breath. Review of Systems Review of Systems: All systems reviewed & are unremarkable except as noted in HPI and below Constitutional: Constitutional: Denies excessive sweating, Denies headache(s) and Reports weakness Eyes: Eyes: Denies blurry vision ENT: Reports Normal hearing present, Denies headache(s), Denies lip swelling and Denies neck pain Cardiovascular: Cardiovascular: Denies chest pain, Reports leg edema and Denies dyspnea Respiratory: Respiratory: Denies dyspnea Gastrointestinal: Gastrointestinal: Denies abdominal pain Genitourinary: Genitourinary: Denies dysuria Musculoskeletal: Musculoskeletal: Denies neck pain Integumentary/Breasts: Skin/Breast: Reports skin pain Neurologic: Reports Normal hearing present, Denies headache(s) and Reports weakness Psychiatric: Psychiatric: Denies anxiety Endocrine: Endocrine: Denies excessive sweating Hematologic/Lymphatic: Hematolo
[2021-09-12] MEDS: FUROSEMIDE INJ 40 MG/4 ML VIAL IV PUSH (14:10)
[2021-09-12] MEDS: POTASSIUM CHLORIDE 20 MEQ TABLET 40 MEQ PO (14:10)
--- NOTE | 2021-09-12 14:33 | PM.CNGS ---
Assessment and Plan Assessment and plan (1) Cellulitis of left leg: Code(s): L03.116 - Cellulitis of left lower limb Status: Acute Assessment and Plan: I reviewed the CT and have discussions with the patient, I believe the fluid collection near the hamstring muscle was most likely related to the partial tear or strain to his hamstring muscle. I do not see any area where an abscess with the developing. I do not see any need to attempt incision and drainage at this time. Continue current treatment per the hospitalist for cellulitis. If any fluctuance or clear abscess at the skin develops, then could consider incision and drainage at that time. Will follow as needed. (2) Ventricular dysrhythmia: Code(s): I49.9 - Cardiac arrhythmia, unspecified Status: Acute (3) Implantable cardioverter-defibrillator discharge: Code(s): Z45.02 - Encounter for adjustment and management of automatic implantable cardiac defibrillator Status: Acute History of Present Illness Consult details Consult date: 09/12/21 Reason for consult: other (Possible lower extremity abscess) Requesting physician: Prabhakar Santoyo MD Narrative: This is a 76-year-old man who I am asked to see for possible abscess on his leg. The patient has been admitted twice for left lower extremity cellulitis. He denies any open wounds or drainage from his lower extremity. He states that this started out about a week or 2 ago with some redness and swelling to his left lower extremity below his knee near his ankle. He was treated with IV antibiotics for several days and then was discharged on oral antibiotics, but then he returned with worsening redness and swelling, fevers, and multiple episodes of his AICD fired. He was readmitted and placed on IV antibiotics again. He has noticed some gradual improvement in the swelling and redness. His white blood count has been normal and he has been afebrile since being admitted. A CT of his left lower extremity was performed and there was some question of a possible fluid collection posteriorly in the distal thigh near the muscle belly. I asked patient further about any injuries and did state he thinks he pulled or tore his hamstring while doing some work in his garage shortly before the cellulitis started. Review of Systems Review of Systems: All systems reviewed & are unremarkable except as noted in HPI and below Eyes: Eyes: Denies change in vision ENT: Denies hearing loss, Denies neck pain and Denies sore throat Cardiovascular: Cardiovascular: Denies chest pain and Denies dyspnea Respiratory: Respiratory: Denies cough, Denies dyspnea and Denies wheezing Genitourinary: Genitourinary: Denies hematuria and Denies dysuria Musculoskeletal: Musculoskeletal: Denies arthralgias, Denies joint swelling and Denies neck pain Allergic/Immunologic: Allergic/Immunologic: Denies wheezing [facility] Past Medical History Medical History (Updated 09/08/21 @ 13:12 by Prabhakar Santoyo MD) Bacteremia due to Pseudomonas (02/2021) Right lower extremity cellulitis source. Benign prostatic hyperplasia Chronic anticoagulation Chronic low back pain Coronary artery disease COVID-19 (06/2020) Cryptogenic cirrhosis Dyslipidemia Hypertension Ischemic cardiomyopathy Ejection fraction was 41% in October 2018. Status post ICD insertion. Obstructive sleep apnea treated with BiPAP Paroxysmal atrial fibrillation Paroxysmal atrial fibrillation and atrial flutter status post cardioversion x4. Rheumatoid arthritis Surgical History Surgical History Biventricular ICD (implantable cardioverter-defibrillator) in place [facility], implanted 07/[address] Marin History of bilateral cataract extraction History of blepharoplasty History of coronary artery bypass graft 2011, Dr. Constantino at [facility]. History of left knee replacement History of lumbar discectomy
--- NOTE | 2021-09-12 14:35 | P.DS_ITS ---
DS: Admitting Diagnosis Discharge Date 09/12/21 Admitting Diagnosis ICD discharges x3 DS: Discharge Diagnosis Discharge Diagnosis (1) Sepsis: Code(s): A41.9 - Sepsis, unspecified organism Status: Acute Assessment and Plan: Present on admission and supported by leukocytosis, tachypnea and lactic acidosis in the setting of cellulitis. WBC was 22K and CRP 19. * lactic acid level has improved with IV fluid rehydration. WBC normal now. CRP down to 5 * Blood cultures NGTD * Hx of Cellulitis with Pseudomonas bacteremia in Feb 2021 and discharged on Cipro * Hospitalized Aug 18 to August 22 for cellulitis treated with cefazolin and vancomycin discharged on Augmentin * On Vancomycin (09/06 at 1014) and imipenem (started on Zosyn 09/06 0926) - Day 7 of abx * Changed Vanco to Doxycycline and Amox. * CT scan of the LLE does show thigh fluid pockets but felt related to the recent hamstring tear and NOT abscess. * General surgery consulted and agreed with this assessment * He worked with PT/OT. * Continue Primaxin for 7 days. Plan to private branch exchange service adviser to Cipro for another 7 days. 14 day treatment warrented given his frequent recurrence and immunosuppressive status * Discussed with Cardiology and they were okay with holding the Amiodarone for 7 days. * Patient understanding that he will be at higher risk for ICD firing but is okay with this possibility (2) Ventricular dysrhythmia: Code(s): I49.9 - Cardiac arrhythmia, unspecified Status: Acute Assessment and Plan: Patient's defibrillator fired 3 times appropriately with ventricular dysrhythmias noted on interrogation. * Cardiology consulted and appreciate their recommendations * Continue amiodarone and continue to replace potassium and magnesium as needed * Should he have recurrent discharges, transfer to [facility] for consultation with his EP may be prudent. (3) Implantable cardioverter-defibrillator discharge: Code(s): Z45.02 - Encounter for adjustment and management of automatic implantable cardiac defibrillator Status: Acute Assessment and Plan: ICD fired x3 prior to admission. * Device has been interrogated * Potassium and mag replaced to keep at appropriate levels * patient is DNR but would like to keep his ICD as is (4) Cellulitis of left leg: Code(s): L03.116 - Cellulitis of left lower limb Status: Acute Assessment and Plan: Given his recurrent infection and immunocompromised state, he was started on imipenem and vancomycin * He has a history of Pseudomonas bacteremia related to right leg cellulitis in February 2021. * Rinvoq and methotrexate have been placed on hold by his case management assistant * Given the risk of cellulitis with Rinvoq, may need to be discontinued; Instructed patient to speak with his Chiropractor Assistant * BCx Negative here * Patient also has liver disease so edema could be related to this as well; Treated with Lasix IV almost daily * Clinically improving. * Patient has been encouraged to elevate the extremity. * Abx as above (5) Elevated troponin: Code(s): R77.8 - Other specified abnormalities of plasma proteins Status: Acute Assessment and Plan: Troponin to 0.27 * He was not having chest pain * [place] related to the ICD discharge and not to ACS. * Continue to monitor. Appreciate Cardiology input. (6) Electrolyte imbalance: Code(s): E87.8 - Other disorders of electrolyte and fluid balance, not elsewhere classified Status: Acute
--- NOTE | 2021-09-12 14:35 | PM.DS ---
DS: Admitting Diagnosis Discharge Date 09/12/21 Admitting Diagnosis ICD discharges x3 DS: Discharge Diagnosis Discharge Diagnosis (1) Sepsis: Code(s): A41.9 - Sepsis, unspecified organism Status: Acute Assessment and Plan: Present on admission and supported by leukocytosis, tachypnea and lactic acidosis in the setting of cellulitis. WBC was 22K and CRP 19. lactic acid level has improved with IV fluid rehydration. WBC normal now. CRP down to 5 Blood cultures NGTD Hx of Cellulitis with Pseudomonas bacteremia in Feb 2021 and discharged on Cipro Hospitalized Aug 18 to August 22 for cellulitis treated with cefazolin and vancomycin discharged on Augmentin On Vancomycin (09/06 at 1014) and imipenem (started on Zosyn 09/06 0926) - Day 7 of abx Changed Vanco to Doxycycline and Amox. CT scan of the LLE does show thigh fluid pockets but felt related to the recent hamstring tear and NOT abscess. General surgery consulted and agreed with this assessment He worked with PT/OT. Continue Primaxin for 7 days. Plan to jacket changer to Cipro for another 7 days. 14 day treatment warrented given his frequent recurrence and immunosuppressive status Discussed with Cardiology and they were okay with holding the Amiodarone for 7 days. Patient understanding that he will be at higher risk for ICD firing but is okay with this possibility (2) Ventricular dysrhythmia: Code(s): I49.9 - Cardiac arrhythmia, unspecified Status: Acute Assessment and Plan: Patient's defibrillator fired 3 times appropriately with ventricular dysrhythmias noted on interrogation. Cardiology consulted and appreciate their recommendations Continue amiodarone and continue to replace potassium and magnesium as needed Should he have recurrent discharges, transfer to [facility] for consultation with his EP may be prudent. (3) Implantable cardioverter-defibrillator discharge: Code(s): Z45.02 - Encounter for adjustment and management of automatic implantable cardiac defibrillator Status: Acute Assessment and Plan: ICD fired x3 prior to admission. Device has been interrogated Potassium and mag replaced to keep at appropriate levels patient is DNR but would like to keep his ICD as is (4) Cellulitis of left leg: Code(s): L03.116 - Cellulitis of left lower limb Status: Acute Assessment and Plan: Given his recurrent infection and immunocompromised state, he was started on imipenem and vancomycin He has a history of Pseudomonas bacteremia related to right leg cellulitis in February 2021. Rinvoq and methotrexate have been placed on hold by his client account assistant Given the risk of cellulitis with Rinvoq, may need to be discontinued; Instructed patient to speak with his Cobbler Apprentice BCx Negative here Patient also has liver disease so edema could be related to this as well; Treated with Lasix IV almost daily Clinically improving. Patient has been encouraged to elevate the extremity. Abx as above (5) Elevated troponin: Code(s): R77.8 - Other specified abnormalities of plasma proteins Status: Acute Assessment and Plan: Troponin to 0.27 He was not having chest pain [place] related to the ICD discharge and not to ACS. Continue to monitor. Appreciate Cardiology input. (6) Electrolyte imbalance: Code(s): E87.8 - Other disorders of electrolyte and fluid balance, not elsewhere classified Status: Acute Assessment and Plan: Magnesium and potassium have been replaced to keep at appropriate levels. We continued home potassium 20 mEq daily (7) CAD (coronary artery disease): Code(s): I25.10 - Atherosclerotic heart disease of [place] coronary artery without angina pectoris Status: Acute Assessment and Plan: Stable. We continued statin, aspirin. (8) Paroxysmal atrial fibrillation: Code(s): I48.0 - Paroxysmal
== END 2021-09-12 16:50 | disposition home or self-care (01) | DRG 871 ==
LOC: ANHED 10:25 → ANHIMU 11:32 → ANH3MED 09-09 06:58 → ANHIMU 09-15 10:42
PROVIDERS: Internal Medicine Cardiovascular Disease; Physician Assistant; Student in an Organized Health Care Education/Training Program; Admitting Provider Family Medicine; Emergency Provider Emergency Medicine; PCP Internal Medicine; Visit Provider Internal Medicine
DX: A41.9 Sepsis, unspecified organism (principal); J18.9 Pneumonia, unspecified organism; L03.116 Cellulitis of left lower limb; I47.2 Ventricular tachycardia; R65.20 Severe sepsis without septic shock; Z66 Do not resuscitate; I49.9 Cardiac arrhythmia, unspecified; I48.0 Paroxysmal atrial fibrillation; I25.10 Atherosclerotic heart disease of native coronary artery without angina pectoris; M06.9 Rheumatoid arthritis, unspecified; D50.9 Iron deficiency anemia, unspecified; D69.59 Other secondary thrombocytopenia; N40.0 Benign prostatic hyperplasia without lower urinary tract symptoms; I10 Essential (primary) hypertension; E78.5 Hyperlipidemia, unspecified; R79.89 Other specified abnormal findings of blood chemistry; K74.60 Unspecified cirrhosis of liver; I25.5 Ischemic cardiomyopathy; G62.9 Polyneuropathy, unspecified; G47.33 Obstructive sleep apnea (adult) (pediatric); E87.8 Other disorders of electrolyte and fluid balance, not elsewhere classified; Z96.652 Presence of left artificial knee joint; Z79.01 Long term (current) use of anticoagulants; Z79.82 Long term (current) use of aspirin; Z79.52 Long term (current) use of systemic steroids; Z95.810 Presence of automatic (implantable) cardiac defibrillator; Z86.16 Personal history of COVID-19; Z98.42 Cataract extraction status, left eye; Z98.41 Cataract extraction status, right eye; Z95.1 Presence of aortocoronary bypass graft; Z87.891 Personal history of nicotine dependence; Z45.02 Encounter for adjustment and management of automatic implantable cardiac defibrillator
CPT/HCPCS: 36415; 71045; 73590; 73700; 80048; 80053; 80069; 80202; 81001; 82274; 82607; 82728; 82746; 83540; 83550; 83605; 83690; 83735; 84484; 85025; 85027; 85610; 85730; 86140; 87040; 87086; 87804; 93005; 93971; 96365; 96375; 97161; 97165; 99285; A9270; J0743; J1756; J1940; J2543; J3370; J3475; J7030; J7512

== ENCOUNTER 2021-10-02 08:16 | Outpatient (CLI) | payer MEDICARE, SELFPAY ==
[2021-10-02 08:39] LABS: Basophils Absolute Auto 0.1 K/mm3 (0.0-0.1); Basophils Percent Auto 0.7 % (0.2-1.2); Eosinophils Absolute Auto 0.2 K/mm3 (0-0.3); Eosinophils Percent Auto 2.5 % (0-4.4); Hematocrit 36.5 % (42.0-52.0); Hemoglobin 11.1 g/dL (14.0-18.0); Immature Granulocyte Absolute 0.04 K/mm3 (0.00-0.031); Immature Granulocyte Percent A 0.5 % (0-0.5); Lymphocytes Absolute Auto 1.56 K/mm3 (0.9-3.2); Lymphocytes Percent Auto 20.7 % (18.3-44.2); Mean Corpuscular HGB Conc 30.4 g/dl (32-36); Mean Corpuscular Hemoglobin 29.8 pg (26-34); Mean Corpuscular Volume 97.9 fl (80-100); Mean Platelet Volume 11.1 fl (7.4-10.4); Monocytes Absolute Auto 0.8 K/mm3 (0.1-0.6); Monocytes Percent Auto 9.9 % (2.6-8.5); Neutrophils Percent Auto 65.7 % (45.5-73.1); Platelet Count Result 183 k/mm3 (150-375); Red Blood Count 3.73 M/mm3 (4.6-6.20); Red Cell Distribution Width 15.9 % (11.5-14.5); White Blood Count 7.6 K/mm3 (4.5-10.0)
[2021-10-02 08:52] LABS: Anion Gap 8 mmol/L (8-16); Blood Urea Nitrogen 19 mg/dL (9-20); Calcium 8.9 mg/dL (8.4-10.2); Carbon Dioxide 26 mmol/L (22-30); Chloride 106 mmol/L (98-107); Estimated Glomerular Filt Rate > 60; Glucose 101 mg/dL (65-110); Magnesium 2.2 mg/dL (1.6-2.3); Potassium 4.1 mmol/L (3.4-5.0); Sodium 140 mmol/L (137-145)
== END 2021-10-02 08:17 | disposition home or self-care (01) ==
LOC: ANHLAB 08:19
PROVIDERS: PCP Internal Medicine; Visit Provider Internal Medicine
DX: E87.8 Other disorders of electrolyte and fluid balance, not elsewhere classified (principal); I10 Essential (primary) hypertension; M06.9 Rheumatoid arthritis, unspecified
CPT/HCPCS: 36415; 80048; 83735; 85025

== ENCOUNTER → 2021-10-27 12:46 | Outpatient (CLI) | payer MEDICARE, SELFPAY ==
--- NOTE | ~2021-10-27 | CT_ITS ---
EXAMINATION: CT lumbar spine wo con DATE: 10/27/2021 13:03 INDICATION: Low back pain TECHNIQUE: Computed tomography (CT) of the lumbar spine was performed without intravenous contrast. Simran he dose-length product (DLP) was 867.91 mGy-cm. Iterative reconstruction was used. COMPARISON: 01/06/2021 FINDINGS: There are 15 degrees of lumbar dextroscoliosis. There are 4 mm of stable anterolisthesis of L4 on L5. There are 2 mm of stable retrolisthesis of L3 on L4. There is moderate to severe loss of i ntervertebral disc space height at all levels of the lumbar spine without significant change. The kenzie tebral body heights are maintained. There is no fracture. There is moderate to severe facet osteoarth ritis of the lower lumbar spine. IMPRESSION: 1. Severe lumbar spondylosis without acute findings or significant interval change. Reviewed, dictated and finalized at location A. IMPRESSION: 1. Severe lumbar spondylosis without acute findings or significant interval marcos nge.
== END ==
PROVIDERS: PCP Internal Medicine; Visit Provider Internal Medicine Rheumatology
DX: M47.896 Other spondylosis, lumbar region (principal)
CPT/HCPCS: 72131

== ENCOUNTER 2022-04-14 00:43 | Day surgery (SDC) | payer MEDICARE, SELFPAY ==
[2022-04-10 13:57] VITALS: BMI 39.5
[2022-04-14 10:10] VITALS: BP 83/60; PULSE 61; RESP 20; TEMP 36.4; O2SAT 96; BMI 38.9
[2022-04-14] MEDS: LACTATED RINGERS 1,000 ML 150 ML IV CONT (10:35)
--- NOTE | 2022-04-14 10:36 | WPDANESEPPF ---
Anes - Initial Pre Proc Eval Procedure: Operation Date: 04/14/22 11:30 Proposed Procedures p Colonoscopy - Sotero Farmer MD Date/Time: 04/14/22 10:36 Surgeon: Sotero Farmer MD Pre Op Diagnosis: rectal bleed Patient Data Age: 76 Gender: M Height: 1.73 m Weight: 116 kg Last Vital Signs Temp 36.4 C 04/14/22 10:10 Pulse 61 04/14/22 10:10 Resp 20 04/14/22 10:10 BP 83/60 L 04/14/22 10:10 Pulse Ox 96 04/14/22 10:10 O2 Del Method Room Air 04/14/22 10:10 Allergies Allergy/AdvReac Type Severity Reaction Status Date / Time No Known Allergies Allergy Verified 04/14/22 10:13 Home Medications Medication Instructions Recorded Confirmed Type B-complex with vitamin C (Super B 1 tablet PO DAILY 06/12/19 04/14/22 History Complex-Vitamin C tablet) aspirin 81 mg tablet,delayed 81 mg PO DAILY 06/12/19 04/14/22 History release (Adult Low Dose Aspirin) multivitamin 1 tablet PO DAILY 06/12/19 04/14/22 History simvastatin 20 mg tablet 10 mg PO DAILY 06/27/19 04/14/22 History alendronate 70 mg tablet 70 mg PO WEEKLY 11/16/19 04/14/22 History amiodarone 200 mg tablet 200 mg PO DAILY 03/08/20 04/14/22 History gabapentin 300 mg capsule 300 mg PO BID 11/19/20 04/14/22 History rivaroxaban 20 mg tablet (Xarelto) 20 mg PO QPM 02/23/21 04/14/22 History metoprolol tartrate 25 mg tablet 12.5 mg PO BID #1 tablet 09/18/21 04/14/22 Rx prednisone 5 mg tablet 7.5 mg PO DAILY 09/18/21 04/14/22 History potassium chloride 20 mEq 20 meq PO DAILY #90 tabs 02/09/22 04/14/22 Rx tablet,extended release furosemide 40 mg tablet 40 mg PO DAILY #90 tabs 03/02/22 04/14/22 Rx calcium 1,000 mg PO BID 04/10/22 04/14/22 History duloxetine 30 mg capsule,delayed 60 mg PO HS 04/10/22 04/14/22 History release Patient hx anesthesia problems: none Family hx anesthesia problems: none Results Review: All pre-operative results and documents have been reviewed as part of the pre-operative evaluation. [facility] Past Medical History Medical History Bacteremia due to Pseudomonas (02/2021) Right lower extremity cellulitis source. Benign prostatic hyperplasia Chronic anticoagulation Chronic low back pain Coronary artery disease COVID-19 (06/2020) Cryptogenic cirrhosis Dyslipidemia Hypertension Ischemic cardiomyopathy Ejection fraction was 41% in October 2018. Status post ICD insertion. Obstructive sleep apnea treated with BiPAP Paroxysmal atrial fibrillation Paroxysmal atrial fibrillation and atrial flutter status post cardioversion x4. Rheumatoid arthritis Surgical History Surgical History Biventricular ICD (implantable cardioverter-defibrillator) in place [facility], implanted 07/[address] Marin History of bilateral cataract extraction History of blepharoplasty History of coronary artery bypass graft 2011, [facility] Constantino at [facility]. History of left knee replacement History of lumbar discectomy History of nasal septoplasty History of repair of right rotator cuff History of right knee joint replacement Family History Family History Mother Family history of malignant neoplasm of bone Family history of malignant neoplasm of breast, Onset Age: 84 Father Alcoholism Arthritis Sibling Cancer Other Family history of malignant neoplasm Social History Social History Social History: Surrogate decision maker: Nereyda Chaves, . Code status: Full code. Smoking packs per day: 1 Smoking cigarettes per day: 20.0 Years smoked: 40 Smoking pack-years: 40.00 Smoking status: Former smoker Tobacco type: cigarettes Second hand tobacco smoke exposure: No Smoking end date: 06/21/98 Alcohol intake: never Substance use: never Substance use type: does not use Living arra
--- NOTE | 2022-04-14 11:02 | PM.HPGS ---
History of Present Illness History of Present Illness Consent: Risks, benefits, and alternatives have been discussed and questions answered. Patient agrees to proceed with procedure. Chief complaint: rectal bleed Narrative: Hema Chaves Sr. is a 76 year old male Presents for colonoscopy. Patient reports he had dark to red blood on the outside of his stools that lasted for about 2 weeks. He has had no bleeding for the last 3 days. He denies associated abdominal pain. This apparently worsened with hard stools id has never had a previous colonoscopy. Patient is referred for further evaluation of bleeding. Patient does take Xarelto because of atrial fibrillation. He has a history of atherosclerotic heart disease. family history is noncontributory. [facility] Past Medical History Medical History Bacteremia due to Pseudomonas (02/2021) Right lower extremity cellulitis source. Benign prostatic hyperplasia Chronic anticoagulation Chronic low back pain Coronary artery disease COVID-19 (06/2020) Cryptogenic cirrhosis Dyslipidemia Hypertension Ischemic cardiomyopathy Ejection fraction was 41% in October 2018. Status post ICD insertion. Obstructive sleep apnea treated with BiPAP Paroxysmal atrial fibrillation Paroxysmal atrial fibrillation and atrial flutter status post cardioversion x4. Rheumatoid arthritis Surgical History Surgical History Biventricular ICD (implantable cardioverter-defibrillator) in place [facility], implanted 07/[address] Marin History of bilateral cataract extraction History of blepharoplasty History of coronary artery bypass graft 2011, Dr. Constantino at [facility]. History of left knee replacement History of lumbar discectomy History of nasal septoplasty History of repair of right rotator cuff History of right knee joint replacement Family History Family History Mother Family history of malignant neoplasm of bone Family history of malignant neoplasm of breast, Onset Age: 84 Father Alcoholism Arthritis Sibling Cancer Other Family history of malignant neoplasm Social History Social History Social History: Surrogate decision maker: Nereyda Chaves, . Code status: Full code. Smoking packs per day: 1 Smoking cigarettes per day: 20.0 Years smoked: 40 Smoking pack-years: 40.00 Smoking status: Former smoker Tobacco type: cigarettes Second hand tobacco smoke exposure: No Smoking end date: 06/21/98 Alcohol intake: never Substance use: never Substance use type: does not use Living arrangements: with family Additional living arrangements comments: The patient lives with his in [place]. 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 Spiritual care concerns: No Meds Home Medications and Allergies Home Medications Medication Instructions Recorded Confirmed Type B-complex with vitamin C (Super B 1 tablet PO DAILY 06/12/19 04/14/22 History Complex-Vitamin C tablet) aspirin 81 mg tablet,delayed 81 mg PO DAILY 06/12/19 04/14/22 History release (Adult Low Dose Aspirin) multivitamin 1 tablet PO DAILY 06/12/19 04/14/22 History simvastatin 20 mg tablet 10 mg PO DAILY 06/27/19 04/14/22 History alendronate 70 mg tablet 70 mg PO WEEKLY 11/16/19 04/14/22 History amiodarone 200 mg tablet 200 mg PO DAILY 03/08/20 04/14/22 History gabapentin 300 mg capsule 300 mg PO BID 11/19/20 04/14/22 History rivaroxaban 20 mg tablet (Xarelto) 20 mg PO QPM 02/23/21 04/14/22 History metoprolol tartrate 25 mg tablet 12.5 mg PO BID #1 tablet 09/18/21 04/14/22 Rx prednisone 5 mg tablet 7.5 mg PO DAILY 09/18/21 04/14/22 History potassium chloride 20 mEq 20 meq PO DAILY #90 tabs 02/09/22 04/14/22 Rx tablet,extended release furos
[2022-04-14 11:34] VITALS: BP 91/57; PULSE 60; RESP 17; O2SAT 96
[2022-04-14 11:44] VITALS: BP 94/61; PULSE 60; RESP 12; O2SAT 96
[2022-04-14 11:54] VITALS: BP 96/61; PULSE 60; RESP 16; O2SAT 96
== END 2022-04-14 12:00 | disposition home or self-care (01) ==
PROVIDERS: PCP Internal Medicine; Visit Provider Internal Medicine Gastroenterology
PROC: 0DJD8ZZ Inspection of Lower Intestinal Tract, Via Natural or Artificial Opening Endoscopic (ICD-10-PCS; CPT 45378; principal; 2022-04-14 11:30)
DX: K62.5 Hemorrhage of anus and rectum (principal); K64.8 Other hemorrhoids; K57.30 Diverticulosis of large intestine without perforation or abscess without bleeding; K63.5 Polyp of colon; I25.10 Atherosclerotic heart disease of native coronary artery without angina pectoris; I10 Essential (primary) hypertension; E78.5 Hyperlipidemia, unspecified; N40.0 Benign prostatic hyperplasia without lower urinary tract symptoms; I25.5 Ischemic cardiomyopathy; G47.33 Obstructive sleep apnea (adult) (pediatric); I48.0 Paroxysmal atrial fibrillation; M06.9 Rheumatoid arthritis, unspecified; K74.69 Other cirrhosis of liver; Z95.810 Presence of automatic (implantable) cardiac defibrillator; Z95.1 Presence of aortocoronary bypass graft; Z87.891 Personal history of nicotine dependence; E66.9 Obesity, unspecified; Z68.38 Body mass index [BMI] 38.0-38.9, adult; Z79.01 Long term (current) use of anticoagulants; Z79.82 Long term (current) use of aspirin
CPT/HCPCS: 45385; 88305; J2001; J2704; J7120

== ENCOUNTER 2022-04-20 08:30 | Outpatient (CLI) | payer MEDICARE, SELFPAY ==
--- NOTE | ~2022-04-20 | US_ITS ---
EXAMINATION: US abdomen limited DATE: 04/20/2022 09:33 INDICATION: Liver cirrhosis secondary to nonalcoholic steatohepatitis. TECHNIQUE: Multiple grayscale and Doppler ultrasound images of the abdomen were obtained. COMPARISON: Chest CT 02/26/2021 FINDINGS: The visualized portions of the head and body of the pancreas are normal. The liver demonstr ates coarsened echotexture and surface nodularity, consistent with cirrhosis. There is antegrade flow in main portal vein. The gallbladder is normal in size. No gallstones or gallbladder wall thickening . There was no sonographic Harper sign. The common duct is normal and measures 3 mm. IMPRESSION: 1. Cirrhosis of the liver. Reviewed, dictated and finalized at location A. IMPRESSION: 1. Cirrhosis of the liver.
== END 2022-04-20 08:31 | disposition home or self-care (01) ==
PROVIDERS: PCP Internal Medicine; Visit Provider Internal Medicine Gastroenterology
DX: K74.60 Unspecified cirrhosis of liver (principal)
CPT/HCPCS: 76705

== ENCOUNTER 2022-04-25 11:52 | Outpatient (CLI) | payer MEDICARE, SELFPAY ==
[2022-04-25 12:03] LABS: Basophils Absolute Auto 0.1 K/mm3 (0.0-0.1); Basophils Percent Auto 0.7 % (0.2-1.2); Eosinophils Percent Auto 0.5 % (0-4.4); Hemoglobin 8.1 g/dL (14.0-18.0); Immature Granulocyte Absolute 0.06 K/mm3 (0.00-0.031); Immature Granulocyte Percent A 0.7 % (0-0.5); Lymphocytes Absolute Auto 0.84 K/mm3 (0.9-3.2); Lymphocytes Percent Auto 9.5 % (18.3-44.2); Mean Corpuscular HGB Conc 28.9 g/dl (32-36); Mean Corpuscular Hemoglobin 26.6 pg (26-34); Mean Corpuscular Volume 91.8 fl (80-100); Mean Platelet Volume 11.7 fl (7.4-10.4); Monocytes Absolute Auto 0.6 K/mm3 (0.1-0.6); Monocytes Percent Auto 6.8 % (2.6-8.5); Neutrophils Absolute Auto 7.3 K/mm3 (1.3-6.7); Neutrophils Percent Auto 81.8 % (45.5-73.1); Platelet Count Result 229 k/mm3 (150-375); Red Blood Count 3.05 M/mm3 (4.6-6.20); Red Cell Distribution Width 15.8 % (11.5-14.5); White Blood Count 8.9 K/mm3 (4.5-10.0)
[2022-04-25 13:38] LABS: Iron 43 ug/dL (49-181)
[2022-04-25 13:49] LABS: Percent Iron Saturation 10 % (20-50)
[2022-04-25 14:09] LABS: Platelet Estimate Adequate (Adequate)
[2022-04-25 14:10] LABS: Anisocytosis 2+ (NORMAL); Hypochromasia 2+ (NORMAL); Poikilocytosis 1+ (NORMAL)
[2022-04-25 14:14] LABS: Schistocytes None Seen (NORMAL)
[2022-04-29 12:11] LABS: Red Blood Cell Folate >1000 ng/mL RBC (>280)
== END 2022-04-25 11:53 | disposition home or self-care (01) ==
PROVIDERS: PCP Internal Medicine; Visit Provider Internal Medicine
DX: K62.5 Hemorrhage of anus and rectum (principal); D64.9 Anemia, unspecified
CPT/HCPCS: 36415; 82607; 82728; 82747; 83540; 83550; 85025

== ENCOUNTER 2022-05-11 12:42 | Outpatient (CLI) | payer MEDICARE, SELFPAY ==
[2022-05-11 13:25] LABS: Basophils Percent Auto 0.4 % (0.2-1.2); Eosinophils Percent Auto 0.5 % (0-4.4); Hematocrit 24.2 % (42.0-52.0); Immature Granulocyte Absolute 0.05 K/mm3 (0.00-0.031); Immature Granulocyte Percent A 0.6 % (0-0.5); Lymphocytes Absolute Auto 0.95 K/mm3 (0.9-3.2); Lymphocytes Percent Auto 11.9 % (18.3-44.2); Mean Corpuscular HGB Conc 28.9 g/dl (32-36); Mean Corpuscular Hemoglobin 25.6 pg (26-34); Mean Corpuscular Volume 88.6 fl (80-100); Monocytes Absolute Auto 0.7 K/mm3 (0.1-0.6); Monocytes Percent Auto 8.8 % (2.6-8.5); Neutrophils Absolute Auto 6.2 K/mm3 (1.3-6.7); Neutrophils Percent Auto 77.8 % (45.5-73.1); Platelet Count Result 206 k/mm3 (150-375); Red Blood Count 2.73 M/mm3 (4.6-6.20); Red Cell Distribution Width 18.6 % (11.5-14.5)
[2022-05-11 14:09] LABS: Anisocytosis 1+ (NORMAL); Hypochromasia 1+ (NORMAL); Platelet Estimate Adequate (Adequate)
[2022-05-11 14:17] LABS: Schistocytes None Seen (NORMAL)
== END 2022-05-11 12:43 | disposition home or self-care (01) ==
LOC: ANHLAB 12:45
PROVIDERS: PCP Internal Medicine; Visit Provider Surgery
DX: K62.5 Hemorrhage of anus and rectum (principal); D64.9 Anemia, unspecified
CPT/HCPCS: 36415; 85025

== ENCOUNTER 2022-05-18 08:34 | Outpatient (CLI) | payer MEDICARE, SELFPAY ==
[2022-05-18 09:13] LABS: Hematocrit 22.5 % (42.0-52.0)
[2022-05-18 09:18] LABS: Hemoglobin 6.5 g/dL (14.0-18.0)
[2022-05-18 09:25] LABS: Anion Gap 13 mmol/L (8-16); Blood Urea Nitrogen 28 mg/dL (9-20); Calcium 8.8 mg/dL (8.4-10.2); Carbon Dioxide 23 mmol/L (22-30); Chloride 102 mmol/L (98-107); Estimated Glomerular Filt Rate > 60; Glucose 141 mg/dL (65-110); Potassium 3.7 mmol/L (3.4-5.0); Sodium 138 mmol/L (137-145)
[2022-05-18 09:27] LABS: INR 1.2; Prothrombin Time 14.8 Seconds (11.1-14.7)
[2022-05-18 09:29] LABS: Partial Thromboplastin Time 33.1 SECONDS (22.3-36.8)
== END 2022-05-18 08:35 | disposition home or self-care (01) ==
LOC: ANHSURGERY 08:37
PROVIDERS: Anesthesiology; PCP Internal Medicine; Visit Provider Surgery
DX: K76.0 Fatty (change of) liver, not elsewhere classified (principal); Z79.899 Other long term (current) drug therapy; D64.9 Anemia, unspecified; K64.8 Other hemorrhoids; Z01.818 Encounter for other preprocedural examination
CPT/HCPCS: 36415; 80048; 85014; 85018; 85610; 85730; 86850; 86900; 86901

== ENCOUNTER 2022-05-20 11:30 | Inpatient (IN) | payer MEDICARE, SELFPAY ==
[2022-05-13 10:49] VITALS: BMI 38.9
--- NOTE | 2022-05-13 11:03 | PC.NURSE ---
PRE-OP INSTRUCTIONS, PLEASE READ CAREFULLY Report to the Outpatient Waiting Room, entrance under the green pavilion located off [facility], at time _1 PM_ on date _05/21/22_. Planned Procedure Time: _3 PM_. Time changes happen often and if your time is changed the preop area will call you the afternoon before. - You and your visitor will be asked to self-screen and do not enter if you have any COVID symptoms. - Only one visitor is requested with a max of two and NO children visitors are allowed at this time. - The patient visitor may be requested to leave or wait in car when not with patient due to distancing restrictions. - A mask is optional within the hospital. Patients may have clear liquids (water, carbonated beverages, clear teas, apple juice) until 3 hours prior to surgery (1200 PM) with a maximum of 20 ounces. - No food from midnight until time of surgery Take the following medications with a SIP of water the morning of surgery: _GABAPENTIN, METOPROLOL, PREDNISONE_ Medications to discontinue per ANESTHESIA - _MULTIVITAMIN, B-COMPLEX 3 DAYS PRIOR TO SURGERY, Date to take last dose 05/17/22_ Please no make-up, nail nigerian, hairspray, perfume, deodorant, or body powder the day of surgery. No jewelry (including any body piercings) or valuables the day of surgery, leave them at home. Please take a shower or bath the night before, or the morning of, surgery with an antibacterial soap. Wear comfortable, loose fitting clothing. - Jewelry must be removed prior to entering the operating room. Rings and piercings that are not removed may be cut off. - The hospital will not accept responsibility for valuables. - Please leave all valuables, including medications, at home the day of surgery. If you are going home after surgery, a licensed [facility] driver must drive you home. - NO public transportation without another adult if you receive anesthesia. - We recommend that an adult stay with you for 24 hours following discharge. - We also recommend that you do not drive, make important decision, drink alcoholic beverages, or take any drugs that were not prescribed by your health care provider for at least 24 hours after your discharge time. Follow any additional instructions given to you from your surgeon. DIET AND BOWL PREP If you or anyone in your household have experienced Covid symptoms in the past week, please notify your surgeon or the nurse liaison at the phone number below for possible testing. Telephone instructions given to ___PT and asked if any additional questions and then verbalized understanding. Patient advised to call surgeon office or pre surgery nurse liaison [phone] if any additional questions.
[2022-05-20] VITALS (14 sets, daily range): BP systolic 94–121; BP diastolic 42–69; PULSE 20–60; RESP 16–20; TEMP 35.8–37.1; O2SAT 98–100; BMI 41.1
[2022-05-20] MEDS: SODIUM CHLORIDE 0.9% IV 250 ML 30 ML IV CONT ×2 (11:43→20:34)
[2022-05-20 11:52] LABS: Hematocrit 21.8 % (42.0-52.0)
[2022-05-20 11:59] LABS: Hemoglobin 6.2 g/dL (14.0-18.0)
[2022-05-20 12:05] LABS: Influenza A QL RT-PCR Negative (Negative); Influenza B QL RT-PCR Negative (Negative); SARS-CoV-2 RNA PCR Negative
--- NOTE | 2022-05-20 13:53 | PM.IMHP ---
H&P: HPI History of Present Illness Date/Time: 05/20/22 13:53 Chief Complaint: Anemia Narrative: This is a 76-year-old man who was seen by Dr. Fontana as an outpatient at the request of Dr. Pina for evaluation for rectal pain and bleeding. He had a colonoscopy on 04/14/[address] Farmer that showed multiple large-sized uncomplicated internal hemorrhoids with stigmata of bleeding. There was also a sigmoid colon polyp which pathology from biopsy taken at the time showed hyperplastic polyp. with a history of cirrhosis, CAD, atrial fibrillation, iron deficiency anemia, DESTINY, cardiomyopathy, and has a pacemaker with defibrillator. He was previously on Xarelto for atrial fibrillation, which has been held due to the rectal bleeding. CBC was ordered when seen in the office to check an H/H, which showed a hemoglobin 7.0. He had another H/H 2 days ago, which showed a hemoglobin of 6.5. He is now admitted for transfusion and treatment of the anemia pre-operatively. He is scheduled for a rubber band ligation of the internal hemorrhoids with Dr. Fontana tomorrow. The patient is now seen in the chest pain center as overflow. He had a COVID test, which is negative. His only complaints is feeling fatigued and weak. His blood pressure initially when admitted to the floor was low at 94/42. He was started on IV fluids and 1 unit of PRBCs have been ordered. His repeat blood pressure was 119/63 and he has the packed red blood cells running now. He denies shortness of breath, dizziness, or any other complaints at this time. He has not had a BM since yesterday and thus has not had any rectal bleeding since that last BM. Review of Systems Review of Systems: All systems reviewed & are unremarkable except as noted in HPI and below Constitutional: Constitutional: Reports no additional constitutional complaints, Denies chills, Reports fatigue, Denies fever(s), Denies headache(s) and Reports weakness Eyes: Eyes: Reports no additional eye complaints ENT: Reports system reviewed and no additional complaints, except as documented and Denies dizziness Cardiovascular: Cardiovascular: Reports no additional cardiovascular complaints, Denies chest pain and Denies leg edema Respiratory: Respiratory: Reports no additional respiratory complaints, Denies cough and Denies dyspnea Gastrointestinal: Gastrointestinal: Reports as per HPI, Reports no additional gastrointestinal complaints, Denies abdominal pain, Denies hematochezia (not today, hx of rectal bleeding with hemorrhoids), Denies nausea and Denies vomiting Genitourinary: Genitourinary: Reports no additional male genitourinary complaints and Denies dysuria Musculoskeletal: Musculoskeletal: Reports no additional musculoskeletal complaints and Denies joint swelling Integumentary/Breasts: Skin/Breast: Reports system reviewed and no additional complaints, except as docu Neurologic: Reports system reviewed and no additional complaints, except as documented, Denies dizziness, Denies headache(s), Denies focal weakness, Denies numbness and Denies tingling PMFSH Past Medical History Medical History Bacteremia due to Pseudomonas (02/2021) Right lower extremity cellulitis source. Benign prostatic hyperplasia Chronic anticoagulation Chronic low back pain Coronary artery disease COVID-19 (06/2020) Cryptogenic cirrhosis Dyslipidemia Hypertension Ischemic cardiomyopathy Ejection fraction was 41% in October 2018. Status post ICD insertion. Obstructive sleep apnea treated with BiPAP Paroxysmal atrial fibrillation Paroxysmal atrial fibrillation and atrial flutter status post cardioversion x4. Rheumatoid arthritis Surgical History Surgical History Biventricular ICD (implantable cardioverter-defibrillator) in place [facility], implanted 07/[address] Marin History of bilateral cataract extraction History of blepharoplasty History of
[2022-05-20] MEDS: TUBING, BLOOD PLUM PUMP TUBING 1 EACH XX (14:03)
--- NOTE | 2022-05-20 14:20 | PC.NURSE ---
Pt resting in bed, VSS, NAD noted, lungs CTA, blisters on lower left leg worsening, Sarita THERMODYNAMIC PHYSICIST notified, blood infusing without difficulty. Pt denies new symptoms, denies shortness of breath, no sign of transfusion reaction. Prepare for transport to hospital room 300.
--- NOTE | 2022-05-20 14:34 | WPDANESEPP ---
Anes - Eval Pre Procedure Procedure: Operation Date: 05/21/22 15:00 Proposed Procedures p Rubber Band Ligation Internal Hemorrhoids - Urbano Fontana MD Date/Time: 05/20/22 14:34 Pre Op Diagnosis: bleeding internal hemorrhoids Patient Data Age: 76 Gender: M Height: 1.73 m Weight: 122.5 kg Last Vital Signs Temp 36.3 C L 05/20/22 14:18 Pulse 60 05/20/22 14:18 Resp 16 05/20/22 14:18 BP 108/60 05/20/22 14:18 Pulse Ox 99 05/20/22 14:18 Allergies Allergy/AdvReac Type Severity Reaction Status Date / Time No Known Allergies Allergy Verified 05/13/22 10:39 Home Medications Medication Instructions Recorded Confirmed Type B-complex with vitamin C (Super B 1 tablet PO DAILY 06/12/19 05/20/22 History Complex-Vitamin C tablet) aspirin 81 mg tablet,delayed 81 mg PO DAILY 06/12/19 05/20/22 History release (Adult Low Dose Aspirin) multivitamin 1 tablet PO DAILY 06/12/19 05/20/22 History simvastatin 20 mg tablet 10 mg PO DAILY 06/27/19 05/20/22 History alendronate 70 mg tablet 70 mg PO WEEKLY 11/16/19 05/20/22 History amiodarone 200 mg tablet 200 mg PO DAILY 03/08/20 05/20/22 History gabapentin 300 mg capsule 300 mg PO BID 11/19/20 05/20/22 History metoprolol tartrate 25 mg tablet 12.5 mg PO BID #1 tablet 09/18/21 05/20/22 Rx prednisone 5 mg tablet 7.5 mg PO DAILY 09/18/21 05/20/22 History potassium chloride 20 mEq 20 meq PO DAILY #90 tabs 02/09/22 05/20/22 Rx tablet,extended release calcium 1,000 mg PO BID 04/10/22 05/20/22 History ferrous sulfate 325 mg (65 mg 325 mg PO DAILY #30 tabs 04/26/22 05/20/22 Rx iron) tablet furosemide 40 mg tablet 60 mg PO DAILY 05/20/22 05/20/22 History Laboratory Tests 05/20/22 05/20/22 05/20/22 11:20 11:38 11:39 Hgb 6.2 g/dL L* g/dL (14.0-18.0) Hct 21.8 % L % (42.0-52.0) Influenza A (RT-PCR) Negative (Negative) Influenza B (RT-PCR) Negative (Negative) SARS-CoV-2 RNA (RT-PCR) Negative Blood Type B Positive Antibody Screen Negative Crossmatch See Detail Patient hx anesthesia problems: none Family hx anesthesia problems: none Results Review: All pre-operative results and documents have been reviewed as part of the pre-operative evaluation. [facility] Past Medical History Medical History Bacteremia due to Pseudomonas (02/2021) Right lower extremity cellulitis source. Benign prostatic hyperplasia Chronic anticoagulation Chronic low back pain Coronary artery disease COVID-19 (06/2020) Cryptogenic cirrhosis Dyslipidemia Hypertension Ischemic cardiomyopathy Ejection fraction was 41% in October 2018. Status post ICD insertion. Obstructive sleep apnea treated with BiPAP Paroxysmal atrial fibrillation Paroxysmal atrial fibrillation and atrial flutter status post cardioversion x4. Rheumatoid arthritis Surgical History Surgical History Biventricular ICD (implantable cardioverter-defibrillator) in place [facility], implanted 07/[address] Marin History of bilateral cataract extraction History of blepharoplasty History of coronary artery bypass graft 2011, Dr. Constantino at [facility]. History of left knee replacement History of lumbar discectomy History of nasal septoplasty History of repair of right rotator cuff History of right knee joint replacement Family History Family History Mother Family history of malignant neoplasm of bone Family history of malignant neoplasm of breast, Onset Age: 84 Father Alcoholism Arthritis Sibling Cancer Other Family history of malignant neoplasm Social History Social History Social History: Surrogate decision maker: Nereyda Chaves, . Code status: Full code.
--- NOTE | 2022-05-20 14:45 | PC.NURSE ---
Report given to Trice ALVAREZ
--- NOTE | 2022-05-20 15:28 | ADMGEN ---
This patient, Hema Chaves , was admitted to 3 [facility] Surg Room 300-01. Patient/family oriented to hospital policies and general routines including ID bracelet, bed and alarms, visiting hours, pain management, procedures, bathroom and other care routines, personal items, smoking policy, room service/diet, and visiting hours. Information on how to activate the Rapid Response Team has been discussed. Patient/Family are encouraged to report perceived risks to care and to ask questions if they do not understand what they are told or what they should do.
[2022-05-20] MEDS: METOPROLOL TARTRATE 12.5 MG TABLET PO (17:20)
[2022-05-20] MEDS: GABAPENTIN 300 MG CAPSULE PO (17:20)
[2022-05-20] MEDS: AMIODARONE HCL 200 MG TABLET PO (17:20)
[2022-05-20 19:05] LABS: Hematocrit 24.5 % (42.0-52.0)
[2022-05-20 19:09] LABS: Anion Gap 10 mmol/L (8-16); Blood Urea Nitrogen 23 mg/dL (9-20); Calcium 7.9 mg/dL (8.4-10.2); Carbon Dioxide 24 mmol/L (22-30); Chloride 103 mmol/L (98-107); Estimated CRCL calculation 80 ml/min; Estimated Glomerular Filt Rate > 60; Glucose 114 mg/dL (65-110); Potassium 3.4 mmol/L (3.4-5.0); Sodium 137 mmol/L (137-145)
[2022-05-20 19:10] LABS: Hemoglobin 7.1 g/dL (14.0-18.0)
--- NOTE | 2022-05-20 19:48 | PC.NURSE ---
[facility] (used to be [facility]) notified of information needed for pacemaker. I talked with the rep and she said the battery life on the pacemaker was 2.3 years. The pacer is 99% pacer dependent. ICD mode would need a magnet. Rep to fax information to us saleem.
[2022-05-20] MEDS: BISACODYL 5 MG TABLET EC 10 MG PO (20:05)
[2022-05-20] MEDS: FUROSEMIDE INJ 40 MG/4 ML VIAL IV PUSH (20:06)
[2022-05-21] VITALS (15 sets, daily range): BP systolic 105–130; BP diastolic 51–72; PULSE 56–62; RESP 10–18; TEMP 35.7–36.8; O2SAT 97–100
[2022-05-21 06:56] LABS: Hematocrit 26.3 % (42.0-52.0); Hemoglobin 7.7 g/dL (14.0-18.0); Mean Corpuscular HGB Conc 29.3 g/dl (32-36); Mean Corpuscular Hemoglobin 26.4 pg (26-34); Mean Corpuscular Volume 90.1 fl (80-100); Mean Platelet Volume 11.7 fl (7.4-10.4); Platelet Count Result 150 k/mm3 (150-375); Red Blood Count 2.92 M/mm3 (4.6-6.20); Red Cell Distribution Width 17.2 % (11.5-14.5); White Blood Count 6.7 K/mm3 (4.5-10.0)
[2022-05-21] MEDS: GABAPENTIN 300 MG CAPSULE PO ×2 (08:52→18:26)
[2022-05-21] MEDS: AMIODARONE HCL 200 MG TABLET PO (08:52)
[2022-05-21] MEDS: METOPROLOL TARTRATE 12.5 MG TABLET PO ×2 (08:52→18:26)
[2022-05-21] MEDS: FUROSEMIDE 20 MG TABLET 60 MG PO (08:53)
--- NOTE | 2022-05-21 12:20 | WPDHPUPDATE1 ---
History and Physical Update Update Date/Time: 05/21/22 12:20 History and Physical has been reviewed, including an updated exam of the patient. There are NO changes in the patient's condition. Risks, benefits, and alternatives have been discussed and questions answered. Patient agrees to proceed with procedure.
--- NOTE | 2022-05-21 13:31 | PC.NURSE ---
to OR per bed
--- NOTE | 2022-05-21 16:26 | P.PNAN_ITS ---
Anes - Eval Final PreProcedure Day of Procedure 05/21/22 16:26 Patient weight: morbidly obese Heart: regular rate and rhythm (paced) Lungs: clear to auscultation Airway: Mallampati scale class II Neurological: alert and oriented Last oral intake: >/= 8 hours ASA classification: IV Emergent: no Anesthetic plan: proceed Anesthesia type and monitoring: general ETT and standard monitoring Results Review: All pre-operative results and documents have been reviewed as part of the pre- operative evaluation. Informed Consent: The patient's anesthetic plan and its attendant risks and benefits were discu ssed with the patient/family/POA. Questions were solicited and answers provided to the satisfaction of the patient/family/POA.
--- NOTE | 2022-05-21 17:16 | W.PM.PROC2 ---
Procedure Note - Detailed Date of Procedure 05/21/22 Pre-op Diagnosis bleeding internal hemorrhoids Post-op Diagnosis Same Procedure Performed Rubber-band ligation bleeding internal hemorrhoids Surgeon Urbano Fontana MD Industrial Machine Operator Maryann Blanca [facility] Anesthesia General Indications Patient has had iron deficiency anemia for quite some time. Dr. Farmer performed a colonoscopy 04/14/2024. This was negative for bleeding other than large internal hemorrhoids with stigmata of bleeding. Patient is significantly anemic and complains of fatigue. Hemoglobin on admission was 6.2. He was admitted for transfusion with diuresis. Anesthesia consult was obtained prior to procedure. He has received 2 units of packed cells and is now taken to surgery for rubber-band ligation of his bleeding internal hemorrhoids. Findings No evidence of bleeding was noted. No external hemorrhoids were noted. He did have internal hemorrhoids at the right anterior position as well as the right posterior position. Both were rubber-band ligated. Description of Procedure Patient was taken to surgery and induced into general anesthesia. He was then turned and placed into the prone keyla-knife position. The buttocks were taped apart. Hill-Jose anoscope was introduced. Findings were as above. The right anterior quadrant was rubber-band ligated. We then rubber-band ligated the right posterior quadrant internal hemorrhoids. I reviewed the anal canal. No additional findings of significant its were noted. No signs of bleeding were noted. Patient was returned to a supine position, awakened extubated and taken to recovery in good condition. Estimated Blood Loss 0 Urine Output 1,750 Drains No Packing No Pathology None sent Complications No immediate complications Condition Stable Disposition PACU [facility] Billing Surgery - Charge Forward: Surgery Billing (Rubber-band ligation internal hemorrhoids.)
[2022-05-21] MEDS: LACTATED RINGERS 1,000 ML 30 ML IV CONT (17:18)
--- NOTE | 2022-05-21 18:20 | PC.NURSE ---
patient returning to room from surgery
--- NOTE | 2022-05-21 19:58 | PCRCNOTE ---
PT DOES NOT WANT CPAP, SLEEPS UPRIGHT, CANNOT WEAR HOME CPAP EITHER
[2022-05-21] MEDS: MINERAL OIL 30 ML UDC 15 ML PO (21:41)
[2022-05-21] MEDS: PSYLLIUM POWDER PACKET 1 PACKET PO (21:41)
[2022-05-21] MEDS: ENOXAPARIN 30 MG/0.3 ML SYRINGE SUB-Q (21:41)
[2022-05-22] VITALS: BP 108/61; PULSE 59; RESP 16; TEMP 36.4; O2SAT 98
[2022-05-22 04:31] VITALS: BP 104/60; PULSE 60; RESP 18; TEMP 36.4; O2SAT 96
[2022-05-22 06:39] LABS: Hemoglobin 7.7 g/dL (14.0-18.0); Mean Corpuscular HGB Conc 29.6 g/dl (32-36); Mean Corpuscular Hemoglobin 25.8 pg (26-34); Mean Platelet Volume 12.2 fl (7.4-10.4); Platelet Count Result 156 k/mm3 (150-375); Red Blood Count 2.99 M/mm3 (4.6-6.20); Red Cell Distribution Width 17.2 % (11.5-14.5); White Blood Count 5.7 K/mm3 (4.5-10.0)
[2022-05-22 06:48] LABS: INR 1.3; Prothrombin Time 15.6 Seconds (11.1-14.7)
[2022-05-22 06:56] LABS: Anion Gap 8 mmol/L (8-16); Blood Urea Nitrogen 19 mg/dL (9-20); Carbon Dioxide 25 mmol/L (22-30); Chloride 104 mmol/L (98-107); Estimated CRCL calculation 90 ml/min; Estimated Glomerular Filt Rate > 60; Glucose 113 mg/dL (65-110); Potassium 3.9 mmol/L (3.4-5.0); Sodium 137 mmol/L (137-145)
[2022-05-22 08:39] VITALS: PULSE 60
[2022-05-22] MEDS: AMIODARONE HCL 200 MG TABLET PO (08:39)
[2022-05-22] MEDS: FUROSEMIDE 20 MG TABLET 60 MG PO (08:40)
[2022-05-22] MEDS: FERROUS SULFATE 324 MG TABLET PO (08:40)
[2022-05-22] MEDS: ENOXAPARIN 30 MG/0.3 ML SYRINGE SUB-Q (08:40)
[2022-05-22 08:43] VITALS: PULSE 60
[2022-05-22] MEDS: MINERAL OIL 30 ML UDC 15 ML PO (08:43)
[2022-05-22] MEDS: GABAPENTIN 300 MG CAPSULE PO (08:43)
[2022-05-22] MEDS: METOPROLOL TARTRATE 12.5 MG TABLET PO (08:43)
[2022-05-22] MEDS: POTASSIUM CHLORIDE 20 MEQ TABLET.ER PO (08:45)
[2022-05-22] MEDS: SIMVASTATIN 10 MG TABLET PO (08:46)
[2022-05-22] MEDS: predniSONE 2.5 MG TABLET 7.5 MG PO (08:46)
[2022-05-22] MEDS: PSYLLIUM POWDER PACKET 1 PACKET PO (08:46)
--- NOTE | 2022-05-22 10:52 | PM.DS ---
DS: Admitting Diagnosis Discharge Date 05/22/2022 Admitting Diagnosis iron deficiency anemia- Severe bleeding internal hemorrhoids cirrhosis without portal hypertension CHF biventricular ICD status history CABG 2012 morbid obesity paroxysmal atrial fibrillation chronic anticoagulation-currently on hold. DS: Discharge Diagnosis Discharge Diagnosis (1) Iron deficiency anemia: Code(s): D50.9 - Iron deficiency anemia, unspecified Status: Chronic Assessment and Plan: patient has persistently falling hemoglobin and hematocrit. On admission, his hemoglobin had decreased to 6.2. He was felt to have compensated iron deficiency anemia that was worsening. During this admission, he was given 2 units packed cells and diuretics. H&H on discharge is 7.7 and 26.6. Source of the anemia felt to be bleeding internal hemorrhoids. (2) Bleeding internal hemorrhoids: Code(s): K64.8 - Other hemorrhoids Status: Chronic Assessment and Plan: Patient underwent rubber-band ligation internal hemorrhoids in the operating room [id number] Fontana. (3) Cardiomyopathy: Code(s): I42.9 - Cardiomyopathy, unspecified Status: Chronic (4) Morbid obesity with BMI of 40.0-44.9, adult: Code(s): E66.01 - Morbid (severe) obesity due to excess calories; Z68.41 - Body mass index [BMI] 40.0-44.9, adult Status: Chronic (5) Cryptogenic cirrhosis: Code(s): K74.69 - Other cirrhosis of liver Status: Chronic Assessment and Plan: No evidence of portal hypertension. Platelet count over 150,000. (6) Biventricular ICD (implantable cardioverter-defibrillator) in place: Code(s): Z95.810 - Presence of automatic (implantable) cardiac defibrillator Status: Chronic (7) A-fib: Code(s): I48.91 - Unspecified atrial fibrillation Status: Chronic Assessment and Plan: paroxysmal (8) Chronic anticoagulation: Code(s): Z79.01 - [facility] (current) use of anticoagulants Status: Chronic Assessment and Plan: has been held due to anemia and rectal bleeding. Will continue to be held after discharge and restarted as an outpatient after follow-up. DS: Summary Hospital Course Hospital Course: Patient was referred to Dr. Farmer for iron deficiency anemia and hematochezia. Patient had a full colonoscopy on 04/14/[address] Farmer. A hyperplastic polyp was removed from the sigmoid but otherwise no additional polyps were noted. He did have several internal hemorrhoids with stigmata of bleeding. He continued to have anemia and was seen in my office on 05/11/2022. Rectal exam at that time showed no external or prolapsed hemorrhoids. His last H&H had been on 04/25 and was 8.1 and 28. Repeat CBC on 05/11 showed the H&H had decreased to 7 and 24.2. Surgery was expedited due to the patient's falling hematocrit. I discussed with the Department of Anesthesiology the patient's multiple medical comorbidities as well as his significant anemia as he would require general anesthesia for rubber-band ligation of his hemorrhoids. It was decided he would be admitted the day before surgery for transfusion and optimization. This was particularly necessary as his hemoglobin then dropped to 6.5 on 05/18 and 6.2 on the day of admission 05/20/2022. He is given 1st 1 unit of packed cells and then later a 2nd unit of packed cells with Lasix between units. He had a significant diuresis with this. His H&H on the day of surgery was 7.7 and 26.3. He underwent general anesthesia and rubber-band ligation of his internal hemorrhoids without incident on 05/21/2022. He was watched overnight and was comfortable, being back to at least his baseline if not better on 05/22/2022. Repeat H&H was 7.7 and 26.0 on the day of discharge. Patient's platelet count never decreased below 150,000. he is discharged now on 05/22/2022 in good condition. His anticoagulation will continue to
--- NOTE | 2022-05-22 11:19 | WPDANESPN ---
Anes - Prog Note Post-Op Date/Time: 05/22/22 11:19 Cardiovascular status: normal Respiratory status: normal Airway patency: baseline Mental status: baseline Post-Op hydration status: normal Vital Signs: Last Vital Signs Temp 36.4 C 05/22/22 04:31 Pulse 60 05/22/22 08:43 Resp 18 05/22/22 04:31 BP 104/60 05/22/22 04:31 Pulse Ox 96 05/22/22 04:31 O2 Del Method Room Air 05/22/22 08:00 O2 Flow Rate 6 05/21/22 17:30 Pain Score (VAS): 0 I/O: Intake & Output 05/21/22 05/22/22 05/22/22 23:59 07:59 15:59 Intake Total 30 360 Output Total 1750 400 Balance -1720 -40 Laboratory Tests 05/22/22 05:58 05/22/22 05:58 05/22/22 05/22/22 05/22/22 05:58 05:58 05:58 WBC 5.7 RBC 2.99 L Hgb 7.7 L Hct 26.0 L MCV 87.0 MCH 25.8 L MCHC 29.6 L RDW 17.2 H Plt Count 156 MPV 12.2 H PT 15.6 H INR 1.3 APTT 38.0 H Sodium 137 Potassium 3.9 Chloride 104 Carbon Dioxide 25 Anion Gap 8 BUN 19 Creatinine 0.80 Estim Creat Clear Calc 90 Estimated GFR > 60 Glucose 113 H Calcium 8.0 L Post-procedural complaints: none Patient Feedback: Patient satisfied with anesthetic care.
== END 2022-05-22 12:18 | disposition home or self-care (01) | DRG 348 ==
LOC: ANH3MEDSUR 05-22 11:44 → ANHCPC 05-25 09:32 → ANH3MEDSUR 05-25 09:33
PROVIDERS: Nurse Practitioner Family; Admitting Provider Surgery; PCP Internal Medicine; Visit Provider Surgery
PROC: 06LY8CC Occlusion of Hemorrhoidal Plexus with Extraluminal Device, Via Natural or Artificial Opening Endoscopic (ICD-10-PCS; principal; 2022-05-21 15:00)
DX: K64.8 Other hemorrhoids (principal); I43 Cardiomyopathy in diseases classified elsewhere; Z68.41 Body mass index [BMI] 40.0-44.9, adult; I50.22 Chronic systolic (congestive) heart failure; K76.0 Fatty (change of) liver, not elsewhere classified; K74.69 Other cirrhosis of liver; D50.9 Iron deficiency anemia, unspecified; I25.10 Atherosclerotic heart disease of native coronary artery without angina pectoris; I11.0 Hypertensive heart disease with heart failure; D64.9 Anemia, unspecified; E66.01 Morbid (severe) obesity due to excess calories; E78.5 Hyperlipidemia, unspecified; G89.29 Other chronic pain; G47.33 Obstructive sleep apnea (adult) (pediatric); I48.0 Paroxysmal atrial fibrillation; I25.5 Ischemic cardiomyopathy; M54.9 Dorsalgia, unspecified; M06.9 Rheumatoid arthritis, unspecified; N40.0 Benign prostatic hyperplasia without lower urinary tract symptoms; Z20.822 Contact with and (suspected) exposure to COVID-19; Z98.41 Cataract extraction status, right eye; Z86.16 Personal history of COVID-19; Z98.42 Cataract extraction status, left eye; Z95.1 Presence of aortocoronary bypass graft; Z96.653 Presence of artificial knee joint, bilateral; Z87.891 Personal history of nicotine dependence; Z79.82 Long term (current) use of aspirin; Z95.810 Presence of automatic (implantable) cardiac defibrillator; Z79.01 Long term (current) use of anticoagulants
CPT/HCPCS: 36415; 36430; 80048; 85014; 85018; 85027; 85610; 85730; 86850; 86900; 86901; 86923; 87636; 96361; A9270; G0378; J0330; J1100; J1650; J1940; J2405; J2704; J3010; J7050; J7120; P9016

== ENCOUNTER 2022-06-10 11:19 | Outpatient (CLI) | payer MEDICARE, SELFPAY ==
[2022-06-10 12:18] LABS: Iron 187 ug/dL (49-181)
[2022-06-10 12:27] LABS: Percent Iron Saturation 47 % (20-50)
== END 2022-06-10 11:20 | disposition home or self-care (01) ==
LOC: ANHLAB 11:21
PROVIDERS: PCP Nurse Practitioner; Visit Provider Internal Medicine
DX: D50.9 Iron deficiency anemia, unspecified (principal)
CPT/HCPCS: 36415; 83540; 83550

== ENCOUNTER 2022-06-16 09:25 | Inpatient (IN) | payer MEDICARE, SELFPAY ==
[2022-06-16] VITALS (53 sets, daily range): BP systolic 91–141; BP diastolic 47–72; PULSE 59–77; RESP 14–23; TEMP 36.6–37.5; O2SAT 91–100
--- NOTE | ~2022-06-16 | CT_ITS ---
EXAMINATION: CT brain wo con INDICATION: Head injury COMPARISON: 02/23/2021 TECHNIQUE: Standard unenhanced head CT. The dose-length product (DLP) was 605.33 mGy-cm. The mA was a djusted according to patient size. Iterative reconstruction technique was employed. FINDINGS: There is no acute intraparenchymal hemorrhage. No evidence of mass lesion. No evidence of a cute infarction. There is mild periventricular and subcortical hypodensity probably related to small vessel ischemic disease. There is mild prominence of the sulci and ventricles related to cerebral atr ophy. Intracranial calcified cerebral atherosclerosis is noted. There are no extra-axial collections. There is no mass effect or midline shift. Changes in the globes are likely from ocular lens surgery. There is mild mucosal thickening of the paranasal sinuses. IMPRESSION: 1. No acute intracranial abnormality. 2. Age related findings. Reviewed, dictated and finalized at location L. TRICAL MAINTENANCE TECHNICIAN
--- NOTE | ~2022-06-16 | XR_ITS ---
Portable chest x-ray Comparison: 09/06/2021 Clinical History: Cough Findings: There is mild bibasilar pulmonary edema pattern versus possibly chronic interstitial disea se. Cardiomediastinal silhouette is stable, with pacemaker device. Bones and soft tissues are unrema rkable. Impression: Mild bibasilar pulmonary edema versus possibly chronic interstitial disease. Pacemaker device. Reviewed, dictated and finalized at [facility]. S EXPEDITER Impression: Mild bibasilar pulmonary edema versus possibly chronic interstitial disease. Pacemaker device.
--- NOTE | ~2022-06-16 | XR_ITS ---
EXAMINATION: XR chest 1V portable DATE: 06/20/2022 06:33 INDICATION: COVID-19 pneumonia. TECHNIQUE: A single frontal view of the chest was obtained. COMPARISON: Chest single view 06/18/2022, chest CT 02/26/2021 FINDINGS: There is an interstitial pattern in the lungs. No pleural effusion or pneumothorax. Cardiom egaly is noted. Median sternotomy wires are noted. There is a left chest pacer/defibrillator with heidy ds in right atrium, right ventricle, and coronary sinus. IMPRESSION: 1. Interstitial pattern in the lungs, likely mild pulmonary edema. 2. Cardiomegaly. Reviewed, dictated and finalized at location A. NE SUPERVISOR
--- NOTE | ~2022-06-16 | XR_ITS ---
Portable chest x-ray Comparison: 06/16/2022 Clinical History: First of breath, Covid 19 positive Findings: Mild diffuse groundglass opacity is present, probably mildly worsened from prior exam. Ca rdiomediastinal silhouette is stable, status post median sternotomy with pacemaker device. Bones and soft tissues are unremarkable. Impression: Probable mild worsening of diffuse ground glass opacity. Correlate for mild pulmonary edema versus in fection. Pacemaker device. Reviewed, dictated and finalized at location . ENE WASHER Impression: Probable mild worsening of diffuse ground glass opacity. Correlate for mild pul monary edema versus infection. Pacemaker device.
--- NOTE | ~2022-06-16 | CT_ITS ---
EXAMINATION: CT cervical spine wo con DATE: 06/16/2022 09:58 INDICATION: Neck pain post fall TECHNIQUE: Computed tomography (CT) of the cervical spine was performed without intravenous contrast. Automated exposure control and iterative reconstruction technique were employed. The dose-length pro duct was 556.86 mGy-cm. COMPARISON: 08/2614 FINDINGS: Severe osteoarthritis at the atlantoaxial articulation. Straightening of the normal cervical lordosis . 1-2 mm anterolisthesis C3 on C4 and 2 mm retrolisthesis C4 on C5. Vertebral body heights are normal . No fracture. Severe disc height loss with bilateral severe uncovertebral osteoarthritis at C4-C5, C 5-6 and C6-C7. Moderate disc height loss also severe uncovertebral osteoarthritis at C3-C4 and with m ild uncovertebral osteoarthritis at C7-T1. Mild disc height loss and mild uncovertebral osteoarthriti s at C2-C3. And small degenerative posterior endplate osteophytes result in mild central canal stenos is at C3-C4 through C6-C7. Severe facet osteoarthritis on the left at C3-C4 and C4-C5. Otherwise mild facet osteoarthritis throughout the remainder of the cervical spine. Moderate to severe neural reece inal stenosis on the left at C3-C4. Moderate neural foraminal stenosis on the left at C4-C5 and C5-6 and on the right at C3-C4, C4-C5, C5-C6 and C6-7. Mild neural from stenosis at the remaining cervical levels. Prominent atherosclerotic calcification is at the left carotid bulb which may be hemodynamic ally significant. Cervical soft tissues are otherwise unremarkable. Partially visualized cardiac pace maker leads in the left subclavian and brachiocephalic veins. Mild peripheral reticular opacities at the right apex which could represent chronic interstitial fibrosis, atelectasis or mild pulmonary juani ma. IMPRESSION: 1. Severe cervical spondylosis. No acute osseous abnormality. Reviewed, dictated and finalized at location A. NG MACHINE SET UP OPERATOR
--- NOTE | 2022-06-16 09:32 | ECG_ITS ---
Measurements Intervals [place] Rate: 60 P: -53 HI: 194 QRS: 236 QRSD: 149 T: 53 QT: 454 QTc: 454 Interpretive Statements ELECTRONIC ATRIAL PACEMAKER ELECTRONIC VENTRICULAR PACEMAKER NO FURTHER INTERPRETATION POSSIBLE COMPARED TO ECG 09/06/2021 08:23:24 NO SIGNIFICANT CHANGES Electronically Signed On 06-16-2022 17:50:02 RECREATION FACILITY ATTENDANT by Mane Soni M.D.
--- NOTE | 2022-06-16 09:50 | PC.NURSE ---
Patient off unit to CT.
[2022-06-16 09:57] LABS: Basophils Absolute Auto 0.1 K/mm3 (0.0-0.1); Basophils Percent Auto 0.5 % (0.2-1.2); Hemoglobin 9.8 g/dL (14.0-18.0); Immature Granulocyte Absolute 0.04 K/mm3 (0.00-0.031); Immature Granulocyte Percent A 0.4 % (0-0.5); Lymphocytes Absolute Auto 0.86 K/mm3 (0.9-3.2); Lymphocytes Percent Auto 8.9 % (18.3-44.2); Mean Corpuscular HGB Conc 29.7 g/dl (32-36); Mean Corpuscular Hemoglobin 26.9 pg (26-34); Mean Corpuscular Volume 90.7 fl (80-100); Mean Platelet Volume 11.9 fl (7.4-10.4); Monocytes Percent Auto 10.1 % (2.6-8.5); Neutrophils Absolute Auto 7.8 K/mm3 (1.3-6.7); Neutrophils Percent Auto 80.1 % (45.5-73.1); Platelet Count Result 141 k/mm3 (150-375); Red Blood Count 3.64 M/mm3 (4.6-6.20); Red Cell Distribution Width 19.8 % (11.5-14.5); White Blood Count 9.7 K/mm3 (4.5-10.0)
[2022-06-16 10:07] LABS: Alanine Aminotransferase 40 U/L (6-50); Albumin Level 3.8 g/dL (3.5-5.1); Alkaline Phosphatase 91 U/L (38-126); Anion Gap 6 mmol/L (8-16); Aspartate Amino Transferase 61 U/L (17-59); Bilirubin,Total 0.7 mg/dL (0.2-1.3); Blood Urea Nitrogen 24 mg/dL (9-20); Calcium 8.6 mg/dL (8.4-10.2); Carbon Dioxide 25 mmol/L (22-30); Chloride 102 mmol/L (98-107); Estimated Glomerular Filt Rate > 60; Glucose 123 mg/dL (65-110); Potassium 3.8 mmol/L (3.4-5.0); Sodium 133 mmol/L (137-145)
[2022-06-16] MEDS: SODIUM CHLORIDE 0.9% IV 1,000 ML 999 ML IV CONT (10:38)
[2022-06-16 11:07] LABS: Creatine Kinase 139 U/L (55-170)
[2022-06-16 12:18] LABS: Influenza A QL RT-PCR Negative (Negative); Influenza B QL RT-PCR Negative (Negative); SARS-CoV-2 RNA PCR Positive
--- NOTE | 2022-06-16 12:47 | ED.GENADULT ---
HPI - General Adult General Chief complaint: Fall Stated complaint: GLF with LOC, on floor for approx 4 hours Time Seen by Provider: 06/16/22 09:40 Source: patient Mode of arrival: EMS Limitations: no limitations History of Present Illness HPI narrative: 76-year-old with a history of A. fib s/p AICD, hypertension, hyperlipidemia here with complaints of marked weakness which is progressively getting worse for last 2 months. This morning he was felt extremely weak and fell and he was on the floor for 4 hours. He denied any head and neck injuries but however complains of cough and shortness of breath. He thinks he may have a sinus infection. He denies any fever or chills. No history of nausea or vomiting. Onset (ago): day(s) (1) Severity: moderate Associated symptoms: malaise, shortness of breath and weakness Treatments prior to arrival: none Related Data Home Medications Medication Instructions Recorded Confirmed B-complex with vitamin C (Super B 1 tablet PO DAILY 06/12/19 06/05/22 Complex-Vitamin C tablet) aspirin 81 mg tablet,delayed 81 mg PO DAILY 06/12/19 06/05/22 release (Adult Low Dose Aspirin) multivitamin 1 tablet PO DAILY 06/12/19 06/05/22 simvastatin 20 mg tablet 10 mg PO DAILY 06/27/19 06/05/22 alendronate 70 mg tablet 70 mg PO WEEKLY 11/16/19 06/02/22 amiodarone 200 mg tablet 200 mg PO DAILY 03/08/20 06/05/22 gabapentin 300 mg capsule 300 mg PO BID 11/19/20 06/05/22 prednisone 5 mg tablet 7.5 mg PO DAILY 09/18/21 06/05/22 calcium 1,000 mg PO BID 04/10/22 06/05/22 furosemide 40 mg tablet 60 mg PO DAILY 05/20/22 06/05/22 mineral oil (Mineral Oil Light 15 applic PO DAILY 06/05/22 06/05/22 topical) psyllium husk (with sugar) 3.4 1 ea PO DAILY 06/05/22 06/05/22 gram oral powder packet (Metamucil (with sugar)) Allergies Allergy/AdvReac Type Severity Reaction Status Date / Time No Known Allergies Allergy Verified 06/04/22 09:27 Review of Systems Review of Systems: All systems reviewed & are unremarkable except as noted in HPI and below Constitutional: Constitutional: Reports no additional constitutional complaints Eyes: Eyes: Reports no additional eye complaints ENT: Reports system reviewed and no additional complaints, except as documented Cardiovascular: Cardiovascular: Reports no additional cardiovascular complaints Respiratory: Respiratory: Reports as per HPI Gastrointestinal: Gastrointestinal: Reports no additional gastrointestinal complaints Musculoskeletal: Musculoskeletal: Reports no additional musculoskeletal complaints Integumentary/Breasts: Skin/Breast: Reports system reviewed and no additional complaints, except as docu Neurologic: Reports system reviewed and no additional complaints, except as documented Psychiatric: Psychiatric: Reports no additional psychiatric complaints Endocrine: Endocrine: Reports no additional endocrine complaints [facility] Past Medical History Medical History Bacteremia due to Pseudomonas (02/2021) Right lower extremity cellulitis source. Benign prostatic hyperplasia Chronic anticoagulation Chronic low back pain Coronary artery disease COVID-19 (06/2020) Cryptogenic cirrhosis Dyslipidemia Hypertension Ischemic cardiomyopathy Ejection fraction was 41% in October 2018. Status post ICD insertion. Obstructive sleep apnea treated with BiPAP Paroxysmal atrial fibrillation Paroxysmal atrial fibrillation and atrial flutter status post cardioversion x4. Rheumatoid arthritis Surgical History Surgical History Biventricular ICD (implantable cardioverter-defibrillator) in place [facility], implanted 07/[address] Marin H/O hemorrhoidectomy Rubber band ligation internal hemorrhoids on 05/21/22 History of bilateral cataract extraction History of blepharoplasty History of coronary artery bypass graft 2011, Dr. Constantino at [facility]
[2022-06-16] MEDS: ALBUTEROL SULFATE NEB 2.5 MG/3 ML INH INHALATION ×2 (12:56→21:53)
--- NOTE | 2022-06-16 13:01 | PC.NURSE ---
RT at bedside to administer ordered breathing treatment.
[2022-06-16] MEDS: SODIUM CHLORIDE 0.9% IV 1,000 ML 75 ML IV CONT (13:35)
--- NOTE | 2022-06-16 14:23 | ADMGEN ---
This patient, Hema Chaves Anastacia, was admitted to Medical Room 344-01. Patient/family oriented to hospital policies and general routines including ID bracelet, bed and alarms, visiting hours, pain management, procedures, bathroom and other care routines, personal items, smoking policy, room service/diet, and visiting hours. Information on how to activate the Rapid Response Team has been discussed. Patient/Family are encouraged to report perceived risks to care and to ask questions if they do not understand what they are told or what they should do.
--- NOTE | 2022-06-16 14:45 | PM.IMHP ---
H&P: HPI History of Present Illness Date/Time: 06/16/22 14:45 Chief Complaint: Weakness, fall. Narrative: This is a 76-year-old male with coronary artery disease, ischemic cardiomyopathy status post ICD insertion, paroxysmal atrial fibrillation, hypertension, obstructive sleep apnea, cirrhosis, and rheumatoid arthritis who presented to the emergency department for evaluation of weakness and fall. Over the last couple of months he has had issues with fatigue and ultimately he was found to have pretty significant anemia which was attributed to bleeding hemorrhoids. He is now status post rubber-band ligation and he has not had issues with bleeding since that time. Unfortunately he continues to feel fatigued. He spent some time with his son for [place] and is my understanding that his son had some respiratory symptoms and the last couple of days the patient has also developed similar symptoms including sinus congestion, cough, shortness of breath, weakness, and body aches. This morning he apparently had a fall and he was on the floor upwards of 4 hours and tell family members were able to help him up. He does not remember having any prodrome prior to the fall and in fact he does not really remember falling. He cannot say if he lost consciousness or not. Imaging in the emergency department did not show any acute findings. He tested positive for COVID and due to his significant weakness he is being admitted for further care. He has no specific complaints at the time of my evaluation aside from the fact that he just does not feel well. He denies headache, neck ache, sore throat, chest pain, pleuritic pain, palpitations, nausea, vomiting, and diarrhea. He also denies vertigo, visual changes, focal weakness, paresthesias, facial droop, and difficulty swallowing and speaking. Review of Systems Review of Systems: Twelve systems were reviewed and are negative except for as per HPI. [facility] Past Medical History Medical History (Updated 06/16/22 @ 15:13 by Roxy Reyes PA-C) Bacteremia due to Pseudomonas (02/2021) Right lower extremity cellulitis source. Benign prostatic hyperplasia Chronic anticoagulation Chronic low back pain Coronary artery disease COVID-19 (06/2020) Cryptogenic cirrhosis Dyslipidemia Hypertension Ischemic cardiomyopathy Ejection fraction was 41% in October 2018. Status post ICD insertion. Obstructive sleep apnea treated with BiPAP Paroxysmal atrial fibrillation Paroxysmal atrial fibrillation and atrial flutter status post cardioversion x4. Rheumatoid arthritis Surgical History Surgical History (Updated 06/16/22 @ 15:11 by Roxy Reyes PA-C) Biventricular ICD (implantable cardioverter-defibrillator) in place [facility], implanted 07/[address] Marin History of bilateral cataract extraction History of blepharoplasty History of coronary artery bypass graft 2011, Dr. Constantino at [facility]. History of hemorrhoidectomy (05/2022) Rubber-band ligation of internal hemorrhoids. History of left knee replacement History of lumbar discectomy History of nasal septoplasty History of repair of right rotator cuff History of right knee joint replacement Family History Family History Mother Family history of malignant neoplasm of bone Family history of malignant neoplasm of breast, Onset Age: 84 Father Alcoholism Arthritis Sibling Cancer Other Family history of malignant neoplasm Social History Social History (Updated 06/16/22 @ 15:12 by Roxy Reyes PA-C) Social History: Surrogate decision maker: Nereyda Chaves, . Code status: Full code. Smoking packs per day: 1 Smoking cigarettes per day: 20.0 Years smoked: 40 Smoking pack-years: 40.00 Smoking status: Former smoker Tobacco type: cigarettes Second hand tobacco smoke exposure: No Smoking end date: 06/21/98 Alcohol intake: never Substance use: never S
[2022-06-16] MEDS: GABAPENTIN 300 MG CAPSULE PO (16:36)
[2022-06-16] MEDS: CALCIUM CARBONATE (OSCAL) 500 MG TABLET 1000 MG PO (16:36)
[2022-06-16] MEDS: METOPROLOL TARTRATE 12.5 MG TABLET PO (16:39)
[2022-06-16 21:10] LABS: INR 1.3; Prothrombin Time 15.8 Seconds (11.1-14.7)
[2022-06-16] MEDS: REMDESIVIR 200 MG/NS 250 ML 200 MG/250 ML BAG 250 MG IVPB (21:40)
[2022-06-16] MEDS: guaiFENesin 12 HR 600 MG TABCR PO (21:40)
[2022-06-16] MEDS: IPRATROPIUM BR 0.02% INH SOLN 0.5 MG/2.5 ML VIAL INHALATION (21:54)
[2022-06-17] VITALS (21 sets, daily range): BP systolic 92–126; BP diastolic 57–65; PULSE 60–87; RESP 16–18; TEMP 35.9–36.6; O2SAT 97–98
[2022-06-17] MEDS: IPRATROPIUM BR 0.02% INH SOLN 0.5 MG/2.5 ML VIAL INHALATION ×4 (03:17→20:20)
[2022-06-17] MEDS: ALBUTEROL SULFATE NEB 2.5 MG/3 ML INH INHALATION ×4 (03:17→20:20)
[2022-06-17] MEDS: SODIUM CHLORIDE 0.9% IV 1,000 ML 75 ML IV CONT ×2 (05:42→17:43)
[2022-06-17 05:57] LABS: INR 1.4; Prothrombin Time 16.6 Seconds (11.1-14.7)
[2022-06-17 06:01] LABS: Alanine Aminotransferase 41 U/L (6-50); Anion Gap 5 mmol/L (8-16); Blood Urea Nitrogen 20 mg/dL (9-20); CRP 7.1 mg/dL (<1.0); Calcium 7.7 mg/dL (8.4-10.2); Carbon Dioxide 24 mmol/L (22-30); Chloride 109 mmol/L (98-107); Estimated Glomerular Filt Rate > 60; Glucose 149 mg/dL (65-110); Lactate Dehydrogenase 191 U/L (120-246); Magnesium 2.3 mg/dL (1.6-2.3); Potassium 3.7 mmol/L (3.4-5.0); Sodium 138 mmol/L (137-145)
[2022-06-17 06:11] LABS: Basophils Percent Auto 0.2 % (0.2-1.2); Hemoglobin 8.2 g/dL (14.0-18.0); Immature Granulocyte Absolute 0.02 K/mm3 (0.00-0.031); Immature Granulocyte Percent A 0.5 % (0-0.5); Immature Platelet Fraction Pct 6.6 % (0.9-11.2); Lymphocytes Absolute Auto 0.31 K/mm3 (0.9-3.2); Lymphocytes Percent Auto 7.1 % (18.3-44.2); Mean Corpuscular HGB Conc 29.3 g/dl (32-36); Mean Corpuscular Hemoglobin 26.5 pg (26-34); Mean Corpuscular Volume 90.6 fl (80-100); Mean Platelet Volume 11.7 fl (7.4-10.4); Monocytes Absolute Auto 0.5 K/mm3 (0.1-0.6); Monocytes Percent Auto 11.9 % (2.6-8.5); Neutrophils Absolute Auto 3.5 K/mm3 (1.3-6.7); Neutrophils Percent Auto 80.3 % (45.5-73.1); Platelet Count Result 94 k/mm3 (150-375); Red Blood Count 3.09 M/mm3 (4.6-6.20); Red Cell Distribution Width 19.3 % (11.5-14.5); White Blood Count 4.4 K/mm3 (4.5-10.0)
[2022-06-17 06:42] LABS: Schistocytes Rare (NORMAL)
[2022-06-17 06:43] LABS: Anisocytosis 1+ (NORMAL); Poikilocytosis 1+ (NORMAL)
[2022-06-17] MEDS: MULTIVITAMINS THERAPEUTIC TAB (*BKC) 1 TABLET PO (09:29)
[2022-06-17] MEDS: ASPIRIN 81 MG ENTERIC TABLET PO (09:29)
[2022-06-17] MEDS: VITAMIN B COMPLEX CAPSULE 1 CAP PO (09:29)
[2022-06-17] MEDS: AMIODARONE HCL 200 MG TABLET PO (09:29)
[2022-06-17] MEDS: GABAPENTIN 300 MG CAPSULE PO ×2 (09:29→17:45)
[2022-06-17] MEDS: CALCIUM CARBONATE (OSCAL) 500 MG TABLET 1000 MG PO ×2 (09:29→17:45)
[2022-06-17] MEDS: POTASSIUM CHLORIDE 20 MEQ TABLET.ER PO (09:29)
[2022-06-17] MEDS: guaiFENesin 12 HR 600 MG TABCR PO ×2 (09:29→20:14)
[2022-06-17] MEDS: SIMVASTATIN 10 MG TABLET PO (09:29)
[2022-06-17] MEDS: MINERAL OIL 30 ML UDC 15 ML PO (09:30)
[2022-06-17] MEDS: METOPROLOL TARTRATE 12.5 MG TABLET PO ×2 (09:30→17:48)
[2022-06-17] MEDS: ACETAMINOPHEN 325 MG TABLET 650 MG PO (10:13)
[2022-06-17] MEDS: ARTIFICIAL TEARS OPHTH SOLN 15 ML BOTTLE 1 DROP EACH EYE (11:27)
--- NOTE | 2022-06-17 11:38 | PM.IMPN ---
Progress Note: A&P Assessment and Plan (1) COVID: Code(s): U07.1 - COVID-19 Status: Acute Assessment and Plan: Continue remdesivir. Not requiring oxygen. Short of breath with activity (2) Generalized weakness: Code(s): R53.1 - Weakness Status: Acute Assessment and Plan: PTOT (3) Ground-level fall: Code(s): W18.30XA - Fall on same level, unspecified, initial encounter Status: Acute Assessment and Plan: PTOT (4) Chronic anemia: Code(s): D64.9 - Anemia, unspecified Status: Acute Assessment and Plan: Monitor (5) Hypotension: Code(s): I95.9 - Hypotension, unspecified Status: Acute Assessment and Plan: Monitor (6) Obstructive sleep apnea treated with BiPAP: Code(s): G47.33 - Obstructive sleep apnea (adult) (pediatric) Status: Acute (7) Paroxysmal atrial fibrillation: Code(s): I48.0 - Paroxysmal atrial fibrillation Status: Acute Assessment and Plan: Heart rate controlled (8) Rheumatoid arthritis: Qualifiers: Rheumatoid arthritis location: unspecified site Rheumatoid factor presence: unspecified presence Qualified Code(s): M06.9 - Rheumatoid arthritis, unspecified Code(s): M06.9 - Rheumatoid arthritis, unspecified Status: Acute Subjective Date/time seen: 06/17/22 11:38 No new complaints Exam Narrative: General:?Moderately ill-appearing male sitting up in bed. Weight: 113.6 kilograms. HEENT:??PERRL, EOMI.? Sclerae anicteric. Tacky mucous membranes. Neck:??Supple. No JVD or lymphadenopathy. No midline vertebral tenderness. Respiratory:?Mildly tachypneic but in no acute respiratory distress. Faint bilateral crackles with expiratory wheezing. Cardiovascular:??Regular rate and rhythm with S1-S2. Gastrointestinal:??Abdomen is soft, obese, nontender, and nondistended with positive bowel sounds. Skin:??Warm and dry. Hyperpigmentation of the left lower leg which is likely chronic. Scattered bruising in the upper and lower extremities. Left side of the neck is covered, he had a recent skin cancer excised. Extremities:??No cyanosis or clubbing. Trace gary ankle edema. Radial and pedal pulses intact. Changes consistent with rheumatoid arthritis noted throughout his hands and fingers. Neurological:??Alert and oriented.? Cranial nerves 2-12 are grossly intact. Generalized weakness without focal findings. Psychiatric:??Pleasant and cooperative with appropriate mood and affect. Objective Data Vital Signs Vital Signs: Vital Signs - 24 hr 06/16/22 11:46 06/16/22 11:47 06/16/22 12:00 Temperature Pulse Rate 61 61 60 Respiratory Rate 20 18 18 Blood Pressure 98/72 L Pulse Oximetry 100 96 Oxygen Delivery 06/16/22 12:01 06/16/22 12:15 06/16/22 12:16 Temperature Pulse Rate 61 60 60 Respiratory Rate 19 20 18 Blood Pressure 118/61 111/58 L Pulse Oximetry 97 96 96 Oxygen Delivery 06/16/22 12:17 06/16/22 12:30 06/16/22 12:31 Temperature Pulse Rate 60 60 64 Respiratory Rate 18 22 H 23 H Blood Pressure 105/59 L Pulse Oximetry 96 95 98 Oxygen Delivery 06/16/22 12:45 06/16/22 12:46 06/16/22 12:56 Temperature Pulse Rate 60 62 Respiratory Rate 20 22 H Blood Pressure 91/58 L Pulse Oximetry 95 97 96 Oxygen Delivery Room Air 06/16/22 12:56 06/16/22 12:47 06/16/22 12:55 Temperature Pulse Rate 60 60 63 Respiratory Rate 20 19 17 Blood Pressure 93/57 L Pulse Oximetry 97 97 Oxygen Delivery 06/16/22 13:07 06/16/22 12:56 06/16/22 13:00 Temperature Pulse Rate 62 60 60 Respiratory Rate 23 H 19 14 Blood Pressure Pulse Oximetry 98 100 Oxygen Delivery 06/16/22 13:01 06/16/22 13:15 06/16/22 13:16 Temperature Pulse Rate 60 60 60 Respiratory Rate 14 19 20 Blood Pressure 105/63 107/53 L Pulse Oximetry 100 93 93 Oxygen Delivery 06/16/22 13:17 06/16/22 13:30 06/16/22 13:31 Temperature Pulse
[2022-06-17] MEDS: REMDESIVIR 100 MG/NS 250 ML 100 MG/250 ML BAG 250 MG IVPB (22:15)
[2022-06-18] VITALS (16 sets, daily range): BP systolic 78–128; BP diastolic 51–72; PULSE 58–72; RESP 16–20; TEMP 36.4–36.5; O2SAT 95–97
[2022-06-18] MEDS: ALBUTEROL SULFATE NEB 2.5 MG/3 ML INH INHALATION ×4 (02:05→21:17)
[2022-06-18] MEDS: IPRATROPIUM BR 0.02% INH SOLN 0.5 MG/2.5 ML VIAL INHALATION ×4 (02:05→21:17)
[2022-06-18] MEDS: SODIUM CHLORIDE 0.9% IV 1,000 ML 75 ML IV CONT (06:05)
[2022-06-18 06:08] LABS: Alanine Aminotransferase 67 U/L (6-50); Estimated Glomerular Filt Rate > 60; INR 1.3; Prothrombin Time 15.9 Seconds (11.1-14.7)
[2022-06-18] MEDS: GABAPENTIN 300 MG CAPSULE PO ×2 (09:12→16:41)
[2022-06-18] MEDS: ASPIRIN 81 MG ENTERIC TABLET PO (09:12)
[2022-06-18] MEDS: guaiFENesin 12 HR 600 MG TABCR PO ×2 (09:13→22:34)
[2022-06-18] MEDS: MULTIVITAMINS THERAPEUTIC TAB (*BKC) 1 TABLET PO (09:13)
[2022-06-18] MEDS: POTASSIUM CHLORIDE 20 MEQ TABLET.ER PO (09:13)
[2022-06-18] MEDS: MINERAL OIL 30 ML UDC 15 ML PO (09:13)
[2022-06-18] MEDS: CALCIUM CARBONATE (OSCAL) 500 MG TABLET 1000 MG PO ×2 (09:13→16:41)
[2022-06-18] MEDS: VITAMIN B COMPLEX CAPSULE 1 CAP PO (09:13)
[2022-06-18] MEDS: METOPROLOL TARTRATE 12.5 MG TABLET PO ×2 (09:14→16:42)
[2022-06-18 10:28] LABS: Hematocrit 28.2 % (42.0-52.0); Hemoglobin 8.2 g/dL (14.0-18.0)
[2022-06-18 10:48] LABS: Alveolar/Arterial O2 Gradient 37.1 mmHg; Base Excess ABG -4.3 mEq/l (+/-2.0); Fractional Inspired Oxygen 21 %; HCO3 ABG 18.5 mEq/l (22.0-26.0); Oxygen Content ABG 13.7 %vol (16.0-22.0); Oxygen Saturation ABG 96.7 % (95.0-100.0); PCO2 ABG 26.6 mmHg (35.0-45.0); PO2 ABG 80.8 mmHg (80.0-100.0); PO2 FiO2 Ratio Arterial Blood 3.85 %; Total Hemoglobin 10.2 g/dL (12.0-18.0); pH ABG 7.459 (7.350-7.450)
[2022-06-18 10:49] LABS: Device ROOM AIR; Modified Allen's Test Pass; Site Drawn LEFT RADIAL
[2022-06-18 10:53] LABS: Anion Gap 6 mmol/L (8-16); Blood Urea Nitrogen 18 mg/dL (9-20); Calcium 7.9 mg/dL (8.4-10.2); Carbon Dioxide 22 mmol/L (22-30); Chloride 105 mmol/L (98-107); Estimated Glomerular Filt Rate > 60; Glucose 115 mg/dL (65-110); Potassium 4.1 mmol/L (3.4-5.0); Sodium 133 mmol/L (137-145)
--- NOTE | 2022-06-18 13:25 | PM.IMPN ---
Progress Note: A&P Assessment and Plan (1) COVID: Code(s): U07.1 - COVID-19 Status: Acute Assessment and Plan: Continue remdesivir. Not requiring oxygen. Short of breath with activity (2) Generalized weakness: Code(s): R53.1 - Weakness Status: Acute Assessment and Plan: PTOT (3) Ground-level fall: Code(s): W18.30XA - Fall on same level, unspecified, initial encounter Status: Acute Assessment and Plan: PTOT (4) Chronic anemia: Code(s): D64.9 - Anemia, unspecified Status: Acute Assessment and Plan: Monitor (5) Hypotension: Code(s): I95.9 - Hypotension, unspecified Status: Acute Assessment and Plan: Monitor (6) Obstructive sleep apnea treated with BiPAP: Code(s): G47.33 - Obstructive sleep apnea (adult) (pediatric) Status: Acute (7) Paroxysmal atrial fibrillation: Code(s): I48.0 - Paroxysmal atrial fibrillation Status: Acute Assessment and Plan: Heart rate controlled (8) Rheumatoid arthritis: Qualifiers: Rheumatoid arthritis location: unspecified site Rheumatoid factor presence: unspecified presence Qualified Code(s): M06.9 - Rheumatoid arthritis, unspecified Code(s): M06.9 - Rheumatoid arthritis, unspecified Status: Acute Subjective Date/time seen: 06/18/22 13:25 No complaints Exam Narrative: General:?Moderately ill-appearing male sitting up in bed. Weight: 113.6 kilograms. HEENT:??PERRL, EOMI.? Sclerae anicteric. Tacky mucous membranes. Neck:??Supple. No JVD or lymphadenopathy. No midline vertebral tenderness. Respiratory:?Mildly tachypneic but in no acute respiratory distress. Faint bilateral crackles with expiratory wheezing. Cardiovascular:??Regular rate and rhythm with S1-S2. Gastrointestinal:??Abdomen is soft, obese, nontender, and nondistended with positive bowel sounds. Skin:??Warm and dry. Hyperpigmentation of the left lower leg which is likely chronic. Scattered bruising in the upper and lower extremities. Left side of the neck is covered, he had a recent skin cancer excised. Extremities:??No cyanosis or clubbing. Trace gary ankle edema. Radial and pedal pulses intact. Changes consistent with rheumatoid arthritis noted throughout his hands and fingers. Neurological:??Alert and oriented.? Cranial nerves 2-12 are grossly intact. Generalized weakness without focal findings. Psychiatric:??Pleasant and cooperative with appropriate mood and affect. Objective Data Vital Signs Vital Signs: Vital Signs - 24 hr 06/17/22 13:53 06/17/22 14:32 06/17/22 14:00 Temperature 96.7 F L Pulse Rate 61 60 Respiratory Rate 18 16 Blood Pressure 106/64 Pulse Oximetry 98 Oxygen Delivery Room Air 06/17/22 17:48 06/17/22 14:39 06/17/22 20:38 Temperature 97.3 F L Pulse Rate 87 63 60 Respiratory Rate 18 18 Blood Pressure 116/57 L Pulse Oximetry 98 Oxygen Delivery 06/17/22 20:40 06/17/22 20:44 06/17/22 20:20 Temperature Pulse Rate 60 Respiratory Rate 18 Blood Pressure 112/59 L 92/60 L Pulse Oximetry Oxygen Delivery 06/17/22 20:30 06/17/22 20:30 06/17/22 20:00 Temperature Pulse Rate 61 60 Respiratory Rate 18 18 Blood Pressure Pulse Oximetry 97 98 Oxygen Delivery Room Air Room Air 06/18/22 02:05 06/18/22 02:17 06/18/22 04:38 Temperature 97.7 F Pulse Rate 58 L 59 L 70 Respiratory Rate 16 18 20 Blood Pressure 128/59 L Pulse Oximetry 97 Oxygen Delivery 06/18/22 08:25 06/18/22 09:14 06/18/22 08:00 Temperature Pulse Rate 60 72 Respiratory Rate 20 20 Blood Pressure Pulse Oximetry 95 Oxygen Delivery Room Air Intake/Output Intake/Output: Intake & Output 06/15/22 06/16/22 06/17/22 06/18/22 23:59 23:59 23:59 23:59 Intake Total 1730 4650 2000 Output Total 350 1400 1250 Balance 1380 3250 750 Meds/Results Medications: Active Medications Generic Name Dose
--- NOTE | 2022-06-18 13:50 | PC.NURSE ---
[facility] pacemaker interrogated. Paperwork placed on chart. aware.
[2022-06-18] MEDS: SIMVASTATIN 10 MG TABLET PO (16:41)
[2022-06-18] MEDS: AMIODARONE HCL 200 MG TABLET PO (16:42)
[2022-06-18] MEDS: REMDESIVIR 100 MG/NS 250 ML 100 MG/250 ML BAG 250 MG IVPB (22:34)
[2022-06-19] VITALS (18 sets, daily range): BP systolic 103–126; BP diastolic 56–88; PULSE 58–71; RESP 18–20; TEMP 36.4–36.6; O2SAT 95–98
[2022-06-19] MEDS: IPRATROPIUM BR 0.02% INH SOLN 0.5 MG/2.5 ML VIAL INHALATION ×4 (01:46→20:21)
[2022-06-19] MEDS: ALBUTEROL SULFATE NEB 2.5 MG/3 ML INH INHALATION ×4 (01:47→20:20)
[2022-06-19 05:55] LABS: INR 1.3; Prothrombin Time 15.8 Seconds (11.1-14.7)
[2022-06-19 05:57] LABS: Alanine Aminotransferase 76 U/L (6-50); Estimated Glomerular Filt Rate > 60
[2022-06-19] MEDS: CALCIUM CARBONATE (OSCAL) 500 MG TABLET 1000 MG PO ×2 (08:39→17:50)
[2022-06-19] MEDS: ASPIRIN 81 MG ENTERIC TABLET PO (08:39)
[2022-06-19] MEDS: FUROSEMIDE 20 MG TABLET 60 MG PO (08:40)
[2022-06-19] MEDS: DEXAMETHASONE SOD PHOS INJ 4 MG/ML VIAL IV PUSH (08:40)
[2022-06-19] MEDS: guaiFENesin 12 HR 600 MG TABCR PO ×2 (08:41→22:29)
[2022-06-19] MEDS: GABAPENTIN 300 MG CAPSULE PO ×2 (08:41→17:50)
[2022-06-19] MEDS: MINERAL OIL 30 ML UDC 15 ML PO (08:41)
[2022-06-19] MEDS: METOPROLOL TARTRATE 12.5 MG TABLET PO ×2 (08:41→17:55)
[2022-06-19] MEDS: POTASSIUM CHLORIDE 20 MEQ TABLET.ER PO (08:41)
[2022-06-19] MEDS: VITAMIN B COMPLEX CAPSULE 1 CAP PO (08:41)
[2022-06-19] MEDS: MULTIVITAMINS THERAPEUTIC TAB (*BKC) 1 TABLET PO (08:42)
[2022-06-19] MEDS: SIMVASTATIN 10 MG TABLET PO (09:25)
--- NOTE | 2022-06-19 13:46 | PM.IMPN ---
Progress Note: A&P Assessment and Plan (1) COVID: Code(s): U07.1 - COVID-19 Status: Acute Assessment and Plan: Continue remdesivir. Not requiring oxygen. Short of breath with activity (2) Generalized weakness: Code(s): R53.1 - Weakness Status: Acute Assessment and Plan: PTOT (3) Ground-level fall: Code(s): W18.30XA - Fall on same level, unspecified, initial encounter Status: Acute Assessment and Plan: PTOT (4) Chronic anemia: Code(s): D64.9 - Anemia, unspecified Status: Acute Assessment and Plan: Monitor (5) Hypotension: Code(s): I95.9 - Hypotension, unspecified Status: Acute Assessment and Plan: Monitor (6) Obstructive sleep apnea treated with BiPAP: Code(s): G47.33 - Obstructive sleep apnea (adult) (pediatric) Status: Acute (7) Paroxysmal atrial fibrillation: Code(s): I48.0 - Paroxysmal atrial fibrillation Status: Acute Assessment and Plan: Heart rate controlled (8) Rheumatoid arthritis: Qualifiers: Rheumatoid arthritis location: unspecified site Rheumatoid factor presence: unspecified presence Qualified Code(s): M06.9 - Rheumatoid arthritis, unspecified Code(s): M06.9 - Rheumatoid arthritis, unspecified Status: Acute Subjective Date/time seen: 06/19/22 13:46 No new complaints. Still slow to improve. Exam Narrative: General:?Moderately ill-appearing male sitting up in bed. Weight: 113.6 kilograms. HEENT:??PERRL, EOMI.? Sclerae anicteric. Tacky mucous membranes. Neck:??Supple. No JVD or lymphadenopathy. No midline vertebral tenderness. Respiratory:?Mildly tachypneic but in no acute respiratory distress. Faint bilateral crackles with expiratory wheezing. Cardiovascular:??Regular rate and rhythm with S1-S2. Gastrointestinal:??Abdomen is soft, obese, nontender, and nondistended with positive bowel sounds. Skin:??Warm and dry. Hyperpigmentation of the left lower leg which is likely chronic. Scattered bruising in the upper and lower extremities. Left side of the neck is covered, he had a recent skin cancer excised. Extremities:??No cyanosis or clubbing. Trace gary ankle edema. Radial and pedal pulses intact. Changes consistent with rheumatoid arthritis noted throughout his hands and fingers. Neurological:??Alert and oriented.? Cranial nerves 2-12 are grossly intact. Generalized weakness without focal findings. Psychiatric:??Pleasant and cooperative with appropriate mood and affect. Objective Data Vital Signs Vital Signs: Vital Signs - 24 hr 06/18/22 14:17 06/18/22 14:00 06/18/22 14:32 Temperature 97.5 F L Pulse Rate 69 70 69 Respiratory Rate 18 18 18 Blood Pressure 123/67 Pulse Oximetry 97 Oxygen Delivery 06/18/22 16:43 06/18/22 16:42 06/18/22 16:42 Temperature Pulse Rate 62 62 Respiratory Rate Blood Pressure 104/56 L Pulse Oximetry Oxygen Delivery 06/18/22 16:44 06/18/22 16:44 06/18/22 19:51 Temperature 97.6 F Pulse Rate 63 Respiratory Rate 18 Blood Pressure 78/51 L 118/72 112/62 Pulse Oximetry 97 Oxygen Delivery 06/18/22 20:00 06/18/22 20:55 06/18/22 20:55 Temperature 97.6 F Pulse Rate 63 Respiratory Rate 18 Blood Pressure 112/62 114/60 118/68 Pulse Oximetry 97 Oxygen Delivery 06/18/22 21:18 06/19/22 01:47 06/19/22 01:47 Temperature Pulse Rate 71 67 67 Respiratory Rate 18 18 18 Blood Pressure Pulse Oximetry 95 Oxygen Delivery Room Air 06/19/22 02:01 06/19/22 05:21 06/19/22 08:41 Temperature 97.6 F Pulse Rate 71 59 L 61 Respiratory Rate 18 19 Blood Pressure 103/88 Pulse Oximetry 97 Oxygen Delivery 06/19/22 08:45 06/19/22 08:45 06/19/22 08:57 Temperature Pulse Rate 61 61 Respiratory Rate 18 Blood Pressure Pulse Oximetry 97 97 Oxygen Delivery Room Air 06/19/22 08:57 06/19/22 11:00 06/19/22 08:00 Temperature Pulse
[2022-06-19] MEDS: REMDESIVIR 100 MG/NS 250 ML 100 MG/250 ML BAG 250 MG IVPB (22:29)
[2022-06-19] MEDS: AMIODARONE HCL 200 MG TABLET PO (22:29)
[2022-06-20] VITALS (15 sets, daily range): BP systolic 93–123; BP diastolic 55–72; PULSE 58–77; RESP 18–20; TEMP 36.1–36.6; O2SAT 97–98
[2022-06-20] MEDS: BENZONATATE 100 MG CAPSULE PO (05:58)
[2022-06-20 07:41] LABS: INR 1.3; Prothrombin Time 15.6 Seconds (11.1-14.7)
[2022-06-20 07:48] LABS: Alanine Aminotransferase 72 U/L (6-50); Estimated Glomerular Filt Rate > 60
[2022-06-20] MEDS: IPRATROPIUM BR 0.02% INH SOLN 0.5 MG/2.5 ML VIAL INHALATION ×3 (08:15→20:38)
[2022-06-20] MEDS: ALBUTEROL SULFATE NEB 2.5 MG/3 ML INH INHALATION ×3 (08:16→20:38)
[2022-06-20 09:52] LABS: Basophils Percent Auto 0.1 % (0.2-1.2); Eosinophils Percent Auto 0.1 % (0-4.4); Hematocrit 30.9 % (42.0-52.0); Immature Granulocyte Percent A 1.3 % (0-0.5); Immature Platelet Fraction Pct 8.4 % (0.9-11.2); Lymphocytes Percent Auto 10.7 % (18.3-44.2); Mean Corpuscular HGB Conc 29.1 g/dl (32-36); Mean Corpuscular Hemoglobin 26.2 pg (26-34); Mean Corpuscular Volume 90.1 fl (80-100); Mean Platelet Volume 12.3 fl (7.4-10.4); Monocytes Absolute Auto 0.8 K/mm3 (0.1-0.6); Monocytes Percent Auto 10.4 % (2.6-8.5); Neutrophils Absolute Auto 5.8 K/mm3 (1.3-6.7); Neutrophils Percent Auto 77.4 % (45.5-73.1); Platelet Count Result 126 k/mm3 (150-375); Red Blood Count 3.43 M/mm3 (4.6-6.20); Red Cell Distribution Width 19.3 % (11.5-14.5); White Blood Count 7.5 K/mm3 (4.5-10.0)
[2022-06-20 09:56] LABS: Anion Gap 6 mmol/L (8-16); Blood Urea Nitrogen 20 mg/dL (9-20); Calcium 8.3 mg/dL (8.4-10.2); Carbon Dioxide 26 mmol/L (22-30); Chloride 103 mmol/L (98-107); Estimated Glomerular Filt Rate > 60; Glucose 91 mg/dL (65-110); Potassium 4.6 mmol/L (3.4-5.0); Sodium 135 mmol/L (137-145)
[2022-06-20] MEDS: CALCIUM CARBONATE (OSCAL) 500 MG TABLET 1000 MG PO ×2 (10:12→18:22)
[2022-06-20] MEDS: ASPIRIN 81 MG ENTERIC TABLET PO (10:12)
[2022-06-20] MEDS: DEXAMETHASONE SOD PHOS INJ 4 MG/ML VIAL IV PUSH (10:13)
[2022-06-20] MEDS: FUROSEMIDE 20 MG TABLET 60 MG PO (10:13)
[2022-06-20] MEDS: GABAPENTIN 300 MG CAPSULE PO ×2 (10:14→18:22)
[2022-06-20] MEDS: VITAMIN B COMPLEX CAPSULE 1 CAP PO (10:14)
[2022-06-20] MEDS: SIMVASTATIN 10 MG TABLET PO (10:14)
[2022-06-20] MEDS: guaiFENesin 12 HR 600 MG TABCR PO (10:14)
[2022-06-20] MEDS: MINERAL OIL 30 ML UDC 15 ML PO (10:14)
[2022-06-20] MEDS: MULTIVITAMINS THERAPEUTIC TAB (*BKC) 1 TABLET PO (10:14)
[2022-06-20] MEDS: POTASSIUM CHLORIDE 20 MEQ TABLET.ER PO (10:15)
[2022-06-20] MEDS: FUROSEMIDE INJ 40 MG/4 ML VIAL 20 MG IV PUSH (10:20)
[2022-06-20] MEDS: METOPROLOL TARTRATE 12.5 MG TABLET PO ×2 (10:27→18:22)
[2022-06-20 10:37] LABS: Anisocytosis 1+ (NORMAL); Ovalocytes 1+ (NORMAL); Schistocytes Rare (NORMAL)
--- NOTE | 2022-06-20 13:00 | PM.IMPN ---
Progress Note: A&P Assessment and Plan (1) COVID: Code(s): U07.1 - COVID-19 Status: Acute Assessment and Plan: Continue remdesivir. Not requiring oxygen. Short of breath with activity (2) Generalized weakness: Code(s): R53.1 - Weakness Status: Acute Assessment and Plan: PTOT (3) Ground-level fall: Code(s): W18.30XA - Fall on same level, unspecified, initial encounter Status: Acute Assessment and Plan: PTOT (4) Chronic anemia: Code(s): D64.9 - Anemia, unspecified Status: Acute Assessment and Plan: Monitor (5) Hypotension: Code(s): I95.9 - Hypotension, unspecified Status: Acute Assessment and Plan: Monitor (6) Obstructive sleep apnea treated with BiPAP: Code(s): G47.33 - Obstructive sleep apnea (adult) (pediatric) Status: Acute (7) Paroxysmal atrial fibrillation: Code(s): I48.0 - Paroxysmal atrial fibrillation Status: Acute Assessment and Plan: Heart rate controlled (8) Rheumatoid arthritis: Qualifiers: Rheumatoid arthritis location: unspecified site Rheumatoid factor presence: unspecified presence Qualified Code(s): M06.9 - Rheumatoid arthritis, unspecified Code(s): M06.9 - Rheumatoid arthritis, unspecified Status: Acute Subjective Date/time seen: 06/20/22 13:00 Feeling a little bit better. Not requiring oxygen. Exam Narrative: General:?Moderately ill-appearing male sitting up in bed. Weight: 113.6 kilograms. HEENT:??PERRL, EOMI.? Sclerae anicteric. Tacky mucous membranes. Neck:??Supple. No JVD or lymphadenopathy. No midline vertebral tenderness. Respiratory:?Mildly tachypneic but in no acute respiratory distress. Faint bilateral crackles with expiratory wheezing. Cardiovascular:??Regular rate and rhythm with S1-S2. Gastrointestinal:??Abdomen is soft, obese, nontender, and nondistended with positive bowel sounds. Skin:??Warm and dry. Hyperpigmentation of the left lower leg which is likely chronic. Scattered bruising in the upper and lower extremities. Left side of the neck is covered, he had a recent skin cancer excised. Extremities:??No cyanosis or clubbing. Trace gary ankle edema. Radial and pedal pulses intact. Changes consistent with rheumatoid arthritis noted throughout his hands and fingers. Neurological:??Alert and oriented.? Cranial nerves 2-12 are grossly intact. Generalized weakness without focal findings. Psychiatric:??Pleasant and cooperative with appropriate mood and affect. Objective Data Vital Signs Vital Signs: Vital Signs - 24 hr 06/19/22 14:00 06/19/22 14:20 06/19/22 14:28 Temperature 97.6 F Pulse Rate 70 66 63 Respiratory Rate 18 18 18 Blood Pressure 117/60 Pulse Oximetry 98 Oxygen Delivery 06/19/22 16:19 06/19/22 16:19 06/19/22 16:20 Temperature Pulse Rate Respiratory Rate Blood Pressure 115/70 110/65 113/68 Pulse Oximetry Oxygen Delivery 06/19/22 17:55 06/19/22 20:00 06/19/22 21:58 Temperature Pulse Rate 71 Respiratory Rate Blood Pressure 109/56 L 126/56 L Pulse Oximetry Oxygen Delivery 06/19/22 21:59 06/19/22 22:29 06/19/22 20:22 Temperature 97.8 F Pulse Rate 58 L 68 59 L Respiratory Rate 20 18 Blood Pressure 103/57 L Pulse Oximetry 98 Oxygen Delivery 06/19/22 20:35 06/20/22 03:08 06/20/22 03:20 Temperature Pulse Rate 62 60 61 Respiratory Rate 18 18 18 Blood Pressure Pulse Oximetry Oxygen Delivery 06/19/22 20:22 06/20/22 05:43 06/20/22 08:10 Temperature 96.9 F L Pulse Rate 58 L 60 Respiratory Rate 20 Blood Pressure 123/70 Pulse Oximetry 98 98 98 Oxygen Delivery Room Air Room Air 06/20/22 08:08 06/20/22 08:19 06/20/22 08:00 Temperature Pulse Rate 60 60 Respiratory Rate 18 18 Blood Pressure 121/72 Pulse Oximetry Oxygen Delivery 06/20/22 09:24 06/20/22 09:24 06/20/22 10:27 Temperature P
[2022-06-21 02:30] VITALS: PULSE 75; RESP 18
[2022-06-21 02:43] VITALS: PULSE 77; RESP 18
[2022-06-21 04:59] VITALS: BP 119/66; PULSE 60; RESP 18; TEMP 36.5; O2SAT 98
[2022-06-21 09:45] VITALS: PULSE 76; RESP 18
[2022-06-21] MEDS: IPRATROPIUM BR 0.02% INH SOLN 0.5 MG/2.5 ML VIAL INHALATION (09:45)
[2022-06-21] MEDS: ALBUTEROL SULFATE NEB 2.5 MG/3 ML INH INHALATION (09:45)
[2022-06-21 09:55] VITALS: PULSE 60
[2022-06-21] MEDS: POTASSIUM CHLORIDE 20 MEQ TABLET.ER PO (09:55)
[2022-06-21] MEDS: GABAPENTIN 300 MG CAPSULE PO (09:55)
[2022-06-21] MEDS: METOPROLOL TARTRATE 12.5 MG TABLET PO (09:55)
[2022-06-21] MEDS: VITAMIN B COMPLEX CAPSULE 1 CAP PO (09:55)
[2022-06-21] MEDS: MULTIVITAMINS THERAPEUTIC TAB (*BKC) 1 TABLET PO (09:56)
[2022-06-21] MEDS: SIMVASTATIN 10 MG TABLET PO (09:56)
[2022-06-21] MEDS: CALCIUM CARBONATE (OSCAL) 500 MG TABLET 1000 MG PO (09:56)
[2022-06-21] MEDS: guaiFENesin 12 HR 600 MG TABCR PO (09:56)
[2022-06-21] MEDS: DEXAMETHASONE SOD PHOS INJ 4 MG/ML VIAL IV PUSH (09:56)
[2022-06-21] MEDS: ENOXAPARIN 40 MG/0.4 ML SYRINGE SUB-Q (09:56)
[2022-06-21] MEDS: FUROSEMIDE 20 MG TABLET 60 MG PO (09:56)
[2022-06-21] MEDS: ASPIRIN 81 MG ENTERIC TABLET PO (09:56)
[2022-06-21] MEDS: MINERAL OIL 30 ML UDC 15 ML PO (09:57)
[2022-06-21 09:58] VITALS: PULSE 76; PULSE 79; RESP 18; O2SAT 97
--- NOTE | 2022-06-21 11:26 | PM.DS ---
DS: Admitting Diagnosis Discharge Date June 21, 2022 Admitting Diagnosis COVID DS: Discharge Diagnosis Discharge Diagnosis (1) COVID: Code(s): U07.1 - COVID-19 Status: Acute Assessment and Plan: Continue remdesivir. Not requiring oxygen. Short of breath with activity (2) Generalized weakness: Code(s): R53.1 - Weakness Status: Acute Assessment and Plan: PTOT (3) Ground-level fall: Code(s): W18.30XA - Fall on same level, unspecified, initial encounter Status: Acute Assessment and Plan: PTOT (4) Chronic anemia: Code(s): D64.9 - Anemia, unspecified Status: Acute Assessment and Plan: Monitor (5) Hypotension: Code(s): I95.9 - Hypotension, unspecified Status: Acute Assessment and Plan: Monitor (6) Obstructive sleep apnea treated with BiPAP: Code(s): G47.33 - Obstructive sleep apnea (adult) (pediatric) Status: Acute (7) Paroxysmal atrial fibrillation: Code(s): I48.0 - Paroxysmal atrial fibrillation Status: Acute Assessment and Plan: Heart rate controlled (8) Rheumatoid arthritis: Qualifiers: Rheumatoid arthritis location: unspecified site Rheumatoid factor presence: unspecified presence Qualified Code(s): M06.9 - Rheumatoid arthritis, unspecified Code(s): M06.9 - Rheumatoid arthritis, unspecified Status: Acute DS: Summary Hospital Course Hospital Course: Patient was admitted for COVID did exceptionally well never required oxygen. Started on remdesivir and steroids. These be stopped prior to discharge. He is able to get around the room and ambulate heart rate and vitals are stable. No oxygen needed. He can be discharged follow-up primary care physician Time Spent with Patient Time attestation: Total time spent providing and/or coordinating discharge services: Exam Narrative: General:?Moderately ill-appearing male sitting up in bed. Weight: 113.6 kilograms. HEENT:??PERRL, EOMI.? Sclerae anicteric. Tacky mucous membranes. Neck:??Supple. No JVD or lymphadenopathy. No midline vertebral tenderness. Respiratory:?Mildly tachypneic but in no acute respiratory distress. Faint bilateral crackles with expiratory wheezing. Cardiovascular:??Regular rate and rhythm with S1-S2. Gastrointestinal:??Abdomen is soft, obese, nontender, and nondistended with positive bowel sounds. Skin:??Warm and dry. Hyperpigmentation of the left lower leg which is likely chronic. Scattered bruising in the upper and lower extremities. Left side of the neck is covered, he had a recent skin cancer excised. Extremities:??No cyanosis or clubbing. Trace gary ankle edema. Radial and pedal pulses intact. Changes consistent with rheumatoid arthritis noted throughout his hands and fingers. Neurological:??Alert and oriented.? Cranial nerves 2-12 are grossly intact. Generalized weakness without focal findings. Psychiatric:??Pleasant and cooperative with appropriate mood and affect. Discharge Plan Discharge Attending physician on discharge: Hema Lehman Discharging Clinician: Hema Lehman Patient Disposition: Home Health Service Activity: no preference Diet: as tolerated Discharge Instructions: Per care coordination, [facility]) to see pt upon discharge for RN, PT/OT evaluation and treatment. RN if you have any questions call [phone]. [facility] will reach out to pt to schedule first appointment Patient Instructions: Antibiotic Form Stand Alone Forms: General Discharge Information Follow-up/Referrals: Micky Pitts APRN [Primary Care Provider] - Discharge Medications: Continued amiodarone 200 mg tablet 200 mg PO DAILY Hold Instructions: HOLD - Resume in 1 week Label Comments: TAKES AT HS alendronate 70 mg tablet 70 mg PO WEEKLY Rx Instructions: wednesday gabapentin 300 mg capsule 300 mg PO BID prednisone 5 m
== END 2022-06-21 13:55 | disposition home health service (06) | DRG 179 ==
LOC: ANHED 12:54 → ANH3MED 14:31
PROVIDERS: Physician Assistant; Admitting Provider Family Medicine; Emergency Provider Family Medicine; PCP Nurse Practitioner; Visit Provider Chiropractor
DX: U07.1 COVID-19 (principal); I95.9 Hypotension, unspecified; G47.33 Obstructive sleep apnea (adult) (pediatric); I48.0 Paroxysmal atrial fibrillation; W18.30XA Fall on same level, unspecified, initial encounter; M06.9 Rheumatoid arthritis, unspecified; D64.9 Anemia, unspecified; E78.5 Hyperlipidemia, unspecified; I10 Essential (primary) hypertension; N40.0 Benign prostatic hyperplasia without lower urinary tract symptoms; I25.5 Ischemic cardiomyopathy; K74.60 Unspecified cirrhosis of liver; E66.9 Obesity, unspecified; I25.10 Atherosclerotic heart disease of native coronary artery without angina pectoris; Z79.01 Long term (current) use of anticoagulants; Z95.810 Presence of automatic (implantable) cardiac defibrillator; Z98.42 Cataract extraction status, left eye; Z98.41 Cataract extraction status, right eye; Z95.1 Presence of aortocoronary bypass graft; Z96.653 Presence of artificial knee joint, bilateral; Z87.891 Personal history of nicotine dependence; Z85.828 Personal history of other malignant neoplasm of skin
CPT/HCPCS: 36415; 36600; 70450; 71045; 72125; 80048; 80053; 82550; 82565; 82728; 82805; 83615; 83735; 84460; 85014; 85018; 85025; 85055; 85610; 86140; 87070; 87205; 87636; 93005; 94640; 96361; 96365; 96375; 96376; 97110; 97161; 97165; 97530; 99285; A9270; G0378; J0248; J1100; J1650; J1940; J7030

== ENCOUNTER 2022-07-02 10:18 | Outpatient (NON) | payer MEDICARE, SELFPAY ==
[2022-07-02 12:04] LABS: Basophils Absolute Auto 0.1 K/mm3 (0.0-0.1); Eosinophils Absolute Auto 0.1 K/mm3 (0-0.3); Eosinophils Percent Auto 1.2 % (0-4.4); Hematocrit 36.9 % (42.0-52.0); Hemoglobin 10.9 g/dL (14.0-18.0); Immature Granulocyte Absolute 0.04 K/mm3 (0.00-0.031); Immature Granulocyte Percent A 0.6 % (0-0.5); Lymphocytes Absolute Auto 0.77 K/mm3 (0.9-3.2); Lymphocytes Percent Auto 11.1 % (18.3-44.2); Mean Corpuscular HGB Conc 29.5 g/dl (32-36); Mean Corpuscular Hemoglobin 26.2 pg (26-34); Mean Corpuscular Volume 88.7 fl (80-100); Monocytes Absolute Auto 0.5 K/mm3 (0.1-0.6); Monocytes Percent Auto 6.5 % (2.6-8.5); Neutrophils Absolute Auto 5.5 K/mm3 (1.3-6.7); Neutrophils Percent Auto 79.6 % (45.5-73.1); Platelet Count Result 200 k/mm3 (150-375); Red Blood Count 4.16 M/mm3 (4.6-6.20); Red Cell Distribution Width 19.6 % (11.5-14.5); White Blood Count 6.9 K/mm3 (4.5-10.0)
[2022-07-02 12:14] LABS: Alanine Aminotransferase 31 U/L (6-50); Albumin Level 4.1 g/dL (3.5-5.1); Alkaline Phosphatase 131 U/L (38-126); Anion Gap 9 mmol/L (8-16); Aspartate Amino Transferase 34 U/L (17-59); Bilirubin,Total 0.9 mg/dL (0.2-1.3); Blood Urea Nitrogen 23 mg/dL (9-20); Calcium 9.2 mg/dL (8.4-10.2); Carbon Dioxide 28 mmol/L (22-30); Chloride 101 mmol/L (98-107); Estimated Glomerular Filt Rate > 60; Glucose 104 mg/dL (65-110); Potassium 3.9 mmol/L (3.4-5.0); Sodium 138 mmol/L (137-145)
[2022-07-02 12:25] LABS: Anisocytosis 1+ (NORMAL); Ovalocytes 1+ (NORMAL); Platelet Estimate Adequate (Adequate)
[2022-07-02 12:26] LABS: Schistocytes None Seen (NORMAL)
[2022-07-02 13:20] LABS: Folic Acid > 20.0 ng/mL (2.76->20)
[2022-07-07 10:51] LABS: Testosterone Free 20.1 pg/mL (6.0-73.0)
== END 2022-07-02 10:19 | disposition home or self-care (01) ==
LOC: ANHLAB 10:20
PROVIDERS: PCP Internal Medicine; Visit Provider Nurse Practitioner
DX: R53.1 Weakness (principal); I25.10 Atherosclerotic heart disease of native coronary artery without angina pectoris; D64.9 Anemia, unspecified; I48.0 Paroxysmal atrial fibrillation; M06.9 Rheumatoid arthritis, unspecified; I50.22 Chronic systolic (congestive) heart failure; E66.9 Obesity, unspecified
CPT/HCPCS: 36415; 80053; 82607; 82746; 84402; 84443; 85025

== ENCOUNTER 2022-07-31 11:25 | Outpatient (CLI) | payer MEDICARE, SELFPAY ==
[2022-07-31 12:05] LABS: Hematocrit 32.8 % (42.0-52.0); Hemoglobin 10.1 g/dL (14.0-18.0)
== END 2022-07-31 11:26 | disposition home or self-care (01) ==
LOC: ANHLAB 11:28
PROVIDERS: PCP Internal Medicine; Visit Provider Nurse Practitioner
DX: D64.9 Anemia, unspecified (principal); U07.1 COVID-19
CPT/HCPCS: 36415; 84443; 85014; 85018

== ENCOUNTER 2022-09-14 11:39 | Emergency (ER) | payer MEDICARE, SELFPAY ==
[2022-09-14 11:44] VITALS: BP 124/77; PULSE 69; RESP 20; TEMP 36.9; O2SAT 99
--- NOTE | 2022-09-14 13:35 | ED.EAR ---
HPI - Ear Problem General Chief complaint: Ear Stated complaint: Ear drainage Time Seen by Provider: 09/14/22 13:25 Source: patient Mode of arrival: ambulatory Limitations: no limitations History of Present Illness HPI Narrative: 77 years old white female on Xarelto presented to the ED because of clogged right ear. Patient reports that he was messing with his right ear 5 days ago, subsequently started having bleeding coming out of the ear canal, stophed some tissue in the right ear with success. Today woke up and unable to hear through the right ear he denies any fever, chills, nausea, vomiting. Related Data Home Medications Medication Instructions Recorded Confirmed B-complex with vitamin C (Super B 1 tablet PO DAILY 06/12/19 09/11/22 Complex-Vitamin C tablet) aspirin 81 mg tablet,delayed 81 mg PO DAILY 06/12/19 09/11/22 release (Adult Low Dose Aspirin) multivitamin 1 tablet PO DAILY 06/12/19 09/11/22 simvastatin 20 mg tablet 10 mg PO DAILY 06/27/19 09/11/22 alendronate 70 mg tablet 70 mg PO WEEKLY 11/16/19 09/11/22 amiodarone 200 mg tablet 200 mg PO DAILY 03/08/20 09/11/22 gabapentin 300 mg capsule 300 mg PO BID 11/19/20 09/11/22 prednisone 5 mg tablet 7.5 mg PO DAILY 09/18/21 09/11/22 calcium 1,000 mg PO BID 04/10/22 09/11/22 mineral oil (Mineral Oil Light 15 applic PO DAILY 06/05/22 09/11/22 topical) Allergies Allergy/AdvReac Type Severity Reaction Status Date / Time No Known Allergies Allergy Verified 09/14/22 12:04 Review of Systems Review of Systems: All systems reviewed & are unremarkable except as noted in HPI and below PMFSH Past Medical History Medical History Bacteremia due to Pseudomonas (02/2021) Right lower extremity cellulitis source. Benign prostatic hyperplasia Chronic anticoagulation Chronic low back pain Coronary artery disease COVID-19 (06/2020) Cryptogenic cirrhosis Dyslipidemia Hypertension Ischemic cardiomyopathy Ejection fraction was 41% in October 2018. Status post ICD insertion. Obstructive sleep apnea treated with BiPAP Paroxysmal atrial fibrillation Paroxysmal atrial fibrillation and atrial flutter status post cardioversion x4. Rheumatoid arthritis Surgical History Surgical History Biventricular ICD (implantable cardioverter-defibrillator) in place [facility], implanted 07/[address] Marin History of bilateral cataract extraction History of blepharoplasty History of coronary artery bypass graft 2011, Dr. Constantino at [facility]. History of hemorrhoidectomy (05/2022) Rubber-band ligation of internal hemorrhoids. History of left knee replacement History of lumbar discectomy History of nasal septoplasty History of repair of right rotator cuff History of right knee joint replacement Family History Family History Mother Family history of malignant neoplasm of bone Family history of malignant neoplasm of breast, Onset Age: 84 Father Alcoholism Arthritis Sibling Cancer Other Family history of malignant neoplasm Social History Social History Social History: Surrogate decision maker: Nereyda Chaves, . Code status: Full code. Smoking packs per day: 1 Smoking cigarettes per day: 20.0 Years smoked: 40 Smoking pack-years: 40.00 Smoking status: Former smoker Tobacco type: cigarettes Second hand tobacco smoke exposure: No Smoking end date: 06/21/98 Alcohol intake: never Substance use: never Substance use type: does not use Lack of Transportation: No Lack of Food: Never True Current Housing: I Have Housing Concerned About Future Housing: No Difficulty Paying Gas/Electric Bills: No Difficulty Paying for Meds: YES Currently Unemployed: No Education: Trade/Vocational Certificate Difficulty w/ Childcare o
[2022-09-14 14:00] VITALS: BP 106/66; PULSE 60; RESP 18; TEMP 36.6; O2SAT 100
== END 2022-09-14 15:10 | disposition home or self-care (01) ==
PROVIDERS: Emergency Provider Emergency Medicine; PCP Internal Medicine
DX: H92.21 Otorrhagia, right ear (principal); I25.10 Atherosclerotic heart disease of native coronary artery without angina pectoris; I48.0 Paroxysmal atrial fibrillation; I10 Essential (primary) hypertension; I25.5 Ischemic cardiomyopathy; E78.5 Hyperlipidemia, unspecified; N40.0 Benign prostatic hyperplasia without lower urinary tract symptoms; G47.33 Obstructive sleep apnea (adult) (pediatric); M06.9 Rheumatoid arthritis, unspecified; Z86.16 Personal history of COVID-19; Z87.891 Personal history of nicotine dependence; Z95.810 Presence of automatic (implantable) cardiac defibrillator; Z95.1 Presence of aortocoronary bypass graft; Z96.653 Presence of artificial knee joint, bilateral; Z98.42 Cataract extraction status, left eye; Z98.41 Cataract extraction status, right eye; Z79.82 Long term (current) use of aspirin
CPT/HCPCS: 99283

== ENCOUNTER 2022-10-14 09:05 | Outpatient (CLI) | payer MEDICARE, SELFPAY ==
--- NOTE | ~2022-10-14 | US_ITS ---
EXAMINATION: US abdomen limited DATE: 10/14/2022 09:43 INDICATION: Liver cirrhosis TECHNIQUE: Multiple grayscale and Doppler ultrasound images of the abdomen were obtained. COMPARISON: None available FINDINGS: The head and body of the pancreas are normal. The pancreatic tail is obscured by bowel gas. The liver demonstrates increased echogenicity and heterogeneous echotexture. There is nodularity of the liver surface. Normal hepatopetal flow in the main portal vein. The gallbladder is normal with no abnormal wall thickening, pericholecystic fluid or stones. The normal common bile duct measures 3 mm . There was no sonographic Harper sign. IMPRESSION: 1. Cirrhosis of the liver. Reviewed, dictated and finalized at location B. IMPRESSION: 1. Cirrhosis of the liver.
== END 2022-10-14 09:06 | disposition home or self-care (01) ==
PROVIDERS: PCP Internal Medicine; Visit Provider Internal Medicine Gastroenterology
DX: K74.60 Unspecified cirrhosis of liver (principal); K75.81 Nonalcoholic steatohepatitis (NASH)
CPT/HCPCS: 76705

== ENCOUNTER 2022-11-07 12:49 | Emergency (ER) | payer MEDICARE, SELFPAY ==
--- NOTE | ~2022-11-07 | XR_ITS ---
EXAMINATION: XR foot RT min 3V DATE: 11/07/2022 13:16 INDICATION: Right foot pain TECHNIQUE: Dorsoplantar, lateral, and 2 oblique views of the right foot were obtained. COMPARISON: 05/20/2020 FINDINGS: There is dorsal soft tissue swelling of the foot overlying the metatarsals. No fracture is identified. Calcified atherosclerosis is noted. There is a plantar calcaneal enthesophyte. IMPRESSION: 1. Dorsal soft tissue swelling of the foot overlying the metatarsals without acute osseous abnormalit y. Reviewed, dictated and finalized at location A. IMPRESSION: 1. Dorsal soft tissue swelling of the foot overlying the metatarsals without ac [place] osseous abnormality.
[2022-11-07 12:51] VITALS: BP 114/57; PULSE 62; RESP 22; TEMP 36.7; O2SAT 98
--- NOTE | 2022-11-07 13:25 | ED.GENADULT ---
HPI - General Adult General Chief complaint: Extremity Injury, Lower Stated complaint: right foot pain Time Seen by Provider: 11/07/22 13:05 History of Present Illness HPI narrative: 77-year-old male presenting to the ED for evaluation of worsening pain on his right foot. Patient reports approximately 1 week ago he did drop a can on his right foot. Patient states he has had worsening swelling and bruising. Patient states is able to ambulate with the foot and denies any associated numbness or weakness. Patient's primary concern was that he was still having spreading of the bruising. Patient does take rivaroxaban. Related Data Home Medications Medication Instructions Recorded Confirmed B-complex with vitamin C (Super B 1 tablet PO DAILY 06/12/19 09/18/22 Complex-Vitamin C tablet) aspirin 81 mg tablet,delayed 81 mg PO DAILY 06/12/19 09/18/22 release (Adult Low Dose Aspirin) multivitamin 1 tablet PO DAILY 06/12/19 09/18/22 simvastatin 20 mg tablet 10 mg PO DAILY 06/27/19 09/18/22 alendronate 70 mg tablet 70 mg PO WEEKLY 11/16/19 09/18/22 amiodarone 200 mg tablet 200 mg PO DAILY 03/08/20 09/18/22 gabapentin 300 mg capsule 300 mg PO BID 11/19/20 09/18/22 prednisone 5 mg tablet 7.5 mg PO DAILY 09/18/21 09/18/22 calcium 1,000 mg PO BID 04/10/22 09/18/22 mineral oil (Mineral Oil Light 15 applic PO DAILY 06/05/22 09/18/22 topical) Allergies Allergy/AdvReac Type Severity Reaction Status Date / Time No Known Allergies Allergy Verified 11/07/22 12:49 Review of Systems Review of Systems: All systems reviewed & are unremarkable except as noted in HPI and below PMFSH Past Medical History Medical History Bacteremia due to Pseudomonas (02/2021) Right lower extremity cellulitis source. Benign prostatic hyperplasia Chronic anticoagulation Chronic low back pain Coronary artery disease COVID-19 (06/2020) Cryptogenic cirrhosis Dyslipidemia Hypertension Ischemic cardiomyopathy Ejection fraction was 41% in October 2018. Status post ICD insertion. Obstructive sleep apnea treated with BiPAP Paroxysmal atrial fibrillation Paroxysmal atrial fibrillation and atrial flutter status post cardioversion x4. Rheumatoid arthritis Surgical History Surgical History Biventricular ICD (implantable cardioverter-defibrillator) in place [facility], implanted 07/[address] Marin History of bilateral cataract extraction History of blepharoplasty History of coronary artery bypass graft 2011, Dr. Constantino at [facility]. History of hemorrhoidectomy (05/2022) Rubber-band ligation of internal hemorrhoids. History of left knee replacement History of lumbar discectomy History of nasal septoplasty History of repair of right rotator cuff History of right knee joint replacement Family History Family History Mother Family history of malignant neoplasm of bone Family history of malignant neoplasm of breast, Onset Age: 84 Father Alcoholism Arthritis Sibling Cancer Other Family history of malignant neoplasm Social History Social History Social History: Surrogate decision maker: Nereyda Chaves, . Code status: Full code. Smoking packs per day: 1 Smoking cigarettes per day: 20.0 Years smoked: 40 Smoking pack-years: 40.00 Smoking status: Former smoker Tobacco type: cigarettes Second hand tobacco smoke exposure: No Smoking end date: 06/21/98 Alcohol intake: never Substance use: never Substance use type: does not use Lack of Transportation: No Lack of Food: Never True Current Housing: I Have Housing Concerned About Future Housing: No Difficulty Paying Gas/Electric Bills: No Difficulty Paying for Meds: YES Currently Unemployed: No Education: Trade/Vocational
[2022-11-07 14:00] VITALS: BP 118/80; PULSE 88; RESP 18; TEMP 36.7; O2SAT 97
== END 2022-11-07 14:00 | disposition home or self-care (01) ==
PROVIDERS: Emergency Provider Emergency Medicine; PCP Family Medicine
DX: S90.31XD Contusion of right foot, subsequent encounter (principal); I25.10 Atherosclerotic heart disease of native coronary artery without angina pectoris; I10 Essential (primary) hypertension; I25.5 Ischemic cardiomyopathy; I48.0 Paroxysmal atrial fibrillation; E78.5 Hyperlipidemia, unspecified; N40.0 Benign prostatic hyperplasia without lower urinary tract symptoms; M06.9 Rheumatoid arthritis, unspecified; G47.33 Obstructive sleep apnea (adult) (pediatric); Z95.810 Presence of automatic (implantable) cardiac defibrillator; Z95.1 Presence of aortocoronary bypass graft; Z96.653 Presence of artificial knee joint, bilateral; Z86.16 Personal history of COVID-19; Z87.891 Personal history of nicotine dependence; Z98.42 Cataract extraction status, left eye; Z98.41 Cataract extraction status, right eye; Z79.82 Long term (current) use of aspirin; Z79.01 Long term (current) use of anticoagulants; W20.8XXD Other cause of strike by thrown, projected or falling object, subsequent encounter
CPT/HCPCS: 73630; 99283

== ENCOUNTER 2022-12-10 14:23 | Inpatient (IN) | payer MEDICARE, SELFPAY ==
[2022-12-10] VITALS (8 sets, daily range): BP systolic 98–124; BP diastolic 49–68; PULSE 60–67; RESP 16–20; TEMP 35.7–36.6; O2SAT 95–100
--- NOTE | ~2022-12-10 | XR_ITS ---
EXAMINATION: XR chest 2V Exam Date/Time: 12/10/2022 18:05 CDT HISTORY: sob w/ exertion, dizziness Comparison: 06/20/2022. RESULT: Lines, tubes, and devices: Median sternotomy wires, the inferior wire is fractured but remains in st able position. Left chest pacer/AICD with intact leads. Lungs and pleura: Emphysematous change. Diffuse reticular opacities and cuffing. Subsegmental periph eral airspace disease in the right lateral lower lung and retrocardiac lung. Cardiomediastinal silhouette: Stable. Other: No acute osseous or upper abdominal finding. IMPRESSION: Interstitial edema. Bibasilar atelectasis/consolidation. Reviewed, dictated and finalized at location K.
[2022-12-10 14:49] LABS: Basophils Percent Auto 0.6 % (0.2-1.2); Eosinophils Percent Auto 0.6 % (0-4.4); Hematocrit 28.2 % (42.0-52.0); Hemoglobin 8.2 g/dL (14.0-18.0); Immature Granulocyte Absolute 0.03 K/mm3 (0.00-0.031); Immature Granulocyte Percent A 0.4 % (0-0.5); Immature Platelet Fraction Pct 7.3 % (0.9-11.2); Lymphocytes Percent Auto 18.2 % (18.3-44.2); Mean Corpuscular HGB Conc 29.1 g/dl (32-36); Mean Corpuscular Hemoglobin 26.7 pg (26-34); Mean Corpuscular Volume 91.9 fl (80-100); Mean Platelet Volume 11.5 fl (7.4-10.4); Monocytes Absolute Auto 0.6 K/mm3 (0.1-0.6); Neutrophils Absolute Auto 5.2 K/mm3 (1.3-6.7); Neutrophils Percent Auto 72.2 % (45.5-73.1); Platelet Count Result 153 k/mm3 (150-375); Red Blood Count 3.07 M/mm3 (4.6-6.20); White Blood Count 7.1 K/mm3 (4.5-10.0)
[2022-12-10 14:58] LABS: Alanine Aminotransferase 27 U/L (6-50); Albumin Level 3.9 g/dL (3.5-5.1); Alkaline Phosphatase 90 U/L (38-126); Anion Gap 7 mmol/L (8-16); Aspartate Amino Transferase 31 U/L (17-59); Bilirubin,Total 0.8 mg/dL (0.2-1.3); Blood Urea Nitrogen 26 mg/dL (9-20); Calcium 8.4 mg/dL (8.4-10.2); Carbon Dioxide 30 mmol/L (22-30); Chloride 100 mmol/L (98-107); Estimated CRCL calculation 70 ml/min; Estimated Glomerular Filt Rate > 60; Glucose 80 mg/dL (65-110); INR 2.1; Prothrombin Time 25.4 Seconds (11.1-14.7); Sodium 137 mmol/L (137-145)
[2022-12-10 14:59] LABS: Partial Thromboplastin Time 32.9 SECONDS (22.3-36.8)
[2022-12-10 15:02] LABS: Hypochromasia 1+ (NORMAL); Ovalocytes 1+ (NORMAL); Platelet Estimate Adequate (Adequate)
[2022-12-10 15:03] LABS: Schistocytes None Seen (NORMAL)
--- NOTE | 2022-12-10 17:19 | PC.NURSE ---
ERP in with pt to perform a rectal exam. RN in room to supervise. Blood occult appeared positive at this time.
--- NOTE | 2022-12-10 17:54 | ED.GIBLEED ---
HPI - GI Bleed General Chief complaint: GI Bleed <MILTON Moore Last Filed: 12/11/22 00:25> Stated complaint: rectal bleeding, on Eliquis <MILTON Moore Last Filed: 12/11/22 00:25> Time Seen by Provider: 12/10/22 16:55 <MILTON Moore Last Filed: 12/11/22 00:25> Source: patient and old records reviewed <MILTON Moore Last Filed: 12/11/22 00:25> Mode of arrival: ambulatory <MILTON Moore Last Filed: 12/11/22 00:25> Limitations: no limitations <MILTON Moore Last Filed: 12/11/22 00:25> History of Present Illness HPI Narrative: Patient is a 77-year-old male who presents to the ED with report of rectal bleeding. Patient reports he has had bright red blood mixed into his stool for the last 2 weeks, occurring every time he has had a bowel movement. He notes a history of a previous hemorrhoid procedure about [address] Fontana (rubber band ligation for internal hemorrhoids). Today, patient became significantly dizzy and lightheaded with standing upright, he felt weak and like he was going to fall or pass out. He then decided to come to the ED. He does report persistent dizziness in the ED bed with sitting upright. Also reports feeling increasingly short of breath with exertion over the last few weeks. He denies any abdominal pain, nausea, vomiting, headache, vision changes, chest pain. Patient has required blood transfusions in the past. He is currently on Xarelto due to history of atrial fibrillation. <MILTON Moore Last Filed: 12/11/22 00:25> Related Data Home medications: Home Medications Medication Instructions Recorded Confirmed aspirin 81 mg tablet,delayed 81 mg PO DAILY 06/12/19 12/10/22 release (Adult Low Dose Aspirin) multivitamin 1 tablet PO DAILY 06/12/19 12/10/22 simvastatin 20 mg tablet 10 mg PO HS 06/27/19 12/10/22 alendronate 70 mg tablet 70 mg PO WEEKLY 11/16/19 12/10/22 amiodarone 200 mg tablet 200 mg PO HS 03/08/20 12/10/22 gabapentin 300 mg capsule 300 mg PO BID 11/19/20 12/10/22 prednisone 5 mg tablet 7.5 mg PO DAILY 09/18/21 12/10/22 calcium 600 mg PO BID 04/10/22 12/10/22 acetaminophen 500 mg tablet 1,000 mg PO QHS 12/10/22 12/10/22 metoprolol tartrate 25 mg tablet 50 mg PO BID 12/10/22 12/10/22 mineral oil 15 ml PO DAILY 12/10/22 12/10/22 psyllium 1 packet PO DAILY 12/10/22 12/10/22 rivaroxaban 20 mg tablet (Xarelto) 20 mg PO HS 12/10/22 12/10/22 vitamin B complex 1 tablet PO DAILY 12/10/22 12/10/22 <Cony Nation PA-C - Last Filed: 12/11/22 00:25> Allergies/Adverse reactions: Allergies Allergy/AdvReac Type Severity Reaction Status Date / Time No Known Allergies Allergy Verified 11/07/22 12:49 <Cony Nation PA-C - Last Filed: 12/11/22 00:25> Review of Systems Review of Systems: CONSTITUTIONAL: Denies fever, chills, or sweats. EYES: Denies visual changes. CARDIOVASCULAR: Denies chest pain. RESPIRATORY: See HPI. GASTROINTESTINAL: See HPI. GENITOURINARY: Denies dysuria or hematuria. MUSCULOSKELETAL: Denies back pain, joint pain, or myalgia. NEUROLOGIC: See HPI. <MILTON Moore Last Filed: 12/11/22 00:25> All systems reviewed & are unremarkable except as noted in HPI and below <Cony Nation PA-C - Last Filed: 12/11/22 00:25> PMFSH Past Medical History Medical History: Medical History Bacteremia due to Pseudomonas (02/2021) Right lower extremity cellulitis source. Benign prostatic hyperplasia Chronic anticoagulation Chronic low back pain Coronary artery disease COVID-19 (06/2020) Cryptogenic cirrhosis Dyslipidemia Hypertension Ischemic cardiomyopathy Ejection fraction was 41% in October 2018. Status post ICD insertion. Obstructive sleep apnea treated with BiPAP Paroxysmal atrial fibrillation Paroxysmal atrial fibrillatio
--- NOTE | 2022-12-10 17:57 | ECG_ITS ---
Measurements Intervals [place] Rate: 61 P: -46 [place]: 221 QRS: 224 QRSD: 147 T: 57 QT: 479 QTc: 483 Interpretive Statements ELECTRONIC ATRIAL PACEMAKER ELECTRONIC VENTRICULAR PACEMAKER ABNORMAL RHYTHM ECG COMPARED TO ECG 06/16/2022 09:32:37 NO SIGNIFICANT CHANGES Electronically Signed On 12-11-2022 7:53:07 CDT by Hema Zamorano M.D.
[2022-12-10 18:55] LABS: NT Pro B Type Natriuretic Pept 1680 pg/mL (19.9-100)
[2022-12-10 20:17] LABS: Hematocrit 27.6 % (42.0-52.0); Hemoglobin 8.2 g/dL (14.0-18.0)
--- NOTE | 2022-12-10 21:39 | PM.IMHP ---
H&P: HPI History of Present Illness Date/Time: 12/10/22 22:00 Chief Complaint: Bloody stools. Narrative: This is a very pleasant 77-year-old male with history of hemorrhoids, coronary artery disease, ischemic cardiomyopathy status post ICD insertion, paroxysmal atrial fibrillation on chronic anticoagulation, hypertension, obstructive sleep apnea, cryptogenic cirrhosis, and rheumatoid arthritis who presented to the emergency department private vehicle from home for evaluation of bloody stools. Patient provides the following history. He has been passing a small amount of bright red blood mixed with his stools the last couple of weeks and he presumed the bleeding was related to hemorrhoids as this has happened to him previously and in fact he had a band ligation done about 6 months ago for his hemorrhoids per Dr. Fontana. Today he began to feel lightheaded, weak, and dizzy and not long prior to arrival he stood up to go answer the front door at which time he thought he was going to fall or lose consciousness. He has also reports dyspnea on exertion which has been ongoing for couple of years though it seems of been worse for the last week. He denies epigastric and abdominal pain, bloating, and rectal pain. On arrival to the emergency department his blood pressures were on the lower end of normal but is vital signs have otherwise been stable. Pertinent labs include a hemoglobin of 8.2 (2 g lower than what he typically runs), PT 25.4, INR 2.1, BUN 26, creatinine 1.00. He is being admitted in this setting for close monitoring and GI consultation. Review of Systems Review of Systems: Twelve systems were reviewed. No fever, chills, or sweats. No recent cold or flu symptoms. He has chronic pain related to his rheumatoid arthritis and he is on low-dose prednisone daily. He is no longer on DMARDs due to recurrent infections. He has become increasingly weak and has lost strength over the past 2 years due to a combination of factors, he believes. He gets short of breath quite easily with exertion though that seems to be worse recently. He denies significant orthopnea. He has chronic edema and it sounds as though he uses a machine for lymphedema every morning. No nausea, vomiting, or diarrhea. He denies dysuria. Except as documented, all other systems were reviewed and are negative. [facility] Past Medical History Medical History Bacteremia due to Pseudomonas (02/2021) Right lower extremity cellulitis source. Benign prostatic hyperplasia Chronic anticoagulation Chronic low back pain Coronary artery disease COVID-19 (06/2020) Cryptogenic cirrhosis Dyslipidemia Hypertension Ischemic cardiomyopathy Ejection fraction was 41% in October 2018. Status post ICD insertion. Obstructive sleep apnea treated with BiPAP Paroxysmal atrial fibrillation Paroxysmal atrial fibrillation and atrial flutter status post cardioversion x4. Rheumatoid arthritis Surgical History Surgical History Biventricular ICD (implantable cardioverter-defibrillator) in place [facility], implanted 07/[address] Marin History of bilateral cataract extraction History of blepharoplasty History of coronary artery bypass graft 2011, Dr. Constantino at [facility]. History of hemorrhoidectomy (05/2022) Rubber-band ligation of internal hemorrhoids. History of left knee replacement History of lumbar discectomy History of nasal septoplasty History of repair of right rotator cuff History of right knee joint replacement Family History Family History Mother Family history of malignant neoplasm of bone Family history of malignant neoplasm of breast, Onset Age: 84 Father Alcoholism Arthritis Sibling Cancer Other Family history of malignant neoplasm Social History Social History (Reviewed 12/10/22 @ 21:45 by Marito
--- NOTE | 2022-12-10 22:57 | ADMGEN ---
This patient, Hema Chaves Anastacia, was admitted to Medical Room 348-01. Patient/family oriented to hospital policies and general routines including ID bracelet, bed and alarms, visiting hours, pain management, procedures, bathroom and other care routines, personal items, smoking policy, room service/diet, and visiting hours. Information on how to activate the Rapid Response Team has been discussed. Patient/Family are encouraged to report perceived risks to care and to ask questions if they do not understand what they are told or what they should do.
[2022-12-11] VITALS (17 sets, daily range): BP systolic 91–118; BP diastolic 47–73; PULSE 59–76; RESP 18–20; TEMP 36.1–36.6; O2SAT 97–100
[2022-12-11 02:51] LABS: Hematocrit 23.2 % (42.0-52.0); Hemoglobin 7.1 g/dL (14.0-18.0); Mean Corpuscular HGB Conc 30.6 g/dl (32-36); Mean Corpuscular Hemoglobin 27.1 pg (26-34); Mean Corpuscular Volume 88.5 fl (80-100); Mean Platelet Volume 10.6 fl (7.4-10.4); Platelet Count Result 136 k/mm3 (150-375); Red Blood Count 2.62 M/mm3 (4.6-6.20); White Blood Count 6.3 K/mm3 (4.5-10.0)
[2022-12-11 03:01] LABS: Anion Gap 3 mmol/L (8-16); Blood Urea Nitrogen 21 mg/dL (9-20); Calcium 8.1 mg/dL (8.4-10.2); Carbon Dioxide 32 mmol/L (22-30); Chloride 103 mmol/L (98-107); Estimated CRCL calculation 77 ml/min; Estimated Glomerular Filt Rate > 60; Glucose 77 mg/dL (65-110); Magnesium 2.4 mg/dL (1.6-2.3); Potassium 3.4 mmol/L (3.4-5.0); Sodium 138 mmol/L (137-145)
[2022-12-11] MEDS: SODIUM CHLORIDE 0.9% IV 250 ML 30 ML IV CONT (03:40)
--- NOTE | 2022-12-11 07:08 | WPDGICN ---
Assessment and Plan Assessment and plan (1) GIB (gastrointestinal bleeding): Qualifiers: GI bleed type/associated pathology: unspecified gastrointestinal hemorrhage type Qualified Code(s): K92.2 - Gastrointestinal hemorrhage, unspecified Code(s): K92.2 - Gastrointestinal hemorrhage, unspecified Status: Acute Assessment and Plan: this began about 2 weeks ago. The blood is generally bright red but seem to be admixed with stool. He has had no abdominal pain. He has not had fever. 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 Plan colonoscopy will be done tomorrow morning. GI Consult Note Consult date/time: 12/11/22 07:08 HPI: Hema Chaves . is a 77 year old male who presents emergency room last night with rectal bleeding. He states that for about 2 weeks he has seen red blood in his stools. He states that this is different from the bleeding he had with hemorrhoids in the past at which time it would be difficult to wipe his pain is clear after bowel movement. This time the stool and blood seem to be mixed together. He is anticoagulated chronically on Xarelto because of atrial fibrillation. 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 He has been fatigued lately. He knows that he could lose weight but finds it difficult to move around. He has known to have cirrhosis. The etiology is cryptogenic. He denies ever having had hematemesis. He does bleed and bruise easily on his extremities. Review of Systems Review of Systems: All systems reviewed & are unremarkable except as noted in HPI and below PMFSH Past Medical History Medical History Bacteremia due to Pseudomonas (02/2021) Right lower extremity cellulitis source. Benign prostatic hyperplasia Chronic anticoagulation Chronic low back pain Coronary artery disease COVID-19 (06/2020) Cryptogenic cirrhosis Dyslipidemia Hypertension Ischemic cardiomyopathy Ejection fraction was 41% in October 2018. Status post ICD insertion. Obstructive sleep apnea treated with BiPAP Paroxysmal atrial fibrillation Paroxysmal atrial fibrillation and atrial flutter status post cardioversion x4. Rheumatoid arthritis Surgical History Surgical History Biventricular ICD (implantable cardioverter-defibrillator) in place [facility], implanted 07/[address] Marin History of bilateral cataract extraction History of blepharoplasty History of coronary artery bypass graft 2011, Dr. Constantino at [facility]. History of hemorrhoidectomy (05/2022) Rubber-band ligation of internal hemorrhoids. History of left knee replacement History of lumbar discectomy History of nasal septoplasty History of repair of right rotator cuff History of right knee joint replacement Family History Family History Mother Family history of malignant neoplasm of bone Family history of malignant neoplasm of breast, Onset Age: 84 Father Alcoholism Arthritis Sibling Cancer Other Family history of malignant neoplasm Social History Social History Social History: Surrogate decision maker: Nereyda Chaves, . Code status: Full code. Smoking packs per day: 1 Smoking cigarettes per day: 20.0 Years smoked: 40 Smoking pack-years: 40.00
[2022-12-11 07:19] LABS: Hemoglobin 8.1 g/dL (14.0-18.0)
[2022-12-11 07:30] LABS: INR 1.6; Prothrombin Time 19.9 Seconds (11.1-14.7)
[2022-12-11] MEDS: FUROSEMIDE 20 MG TABLET 60 MG PO (09:36)
[2022-12-11] MEDS: GABAPENTIN 300 MG CAPSULE PO ×2 (09:36→22:27)
[2022-12-11] MEDS: METOPROLOL TARTRATE 50 MG TAB PO ×2 (09:36→22:28)
[2022-12-11] MEDS: MULTIVITAMINS THERAPEUTIC TAB (*BKC) 1 TABLET PO (09:36)
[2022-12-11] MEDS: CALCIUM CARBONATE (OSCAL) 500 MG TABLET PO ×2 (09:36→17:31)
[2022-12-11] MEDS: POTASSIUM CHLORIDE 20 MEQ ER TABLET PO (09:38)
[2022-12-11] MEDS: PSYLLIUM POWDER PACKET 1 PACKET PO (09:38)
[2022-12-11] MEDS: predniSONE 2.5 MG TABLET 7.5 MG PO (09:38)
[2022-12-11] MEDS: VITAMIN B COMPLEX CAPSULE 1 CAP PO (09:38)
[2022-12-11] MEDS: BISACODYL 5 MG TABLET EC 10 MG PO ×3 (12:02→22:28)
[2022-12-11 14:54] LABS: Hematocrit 30.7 % (42.0-52.0)
--- NOTE | 2022-12-11 16:11 | PM.IMPN ---
Progress Note: A&P Assessment and Plan (1) GI bleed: Code(s): K92.2 - Gastrointestinal hemorrhage, unspecified Status: Acute Assessment and Plan: The patient presented to the emergency department for evaluation of bright red blood in his stool for the last couple of weeks as per HPI. He has also been feeling weak, lightheaded, and dizzy the last day or so. Presentation to the ED H&H was 8.2/28.2 Received 1 unit of PRBCs Repeat H&H trending up GI consulted and plan for colonoscopy tomorrow Xarelto on hold (2) Acute blood loss anemia: Code(s): D62 - Acute posthemorrhagic anemia Status: Acute Assessment and Plan: See above Transfuse if hemoglobin less than 7 (3) Paroxysmal atrial fibrillation: Code(s): I48.0 - Paroxysmal atrial fibrillation Status: Acute Assessment and Plan: On Xarelto. Patient rate controlled. 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 Continue to monitor. (6) Hypertension: Code(s): I10 - Essential (primary) hypertension Status: Acute Assessment and Plan: He is on amiodarone and metoprolol 50 mg b.i.d. and we will continue that with parameters and close monitoring of his blood pressures. Subjective Date/time seen: 12/11/22 16:11 Interval history: Patient doing well with no new complaints at this time. He has had chronic fatigue for several months to years. He has not noticed any more blood in his stool. Has had transfusion in the past due to hemorrhoids. He denies any dizziness, headache, nausea, vomiting, shortness of breath and chest pain. Colonoscopy scheduled for tomorrow. Objective Data Vital Signs Vital Signs: Vital Signs - 24 hr 12/10/22 17:39 12/10/22 17:41 12/10/22 17:45 Temperature Pulse Rate 60 60 67 Respiratory Rate Blood Pressure 105/65 110/68 98/49 L Pulse Oximetry Oxygen Delivery 12/10/22 19:31 12/10/22 20:56 12/10/22 22:00 Temperature 96.2 F L Pulse Rate 61 61 61 Respiratory Rate 20 20 16 Blood Pressure 115/64 98/55 L 116/57 L Pulse Oximetry 100 95 96 Oxygen Delivery 12/10/22 21:30 12/10/22 22:31 12/11/22 00:00 Temperature Pulse Rate 60 62 Respiratory Rate Blood Pressure Pulse Oximetry Oxygen Delivery Room Air 12/11/22 03:39 12/11/22 03:55 12/11/22 04:00 Temperature 97.0 F L 97.3 F L Pulse Rate 60 60 60 Respiratory Rate 20 20 Blood Pressure 97/58 L 99/52 L Pulse Oximetry 97 99 Oxygen Delivery 12/11/22 04:55 12/11/22 05:55 12/11/22 06:15 Temperature 97.6 F 97.8 F 97.0 F L Pulse Rate 60 60 60 Respiratory Rate 20 20 20 Blood Pressure 91/50 L 106/47 L 99/49 L Pulse Oximetry 97 99 99 Oxygen Delivery 12/11/22 05:55 12/11/22 09:36 12/11/22 08:00 Temperature 97.8 F Pulse Rate 60 64 61 Respiratory Rate 20 Blood Pressure 106/47 L Pulse Oximetry 99 Oxygen Delivery 12/11/22 12:00 Temperature Pulse Rate 60 Respiratory Rate Blood Pressure Pulse Oximetry Oxygen Delivery Intake/Output Intake/Output: Intake & Output 12/08/22 12/09/22 12/10/22 12/11/22 23:59 23:59 23:59 23:59 Intake Total 1070 Output Total 825 Balance 245 Meds/Results Medications: Active Medications Generic Name Dose Route Start Last Admin Trade Name Freq PRN Reason Stop Dose Admin Acetaminophen 650 mg 12/10/22 21:47 Acetaminophen 325 Mg Tablet PO Q6H PRN Mild Pain (1-3) or Fever Acetaminophen 1,000 mg 12/11/22 21:00 Acetaminophen 500 Mg Tablet PO QHS [facility] Amiodarone HCl 200 mg 12/11/22 21:00 Amiodarone Hcl 200 Mg Tablet PO [facility] Aspirin 81 mg 12/11/22 09:00
[2022-12-11] MEDS: polyethylene glycoL 3350 238 GM BOTTLE PO (17:32)
[2022-12-11] MEDS: ACETAMINOPHEN 500 MG TABLET 1000 MG PO (22:26)
[2022-12-11] MEDS: SIMVASTATIN 10 MG TABLET PO (22:28)
[2022-12-11] MEDS: AMIODARONE HCL 200 MG TABLET PO (22:28)
[2022-12-12] VITALS (19 sets, daily range): BP systolic 88–128; BP diastolic 52–69; PULSE 59–65; RESP 13–24; TEMP 35.8–36.6; O2SAT 96–100
[2022-12-12 06:24] LABS: Basophils Percent Auto 0.7 % (0.2-1.2); Eosinophils Absolute Auto 0.2 K/mm3 (0-0.3); Eosinophils Percent Auto 2.8 % (0-4.4); Hematocrit 26.8 % (42.0-52.0); Hemoglobin 7.9 g/dL (14.0-18.0); Immature Granulocyte Absolute 0.03 K/mm3 (0.00-0.031); Immature Granulocyte Percent A 0.5 % (0-0.5); Lymphocytes Absolute Auto 1.39 K/mm3 (0.9-3.2); Lymphocytes Percent Auto 24.6 % (18.3-44.2); Mean Corpuscular HGB Conc 29.5 g/dl (32-36); Mean Corpuscular Hemoglobin 26.2 pg (26-34); Mean Corpuscular Volume 88.7 fl (80-100); Monocytes Absolute Auto 0.6 K/mm3 (0.1-0.6); Monocytes Percent Auto 9.9 % (2.6-8.5); Neutrophils Absolute Auto 3.5 K/mm3 (1.3-6.7); Neutrophils Percent Auto 61.5 % (45.5-73.1); Platelet Count Result 141 k/mm3 (150-375); Red Blood Count 3.02 M/mm3 (4.6-6.20); Red Cell Distribution Width 17.8 % (11.5-14.5); White Blood Count 5.7 K/mm3 (4.5-10.0)
[2022-12-12 06:38] LABS: Alanine Aminotransferase 23 U/L (6-50); Albumin Level 3.4 g/dL (3.5-5.1); Alkaline Phosphatase 71 U/L (38-126); Anion Gap 3 mmol/L (8-16); Aspartate Amino Transferase 28 U/L (17-59); Blood Urea Nitrogen 13 mg/dL (9-20); Calcium 8.1 mg/dL (8.4-10.2); Carbon Dioxide 30 mmol/L (22-30); Chloride 106 mmol/L (98-107); Estimated CRCL calculation 78 ml/min; Estimated Glomerular Filt Rate > 60; Glucose 83 mg/dL (65-110); Potassium 3.5 mmol/L (3.4-5.0); Sodium 139 mmol/L (137-145)
--- NOTE | 2022-12-12 07:24 | P.PNAN_ITS ---
Anes - Eval Final PreProcedure Day of Procedure 12/12/22 07:24 Patient weight: obese Heart: irregular rhythm Lungs: decreased breath sounds Airway: Mallampati scale class II ASA classification: IV Anesthetic plan: proceed Anesthesia type and monitoring: general GIVS Results Review: All pre-operative results and documents have been reviewed as part of the pre- operative evaluation. Informed Consent: The patient's anesthetic plan and its attendant risks and benefits were discussed with the patient/family/POA. Questions were solicited and answers provided to the satisfaction of the patient/family/POA.
--- NOTE | 2022-12-12 07:25 | WPDANESEPP ---
Anes - Eval Pre Procedure Procedure: Operation Date: 12/12/22 07:30 Proposed Procedures p Colonoscopy - Blake Byrnes MD Date/Time: 12/12/22 07:25 Surgeon: Fitz Preop Diagnosis: anemia Pre Op Diagnosis: Acute GIB,Symptomatic Anemia,Chronic Anticoagulati Patient Data Age: 77 Gender: M Height: 1.73 m Weight: 115.5 kg Last Vital Signs Temp 96.4 F L 12/12/22 06:00 Pulse 60 12/12/22 07:22 Resp 18 12/12/22 07:22 BP 121/69 12/12/22 07:22 Pulse Ox 98 12/12/22 07:22 O2 Del Method Room Air 12/12/22 07:22 Allergies Allergy/AdvReac Type Severity Reaction Status Date / Time No Known Allergies Allergy Verified 11/07/22 12:49 Home Medications Medication Instructions Recorded Confirmed Type aspirin 81 mg tablet,delayed 81 mg PO DAILY 06/12/19 12/10/22 History release (Adult Low Dose Aspirin) multivitamin 1 tablet PO DAILY 06/12/19 12/10/22 History simvastatin 20 mg tablet 10 mg PO HS 06/27/19 12/10/22 History alendronate 70 mg tablet 70 mg PO WEEKLY 11/16/19 12/10/22 History amiodarone 200 mg tablet 200 mg PO HS 03/08/20 12/10/22 History gabapentin 300 mg capsule 300 mg PO BID 11/19/20 12/10/22 History prednisone 5 mg tablet 7.5 mg PO DAILY 09/18/21 12/10/22 History calcium 600 mg PO BID 04/10/22 12/10/22 History potassium chloride 20 mEq 20 meq PO DAILY #90 tabs 07/08/22 12/10/22 Rx tablet,extended release furosemide 40 mg tablet 60 mg PO DAILY #90 tabs 09/15/22 12/10/22 Rx acetaminophen 500 mg tablet 1,000 mg PO QHS 12/10/22 12/10/22 History metoprolol tartrate 25 mg tablet 50 mg PO BID 12/10/22 12/10/22 History mineral oil 15 ml PO DAILY 12/10/22 12/10/22 History psyllium 1 packet PO DAILY 12/10/22 12/10/22 History rivaroxaban 20 mg tablet (Xarelto) 20 mg PO HS 12/10/22 12/10/22 History vitamin B complex 1 tablet PO DAILY 12/10/22 12/10/22 History Laboratory Tests 12/11/22 12/11/22 12/12/22 07:14 14:32 06:09 WBC 5.7 K/mm3 (4.5-10.0) RBC 3.02 L M/mm3 (4.6-6.20) Hgb 8.1 L g/dL 9.0 L g/dL 7.9 L g/dL (14.0-18.0) (14.0-18.0) (14.0-18.0) Hct 27.0 L % 30.7 L % 26.8 L % (42.0-52.0) (42.0-52.0) (42.0-52.0) MCV 88.7 fl (80-100) MCH 26.2 pg (26-34) MCHC 29.5 L g/dl (32-36) RDW 17.8 H % (11.5-14.5) Plt Count 141 L k/mm3 (150-375) MPV 11.0 H fl (7.4-10.4) Immature Gran % (Auto) 0.5 % (0-0.5) Neut % (Auto) 61.5 % (45.5-73.1) Lymph % (Auto) 24.6 % (18.3-44.2) Lander % (Auto) 9.9 H % (2.6-8.5) Eos % (Auto) 2.8 % (0-4.4) Baso % (Auto) 0.7 % (0.2-1.2) Lymph # (Auto) 1.39 K/mm3 (0.9-3.2) Lander # (Auto) 0.6 K/mm3 (0.1-0.6) Eos # (Auto) 0.2 K/mm3 (0-0.3) Baso # (Auto) 0.0 K/mm3 (0.0-0.1) Abs Immat Gran (auto) 0.03 K/mm3 (0.00-0.031) Absolute Neuts (auto) 3.5 K/mm3 (1.3-6.7) Absolute Nucleated RBC 0.0 K/mm3 (0.0-0.012) Nucleated RBC % 0.0 % (0.0-0.2) PT 19.9 H D Seconds (11.1-14.7) INR 1.6 Sodium 139 mmol/L (137-145) Potassium 3.5 mmol/L (3.4-5.0) Chloride 106 mmol/L (98-107) Carbon Dioxide 30 mmol/L (22-30) Anion Gap 3 L mmol/L (8-16) BUN 13 D mg/dL (9-20) Creatinine 0.90 mg/dL (0.7-1.3) Estim Creat Clear Calc 78 ml/min Estimated GFR > 60 (59 - ) Glucose 83 mg/dL (65-110) Calcium 8.1 L mg/dL (8.4-10.2) Total Bilirubin 1.0 mg/dL (0.2-1.3) AST 28 U/L (17-59) ALT 23 U/L (6-50) Alkaline Phosphatase 71 U/L (38-126) Total Protein 7.0 g/dL (6.3-8.2) Albumin 3.4 L g/dL (3.5-5.1) Patient hx anesthesia problems: none Family hx anesthesia problems: none Results Review: All pre-operative result
[2022-12-12] MEDS: LACTATED RINGERS 1,000 ML 150 ML IV CONT (07:27)
--- NOTE | 2022-12-12 07:30 | P.PNAN_ITS ---
Anes - Eval Final PreProcedure Day of Procedure 12/12/22 07:30 Patient weight: obese Heart: regular rate and rhythm (paced) Lungs: clear to auscultation Airway: Mallampati scale class II Neurological: alert and oriented Last oral intake: >/= 8 hours ASA classification: IV Emergent: no Anesthetic plan: proceed Anesthesia type and monitoring: general GIVS and standard monitoring Results Review: All pre-operative results and documents have been reviewed as part of the pre- operative evaluation. Informed Consent: The patient's anesthetic plan and its attendant risks and benefits were discussed with the patient/family/POA. Questions were solicited and answers provided to the satisfaction of the patient/family/POA.
[2022-12-12] MEDS: GABAPENTIN 300 MG CAPSULE PO ×2 (08:38→22:13)
[2022-12-12] MEDS: METOPROLOL TARTRATE 50 MG TAB PO (08:38)
[2022-12-12] MEDS: FUROSEMIDE 20 MG TABLET 60 MG PO (08:38)
[2022-12-12] MEDS: CALCIUM CARBONATE (OSCAL) 500 MG TABLET PO ×2 (08:38→16:14)
[2022-12-12] MEDS: POTASSIUM CHLORIDE 20 MEQ ER TABLET PO (08:40)
[2022-12-12] MEDS: MULTIVITAMINS THERAPEUTIC TAB (*BKC) 1 TABLET PO (08:40)
[2022-12-12] MEDS: predniSONE 2.5 MG TABLET 7.5 MG PO (08:40)
[2022-12-12] MEDS: VITAMIN B COMPLEX CAPSULE 1 CAP PO (08:40)
--- NOTE | 2022-12-12 15:21 | PM.IMPN ---
Progress Note: A&P Assessment and Plan (1) GI bleed: Code(s): K92.2 - Gastrointestinal hemorrhage, unspecified Status: Acute Assessment and Plan: The patient presented to the emergency department for evaluation of bright red blood in his stool for the last couple of weeks as per HPI. He has also been feeling weak, lightheaded, and dizzy the last day or so. Presentation to the ED H&H was 8.2/28.2 Received 1 unit of PRBCs Repeat H&H trending up Colonoscopy revealed diverticulosis. No further workup needed for now. Xarelto on hold (2) Acute blood loss anemia: Code(s): D62 - Acute posthemorrhagic anemia Status: Acute Assessment and Plan: See above Transfuse if hemoglobin less than 7 (3) Diverticulosis: Code(s): K57.90 - Diverticulosis of intestine, part unspecified, without perforation or abscess without bleeding Status: Acute Assessment and Plan: see above. (4) Paroxysmal atrial fibrillation: Code(s): I48.0 - Paroxysmal atrial fibrillation Status: Acute Assessment and Plan: Xarelto on hold. Patient rate controlled. 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 Continue to monitor. (7) Hypertension: Code(s): I10 - Essential (primary) hypertension Status: Acute Assessment and Plan: He is on amiodarone and metoprolol 50 mg b.i.d. and we will continue that with parameters and close monitoring of his blood pressures. Subjective Date/time seen: 12/12/22 15:21 Interval history: Patient doing well today. His H&H has remained stable but still lower than his baseline. Plan is to get patient up and walking around to assess if he will having any symptoms of dizziness, shortness of breath, etc. Repeat H&H in the am. Possible discharge tomorrow. Review of Systems Review of Systems: All systems reviewed & are unremarkable except as noted in HPI and below Exam Narrative: GENERAL: Comfortable, no acute distress HENMT: moist mucous membranes EYES: EOM intact b/l NECK: no lymphadenopathy RESPIRATORY: clear to auscultation CARDIO: RRR GI: soft, nontender, bowel sounds present SKIN: no rashes EXTREMITIES: no edema, redness or tenderness Objective Data Vital Signs Vital Signs: Vital Signs - 24 hr 12/11/22 16:00 12/11/22 22:28 12/11/22 22:28 Temperature Pulse Rate 60 60 60 Respiratory Rate Blood Pressure Pulse Oximetry Oxygen Delivery 12/11/22 20:00 12/11/22 20:00 12/12/22 00:00 Temperature Pulse Rate 60 60 Respiratory Rate Blood Pressure Pulse Oximetry Oxygen Delivery Room Air 12/11/22 22:00 12/11/22 22:00 12/11/22 22:05 Temperature 97.3 F L Pulse Rate 59 L 76 Respiratory Rate 18 Blood Pressure 106/58 L 114/61 Pulse Oximetry 98 99 Oxygen Delivery 12/11/22 22:10 12/12/22 04:00 12/12/22 06:00 Temperature 96.4 F L Pulse Rate 67 60 60 Respiratory Rate 16 Blood Pressure 103/50 L 128/64 Pulse Oximetry 97 99 Oxygen Delivery 12/12/22 07:22 12/12/22 07:49 12/12/22 07:59 Temperature Pulse Rate 60 61 60 Respiratory Rate 18 20 24 H Blood Pressure 121/69 88/57 L 97/58 L Pulse Oximetry 98 100 100 Oxygen Delivery Room Air Room Air Room Air 12/12/22 08:09 12/12/22 08:00 12/12/22 08:38 Temperature Pulse Rate 60 60 60 Respiratory Rate 18 16 Blood Pressure 108/60 120/62 Pulse Oximetry 99 100 Oxygen Delivery Room Air 12/12/22 08:47 12/12/22 12:00 12/12/22 14:00 Temperature 97.8 F Pulse Rate 60 60 Respiratory Rate 16 Blood Pressure 100/52 L Pulse Oximetry 99 99 Oxygen Deli
[2022-12-12 15:49] LABS: Hematocrit 26.6 % (42.0-52.0); Hemoglobin 7.9 g/dL (14.0-18.0)
[2022-12-12] MEDS: AMIODARONE HCL 200 MG TABLET PO (22:12)
[2022-12-12] MEDS: ACETAMINOPHEN 500 MG TABLET 1000 MG PO (22:13)
[2022-12-12] MEDS: SIMVASTATIN 10 MG TABLET PO (22:13)
[2022-12-13] VITALS (17 sets, daily range): BP systolic 94–110; BP diastolic 42–62; PULSE 59–71; RESP 12–16; TEMP 32.8–36.5; O2SAT 94–99
[2022-12-13 06:29] LABS: Hematocrit 24.6 % (42.0-52.0); Hemoglobin 7.3 g/dL (14.0-18.0); Mean Corpuscular HGB Conc 29.7 g/dl (32-36); Mean Corpuscular Hemoglobin 26.5 pg (26-34); Mean Corpuscular Volume 89.5 fl (80-100); Mean Platelet Volume 10.3 fl (7.4-10.4); Platelet Count Result 148 k/mm3 (150-375); Red Blood Count 2.75 M/mm3 (4.6-6.20); Red Cell Distribution Width 17.9 % (11.5-14.5); White Blood Count 5.9 K/mm3 (4.5-10.0)
[2022-12-13] MEDS: MULTIVITAMINS THERAPEUTIC TAB (*BKC) 1 TABLET PO (08:07)
[2022-12-13] MEDS: CALCIUM CARBONATE (OSCAL) 500 MG TABLET PO ×2 (08:07→17:27)
[2022-12-13] MEDS: GABAPENTIN 300 MG CAPSULE PO ×2 (08:07→21:52)
[2022-12-13] MEDS: PSYLLIUM POWDER PACKET 1 PACKET PO (08:08)
[2022-12-13] MEDS: FUROSEMIDE 20 MG TABLET 60 MG PO (08:08)
[2022-12-13] MEDS: predniSONE 2.5 MG TABLET 7.5 MG PO (08:08)
[2022-12-13] MEDS: VITAMIN B COMPLEX CAPSULE 1 CAP PO (08:08)
[2022-12-13] MEDS: METOPROLOL TARTRATE 50 MG TAB PO (08:08)
[2022-12-13] MEDS: POTASSIUM CHLORIDE 20 MEQ ER TABLET PO (08:08)
[2022-12-13 12:07] LABS: Hematocrit 24.5 % (42.0-52.0); Hemoglobin 7.4 g/dL (14.0-18.0)
[2022-12-13] MEDS: SODIUM CHLORIDE 0.9% IV 500 ML IV CONT (12:36)
--- NOTE | 2022-12-13 13:48 | PM.IMPN ---
Progress Note: A&P Assessment and Plan (1) GI bleed: Code(s): K92.2 - Gastrointestinal hemorrhage, unspecified Status: Acute Assessment and Plan: The patient presented to the emergency department for evaluation of bright red blood in his stool for the last couple of weeks as per HPI. He has also been feeling weak, lightheaded, and dizzy the last day or so. Presentation to the ED H&H was 8.2/28.2 Received 1 unit of PRBCs Repeat H&H trending up Colonoscopy revealed diverticulosis. No further workup needed for now. Xarelto on hold (2) Acute blood loss anemia: Code(s): D62 - Acute posthemorrhagic anemia Status: Acute Assessment and Plan: See above Transfuse if hemoglobin less than 7 (3) Diverticulosis: Code(s): K57.90 - Diverticulosis of intestine, part unspecified, without perforation or abscess without bleeding Status: Acute Assessment and Plan: see above. (4) Paroxysmal atrial fibrillation: Code(s): I48.0 - Paroxysmal atrial fibrillation Status: Acute Assessment and Plan: Xarelto on hold. Patient rate controlled. 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 Continue to monitor. (7) Hypertension: Code(s): I10 - Essential (primary) hypertension Status: Acute Assessment and Plan: He is on amiodarone and metoprolol 50 mg b.i.d. and we will continue that with parameters and close monitoring of his blood pressures. Subjective Date/time seen: 12/13/22 13:48 Interval history: Pt doing well. No symptoms today. Got up and walked without any dizziness and shortness of breath. Continue to monitor H&H. BP continues to be low. Will monitor for signs of bleeding. Review of Systems Review of Systems: All systems reviewed & are unremarkable except as noted in HPI and below Exam Narrative: GENERAL: Comfortable, no acute distress HENMT: moist mucous membranes EYES: EOM intact b/l NECK: no lymphadenopathy RESPIRATORY: clear to auscultation CARDIO: RRR GI: soft, nontender, bowel sounds present SKIN: no rashes EXTREMITIES: no edema, redness or tenderness Objective Data Vital Signs Vital Signs: Vital Signs - 24 hr 12/12/22 14:00 12/12/22 16:00 12/12/22 21:09 Temperature 97.8 F Pulse Rate 60 60 Respiratory Rate 16 Blood Pressure 100/52 L 120/62 Pulse Oximetry 99 Oxygen Delivery 12/12/22 20:00 12/12/22 21:24 12/12/22 21:24 Temperature 97.6 F Pulse Rate 60 65 59 L Respiratory Rate 14 Blood Pressure 120/62 109/53 L 108/58 L Pulse Oximetry 96 98 99 Oxygen Delivery 12/12/22 20:00 12/12/22 20:00 12/12/22 21:41 Temperature 97.6 F Pulse Rate 60 60 Respiratory Rate 13 Blood Pressure 120/62 Pulse Oximetry 96 Oxygen Delivery Room Air 12/12/22 22:12 12/12/22 22:16 12/13/22 00:00 Temperature Pulse Rate 60 60 62 Respiratory Rate Blood Pressure Pulse Oximetry Oxygen Delivery 12/13/22 04:00 12/13/22 06:00 12/13/22 08:08 Temperature 97.5 F L Pulse Rate 60 60 59 L Respiratory Rate 13 Blood Pressure Pulse Oximetry 99 Oxygen Delivery 12/13/22 08:12 12/13/22 08:00 12/13/22 08:00 Temperature 97.0 F L Pulse Rate 59 L 60 Respiratory Rate 16 Blood Pressure 103/57 L Pulse Oximetry 97 Oxygen Delivery Room Air 12/13/22 09:45 12/13/22 10:15 12/13/22 10:16 Temperature 91.1 F L 97.1 F L 97.1 F L Pulse Rate 60 60 67 Respiratory Rate 12 12 12 Blood Pressure 100/44 L 96/42 L 99/49 L Pulse Oximetry 97 97 98 Oxygen Delivery 12/13/22 12:00 Temperature Pulse Rate 71 Respir
[2022-12-13 19:01] LABS: Hematocrit 25.2 % (42.0-52.0); Hemoglobin 7.5 g/dL (14.0-18.0); Mean Corpuscular HGB Conc 29.8 g/dl (32-36); Mean Corpuscular Hemoglobin 26.9 pg (26-34); Mean Corpuscular Volume 90.3 fl (80-100); Mean Platelet Volume 11.4 fl (7.4-10.4); Platelet Count Result 153 k/mm3 (150-375); Red Blood Count 2.79 M/mm3 (4.6-6.20); Red Cell Distribution Width 17.6 % (11.5-14.5); White Blood Count 6.1 K/mm3 (4.5-10.0)
[2022-12-13] MEDS: ACETAMINOPHEN 500 MG TABLET 1000 MG PO (21:51)
[2022-12-13] MEDS: AMIODARONE HCL 200 MG TABLET PO (21:51)
[2022-12-13] MEDS: SIMVASTATIN 10 MG TABLET PO (21:52)
[2022-12-14] VITALS (10 sets, daily range): BP systolic 104–113; BP diastolic 51–58; PULSE 59–62; RESP 14; TEMP 36.2; O2SAT 99
[2022-12-14 05:41] LABS: Hematocrit 24.8 % (42.0-52.0); Hemoglobin 7.3 g/dL (14.0-18.0); Mean Corpuscular HGB Conc 29.4 g/dl (32-36); Mean Corpuscular Hemoglobin 26.4 pg (26-34); Mean Corpuscular Volume 89.5 fl (80-100); Mean Platelet Volume 10.7 fl (7.4-10.4); Platelet Count Result 153 k/mm3 (150-375); Red Blood Count 2.77 M/mm3 (4.6-6.20); Red Cell Distribution Width 17.7 % (11.5-14.5); White Blood Count 6.8 K/mm3 (4.5-10.0)
[2022-12-14] MEDS: FUROSEMIDE 20 MG TABLET 60 MG PO (09:24)
[2022-12-14] MEDS: CALCIUM CARBONATE (OSCAL) 500 MG TABLET PO (09:24)
[2022-12-14] MEDS: GABAPENTIN 300 MG CAPSULE PO (09:24)
[2022-12-14] MEDS: METOPROLOL TARTRATE 50 MG TAB PO (09:24)
[2022-12-14] MEDS: POTASSIUM CHLORIDE 20 MEQ ER TABLET PO (09:25)
[2022-12-14] MEDS: MULTIVITAMINS THERAPEUTIC TAB (*BKC) 1 TABLET PO (09:25)
[2022-12-14] MEDS: VITAMIN B COMPLEX CAPSULE 1 CAP PO (09:25)
[2022-12-14] MEDS: predniSONE 2.5 MG TABLET 7.5 MG PO (09:25)
[2022-12-14] MEDS: PSYLLIUM POWDER PACKET 1 PACKET PO (09:25)
--- NOTE | 2022-12-14 10:57 | PM.DS ---
DS: Admitting Diagnosis Discharge Date 12/13/22 Admitting Diagnosis GI bleed DS: Discharge Diagnosis Discharge Diagnosis (1) GI bleed: Code(s): K92.2 - Gastrointestinal hemorrhage, unspecified Status: Acute Assessment and Plan: The patient presented to the emergency department for evaluation of bright red blood in his stool for the last couple of weeks as per HPI. He has also been feeling weak, lightheaded, and dizzy the last day or so. Presentation to the ED H&H was 8.2/28.2 Received 1 unit of PRBCs Repeat H&H trending up Colonoscopy revealed diverticulosis. No further workup needed for now. Xarelto on hold (2) Acute blood loss anemia: Code(s): D62 - Acute posthemorrhagic anemia Status: Acute Assessment and Plan: See above Transfuse if hemoglobin less than 7 (3) Diverticulosis: Code(s): K57.90 - Diverticulosis of intestine, part unspecified, without perforation or abscess without bleeding Status: Acute Assessment and Plan: see above. (4) Paroxysmal atrial fibrillation: Code(s): I48.0 - Paroxysmal atrial fibrillation Status: Acute Assessment and Plan: Xarelto on hold. Patient rate controlled. 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 Continue to monitor. (7) Hypertension: Code(s): I10 - Essential (primary) hypertension Status: Acute Assessment and Plan: He is on amiodarone and metoprolol 50 mg b.i.d. and we will continue that with parameters and close monitoring of his blood pressures. DS: Summary Hospital Course Hospital Course: This is a 77-year-old male with past medical history of hemorrhoids, coronary disease, ischemic cardiomyopathy status post ICD insertion Time Spent with Patient Time attestation: Total time spent providing and/or coordinating discharge services: DS: Data Data Completed and Pending Labs on day of discharge: Labs from last 24 hours 12/14/22 12/13/22 12/13/22 05:34 18:36 12:01 WBC 6.8 6.1 RBC 2.77 L 2.79 L Hgb 7.3 L 7.5 L 7.4 L Hct 24.8 L 25.2 L 24.5 L MCV 89.5 90.3 MCH 26.4 26.9 MCHC 29.4 L 29.8 L RDW 17.7 H 17.6 H Plt Count 153 153 MPV 10.7 H 11.4 H Discharge Plan Discharge Attending physician on discharge: Aidan Medeiros Consulting providers: Cony Nation; Blake Byrnes Discharging Clinician: Rajni Rucker Patient Disposition: Home, Self-Care Activity: as tolerated Diet: regular Discharge Instructions: Discharge disposition: Take medications as prescribed Do not sit on commode or strain for too long. Advise iron supplementation as an outpatient. To help with constipation can take Kathie Lax or Colace tablet as needed. Please take Vitamin C with iron supplement Do not take Iron supplement with milk Monitor blood pressures Avoid social areas, you wear a mask when in social settings Encouraged to continue with yearly vaccinations Return to the emergency department if he developed sudden shortness of breath, chest pain, dizziness, loss of consciousness, nausea, vomiting, upset stomach or intractable diarrhea Return to the emergency department if you develop fever greater than 100.4 Outpatient labs ordered and advise repeat labs in 1 week. Can follow up with PCP or GI reguarding lab results. Please follow-up with GI as an outpatient. Contact information attached. Follow-up with the primary care physician within 1-2 weeks Anticoagulation Medication: Please take medication as prescribed Do not stop medication before talking to your doctor Bleeding risk is inc
--- NOTE | 2022-12-14 11:07 | PM.DS ---
DS: Admitting Diagnosis Discharge Date 12/12/22 Admitting Diagnosis GI bleed DS: Discharge Diagnosis Discharge Diagnosis (1) GI bleed: Code(s): K92.2 - Gastrointestinal hemorrhage, unspecified Status: Acute Assessment and Plan: The patient presented to the emergency department for evaluation of bright red blood in his stool for the last couple of weeks as per HPI. He has also been feeling weak, lightheaded, and dizzy the last day or so. Presentation to the ED H&H was 8.2/28.2 Received 1 unit of PRBCs Repeat H&H trending up Colonoscopy revealed diverticulosis. No further workup needed for now. Xarelto on hold (2) Acute blood loss anemia: Code(s): D62 - Acute posthemorrhagic anemia Status: Acute Assessment and Plan: See above Transfuse if hemoglobin less than 7 (3) Paroxysmal atrial fibrillation: Code(s): I48.0 - Paroxysmal atrial fibrillation Status: Acute Assessment and Plan: Xarelto on hold. Patient rate controlled. 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 Continue to monitor. (6) Hypertension: Code(s): I10 - Essential (primary) hypertension Status: Acute Assessment and Plan: He is on amiodarone and metoprolol 50 mg b.i.d. and we will continue that with parameters and close monitoring of his blood pressures. DS: Summary Hospital Course Hospital Course: 77-year-old male with past medical history of hemorrhoids, CAD, ischemic cardiomyopathy post ICD insertion, AFib on Xarelto, hypertension, DESTINY, cryptogenic cirrhosis, and RA the present to the ED on 12/10/2022 due to having bloody stools. Patient has had transfusions in the past due to his hemorrhoids. He had ligation band done approximately 6 months ago due to the hemorrhoids. Patient had symptoms of feeling lightheaded, weak and dizzy. He did not have any dyspnea, abdominal pain, bloating or rectal pain. He is found have a hemoglobin hematocrit of 8.2/28.2. Repeat hemoglobin hematocrit was 7.1/23.2 and he was given 1 unit of PRBCs. GI was consulted. Patient underwent colonoscopy on 12/12/2022 and diverticulosis was discovered and likely the source of patient's GI bleed. Patient's hemoglobin hematocrit dropped after colonoscopy was performed and was monitored for another 2 days. It remained stable in the mid sevens. Blood pressure was also low and he was given bolus that helped raise his blood pressure. GI has cleared him for discharge. On the day of discharge his labs and vital signs have remained stable and he is medically cleared to go home. Time Spent with Patient Time attestation: Total time spent providing and/or coordinating discharge services: Exam Narrative: GENERAL: Comfortable, no acute distress HENMT: moist mucous membranes EYES: EOM intact b/l NECK: no lymphadenopathy RESPIRATORY: clear to auscultation CARDIO: RRR GI: soft, nontender, bowel sounds present SKIN: no rashes EXTREMITIES: no edema, redness or tenderness DS: Data Data Completed and Pending Labs on day of discharge: Labs from last 24 hours 12/12/22 12/12/22 12/11/22 12:00 06:09 14:32 WBC 5.7 RBC 3.02 L Hgb 8.0 L 7.9 L 9.0 L Hct 27.0 L 26.8 L 30.7 L MCV 88.7 MCH 26.2 MCHC 29.5 L RDW 17.8 H Plt Count 141 L MPV 11.0 H Immature Gran % (Auto) 0.5 Neut % (Auto) 61.5 Lymph % (Auto) 24.6 [place] % (Auto) 9.9 H Eos % (Auto) 2.8 Baso % (Auto) 0.7 Lymph # (Auto) 1.39 [place] # (Auto) 0.6 Eos # (Auto) 0.2 Baso # (Auto) 0.0 Abs Immat Gran (auto) 0.03 Absolute Neuts (auto) 3.5 Absolute Nuclea
== END 2022-12-14 12:20 | disposition home or self-care (01) | DRG 378 ==
LOC: ANHED 17:05 → ANH3MED 20:36
PROVIDERS: Emergency Medicine; Internal Medicine Gastroenterology; Physician Assistant; Admitting Provider Hospitalist; Emergency Provider Physician Assistant; PCP Family Medicine; Visit Provider Internal Medicine Critical Care Medicine
PROC: 0DJD8ZZ Inspection of Lower Intestinal Tract, Via Natural or Artificial Opening Endoscopic (ICD-10-PCS; CPT 45378; principal; 2022-12-12 07:30)
DX: K57.31 Diverticulosis of large intestine without perforation or abscess with bleeding (principal); D62 Acute posthemorrhagic anemia; I50.83 High output heart failure; I48.0 Paroxysmal atrial fibrillation; I25.10 Atherosclerotic heart disease of native coronary artery without angina pectoris; I10 Essential (primary) hypertension; I25.5 Ischemic cardiomyopathy; E78.5 Hyperlipidemia, unspecified; K64.8 Other hemorrhoids; K74.69 Other cirrhosis of liver; N40.0 Benign prostatic hyperplasia without lower urinary tract symptoms; G47.33 Obstructive sleep apnea (adult) (pediatric); M06.9 Rheumatoid arthritis, unspecified; R60.9 Edema, unspecified; Z96.651 Presence of right artificial knee joint; Z79.01 Long term (current) use of anticoagulants; Z79.82 Long term (current) use of aspirin; Z95.1 Presence of aortocoronary bypass graft; Z87.891 Personal history of nicotine dependence
CPT/HCPCS: 36415; 36430; 71046; 80048; 80053; 83735; 83880; 85014; 85018; 85025; 85027; 85055; 85610; 85730; 86850; 86900; 86901; 86923; 93005; 99285; A9270; G0378; J2704; J7040; J7050; J7120; P9016